=== PATIENT | male | born 1960 | race Caucasian/White ===

== ENCOUNTER → 2019-11-28 08:25 | Outpatient (BNVA) | payer OTHER, SELFPAY | PROVIDERS: PCP Family Medicine; Referring Provider Family Medicine; Visit Provider Internal Medicine | DX: I26.99 Other pulmonary embolism without acute cor pulmonale (principal); Z51.81 Encounter for therapeutic drug level monitoring; Z79.01 Long term (current) use of anticoagulants | CPT/HCPCS: 93793 ==

== ENCOUNTER → 2019-12-29 10:01 | Outpatient (BNVA) | payer OTHER, SELFPAY | PROVIDERS: PCP Family Medicine; Visit Provider Internal Medicine | DX: Z76.89 Persons encountering health services in other specified circumstances (principal) ==

== ENCOUNTER → 2020-01-16 14:46 | Outpatient (BNVA) | payer MEDICARE, SELFPAY | PROVIDERS: PCP Family Medicine; Visit Provider Internal Medicine | DX: I26.99 Other pulmonary embolism without acute cor pulmonale (principal); Z51.81 Encounter for therapeutic drug level monitoring; Z79.01 Long term (current) use of anticoagulants | CPT/HCPCS: Q3014 ==

== ENCOUNTER → 2020-01-23 14:05 | Outpatient (BNVA) | payer OTHER, SELFPAY | PROVIDERS: PCP Family Medicine; Referring Provider Family Medicine; Visit Provider Internal Medicine | DX: Z76.89 Persons encountering health services in other specified circumstances (principal) ==

== ENCOUNTER → 2020-01-24 07:54 | Outpatient (BNV) | payer OTHER, SELFPAY | PROVIDERS: PCP Family Medicine; Visit Provider Internal Medicine Medical Oncology | DX: Z86.711 Personal history of pulmonary embolism (principal); Z86.718 Personal history of other venous thrombosis and embolism | CPT/HCPCS: 99213; 99214 ==

== ENCOUNTER 2020-02-02 11:10 | Outpatient (REF) | payer OTHER, SELFPAY | END 2020-02-02 11:11 | disposition home or self-care (01) | LOC: HO.WFDLDS 11:10 | PROVIDERS: PCP Family Medicine; Visit Provider Internal Medicine | DX: Z20.828 Contact with and (suspected) exposure to other viral communicable diseases (principal) | CPT/HCPCS: C9803; U0003 ==

== ENCOUNTER → 2020-02-09 13:19 | Outpatient (BNVA) | payer OTHER, SELFPAY | PROVIDERS: PCP Family Medicine; Visit Provider Internal Medicine | DX: I26.99 Other pulmonary embolism without acute cor pulmonale (principal); Z51.81 Encounter for therapeutic drug level monitoring; Z79.01 Long term (current) use of anticoagulants | CPT/HCPCS: Q3014 ==

== ENCOUNTER → 2020-02-20 16:44 | Outpatient (BNVA) | payer OTHER, SELFPAY | PROVIDERS: PCP Family Medicine; Visit Provider Internal Medicine | DX: I26.99 Other pulmonary embolism without acute cor pulmonale (principal); Z51.81 Encounter for therapeutic drug level monitoring; Z79.01 Long term (current) use of anticoagulants | CPT/HCPCS: Q3014 ==

== ENCOUNTER 2020-02-21 04:11 | Emergency (ER) | payer OTHER, SELFPAY ==
[2020-02-21 04:19] VITALS: BP 142/78; PULSE 69; RESP 18; TEMP 36.6; O2SAT 95; BMI 36.9
[2020-02-21 04:32] LABS: Glucose Urine UA NEG (NEG); Leukocyte Esterase Urine NEG (NEG); Nitrite Urine NEG (NEG); Urine Blood 3+ (NEG); Urine Ketones NEG (NEG); Urine Protein 2+ MG/DL (NEG-TRACE)
--- NOTE | 2020-02-21 04:33 | PC.NURSE ---
20G TO RIGHT AC. PT FERNANDO WELL NO COMPLICATIONS
[2020-02-21 04:37] LABS: Appearance Urine CLOUDY; Color Urine RED
[2020-02-21 04:43] LABS: RBC Urine TNTC /HPF (0); Squamous Epithelial Cell Urine TRACE /LPF; WBC Urine 0 /HPF (0-4)
[2020-02-21 05:40] LABS: Basophils Percent Auto 0.4 % (0-2); Eosinophils Absolute Auto 0.2 X10*3/uL (0.0-0.4); Eosinophils Percent Auto 2.8 % (0-4); Hematocrit 46.5 % (42-52); Hemoglobin 14.9 g/dl (14.0-18.0); Imm Gran Abs Auto 0.03 X10*3/uL (0.00-0.03); Imm Gran Pct Auto 0.4 % (0.0-0.4); Lymphocytes Absolute Auto 2.8 X10*3/uL (1.2-4.9); Lymphocytes Percent Auto 41.4 % (20-40); MANUAL DIFF FLAG NO; Mean Corpuscular Volume 93.6 fL (80-98); Mean Platelet Volume 10.2 fL (9.4-12.4); Monocytes Absolute Auto 0.4 X10*3/uL (0.1-1.2); Monocytes Percent Auto 6.6 % (2-11); Neutrophils Absolute Auto 3.2 X10*3/uL (2.0-8.3); Neutrophils Percent Auto 48.4 % (45-73); Platelet Count 175 X10*3/uL (160-400); Red Blood Count 4.97 X10*6/uL (4.60-5.80); Red Cell Distribution Width 12.4 % (11.0-16.0); White Blood Count 6.7 X10*3/uL (4.8-10.8)
--- NOTE | 2020-02-21 05:44 | ED_ITS ---
HPI - Male Genitourinary General Chief complaint: Urogenital-Male Stated complaint: Flank pain Time Seen by Provider: 02/21/20 05:23 Source: patient Mode of arrival: ambulatory History of Present Illness HPI Narrative: This is a 59 year male who presents acute onset right flank pain, sharp, nonradiating this started at approximately 9:00 p.m. last night associated with nausea but denies any vomiting, fevers, chills and states there are no exacerbating or alleviating symptoms. Patient states that he noticed blood in urine but denies any difficulty with burning or pain on urination. Otherwise, patient has no other complaints. Related Data Home Medications Medication Instructions Recorded Confirmed amitriptyline 1 tab PO BEDTIME 01/24/20 02/20/20 buprenorphine-naloxone [Suboxone] 2 strip SUBLINGUAL DAILY 01/24/20 02/20/20 colchicine 1 tab PO Q12H 01/24/20 02/20/20 lisinopril 1 tab PO DAILY 01/24/20 02/20/20 metformin 1 tab PO BID 01/24/20 02/20/20 Previous Rx's Medication Instructions Recorded warfarin 7.5 mg tablet 7.5 mg PO DAILY #90 tab 11/28/19 cholecalciferol (vitamin D3) 25 1,000 unit PO DAILY #30 tab 01/05/20 mcg (1,000 unit) tablet tamsulosin [Flomax] 0.4 mg PO BEDTIME #4 cap 02/21/20 Allergies Allergy/AdvReac Type Severity Reaction Status Date / Time N.K.D.A. Allergy Unknown NONE Uncoded 11/28/19 10:13 Review of Systems Review of Systems: Pertinent positives and negatives as stated in HPI 10 point review of systems is otherwise negative. PMFSH Past Medical History Source: nursing notes reviewed Social History Social History Advance Directives: No Advance Directives Information Provided: No Physical Exam Vital Signs: Vital Signs: Last Vital Signs Temp 97.9 F 02/21/20 04:19 Pulse 69 02/21/20 04:19 Resp 18 02/21/20 04:19 BP 142/78 H 02/21/20 04:19 Pulse Ox 95 02/21/20 04:19 Body Mass Index 36.9 VITAL SIGNS: Reviewed. GENERAL: Well developed, well nourished, in no acute distress. HEAD: Normocephalic/atraumatic, EYES: PERRLA, EOMI intact without pain, NOSE: Nares patent bilateral OROPHARYNX: no oral lesions noted, posterior pharynx clear and non-erythematous without noted tonsillar enlargement/erythema/exudates NECK: Supple, no adenopathy LUNGS: Normal breath sounds. No adventitious sounds or accessory muscle use. S pO2<95> CARDIOVASCULAR: Regular rate and rhythm without noted murmurs, no JVD or lower extremity edema. ABDOMEN: Soft, tenderness without rebound at right flank and no evidence of erythema or fluctuance at the site, non-distended with bowel sounds. No rigidity. No guarding. No palpable masses or hernias noted NEUROLOGIC: Alert and oriented x 4. Course Course Course Narrative: This is a 59-year-old male with history and clinical presentation suggestive of possible renal colic and less likely UTI or diverticulitis or appendicitis. Review of all investigations hematuria with CT evidence mild right-sided hydronephrosis and a 0.4 cm calculus near the UVJ. Otherwise, there are no other acute findings and patient's pain resolved after receiving pain medication he is currently asymptomatic. All results and findings were discussed with him at bedside and he was instructed to follow-up with urology and will be started on Flomax. He was encouraged to drink plenty of fluids and given strict return precautions regarding no improvement of his hematuria. [facility] [place] - Male Genitourinary Lab Data Result diagrams: 02/21/20 05:37 02/21/20 05:37 Labs: Lab Results 02/21/20 02/21/20 02/21/20 Range/Units 04:26 05:37 05:37 WBC 6.7 (4.8-10.8) X10*3/uL RBC 4.97 (4.60-5.80) X10*6/uL Hgb 14.9 (14.0-18.0) g/dl Hct 46.5 (42-52) % MCV 93.6 (80-98) fL MCH 30.0 (27.0-33.0) pg MCHC 32.0 (31.0-36.0) g/dl RDW 12.4 (11.0-16.0) % Plt Count 175 (160-400) X10*3/uL MPV 10.2 (9.4-12.4) fL Immature Gran % (Auto) 0.4 (0.0-0.4) % Neut % (Auto) 48.4 (45-73) % Lymph % (Auto) 41.4 H (20-40) % [place] % (Auto) 6.6 (2-11) % Eos % (Auto) 2.8 (0-4) % Baso % (Auto) 0.4 (0-2) % Lymph # (Auto) 2.8 (1.2-4.9) X10*3/uL [place] # (Auto) 0.4 (0.1-1.2) X10*3/uL Eos # (Auto) 0.2 (0.0-0.4) X10*3/uL Baso # (Auto) 0.0 (0.0-0.2) X10*3/uL Abs Immat Gran (auto) 0.03 (0.00-0.03) X10*3/uL Absolute Neuts (auto) 3.2 (2.0-8.3) X10*3/uL Absolute Nucleated RBC 0.000 (0.0-0.012) X10*3/uL Nucleated RBC % (auto) 0.0 (0.0-0.2) /100WBC PT (10.8-13.0) SEC INR (0.9-1.1) Sodium 143 (135-145) mmol/L Potassium 4.0 (3.3-5.1) mmol/l Chloride 104 (96-108) mmol/L Carbon Dioxide 26 (22-29) mmol/L Anion Gap 17 (12-20) BUN 15 (9-16) mg/dL Creatinine 0.97 (0.5-1.4) mg/dL Estim Creat Clear Calc 113.1 Estimated GFR > 60 Random Glucose 92 (60-115) mg/dL Calcium 9.1 (8.4-10.2) mg/dL Total Bilirubin 0.4 (0.0-1.0) mg/dL AST 31 (5-37) U/L ALT 58 H (0-40) U/L Alkaline Phosphatase 76 (39-117) U/L Total Protein 7.7 (6.5-8.0) g/dL Albumin 4.7 (3.5-5.0) g/dL Urine Color RED Urine Appearance CLOUDY Urine pH 5.0 (5.0-8.0) Ur Specific [place] 1.020 (1.005-1.025) Urine Protein 2+ H (NEG-TRACE) MG/DL Urine Glucose (UA) NEG (NEG) MG/DL Urine Ketones NEG (NEG) MG/DL Urine Blood 3+ H (NEG) Urine Nitrite NEG (NEG) Ur Leukocyte Esterase NEG (NEG) Urine RBC TNTC H (0) /HPF Urine WBC 0 (0-4) /HPF Ur Squamous Epith Cells TRACE /LPF Urine Bacteria NONE /LPF Urine Yeast TRACE /HPF 02/21/20 Range/Units 05:49 WBC (4.8-10.8) X10*3/uL RBC (4.60-5.80) X10*6/uL Hgb (14.0-18.0) g/dl Hct (42-52) % MCV (80-98) fL MCH (27.0-33.0) pg MCHC (31.0-36.0) g/dl RDW (11.0-16.0) % Plt Count (160-400) X10*3/uL MPV (9.4-12.4) fL Immature Gran % (Auto) (0.0-0.4) % Neut % (Auto) (45-73) % Lymph % (Auto) (20-40) % [place] % (Auto) (2-11) % Eos % (Auto) (0-4) % Baso % (Auto) (0-2) % Lymph # (Auto) (1.2-4.9) X10*3/uL [place] # (Auto) (0.1-1.2) X10*3/uL Eos # (Auto) (0.0-0.4) X10*3/uL Baso # (Auto) (0.0-0.2) X10*3/uL Abs Immat Gran (auto) (0.00-0.03) X10*3/uL Absolute Neuts (auto) (2.0-8.3) X10*3/uL Absolute Nucleated RBC (0.0-0.012) X10*3/uL Nucleated RBC % (auto) (0.0-0.2) /100WBC PT 27.2 H (10.8-13.0) SEC INR 2.3 H (0.9-1.1) Sodium (135-145) mmol/L Potassium (3.3-5.1) mmol/l Chloride (96-108) mmol/L Carbon Dioxide (22-29) mmol/L Anion Gap (12-20) BUN (9-16) mg/dL Creatinine (0.5-1.4) mg/dL Estim Creat Clear Calc Estimated GFR Random Glucose (60-115) mg/dL Calcium (8.4-10.2) mg/dL Total Bilirubin (0.0-1.0) mg/dL AST (5-37) U/L ALT (0-40) U/L Alkaline Phosphatase (39-117) U/L Total Protein (6.5-8.0) g/dL Albumin (3.5-5.0) g/dL Urine Color Urine Appearance Urine pH (5.0-8.0) Ur Specific [place] (1.005-1.025) Urine Protein (NEG-TRACE) MG/DL Urine Glucose (UA) (NEG) MG/DL Urine Ketones (NEG) MG/DL Urine Blood (NEG) Urine Nitrite (NEG) Ur Leukocyte Esterase (NEG) Urine RBC (0) /HPF Urine WBC (0-4) /HPF Ur Squamous Epith Cells /LPF Urine Bacteria /LPF Urine Yeast /HPF Discharge Plan Discharge Clinical Impression: Ureterolithiasis Hematuria Qualifiers: Hematuria type: gross Qualified Code(s): R31.0 - Gross hematuria Patient Disposition: Home, Self-Care Instructions: Kidney Stones (ED), Hematuria (ED) Additional Instructions: 1. Tylenol 1000 mg, orally, every 6 hours as needed for pain control. Do not exceed 4000 mg within 24 hours. 2. Please increase fluid hydration to help your kidneys flush the stone as well as the blood in your urine. Please do not hesitate to return to this emergency department if your urine does not continue to improve in color. 3. Please call the office of the urologist which is listed below. Prescriptions: New tamsulosin [Flomax] 0.4 mg capsule 0.4 mg PO BEDTIME Qty: 4 RF: 0 No Action cholecalciferol (vitamin D3) 25 mcg (1,000 unit) tablet 1,000 unit PO DAILY Qty: 30 RF: 2 metformin 500 mg tablet 1 tab PO BID RF: 0 amitriptyline 10 mg tablet 1 tab PO BEDTIME RF: 0 lisinopril 5 mg tablet 1 tab PO DAILY RF: 0 colchicine 0.6 mg tablet 1 tab PO Q12H RF: 0 buprenorphine-naloxone [Suboxone] 8-2 mg film 2 strip sublingual DAILY RF: 0 warfarin 7.5 mg tablet 7.5 mg PO DAILY Qty: 90 RF: 0 Referrals: Jarrod Watkins MD [Physician] - 2 days (Please evaluate and treat this gentleman who has a 0.4 cm stone with noted hematuria currently on Coumadin with an INR-2.3 patient was started on Flomax) Mohsen Tidwell MD [Primary Care Provider] - 2 days (Re-evaluation and outpatient management in conjunction with Urology for noted nephrolithiasis and hematuria with INR at a therapeutic range-2.3.)
--- NOTE | 2020-02-21 05:47 | CT_ITS ---
EXAMINATION: CT ABDOMEN AND PELVIS WITH CONTRAST CLINICAL INFORMATION: Right flank pain COMPARISON: 03/16/2013 TECHNIQUE: Multidetector volumetric images were obtained from the superior aspect of the liver through the pubic symphysis following administration 85 mL of Omnipaque 350 intravenous contrast. Sagittal and coronal reformatted images were obtained on the technologist's workstation. Oral contrast: No This CT examination was performed using dose optimization techniques as appropriate, variously including the following: *Automated exposure control *Adjustment of mA and/or kV according to patient size (this includes techniques or standardized protocols for targeted exams where dose is matched to indication/reason for exam; i.e. extremities or head) *Use of iterative reconstruction technique DLP: 1005 mGy-cm FINDINGS: LUNG BASES: The visualized lung bases are unremarkable. LIVER, GALLBLADDER, AND BILIARY TREE: The liver is normal in size and shape with decreased attenuation. No focal hepatic lesion or biliary ductal dilatation is present. The gallbladder is unremarkable with no evidence of radiopaque gallstones, gallbladder wall thickening, or obvious pericholecystic inflammatory changes. PANCREAS: Unremarkable. SPLEEN: Unremarkable. ADRENAL GLANDS: The left adrenal gland is unremarkable. There is a 1.8 cm right adrenal gland nodule which was previously evaluated and consistent with an adenoma. This is increased in size from 1.2 cm on the 2014 study. KIDNEYS AND URETERS: The kidneys are normal in size, shape, and attenuation. There is mild right hydronephrosis. There is a 0.4 cm calculus near the right ureteropelvic junction, 17 cm from the posterior axillary line. There is a right upper pole 0.4 cm calculus which is 14 cm from the posterior axillary line. No left-sided calculi. The right ureter is decompressed. BLADDER: Unremarkable. GASTROINTESTINAL TRACT: The small and large bowel are unremarkable. The appendix is unremarkable. ABDOMINAL WALL: No significant hernia is appreciated. LYMPH NODES: Normal. VASCULAR: Normal caliber aorta with mild atherosclerotic calcifications. PELVIC VISCERA: The prostate and seminal vesicles are unremarkable. OSSEOUS STRUCTURES: No acute or suspicious osseous abnormality. Degenerative changes of the spine and hips. CT/CT abdomen pelvis w con IMPRESSION: Mild right hydronephrosis with a 0.4 cm calculus near the ureteropelvic junction. Additional nonobstructing right upper pole renal calculus. Hepatic steatosis. Enlarging right adrenal adenoma.
--- NOTE | 2020-02-21 05:48 | ECG_ITS ---
Test Reason : ABD PAIN Blood Pressure : / mmHG Vent. Rate : 067 BPM Atrial Rate : 067 BPM P-R Int : 194 ms QRS Dur : 098 ms QT Int : 420 ms P-R-T Axes : 064 020 043 degrees QTc Int : 443 ms Normal sinus rhythm Low voltage QRS Incomplete right bundle branch block Borderline ECG When compared with ECG of 02-SEP-2019 10:36, No significant change was found Referred By: Jennifer Castillo Electronically Signed By:AGUS GARCIA
[2020-02-21 06:03] LABS: INTERNATIONAL NORM RATIO 2.3 (0.9-1.1); Prothrombin Time 27.2 SEC (10.8-13.0)
[2020-02-21 06:03] LABS: Alanine Aminotransferase 58 U/L (0-40); Albumin Level 4.7 g/dL (3.5-5.0); Alkaline Phosphatase 76 U/L (39-117); Anion Gap 17 (12-20); Aspartate Amino Transferase 31 U/L (5-37); Bilirubin Total 0.4 mg/dL (0.0-1.0); Blood Urea Nitrogen 15 mg/dL (9-16); Calcium 9.1 mg/dL (8.4-10.2); Carbon Dioxide 26 mmol/L (22-29); Chloride 104 mmol/L (96-108); Creatinine Clr Calc Pharmacy 113.1; Estimated Glomerular Filt Rate > 60; Glucose Random 92 mg/dL (60-115); Sodium 143 mmol/L (135-145); Total Protein 7.7 g/dL (6.5-8.0)
[2020-02-21] MEDS: 0.9 % Sodium Chloride 1,000 ML 999 ML IV (06:25)
[2020-02-21] MEDS: oxyCODONE HCl Immed Release 5 MG TABLET PO (06:26)
[2020-02-21] MEDS: ondansetron HCL 4 MG/2 ML VIAL IVPUSH (06:26)
[2020-02-21] MEDS: Acetaminophen 325 MG TABLET 975 MG PO (06:28)
[2020-02-21] MEDS: iohexoL 350 MG/ML 100 ML INFUS..BTL IV (06:54)
== END 2020-02-21 08:06 | disposition home or self-care (01) ==
PROVIDERS: Emergency Provider Student in an Organized Health Care Education/Training Program; PCP Family Medicine
DX: N20.1 Calculus of ureter (principal); R31.0 Gross hematuria; R10.9 Unspecified abdominal pain; R11.0 Nausea; Z79.899 Other long term (current) drug therapy; Z79.01 Long term (current) use of anticoagulants
CPT/HCPCS: 36415; 74177; 80053; 81001; 85025; 85610; 93005; 96361; 96374; 99283; 99284; J2405; Q9967

== ENCOUNTER → 2020-02-29 13:48 | Outpatient (BNVA) | payer OTHER, SELFPAY | PROVIDERS: PCP Hospitalist; Visit Provider Urology | DX: N13.2 Hydronephrosis with renal and ureteral calculous obstruction (principal); C67.9 Malignant neoplasm of bladder, unspecified | CPT/HCPCS: 81002; 99212 ==

== ENCOUNTER → 2020-03-07 11:21 | Outpatient (BNVA) | payer OTHER, SELFPAY | PROVIDERS: Visit Provider Internal Medicine | DX: Z76.89 Persons encountering health services in other specified circumstances (principal) ==

== ENCOUNTER → 2020-03-08 14:22 | Outpatient (BNVA) | payer OTHER, SELFPAY | PROVIDERS: PCP Family Medicine; Visit Provider Urology | DX: N13.2 Hydronephrosis with renal and ureteral calculous obstruction (principal); C67.9 Malignant neoplasm of bladder, unspecified | CPT/HCPCS: 99212 ==

== ENCOUNTER 2020-03-15 08:13 | Outpatient (REF) | payer OTHER, SELFPAY ==
[2020-03-15 09:55] LABS: PSA,Total (Free>4and<10) 0.26 ng/mL (0.00-4.00)
== END 2020-03-15 08:14 | disposition home or self-care (01) ==
LOC: HO.LAB 08:13
PROVIDERS: PCP Family Medicine; Visit Provider Urology
DX: N40.1 Benign prostatic hyperplasia with lower urinary tract symptoms (principal); Z12.5 Encounter for screening for malignant neoplasm of prostate
CPT/HCPCS: 36415; 84153

== ENCOUNTER → 2020-03-22 08:30 | Outpatient (BNVA) | payer OTHER, SELFPAY | PROVIDERS: PCP Family Medicine; Visit Provider Urology | DX: C67.9 Malignant neoplasm of bladder, unspecified (principal) | CPT/HCPCS: 52000; 81002; 99212 ==

== ENCOUNTER → 2020-04-10 07:58 | Outpatient (BNVA) | payer OTHER, SELFPAY | PROVIDERS: PCP Family Medicine; Visit Provider Internal Medicine ==

== ENCOUNTER → 2020-04-27 14:52 | Outpatient (BNVA) | payer OTHER, SELFPAY | PROVIDERS: PCP Family Medicine; Visit Provider Internal Medicine ==

== ENCOUNTER → 2020-05-11 10:10 | Outpatient (BNVA) | payer OTHER, SELFPAY | PROVIDERS: PCP Family Medicine; Visit Provider Internal Medicine ==

== ENCOUNTER → 2020-05-25 11:51 | Outpatient (BNVA) | payer OTHER, SELFPAY | PROVIDERS: PCP Family Medicine; Visit Provider Internal Medicine | DX: I26.99 Other pulmonary embolism without acute cor pulmonale (principal); Z79.01 Long term (current) use of anticoagulants; Z51.81 Encounter for therapeutic drug level monitoring | CPT/HCPCS: Q3014 ==

== ENCOUNTER → 2020-06-08 13:46 | Outpatient (BNVA) | payer OTHER, SELFPAY | PROVIDERS: PCP Family Medicine; Visit Provider Internal Medicine ==

== ENCOUNTER 2020-06-18 08:09 | Outpatient (REF) | payer OTHER, SELFPAY ==
--- NOTE | ~2020-06-18 | XR_ITS ---
EXAMINATION: XR SHOULDER, LEFT CLINICAL INFORMATION: Pain COMPARISON: Previous x-ray February 2016 TECHNIQUE: Three views of the left shoulder. FINDINGS: Bone alignment is normal. No acute fracture or dislocation is seen. There is arthritis at the glenohumeral and acromioclavicular joints with joint space narrowing and osteophyte formation. There is a large osteophyte projecting off the inferior humerus. There may be an old left second rib fracture that is unchanged. Soft tissues are unremarkable. XR/XR shoulder LT min 2V IMPRESSION: Arthritis at the glenohumeral and acromioclavicular joints increased from 2017.
== END 2020-06-18 08:10 | disposition home or self-care (01) ==
LOC: HO.HOSX 08:09
PROVIDERS: Visit Provider Orthopaedic Surgery
DX: M19.012 Primary osteoarthritis, left shoulder (principal); Z79.01 Long term (current) use of anticoagulants
CPT/HCPCS: 20610; 73030; 99202; J1100

== ENCOUNTER → 2020-06-22 09:49 | Outpatient (BNVA) | payer OTHER, SELFPAY | PROVIDERS: PCP Family Medicine; Visit Provider Internal Medicine ==

== ENCOUNTER → 2020-07-06 14:47 | Outpatient (BNVA) | payer OTHER, SELFPAY | PROVIDERS: PCP Family Medicine; Visit Provider Internal Medicine ==

== ENCOUNTER → 2020-07-20 11:27 | Outpatient (BNVA) | payer OTHER, SELFPAY | PROVIDERS: PCP Family Medicine; Visit Provider Internal Medicine ==

== ENCOUNTER → 2020-08-07 14:58 | Outpatient (BNVA) | payer OTHER, SELFPAY | PROVIDERS: PCP Family Medicine; Visit Provider Internal Medicine ==

== ENCOUNTER → 2020-08-17 10:44 | Outpatient (BNVA) | payer OTHER, SELFPAY | PROVIDERS: PCP Family Medicine; Referring Provider Family Medicine; Visit Provider Surgery | DX: M62.08 Separation of muscle (nontraumatic), other site (principal) | CPT/HCPCS: 99202 ==

== ENCOUNTER → 2020-08-22 08:43 | Outpatient (BNVA) | payer OTHER, SELFPAY | PROVIDERS: PCP Family Medicine; Visit Provider Internal Medicine | DX: I26.99 Other pulmonary embolism without acute cor pulmonale (principal) | CPT/HCPCS: Q3014 ==

== ENCOUNTER → 2020-09-04 10:28 | Outpatient (BNVA) | payer OTHER, SELFPAY | PROVIDERS: PCP Family Medicine; Visit Provider Internal Medicine ==

== ENCOUNTER → 2020-09-17 09:14 | Outpatient (BNVA) | payer OTHER, SELFPAY | PROVIDERS: PCP Family Medicine; Visit Provider Internal Medicine ==

== ENCOUNTER → 2020-10-03 10:56 | Outpatient (BNVA) | payer OTHER, SELFPAY | PROVIDERS: PCP Family Medicine; Visit Provider Internal Medicine ==

== ENCOUNTER → 2020-10-16 13:35 | Outpatient (BNVA) | payer OTHER, SELFPAY | PROVIDERS: PCP Family Medicine; Visit Provider Internal Medicine ==

== ENCOUNTER → 2020-10-30 15:08 | Outpatient (BNVA) | payer OTHER, SELFPAY | PROVIDERS: PCP Family Medicine; Visit Provider Internal Medicine ==

== ENCOUNTER → 2020-11-14 09:21 | Outpatient (BNVA) | payer OTHER, SELFPAY | PROVIDERS: PCP Family Medicine; Visit Provider Internal Medicine | DX: Z13.89 Encounter for screening for other disorder (principal) | CPT/HCPCS: Q3014 ==

== ENCOUNTER → 2020-11-20 11:37 | Outpatient (BNVA) | payer OTHER, SELFPAY | PROVIDERS: PCP Family Medicine; Visit Provider Internal Medicine ==

== ENCOUNTER → 2020-12-05 13:45 | Outpatient (BNVA) | payer OTHER, SELFPAY | PROVIDERS: PCP Family Medicine; Visit Provider Internal Medicine | DX: I26.99 Other pulmonary embolism without acute cor pulmonale (principal) | CPT/HCPCS: Q3014 ==

== ENCOUNTER → 2020-12-18 14:03 | Outpatient (BNVA) | payer OTHER, SELFPAY | PROVIDERS: PCP Family Medicine; Visit Provider Internal Medicine ==

== ENCOUNTER → 2021-01-01 15:31 | Outpatient (BNVA) | payer OTHER, SELFPAY | PROVIDERS: PCP Family Medicine; Visit Provider Internal Medicine | DX: I26.99 Other pulmonary embolism without acute cor pulmonale (principal); Z51.81 Encounter for therapeutic drug level monitoring; Z79.01 Long term (current) use of anticoagulants | CPT/HCPCS: Q3014 ==

== ENCOUNTER → 2021-01-09 09:41 | Outpatient (BNVA) | payer OTHER, SELFPAY | PROVIDERS: PCP Family Medicine; Visit Provider Internal Medicine | DX: I26.99 Other pulmonary embolism without acute cor pulmonale (principal); Z51.81 Encounter for therapeutic drug level monitoring; Z79.01 Long term (current) use of anticoagulants | CPT/HCPCS: 85610; 99211 ==

== ENCOUNTER 2021-01-15 06:01 | Outpatient (REF) | payer OTHER, SELFPAY ==
[2021-01-15 08:09] LABS: PSA,Total (Free>4and<10) 0.26 ng/mL (0.00-4.00)
== END 2021-01-15 06:02 | disposition home or self-care (01) ==
LOC: HO.LAB 06:01
PROVIDERS: PCP Family Medicine; Visit Provider Urology
DX: Z12.5 Encounter for screening for malignant neoplasm of prostate (principal)
CPT/HCPCS: 36415; 84153

== ENCOUNTER → 2021-01-31 11:41 | Outpatient (BNVA) | payer OTHER, SELFPAY | PROVIDERS: PCP Family Medicine; Visit Provider Internal Medicine | DX: I26.99 Other pulmonary embolism without acute cor pulmonale (principal) | CPT/HCPCS: Q3014 ==

== ENCOUNTER → 2021-02-07 14:14 | Outpatient (BNVA) | payer OTHER, SELFPAY | PROVIDERS: PCP Family Medicine; Visit Provider Internal Medicine | DX: I26.99 Other pulmonary embolism without acute cor pulmonale (principal); Z51.81 Encounter for therapeutic drug level monitoring; Z79.01 Long term (current) use of anticoagulants | CPT/HCPCS: Q3014 ==

== ENCOUNTER → 2021-02-26 13:43 | Outpatient (BNVA) | payer OTHER, SELFPAY | PROVIDERS: PCP Family Medicine; Visit Provider Internal Medicine ==

== ENCOUNTER 2021-02-27 09:55 | Outpatient (REF) | payer OTHER, SELFPAY ==
[2021-02-27 11:21] LABS: Influenza A PCR NEGATIVE (Negative); Influenza B PCR NEGATIVE (Negative); Resp Syncy Virus RNA Qual PCR NEGATIVE (Negative); SARS COV2 PCR INHOUSE NEGATIVE (Negative)
== END 2021-02-27 09:56 | disposition home or self-care (01) ==
LOC: HO.LAB 09:55
PROVIDERS: Visit Provider Hospitalist
DX: R51.9 Headache, unspecified (principal); Z20.822 Contact with and (suspected) exposure to COVID-19
CPT/HCPCS: 0241U

== ENCOUNTER → 2021-03-11 08:09 | Outpatient (BNVA) | payer OTHER, SELFPAY | PROVIDERS: PCP Family Medicine; Visit Provider Internal Medicine | DX: I26.99 Other pulmonary embolism without acute cor pulmonale (principal); Z51.81 Encounter for therapeutic drug level monitoring; Z79.01 Long term (current) use of anticoagulants | CPT/HCPCS: Q3014 ==

== ENCOUNTER → 2021-03-20 15:50 | Outpatient (BNVA) | payer OTHER, SELFPAY | PROVIDERS: PCP Family Medicine; Visit Provider Internal Medicine | DX: I26.99 Other pulmonary embolism without acute cor pulmonale (principal); Z51.81 Encounter for therapeutic drug level monitoring; Z79.01 Long term (current) use of anticoagulants | CPT/HCPCS: Q3014 ==

== ENCOUNTER → 2021-03-27 13:17 | Outpatient (BNVA) | payer OTHER, SELFPAY | PROVIDERS: PCP Family Medicine; Visit Provider Internal Medicine | DX: Z13.89 Encounter for screening for other disorder (principal) ==

== ENCOUNTER → 2021-04-17 13:10 | Outpatient (BNVA) | payer OTHER, SELFPAY | PROVIDERS: PCP Family Medicine Adult Medicine; Visit Provider Internal Medicine | DX: Z13.89 Encounter for screening for other disorder (principal) ==

== ENCOUNTER 2021-04-22 07:06 | Outpatient (REF) | payer OTHER, SELFPAY ==
--- NOTE | ~2021-04-22 | CT_ITS ---
EXAMINATION: CT CHEST SCREENING CLINICAL INFORMATION: Personal history of nicotine dependence. COMPARISON: CT chest 10/27/2019. TECHNIQUE: Multidetector volumetric CT imaging of the chest is performed without contrast using low dose technique. Additional 2D coronal and sagittal reformatted images and axial 3D maximum intensity projection (MIP) images are generated on the CT workstation. This CT examination was performed using dose optimization techniques as appropriate, variously including the following: *Automated exposure control *Adjustment of mA and/or kV according to patient size (this includes techniques or standardized protocols for targeted exams where dose is matched to indication/reason for exam; i.e. extremities or head) *Use of iterative reconstruction technique DLP: 381 mGy-cm FINDINGS: LUNGS: The lungs are well expanded with right subpleural thickening and parenchymal haziness in right upper lobe posterior segment. It is similar to previous study. Previously visualized right lower lobe medial segment parenchymal haziness has resolved. There is a new subpleural 4 mL nodule or density in the right lower lobe axial image 411/6. No additional nodule seen. MEDIASTINUM: The thyroid lobes are symmetrical and normal. Central trachea and the bronchi are widely patent. No abnormal size mediastinal or hilar lymph node seen. There is no pericardial effusion. No coronary artery calcification seen. PLEURA: There is no pleural effusion. No pleural mass or thickening. AXILLA: No lymphadenopathy. UPPER ABDOMEN: Visualized liver, spleen, pancreas and bilateral adrenal glands unremarkable. There is a 1.9 cm right adrenal lesion. Previously it measured 1.7 cm. There is a 4 mm radiopaque calculi upper/midpole right kidney. It was not included on the [id number] on the previous CT exam. OSSEOUS STRUCTURES: There is moderate ventral spondylosis mid and lower dorsal spine. There is T7 hemangioma appearance, stable. There is a similar appearance of [address]/CT lung screening IMPRESSION: Right lower lobe medial segment parenchymal haziness has resolved. The right upper lobe subpleural thickening and parenchymal haziness adjacent to major fissure is stable. New subpleural 4 mm density or nodule is noted. No abnormal mediastinal or axillary lymphadenopathy. Right adrenal 1.9 cm lesion. Previously measured 1.7 cm. ASSESSMENT: Lung-RADS category 2: Benign Other S: 1.9 cm right adrenal adenoma. Minimal increase from 1.7 cm previous study. RECOMMENDATION: Low-dose annual CT chest
== END 2021-04-22 07:07 | disposition home or self-care (01) ==
LOC: HO.CT 07:06
PROVIDERS: PCP Family Medicine; Visit Provider Physician Assistant Medical
DX: Z87.891 Personal history of nicotine dependence (principal)
CPT/HCPCS: 71271

== ENCOUNTER → 2021-04-29 08:52 | Outpatient (BNVA) | payer OTHER, SELFPAY | PROVIDERS: PCP Family Medicine; Visit Provider Internal Medicine | DX: I26.99 Other pulmonary embolism without acute cor pulmonale (principal) | CPT/HCPCS: Q3014 ==

== ENCOUNTER → 2021-05-14 09:23 | Outpatient (BNVA) | payer OTHER, SELFPAY | PROVIDERS: PCP Family Medicine; Visit Provider Internal Medicine | DX: I26.99 Other pulmonary embolism without acute cor pulmonale (principal); Z51.81 Encounter for therapeutic drug level monitoring; Z79.01 Long term (current) use of anticoagulants | CPT/HCPCS: Q3014 ==

== ENCOUNTER → 2021-05-21 14:57 | Outpatient (BNVA) | payer OTHER, SELFPAY | PROVIDERS: PCP Family Medicine; Visit Provider Internal Medicine | DX: I26.99 Other pulmonary embolism without acute cor pulmonale (principal); Z51.81 Encounter for therapeutic drug level monitoring; Z79.01 Long term (current) use of anticoagulants | CPT/HCPCS: Q3014 ==

== ENCOUNTER → 2021-05-29 15:03 | Outpatient (BNVA) | payer OTHER, SELFPAY | PROVIDERS: PCP Family Medicine; Visit Provider Internal Medicine | DX: Z13.89 Encounter for screening for other disorder (principal) ==

== ENCOUNTER → 2021-06-04 15:06 | Outpatient (BNVA) | payer OTHER, SELFPAY | PROVIDERS: PCP Family Medicine; Visit Provider Internal Medicine | DX: Z13.89 Encounter for screening for other disorder (principal) ==

== ENCOUNTER → 2021-06-11 13:01 | Outpatient (BNVA) | payer OTHER, SELFPAY | PROVIDERS: PCP Family Medicine; Visit Provider Internal Medicine | DX: Z13.89 Encounter for screening for other disorder (principal) ==

== ENCOUNTER → 2021-06-26 09:49 | Outpatient (BNVA) | payer OTHER, SELFPAY | PROVIDERS: PCP Family Medicine; Visit Provider Internal Medicine | DX: Z13.89 Encounter for screening for other disorder (principal) ==

== ENCOUNTER → 2021-07-02 08:27 | Outpatient (BNVA) | payer OTHER, SELFPAY | PROVIDERS: PCP Family Medicine; Visit Provider Internal Medicine | DX: Z13.89 Encounter for screening for other disorder (principal) ==

== ENCOUNTER → 2021-07-09 13:12 | Outpatient (BNVA) | payer OTHER, SELFPAY | PROVIDERS: PCP Family Medicine; Visit Provider Internal Medicine | DX: I26.99 Other pulmonary embolism without acute cor pulmonale (principal); Z79.01 Long term (current) use of anticoagulants; Z51.81 Encounter for therapeutic drug level monitoring | CPT/HCPCS: Q3014 ==

== ENCOUNTER → 2021-07-18 15:23 | Outpatient (BNVA) | payer OTHER, SELFPAY | PROVIDERS: PCP Family Medicine Adult Medicine; Visit Provider Internal Medicine | DX: Z79.01 Long term (current) use of anticoagulants (principal) ==

== ENCOUNTER → 2021-08-27 10:52 | Outpatient (BNVA) | payer OTHER, SELFPAY | PROVIDERS: PCP Family Medicine Adult Medicine; Visit Provider Internal Medicine | DX: I26.99 Other pulmonary embolism without acute cor pulmonale (principal); Z51.81 Encounter for therapeutic drug level monitoring; Z79.01 Long term (current) use of anticoagulants | CPT/HCPCS: Q3014 ==

== ENCOUNTER 2021-12-06 12:47 | Outpatient (REF) | payer OTHER, SELFPAY ==
[2021-12-06 14:12] LABS: Alanine Aminotransferase 22 U/L (0-40); Aspartate Amino Transferase 20 U/L (5-37); Gamma Glutamyl Transpeptidase 22 U/L (11-51)
== END 2021-12-06 12:48 | disposition home or self-care (01) ==
LOC: HO.LAB 12:47
PROVIDERS: PCP Family Medicine; Visit Provider Family Medicine
DX: F11.20 Opioid dependence, uncomplicated (principal)
CPT/HCPCS: 36415; 82977; 84450; 84460

== ENCOUNTER → 2021-12-24 08:32 | Outpatient (BNVA) | payer OTHER, SELFPAY | PROVIDERS: PCP Family Medicine; Visit Provider Internal Medicine | DX: I26.99 Other pulmonary embolism without acute cor pulmonale (principal); Z79.01 Long term (current) use of anticoagulants; Z51.81 Encounter for therapeutic drug level monitoring | CPT/HCPCS: 85610; 99211 ==

== ENCOUNTER → 2022-02-18 16:02 | Outpatient (BNVA) | payer OTHER, SELFPAY | PROVIDERS: PCP Family Medicine; Visit Provider Internal Medicine | DX: Z79.01 Long term (current) use of anticoagulants (principal) ==

== ENCOUNTER → 2022-03-04 13:44 | Outpatient (BNVA) | payer OTHER, SELFPAY | PROVIDERS: PCP Family Medicine; Visit Provider Internal Medicine | DX: Z79.01 Long term (current) use of anticoagulants (principal) ==

== ENCOUNTER → 2022-03-18 14:26 | Outpatient (BNVA) | payer OTHER, SELFPAY | PROVIDERS: PCP Family Medicine; Visit Provider Internal Medicine | DX: Z79.01 Long term (current) use of anticoagulants (principal) ==

== ENCOUNTER → 2022-04-02 12:03 | Outpatient (BNVA) | payer OTHER, SELFPAY | PROVIDERS: PCP Family Medicine; Visit Provider Internal Medicine | DX: Z79.01 Long term (current) use of anticoagulants (principal) ==

== ENCOUNTER → 2022-04-15 13:58 | Outpatient (BNVA) | payer OTHER, SELFPAY | PROVIDERS: PCP Family Medicine; Visit Provider Internal Medicine | DX: Z79.01 Long term (current) use of anticoagulants (principal) ==

== ENCOUNTER → 2022-04-30 09:09 | Outpatient (BNVA) | payer OTHER, SELFPAY | PROVIDERS: PCP Family Medicine; Visit Provider Internal Medicine | DX: Z79.01 Long term (current) use of anticoagulants (principal) ==

== ENCOUNTER → 2022-05-13 10:22 | Outpatient (BNVA) | payer OTHER, SELFPAY | PROVIDERS: PCP Family Medicine; Visit Provider Internal Medicine | DX: Z79.01 Long term (current) use of anticoagulants (principal) ==

== ENCOUNTER → 2022-05-27 11:19 | Outpatient (BNVA) | payer OTHER, SELFPAY | PROVIDERS: PCP Family Medicine; Visit Provider Internal Medicine ==

== ENCOUNTER → 2022-06-10 11:57 | Outpatient (BNVA) | payer OTHER, SELFPAY | PROVIDERS: PCP Family Medicine; Visit Provider Internal Medicine ==

== ENCOUNTER 2022-06-19 07:30 | Outpatient (REF) | payer OTHER, SELFPAY ==
--- NOTE | ~2022-06-19 | CT_ITS ---
EXAMINATION: CT CHEST/LUNG SCREENING CLINICAL INFORMATION: Screening lung CT. 30-pack year history. Quit smoking 5 years ago. COMPARISON: 04/22/2021 and 10/27/2019. TECHNIQUE: Multidetector volumetric CT imaging of the chest is performed without contrast using low dose technique. Additional 2D coronal and sagittal reformatted images and axial 3D maximum intensity projection (MIP) images are generated on the CT workstation. This CT examination was performed using dose optimization techniques as appropriate, variously including the following: *Automated exposure control. *Adjustment of mA and/or kV according to patient size (this includes techniques or standardized protocols for targeted exams where dose is matched to indication/reason for exam; i.e. extremities or head). *Use of iterative reconstruction technique. DLP: 101 mGy-cm FINDINGS: LUNGS: Central airways are patent. There is some bronchial wall thickening seen bilaterally. No bronchiectasis. No confluent parenchymal disease is noted. There are some sub-4 mm scattered nodules seen. No significant emphysematous change is noted. There is some pleural-parenchymal disease present peripherally along the right chest wall in the region of the major fissure. This is a stable finding. No new suspicious lung nodules identified. MEDIASTINUM: The visualized thyroid gland appears unremarkable. Heart normal size. No pericardial effusion. No thoracic aortic aneurysm. No mediastinal or hilar lymphadenopathy is seen. CORONARY ARTERY CALCIFICATION: There is trace calcified plaque seen within the anterior descending left coronary artery. PLEURA: No pleural effusion. Stable pleural-parenchymal disease right chest laterally. AXILLA: No lymphadenopathy. UPPER ABDOMEN: There is diffuse fatty infiltration of the liver. There is a 4 mm nonobstructing right renal upper pole calculus. There is a 2.8 x 2.3 cm lipid-rich right adrenal gland nodule for which followup is not necessary. This has Hounsfield unit measurements of about -5. On prior study of 02/21/2020 this measured approximately 2.2 x 2.1 cm in size and on study of 11/16/2009 it measured 1.3 x 1.3 cm in size. OSSEOUS STRUCTURES: No suspicious destructive bony lesions identified. Hemangioma seen in T7. CT/CT lung screening IMPRESSION: 1. No suspicious lung nodules identified. 2. Right nephrolithiasis. 3. Enlarging right lipid-rich adrenal gland lesion increasing in size at a rate of less than 3 mm a year. Approximately 40% of adrenal gland lipid-rich nodules will grow over time. Recommend recheck of the adrenal gland size on a yearly low-dose screening chest CT. 4. Fatty infiltration of the liver. ASSESSMENT: Lung-RADS category 2: Benign. RECOMMENDATION: 1. Routine annual low-dose CT screening in 12 months. 2. Continued evaluation of right adrenal gland nodule at time of yearly screening CT of the chest. If no screening studies are performed in the future, then recommend followup CT abdomen in 3 years. Fleischner guidelines were followed.
== END 2022-06-19 07:31 | disposition home or self-care (01) ==
LOC: HO.CT 07:30
PROVIDERS: PCP Family Medicine; Visit Provider Physician Assistant Medical
DX: Z12.2 Encounter for screening for malignant neoplasm of respiratory organs (principal); Z87.891 Personal history of nicotine dependence
CPT/HCPCS: 71271

== ENCOUNTER → 2022-06-24 11:42 | Outpatient (BNVA) | payer OTHER, SELFPAY | PROVIDERS: PCP Family Medicine; Visit Provider Internal Medicine ==

== ENCOUNTER → 2022-07-08 12:40 | Outpatient (BNVA) | payer OTHER, SELFPAY | PROVIDERS: PCP Family Medicine; Visit Provider Internal Medicine ==

== ENCOUNTER → 2022-07-22 12:43 | Outpatient (BNVA) | payer OTHER, SELFPAY | PROVIDERS: PCP Family Medicine; Visit Provider Internal Medicine ==

== ENCOUNTER → 2022-08-07 10:29 | Outpatient (BNVA) | payer OTHER, SELFPAY | PROVIDERS: PCP Family Medicine; Visit Provider Internal Medicine ==

== ENCOUNTER 2022-08-09 07:12 | Outpatient (REF) | payer OTHER, SELFPAY ==
[2022-08-09 07:54] LABS: MANUAL DIFF FLAG NO
[2022-08-09 08:08] LABS: Basophils Percent Auto 0.5 % (0-2); Eosinophils Absolute Auto 0.2 X10*3/uL (0.0-0.4); Eosinophils Percent Auto 3.5 % (0-4); Hematocrit 45.9 % (42.0-52.0); Hemoglobin 14.5 g/dl (14.0-18.0); Imm Gran Abs Auto 0.02 X10*3/uL (0.00-0.03); Imm Gran Pct Auto 0.4 % (0.0-0.4); Lymphocytes Absolute Auto 2.1 X10*3/uL (1.2-4.9); Lymphocytes Percent Auto 37.9 % (20-40); Mean Corpuscular HGB Conc 31.6 g/dl (31.0-36.0); Mean Corpuscular Hemoglobin 29.1 pg (27.0-33.0); Mean Corpuscular Volume 92.2 fL (80.0-98.0); Mean Platelet Volume 9.5 fL (9.4-12.4); Monocytes Absolute Auto 0.4 X10*3/uL (0.1-1.2); Monocytes Percent Auto 7.4 % (2-11); Neutrophils Absolute Auto 2.8 x10*3/uL (2.0-8.3); Neutrophils Percent Auto 50.3 % (45-73); Platelet Count 178 X10*3/uL (160-400); Red Blood Count 4.98 X10*6/uL (4.60-5.80); Red Cell Distribution Width 12.7 % (11.0-16.0); White Blood Count 5.6 X10*3/uL (4.8-10.8)
[2022-08-09 08:29] LABS: D Dimer High Sensitivity < 150 NG/ML
[2022-08-09 08:38] LABS: Alanine Aminotransferase 23 U/L (0-40); Albumin Level 4.6 g/dL (3.5-5.0); Alkaline Phosphatase 75 U/L (39-117); Anion Gap 13 (12-20); Aspartate Amino Transferase 21 U/L (5-37); Bilirubin Total 0.5 mg/dL (0.0-1.0); Blood Urea Nitrogen 13 mg/dL (9-16); Calcium 9.7 mg/dL (8.4-10.2); Carbon Dioxide 30 mmol/L (22-29); Chloride 105 mmol/L (96-108); Cholesterol 293 mg/dL; Estimated Glomerular Filt Rate > 60; Glucose Fasting 112 mg/dL (60-99); Glucose Random 111 mg/dL (60-115); HDL Cholesterol 47 mg/dL; LDL Cholesterol Calculated 221 mg/dl; Potassium 4.3 mmol/L (3.3-5.1); Sodium 144 mmol/L (135-145); Triglycerides 129 mg/dL
[2022-08-09 08:56] LABS: TSH reflex Free T4 1.11 uIU/mL (0.32-4.0); Vitamin D 25-OH Total 33.9 ng/mL (>30)
[2022-08-09 09:13] LABS: Folate 10.7 ng/mL (> or = 4.0); Prostate Specific Antigen Scr 0.24 ng/mL (<0.05-4.0); Vitamin B12 476 pg/mL (200-900)
[2022-08-09 09:46] LABS: Appearance Urine Clear; Color Urine Yellow; Glucose Urine UA Negative (Negative); Leukocyte Esterase Urine Negative (Negative); Nitrite Urine Negative (Negative); PH 5.5 (5.0-9.0); Specific Gravity - Urine 1.025 (1.005-1.025); UMIC TRIGGER UA YES; Urine Blood Trace (Negative); Urine Ketones Negative (Negative); Urine Protein Negative (Neg-Trace)
[2022-08-09 09:53] LABS: Bacteria Urine None Seen (None Seen); Hyaline Casts Urine 0-2 /LPF (0-2); RBC Urine 0-2 /HPF (0-2); Squamous Epithelial Cell Urine 0-2 /HPF (0-2); WBC Urine 0-5 /HPF (0-5)
[2022-08-09 10:28] LABS: Creatinine Urine 218.93 mg/dL; Microalbum/Creatinine Ratio Ur 10.5 ug/mg cr
== END 2022-08-09 07:13 | disposition home or self-care (01) ==
LOC: HO.LAB 07:12
PROVIDERS: Internal Medicine Medical Oncology; PCP Family Medicine; Visit Provider Family Medicine
DX: Z00.00 Encounter for general adult medical examination without abnormal findings (principal); Z12.5 Encounter for screening for malignant neoplasm of prostate; I10 Essential (primary) hypertension; E53.8 Deficiency of other specified B group vitamins; E55.9 Vitamin D deficiency, unspecified; I27.82 Chronic pulmonary embolism
CPT/HCPCS: 36415; 80053; 80061; 81001; 82043; 82306; 82607; 82746; 84153; 84443; 85025; 85379

== ENCOUNTER → 2022-08-20 09:37 | Outpatient (BNVA) | payer OTHER, SELFPAY | PROVIDERS: PCP Family Medicine; Visit Provider Internal Medicine ==

== ENCOUNTER 2022-08-21 13:44 | Outpatient (REF) | payer OTHER, SELFPAY ==
--- NOTE | ~2022-08-21 | US_ITS ---
EXAMINATION: US SCROTUM CLINICAL INFORMATION: Other specified disorders of the male genital organs. Painful testicular nodules bilaterally. COMPARISON: None available. TECHNIQUE: A sonogram of the scrotum was performed assessing marin-scale appearance and color Doppler flow. Spectral Doppler analysis of the arterial and venous flow were performed in the testes bilaterally. FINDINGS: RIGHT: Right testicle measures 4.8 x 2.3 x 4.3 cm, volume 25 mL. No focal testicular parenchymal lesions are visualized. Spectral Doppler analysis of the arterial and venous flow is normal in the right testis. Right epididymal head is normal in size. No right hydrocele or varicocele is seen. Right epididymal Doppler flow is normal. LEFT: Left testicle measures 5.0 x 2.0 x 3.1 cm, volume 16 mL. No focal testicular parenchymal lesions are visualized. Spectral Doppler analysis of the arterial and venous flow is normal in the left testis. Left epididymal head is normal in size. A 6 mm epididymal head cyst versus spermatocele is seen. No left hydrocele is seen. There are a few left varicoceles. Left epididymal Doppler flow is normal. US/US scrotum IMPRESSION: 1. A 6 mm left epididymal head cyst versus spermatocele is seen. 2. There are rare left varicoceles. 3. No testicular mass or torsion is seen. 4. No significant hydrocele is seen.
== END 2022-08-21 13:45 | disposition home or self-care (01) ==
LOC: HO.US 13:44
PROVIDERS: PCP Family Medicine; Visit Provider Family Medicine
DX: N50.89 Other specified disorders of the male genital organs (principal)
CPT/HCPCS: 76870

== ENCOUNTER → 2022-09-03 10:51 | Outpatient (BNVA) | payer OTHER, SELFPAY | PROVIDERS: PCP Family Medicine; Visit Provider Internal Medicine ==

== ENCOUNTER → 2022-09-23 13:46 | Outpatient (BNVA) | payer OTHER, SELFPAY | PROVIDERS: PCP Family Medicine; Visit Provider Internal Medicine ==

== ENCOUNTER → 2022-09-25 08:40 | Outpatient (BNVA) | payer OTHER, SELFPAY | PROVIDERS: PCP Family Medicine; Visit Provider Nurse Practitioner ==

== ENCOUNTER → 2022-10-06 11:57 | Outpatient (BNVA) | payer OTHER, SELFPAY | PROVIDERS: PCP Family Medicine; Visit Provider Internal Medicine ==

== ENCOUNTER → 2022-10-10 11:14 | Outpatient (BNVA) | payer OTHER, SELFPAY | PROVIDERS: PCP Family Medicine; Visit Provider Internal Medicine ==

== ENCOUNTER → 2022-10-21 13:52 | Outpatient (BNVA) | payer OTHER, SELFPAY | PROVIDERS: PCP Family Medicine; Visit Provider Internal Medicine ==

== ENCOUNTER 2022-10-24 08:50 | Outpatient (AMB) | payer OTHER, SELFPAY ==
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
== END 2022-10-24 09:39 | disposition home or self-care (01) ==
PROVIDERS: PCP Family Medicine; Visit Provider Nurse Practitioner Family
DX: N45.1 Epididymitis (principal); Z85.51 Personal history of malignant neoplasm of bladder; R39.12 Poor urinary stream; N50.3 Cyst of epididymis
CPT/HCPCS: 99214

== ENCOUNTER 2022-10-24 08:50 | Outpatient (REF) | payer OTHER, SELFPAY ==
[2022-10-24 17:21] LABS: Urine Cytology See Pathology rpt
== END 2022-10-24 08:51 | disposition home or self-care (01) ==
LOC: HO.LNP 08:50
PROVIDERS: PCP Family Medicine; Visit Provider Nurse Practitioner Family
DX: N45.1 Epididymitis (principal); N50.3 Cyst of epididymis; R39.12 Poor urinary stream; Z85.51 Personal history of malignant neoplasm of bladder
CPT/HCPCS: 81003; 88112; 99212

== ENCOUNTER → 2022-11-04 13:20 | Outpatient (BNVA) | payer OTHER, SELFPAY | PROVIDERS: PCP Family Medicine; Visit Provider Internal Medicine ==

== ENCOUNTER 2022-11-18 08:43 | Outpatient (AMB) | payer OTHER, SELFPAY ==
--- NOTE | 2022-11-18 08:46 | MHC.PC.OV ---
Vital Signs 11/18/22 08:59 Height 6 ft 1 in Weight 246 lb BMI 32.5 BP 112/62 Blood Pressure Location Lt brachial Position Sitting Respiration 13 Pulse 84 Pulse Source Pulse Oximeter Temp 98.7 F Temp Source Oral Pulse Oximetry (%) 96 Oxygen Delivery Method Room Air Intake Visit Reasons: Follow-up exam Intake Note: Patient reports he would like to discuss his testicular concern with the provider. Homogenizer Operator Required: No Accompanied by: Self / Same As Patient Allergies No Known Allergies Allergy (Verified 11/18/22 08:58) Medication List - Last Reconciled 11/18/22 by Mohsen Tidwell MD atorvastatin 80 mg PO BEDTIME 30 days bisacodyl (Dulcolax (bisacodyl)) 10 mg (2 x 5 mg) PO BEDTIME 2 days buprenorphine-naloxone 8-2 mg (Suboxone) 2 strips sublingual DAILY cholecalciferol (vitamin D3) 1,000 units PO DAILY 90 days citalopram 40 mg PO DAILY 90 days doxycycline hyclate 100 mg PO BID 14 days lisinopril 5 mg PO DAILY metformin 500 mg PO BID 90 days tamsulosin 0.4 mg PO BEDTIME 30 days terbinafine HCl 1% (Antifungal (terbinafine)) 1 appl topical BID 30 days warfarin 7.5 mg See Protocol PO DAILY 90 days warfarin 7.5 mg PO DAILY Tobacco use date assessed: 08/12/22 HPI Encounter for follow-up examination HPI Details 62 y/o male presents to f/u hypercholesterolemia and anxiety/depression. Had started him on artovastatin. Pt reports ongoing testicular discomfort. Has seen Urology about 3 weeks ago. They had given him doxycycline and he does note pain improved. No recent labs to review for his hypercholesterolemia. [facility] Medical History History of subarachnoid hemorrhage (~2015) History of hepatitis C History of bladder cancer (~2013) Personal history of nicotine dependence Ureteral stone with hydronephrosis Erectile dysfunction Surgical History History of colonoscopy History of left knee surgery History of transurethral resection of bladder tumor (TURBT) History of biopsy of bladder Family History Father HTN (hypertension) Cancer Myocardial infarction Cancer of prostate Mother HTN (hypertension) Brother No problems noted. Brother Diabetes mellitus Sister No problems noted. Sister No problems noted. Social History Household Members: Spouse Housing: House Are you a primary neonatal intensive care nurse to a significant other at home: No Do you presently have visiting nurse or other home services: No Patient Tobacco Use Status: Former Tobacco user e-Cigarette/Vaping Use: Never Used Second Hand Smoke Exposure: No Substance Use Type: Marijuana service: No Current occupational status: disabled Current occupational exposures/hazards: No Cognitive needs: No Hearing needs: No Vision needs: No Questionnaire Thrive Questionnaire Date Thrive assessed: 08/12/22 MARISA-7 AMB Questionnaire MARISA-7 Date MARISA - 7 assessed: 08/12/22 Source: Developed by Drs. August Alejandro, Radha Belcher, Higinio Aguilar and colleagues, with an educational xochilt from [employer]. Review of Systems Const Denies chills, Denies fatigue, Denies fever(s), Denies headache(s) and Denies weakness ENT Denies dizziness and Denies headache(s) Card Denies chest pain, Denies lightheadedness, Denies dyspnea and Denies other (Palpitations) Resp Denies cough, Denies dyspnea, Denies wheezing and Denies other ( shortness of breath) Musc Denies numbness and Denies tingling Neuro Denies dizziness, Denies headache(s), Denies numbness, Denies tingling, Denies paresthesias and Denies weakness Psych Denies anxiety and Denies depression Endo Denies fatigue Aller/Immun Denies wheezing Physical exam (Primary Care) Vital Signs: Last Vital Signs Temp 98.7 F 11/18/22 08:59 Pulse 84 11/18/22 08:59 Resp 13 11/18/22 08:59 BP 112/62 11/18/22 08:59 Pulse Ox 96 11/18/22 08:59 Oxygen Delivery Method Room Air 11/18/22 08:59 BMI result Body Mass Index 32.5 Tobacco/Smoking Status: Tobacco use Status Tobacco use date assessed 08/12/22 11/18/22 08:47 Patient Tobacco Use Status Former Tobacco user 11/18/22 08:47 e-Cigarette/Vaping Use Never Used 11/18/22 08:47 Thrive Assessment: Date of Thrive Assessment Date Thrive assessed 08/12/22 11/18/22 08:47 Const General: no acute distress and well developed Nutritional Appearance: well nourished Orientation/consciousness: patient oriented x3 HENMT Head: Yes normocephalic and Yes atraumatic Eyes General: appearance normal, both eyes and all related structures Pupils: Equal, round and reactive pupils present EOM: EOMs intact bilaterally Resp Effort & Inspection: normal respiratory effort Auscultation: clear to auscultation bilaterally Cardio Rate: regular rate Rhythm: regular rhythm Heart sounds: S1 normal heart sound present, S2 normal heart sound present, no gallops, no murmurs and no rubs Neuro General: patient oriented x3 and gait normal Cranial nerves: Yes Equal, round and reactive pupils present Psych Affect: normal affect Assessment and Plan Assessment & Plan (1) Testicular nodule: Code(s): N50.89 - Other specified disorders of the male genital organs Plan: Epididymal has cyst and followed by urology. No pain now after initiating treatment Advised good support Up with Urology as recommended (2) Hypercholesterolemia: Code(s): E78.00 - Pure hypercholesterolemia, unspecified Plan: Patient has not had his lipids drawn yet. He will do so and we can follow-up by telemedicine in a month (3) Essential hypertension: Code(s): I10 - Essential (primary) hypertension Plan: Blood pressure is well controlled. Goal is less than 140/90 Continue current medication regimen (4) Fungal infection: Code(s): B49 - Unspecified mycosis Plan: Improved. Follow-up with Podiatry as recommended Coding Level of Care Code Est Pt Level 4 (95111) Diagnoses Testicular nodule N50.89 Hypercholesterolemia E78.00 Essential hypertension I10 Fungal infection B49
[2022-11-18 08:59] VITALS: BP 112/62; PULSE 84; RESP 13; TEMP 37.1; O2SAT 96; BMI 32.5
== END 2022-11-18 09:24 | disposition home or self-care (01) ==
PROVIDERS: PCP Family Medicine; Visit Provider Family Medicine
DX: N50.89 Other specified disorders of the male genital organs (principal); E78.00 Pure hypercholesterolemia, unspecified; I10 Essential (primary) hypertension; B49 Unspecified mycosis
CPT/HCPCS: 99214

== ENCOUNTER → 2022-11-18 10:55 | Outpatient (BNVA) | payer OTHER, SELFPAY | PROVIDERS: PCP Family Medicine; Visit Provider Internal Medicine ==

== ENCOUNTER → 2022-12-02 11:47 | Outpatient (BNVA) | payer OTHER, SELFPAY | PROVIDERS: PCP Family Medicine; Visit Provider Internal Medicine ==

== ENCOUNTER → 2022-12-16 13:40 | Outpatient (BNVA) | payer OTHER, SELFPAY | PROVIDERS: PCP Family Medicine; Visit Provider Internal Medicine ==

== ENCOUNTER → 2022-12-30 11:21 | Outpatient (BNVA) | payer OTHER, SELFPAY | PROVIDERS: PCP Family Medicine; Visit Provider Internal Medicine ==

== ENCOUNTER 2023-01-02 09:24 | Outpatient (REF) | payer OTHER, SELFPAY ==
[2023-01-02 16:37] LABS: Urine Cytology See Pathology rpt
== END 2023-01-02 09:25 | disposition home or self-care (01) ==
LOC: HO.LAB 09:24
PROVIDERS: PCP Family Medicine; Visit Provider Urology
DX: R39.12 Poor urinary stream (principal); N52.9 Male erectile dysfunction, unspecified; Z85.51 Personal history of malignant neoplasm of bladder
CPT/HCPCS: 52000; 81003; 88112

== ENCOUNTER 2023-01-02 09:24 | Outpatient (AMB) | payer OTHER, SELFPAY ==
--- NOTE | 2023-01-02 09:37 | A.OFFVIS_ITS ---
Intake Intake Visit Reasons: cysto/PSA Intake Note: Patient is Present for Cystoscopy Urology Med: Tamsulosin Antibiotic Allergy:None Blood Thinner: Warfarin URO- G Disposable Cystoscope lot: [id number] exp:08/06/24 Allergies No Known Allergies Allergy (Verified 12/30/22 11:41) HPI HPI Comments History of Present Illness Details Bryant is a pleasant male. He is a patient of Dr. Tidwell. He seen for the following urologic conditions - bladder cancer Here for annual check cystoscopy PSA 01/13 0.3 Bladder cancer superficial 2013 Prior TURBT 2013 30 year pack history of smoking Prior nephrolithiasis Treated hepatitis-C Cystoscopy - 01/15 NAD Associated senile angiokeratomas PFSH Medical History History of subarachnoid hemorrhage (~2015) History of hepatitis C History of bladder cancer (~2013) Personal history of nicotine dependence Ureteral stone with hydronephrosis Erectile dysfunction Surgical History History of colonoscopy History of left knee surgery History of transurethral resection of bladder tumor (TURBT) History of biopsy of bladder Family History Father HTN (hypertension) Cancer Myocardial infarction Cancer of prostate Mother HTN (hypertension) Brother No problems noted. Brother Diabetes mellitus Sister No problems noted. Sister No problems noted. Social History Household Members: Spouse Housing: House Are you a primary child care supervisor to a significant other at home: No Do you presently have visiting nurse or other home services: No Patient Tobacco Use Status: Former Tobacco user e-Cigarette/Vaping Use: Never Used Second Hand Smoke Exposure: No Substance Use Type: Marijuana service: No Current occupational status: disabled Current occupational exposures/hazards: No Cognitive needs: No Hearing needs: No Vision needs: No Review of Systems Const Denies chills and Denies fever(s) Card Reports no additional complaints and Denies syncope Resp Denies cough GI Denies abdominal pain and Denies heartburn Reports as per HPI and Denies change in libido Neuro Denies syncope Psych Denies change in libido Endo Denies change in libido Physical Exam Const General: cooperative, healthy appearing, comfortable and no acute distress Orientation/consciousness: patient oriented x3 HEENT Face and sinus: Yes normal facial exam Mouth: moist mucous membranes Neck Neck: Yes normal visual inspection, Yes full ROM and Yes trachea midline Chest Chest palpation & inspection: normal inspection of the chest Resp Effort & Inspection: normal respiratory effort, able to speak in complete sentences and no respiratory distress GI Inspection: Yes normal to inspection Back/Spine/Pelvis Cervical Spine: normal cervical lordosis Thoracic/Lumbar Spine: thoracic and lumbar spine normal to inspection Skin General skin exam: no rashes or lesions noted Neuro General: patient oriented x3, gait normal, tone normal and moves all extremities Extrem General: Yes normal to inspection and Yes capillary refill normal Office Procedures Cystoscopy Consent Discussed risk and benefit or proposed procedure with the patient. Information consent for procedure given to the patient. Discussed technical aspects, risks, benefits and alternatives in full. Addressed all of the patient's questions and concerns regarding the procedure. The patient demonstrated knowledge and understanding. They wish to proceed with this procedure. Preparation The patient was prepped in the usual manner. A handyman was present and in the room. Genitalia was prepped with betadine solution in a sterile manner. Lidocaine Jelly 2% was placed into the urethra and 16Fr flexible Olympus cystoscope was inserted into the meatus after adequate lubrication. Procedure Meatus circumcised Urethra anterior posterior urethra normal Prostatic Urethra unremarkable Bladder examination with retroflexion of cystoscope Bladder Orifices normal shape and position Bladder Capacity medium Trabeculations - Cellule Formation - Diverticulum Formation - Mucosal Erythema - Bladder Tumor - [id number]-[id number] DISPOSABLE SCOPE URO-G FLEXIBLE SCOPE Procedure code (CPT) selection complete Office Meds lidocaine HCl 2 % mucosal jelly in applicator Performing Provider: Jarrod Watkins MD Performing Location: [facility] Administered by: Maddi Garcia RN on 01/02/23 10:26 Dose Route Admin Location Dispensed Lot Number Expiration Date ND Lining Vamper 10 mL intra-urethral 10 mL nitrofurantoin monohydrate/macrocrystals 100 mg capsule Performing Provider: Jarrod Watkins MD Performing Location: [facility] Administered by: Maddi Garcia RN on 01/02/23 10:26 Dose Route Admin Location Dispensed Lot Number Expiration Date NDC Lining Vamper 100 mg PO 1 cap naproxen 500 mg tablet Performing Provider: Jarrod Watkins MD [facility] Administered by: Maddi Garcia RN on 01/02/23 10:26 Dose Route Admin Location Dispensed Lot Number Expiration Date NDC Lining Vamper 500 mg PO 1 tab Results AMB Urinalysis, Automated UA Leukoctes 0 Tete/uL Last Edit by Marian Harris Kimberly on 01/02/23 10:29 UA Nitrite Negative Last Edit by Marian Harris A on 01/02/23 10:29 UA Urobilinogen 0.2 mg/dL Last Edit by Marian Harris A on 01/02/23 10:2 9 UA Protein 0 mg/dL Last Edit by Marian Harris [facility] on 01/02/23 10:29 UA pH 6.0 Last Edit by Marian Harris A on 01/02/23 10:29 UA Blood 0 Harlan/uL Last Edit by Marian Harris [facility] on 01/02/23 10:29 UA Specific [place] 1.015 Last Edit by Marian Harris A on 01/02/23 10: 29 UA Ketone Negative Last Edit by Marian Harris [facility] on 01/02/23 10:29 UA Bilirubin 0 mg/dL Last Edit by Marian Harris A on 01/02/23 10:29 UA Glucose 0 mg/dL Last Edit by Marian Harris [facility] on 01/02/23 10:29 Results Reviewed Results Reviewed: Laboratory Last Values Urine pH (Auto) 6.0 01/02/23 10:05 Specific [place] (Auto) 1.015 01/02/23 10:05 Urine Protein (Auto) 0 mg/dL 01/02/23 10:05 Glucose (UA)(Auto) 0 mg/dL 01/02/23 10:05 Urine Ketones (Auto) Negative 01/02/23 10:05 Urine Blood (Auto) 0 Harlan/uL 01/02/23 10:05 Urine Nitrite (Auto) Negative 01/02/23 10:05 Urine Bilirubin (Auto) 0 mg/dL 01/02/23 10:05 Urine Urobilinogen (Auto) 0.2 mg/dL 01/02/23 10:05 Leukocyte Esterase (Auto) 0 Tete/uL 01/02/23 10:05 Assessment & Plan Assessment & Plan (1) Weak urinary stream: Code(s): R39.12 - Poor urinary stream (2) Erectile dysfunction: Code(s): N52.9 - Male erectile dysfunction, unspecified (3) History of bladder cancer: Onset Date: ~2013 Comment: (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 No major barriers to patient understanding were identified. An opportunity to ask questions regarding the treatment plan was provided. All questions were answered. The patient expressed understanding and agreement with the above treatment plan. The patient is aware they should contact our office by phone for worsening of their current condition or the appearance of new urologic symptoms. Compliance is encouraged with any medications and followup testing that is ordered. It is a privilege to participate in the urologic care of your patient. If you have any questions or concerns regarding treatment for the above conditions, or other urologic issues, please do not hesitate to contact me. The office telephone contact is [phone]. This note is constructed using voice recognition software. While every effort has been made to ensure accuracy color paste mixer errors may have been included. Yours sincerely, Dr Jarrod Watkins MD, [facility] - Urology Providers of Expert, Compassionate Care for the Genitourinary System Coding Level of Care Code Procedure Only Diagnoses Weak urinary stream R39.12 Erectile dysfunction N52.9 History of bladder cancer Z85.51 CPT Codes Cystoscopy - CPT: 60099-[id number] ([id number])
== END 2023-01-02 10:43 | disposition home or self-care (01) ==
PROVIDERS: PCP Family Medicine; Visit Provider Urology
DX: Z85.51 Personal history of malignant neoplasm of bladder (principal); R39.12 Poor urinary stream; N52.9 Male erectile dysfunction, unspecified; Z13.9 Encounter for screening, unspecified
CPT/HCPCS: 52000

== ENCOUNTER 2023-01-13 09:01 | Outpatient (AMB) | payer OTHER, SELFPAY ==
[2023-01-13 09:25] LABS: Prothrombin Time Whole Bld POC 34.3 sec (11.1-13.5); ~PT, ~INR - Anti Coag Clinic 2.9 (0.9-1.1)
--- NOTE | 2023-01-13 09:31 | MHC.OFFVISCO ---
Intake Intake Visit Reasons: Anticoagulation Allergies No Known Allergies Allergy (Verified 01/13/23 09:18) Medication List - Last Reconciled 01/13/23 by Itzel Sorto RN atorvastatin 80 mg PO BEDTIME 30 days bisacodyl (Dulcolax (bisacodyl)) 10 mg (2 x 5 mg) PO BEDTIME 2 days buprenorphine-naloxone 8-2 mg (Suboxone) 2 strips sublingual DAILY cholecalciferol (vitamin D3) 1,000 units PO DAILY 90 days citalopram 40 mg PO DAILY 90 days lisinopril 5 mg PO DAILY metformin 500 mg PO BID 90 days naloxone 4 mg/actuation intranasal tamsulosin 0.4 mg PO BEDTIME 30 days terbinafine HCl 1% (Antifungal (terbinafine)) 1 appl topical BID 30 days warfarin 7.5 mg See Protocol PO DAILY Nursing Note clinic meter correlation to patients home meter demonstrations proficient poc skills,, meter appeared dirty -showed pt how to clean meter, results correlated with reported INRs INR: 2.9 clinic/ 3.0 home in therapeutic range Medications and supplements reviewed No changes in health, diet, medications, or supplements, Denies any signs and symptoms of bleeding or bruising or clotting. Bleeding, bruising, clotting discussed Nutritional guidance given - keep eating a mix of fruits and vegetabls Dose: keep same 7.5mg daily F/U INR: 2 weeks poc check and then 1 year for correlation Patient verbalizes understanding of instructions given Anti-Coag Initial Assessment Social Hx Patient Tobacco Use Status: Former Tobacco user Coding Level of Care Code Est Patient Level 2 Comment meter to meter correlation with assessment
== END 2023-01-13 09:42 | disposition home or self-care (01) ==
LOC: HO.ACS 09:01
PROVIDERS: PCP Family Medicine; Visit Provider Internal Medicine
DX: Z79.01 Long term (current) use of anticoagulants (principal)

== ENCOUNTER → 2023-01-13 09:01 | Outpatient (BNVA) | payer OTHER, SELFPAY | PROVIDERS: PCP Family Medicine; Visit Provider Internal Medicine | DX: I26.99 Other pulmonary embolism without acute cor pulmonale (principal); Z79.01 Long term (current) use of anticoagulants; Z51.81 Encounter for therapeutic drug level monitoring | CPT/HCPCS: 85610; 99212 ==

== ENCOUNTER → 2023-01-27 09:07 | Outpatient (BNVA) | payer OTHER, SELFPAY | PROVIDERS: PCP Family Medicine; Visit Provider Internal Medicine ==

== ENCOUNTER → 2023-02-10 11:17 | Outpatient (BNVA) | payer OTHER, SELFPAY | PROVIDERS: PCP Family Medicine; Visit Provider Internal Medicine ==

== ENCOUNTER → 2023-02-24 11:48 | Outpatient (BNVA) | payer OTHER, SELFPAY | PROVIDERS: PCP Family Medicine; Visit Provider Internal Medicine ==

== ENCOUNTER → 2023-03-10 12:07 | Outpatient (BNVA) | payer OTHER, SELFPAY | PROVIDERS: PCP Family Medicine; Visit Provider Internal Medicine ==

== ENCOUNTER → 2023-03-18 09:16 | Outpatient (BNVA) | payer OTHER, SELFPAY | PROVIDERS: PCP Family Medicine; Visit Provider Internal Medicine ==

== ENCOUNTER 2023-03-24 06:58 | Day surgery (SDC) | payer OTHER, SELFPAY ==
[2023-03-20 14:14] VITALS: BMI 32.5
[2023-03-24 07:18] VITALS: BMI 31.9
[2023-03-24 07:22] LABS: Glucose, Whole Blood 93 mg/dL (60-115)
[2023-03-24 07:23] VITALS: BP 148/77; PULSE 74; RESP 18; TEMP 36.6; O2SAT 96
--- NOTE | 2023-03-24 07:26 | MHC.SHP ---
Pre-Procedural Eval Section A - 24 Hr Update-Section A only Date of Service: 03/24/23 Section B - Complete if H&P > 30 days Chief Complaint: Benign neoplasm of colon, unspecified Relevant Family History (Specify if Yes): Yes Relevant Social History: None Present Medications: see Short Stay Collaborative assessment Medical History: Significant History ( Erectile dysfunction History of bladder cancer (~2013) History of hepatitis C History of subarachnoid hemorrhage (~2015) Personal history of nicotine dependence Ureteral stone with hydronephrosis) History of Previous Operations: Relevant previous surgery/procedure and date(s) (History of biopsy of bladder History of colonoscopy History of left knee surgery History of transurethral resection of bladder tumor (TURBT)) Allergies: Allergies Allergy/AdvReac Type Severity Reaction Status Date / Time No Known Allergies Allergy Verified 03/18/23 09:26 Review of Systems Sugical H&P ROS: Negative: Constitution, Cardiovascular, Respiratory, Neurological, Psychiatric, Hem-Onc, Allergic/Immunologic, Gastrointestinal, Genitourinary, Musculoskeletal, Integumentary, Endocrine and Eyes/Ears/Nose/Throat Exam Surgical H&P Exam: Normal: HEENT, Normal: Heart, Normal: Lungs, Normal: Extremities, Normal: Abdomen, Normal: Skin and Normal: Neurological Plan Diagnosis/Plan: Unchanged I have reviewed the history and physical and performed a pertinent physical examination on my patient. No changes have occurred unless specified. Time Spent With Patient Time: Total time managing care of this patient today ____ minutes.
--- NOTE | 2023-03-24 08:13 | PC.NURSE ---
2 attempts of IV by author. attempt and insertion by garima ching rn.
--- NOTE | 2023-03-24 08:25 | PC.NURSE ---
Patient drank a full cup of water at 0700. Dr. Davison aware, patient to be delayed 2 hours. patient in agreeance.
--- NOTE | 2023-03-24 08:31 | P.CONAN_ITS ---
HPI - Anesthesia Eval Consult details Narrative: for colonoscopy [facility] Active Problems Active Problems: All Active Problems (Updated 03/20/23 @ 14:10 by Mery Connelly RN) Hypercholesterolemia (Acute) Epididymal cyst (Acute) Weak urinary stream (Acute) Epididymitis (Acute) Family history of polyps in the colon (Acute) Tubular adenoma of colon (Acute) Pre-op examination (Acute) Scrotal nodule (Acute) Knee pain (Acute) Shoulder pain (Acute) Neoplasm of uncertain behavior of skin (Acute) Sun-damaged skin (Acute) Fungal infection (Acute) Screening for prostate cancer (Acute) Screening for colon cancer (Acute) Anxiety with depression (Acute) Adult general medical exam (Acute) Testicular nodule (Acute) Adrenal nodule (Acute) Diabetes mellitus (Acute) Diastasis recti (Acute) Ventral hernia (Acute) Obstructive sleep apnea (Acute) Hyperlipidemia (Acute) Essential hypertension (Acute) Concentration deficit (Acute) Moderate recurrent major depression (Acute) Traumatic brain injury (Acute) Kidney stone on right side (Acute) Pulmonary nodules (Acute) Chronic pulmonary embolism (Acute ~2012) Current use of anticoagulant therapy (Acute ~2012) Erectile dysfunction (Acute) History of hepatitis C (Acute) History of bladder cancer (Acute ~2013) History of subarachnoid hemorrhage (Acute ~2015) Personal history of nicotine dependence (Acute) Ureteral stone with hydronephrosis (Acute) Past Medical History Medical History DVT (deep venous thrombosis) Hx pulmonary embolism History of subarachnoid hemorrhage (~2015) History of hepatitis C History of bladder cancer (~2013) Personal history of nicotine dependence Ureteral stone with hydronephrosis Erectile dysfunction Family History Family History Father HTN (hypertension) Cancer Myocardial infarction Cancer of prostate Mother HTN (hypertension) Brother No problems noted. Brother Diabetes mellitus Sister No problems noted. Sister No problems noted. Family history of problems with anesthesia: No Surgical History Surgical History History of colonoscopy History of left knee surgery History of transurethral resection of bladder tumor (TURBT) History of biopsy of bladder History of Problems with Anesthesia: No Social History Social History Household Members: Spouse Housing: House Are you a primary geriatric care manager to a significant other at home: No Do you presently have visiting nurse or other home services: No Patient Tobacco Use Status: Former Tobacco user e-Cigarette/Vaping Use: Never Used Second Hand Smoke Exposure: No Substance Use Type: Marijuana Substance Use Frequency: Daily Are you DNR?: No Advance Directives: No Advance Directives Information Provided: Yes Nutrition Risks: No Nutritional Risk service: No Current occupational status: disabled Current occupational exposures/hazards: No Cognitive needs: No Hearing needs: No Vision needs: No Meds Allergies Allergy/AdvReac Type Severity Reaction Status Date / Time No Known Allergies Allergy Verified 03/18/23 09:26 Home Medications Medication Instructions Recorded Confirmed Last Taken Type buprenorphine 8 mg-naloxone 2 mg 2 strip sublingual DAILY 01/24/20 01/13/23 Un known History sublingual film (Suboxone) naloxone 4 mg/actuation nasal spray intranasal 12/16/22 01/13/23 Unknown History enoxaparin 100 mg/mL subcutaneous mg subcut 03/10/23 03/18/23 03/23/23 History syringe Exam Height,Weight and Vital Signs: Height 6 ft 1 in Weight 109.769 kg Last Vital Signs Temp 97.9 F 03/24/23 07:23 Pulse 74 03/24/23 07:23 Resp 18 03/24/23 07:23 BP 148/77 H 03/24/23 07:23 Pulse Ox 96 03/24/23 07:23 O2 Del Method Room Air 03/24/23 07:23 Pertinent Lab Results Pertinent Lab Results: Laboratory Tests 03/24/23 07:18 POC Glucose 93 Airway Mallampati Class: II TM Dist: >3cm Neck ROM: Full Heart: rrr Lungs: cta Assessment and Plan Assessment Anesthesia Assessment: Anesthesia Plan Discussed, Smoking Cess. Discussed and Chart Reviewed Final Anesthetic Review Family History of Problems with Anesthesia: No History of Problems with Anesthesia: No NPO: Yes ASA Class: III Final Preanesthetic Review: No Changes in Pt Med Stat, Meds/Allgs Chart Reviewed, Consent Obtained/Reviewed and Anes Risks/Benef Reviewed Patient Risk: Intermediate Procedure Risk: Low Anesthetic Plan Anesthetic Plan: MAC: Disposition: Standard PACU
--- NOTE | 2023-03-24 09:46 | W.PM.OPN ---
Operative Note Operative Note Date of Service: 03/24/23 Narrative: Operative Information Procedure Description: Colonoscopy Indication: hx of polyps Anesthesia: MAC COLONOSCOPY Instrument: Olympus variable stiffness pediatric scope 190L Colonoscopy Monitoring: Vital signs and clinical assessment, continuous EKG monitoring, Pulse oximetry, Carbon Dioxide monitoring and blood pressure monitoring were done throughout the procedure. Colon withdrawal time was 13 minutes. Procedure: The patient was placed in the left lateral decubitis position and pre-procedure medications were administered. After a digital rectal examination of the ano-rectum, the video colonoscope was inserted into the rectum and advanced through the colon to the cecum/TI. The colonoscope was slowly withdrawn in a retrograde panoramic fashion and the colon mucosa was carefully examined including a retroflexed view of the rectum. Findings and interventions are described below. Procedure Difficulty: moderate, pressure applied to LUQ Findings: Terminal Ileum-not intubated due to looping Cecum:normal Ascending Colon: normal Transverse Colon - 3-4 mm sessile polyp removed with cold forceps Descending Colon: 10 mm sessile polyp removed with cold snare Sigmoid Colon: normal Rectum: Retroflexion with small internal hemorrhoids, grade II, 4-5 mm sessile polyp removed with cold forceps Anorectum - normal Colon preparation: [place] Bowel Preparation Scale Right colon; 2 Transverse colon: 2 Left colon; 2 (0 = Unprepared colon segment with mucosa not seen due to solid stool that cannot be cleared. 1 = Portion of mucosa of the colon segment seen, but other areas of the colon segment not well seen due to staining, residual stool and/or opaque liquid. 2 = Minor amount of residual staining, small fragments of stool and/or opaque liquid, but mucosa of colon segment seen well. 3 = Entire mucosa of colon segment seen well with no residual staining, small fragments of stool or opaque liquid) Impression and Post Procedure Diagnosis: polyps internal hemorrhoids Plan: High fiber diet leaflet Avoid straining at stool, epsom salts and sitz bath, anusol supps or cream Repeat Colonoscopy in 5 years due to polyps or earlier if clinically indicated Above findings were reviewed with the patient and relevant handouts were provided if indicated.
[2023-03-24 09:52] VITALS: BP 118/58; PULSE 62; RESP 10; TEMP 36.7; O2SAT 98
[2023-03-24 10:07] VITALS: BP 127/72; PULSE 77; RESP 16; O2SAT 99
[2023-03-24 10:22] VITALS: BP 114/69; PULSE 66; RESP 18; TEMP 36.7; O2SAT 96
== END 2023-03-24 11:07 | disposition home or self-care (01) ==
PROVIDERS: PCP Family Medicine; Visit Provider Internal Medicine Gastroenterology
PROC: 0DJD8ZZ Inspection of Lower Intestinal Tract, Via Natural or Artificial Opening Endoscopic (ICD-10-PCS; CPT 45378; principal; 2023-03-24 08:20)
DX: Z12.11 Encounter for screening for malignant neoplasm of colon (principal); Z86.010 Personal history of colon polyps; Z83.719 Family history of colon polyps, unspecified; D12.4 Benign neoplasm of descending colon; K63.5 Polyp of colon; K62.1 Rectal polyp; K64.1 Second degree hemorrhoids; K59.00 Constipation, unspecified; K21.9 Gastro-esophageal reflux disease without esophagitis; E11.9 Type 2 diabetes mellitus without complications; I27.82 Chronic pulmonary embolism; I10 Essential (primary) hypertension; J44.9 Chronic obstructive pulmonary disease, unspecified; G47.33 Obstructive sleep apnea (adult) (pediatric); E78.00 Pure hypercholesterolemia, unspecified; F41.8 Other specified anxiety disorders; Z79.01 Long term (current) use of anticoagulants; Z79.899 Other long term (current) drug therapy; Z85.51 Personal history of malignant neoplasm of bladder; Z86.19 Personal history of other infectious and parasitic diseases; Z87.820 Personal history of traumatic brain injury; Z87.891 Personal history of nicotine dependence
CPT/HCPCS: 45385; 45380; 82947; 88305; J2371; J2704; J3010

== ENCOUNTER → 2023-03-24 06:58 | Outpatient (BNV) | payer OTHER, SELFPAY | PROVIDERS: PCP Family Medicine; Visit Provider Internal Medicine Gastroenterology | DX: Z12.11 Encounter for screening for malignant neoplasm of colon (principal); Z86.010 Personal history of colon polyps; D12.4 Benign neoplasm of descending colon; K63.5 Polyp of colon; K64.1 Second degree hemorrhoids | CPT/HCPCS: 45380; 45385 ==

== ENCOUNTER → 2023-03-26 10:43 | Outpatient (BNVA) | payer OTHER, SELFPAY | PROVIDERS: PCP Family Medicine; Visit Provider Internal Medicine ==

== ENCOUNTER → 2023-03-27 10:36 | Outpatient (BNVA) | payer OTHER, SELFPAY | PROVIDERS: PCP Family Medicine; Visit Provider Internal Medicine ==

== ENCOUNTER → 2023-03-30 11:35 | Outpatient (BNVA) | payer OTHER, SELFPAY | PROVIDERS: PCP Family Medicine; Visit Provider Internal Medicine ==

== ENCOUNTER 2023-04-07 08:28 | Outpatient (AMB) | payer OTHER, SELFPAY ==
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
[2023-04-07 08:34] VITALS: BP 131/73; PULSE 70; BMI 33.0
== END 2023-04-07 09:26 | disposition home or self-care (01) ==
PROVIDERS: PCP Family Medicine; Visit Provider Nurse Practitioner
DX: D12.6 Benign neoplasm of colon, unspecified (principal); N50.89 Other specified disorders of the male genital organs
CPT/HCPCS: 99214

== ENCOUNTER → 2023-04-07 08:28 | Outpatient (BNVA) | payer OTHER, SELFPAY | PROVIDERS: PCP Family Medicine; Visit Provider Nurse Practitioner | DX: D12.6 Benign neoplasm of colon, unspecified (principal); N50.89 Other specified disorders of the male genital organs | CPT/HCPCS: 99212 ==

== ENCOUNTER → 2023-04-21 09:28 | Outpatient (BNVA) | payer OTHER, SELFPAY | PROVIDERS: PCP Family Medicine; Visit Provider Internal Medicine ==

== ENCOUNTER 2023-04-22 12:36 | Outpatient (REF) | payer OTHER, SELFPAY ==
--- NOTE | ~2023-04-22 | US_ITS ---
EXAMINATION: US SCROTUM CLINICAL INFORMATION: Painful lump x6. COMPARISON: Ultrasound scrotum 08/21/2022. TECHNIQUE: A sonogram of the scrotum was performed assessing marin-scale appearance and color Doppler flow. Spectral Doppler analysis of the arterial and venous flow were performed in the testes bilaterally. FINDINGS: RIGHT: Right testicle measures 4.7 x 2.2 x 3.4 cm, volume 18.5 mL. No focal testicular parenchymal lesions are visualized. Spectral Doppler analysis of the arterial and venous flow is normal in the right testis. Right epididymal head is normal in size. No right hydrocele or varicocele is seen. Right epididymal Doppler flow is normal. LEFT: Left testicle measures 5.0 x 2.2 x 2.8 cm, volume 16.1 mL. No focal testicular parenchymal lesions are visualized. Spectral Doppler analysis of the arterial and venous flow is normal in the left testis. Left epididymal head is normal in size. A complex small cyst in the head of the epididymis measuring 5 mm, which previously measured 6 mm. No left hydrocele. In the area of the patient's discomfort, some small varicosities are seen consistent with a tiny varicocele, unchanged from prior.. Left epididymal Doppler flow is normal. US/US scrotum IMPRESSION: 1. Normal-appearing testes. 2. Tiny left varicocele. 3. Small complex left epididymal cyst. 4. No interval change when compared to the prior study.
== END 2023-04-22 12:37 | disposition home or self-care (01) ==
LOC: HO.US 12:36
PROVIDERS: PCP Family Medicine; Visit Provider Nurse Practitioner
DX: N50.89 Other specified disorders of the male genital organs (principal)
CPT/HCPCS: 76870

== ENCOUNTER → 2023-05-05 13:32 | Outpatient (BNVA) | payer OTHER, SELFPAY | PROVIDERS: PCP Family Medicine; Visit Provider Internal Medicine ==

== ENCOUNTER → 2023-05-19 15:17 | Outpatient (BNVA) | payer OTHER, SELFPAY | PROVIDERS: PCP Family Medicine; Visit Provider Internal Medicine ==

== ENCOUNTER 2023-05-20 15:04 | Outpatient (AMB) | payer OTHER, SELFPAY ==
--- NOTE | 2023-05-20 15:16 | MHC.OFFVIS ---
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 Required: No Accompanied by: Self / Same As Patient Allergies No Known Allergies Allergy (Verified 05/20/23 16:08) Medication List - Last Reconciled 05/20/23 by FRANCIA Armando atorvastatin 80 mg PO BEDTIME 30 days bisacodyl (Dulcolax (bisacodyl)) 10 mg (2 x 5 mg) PO BEDTIME 2 days buprenorphine-naloxone 8-2 mg (Suboxone) 2 strips sublingual DAILY cholecalciferol (vitamin D3) 1,000 units PO DAILY 90 days citalopram 40 mg PO DAILY 90 days lisinopril 5 mg PO DAILY metformin 500 mg PO BID 90 days naloxone 4 mg/actuation intranasal peg 3350-electrolytes 236-22.74-6.74 -5.86 gram 240 mL PO Q10M simethicone (Gas Relief (simethicone)) 125 mg PO ONCE terbinafine HCl 1% (Antifungal (terbinafine)) 1 appl topical BID 30 days warfarin 7.5 mg See Protocol PO DAILY HPI HPI Comments History of Present Illness Details Bryant Ayoub is a very pleasant 62-year-old male patient of Dr. Tidwell. He has a past medical history of ED, bladder cancer, hep C, subarachnoid hemorrhage, nicotine dependence former smoker 30 pack year history, and nephrolithiasis. He presents to the office today for left sided scrotal pain, nocturia, and urinary dribbling. In discussion with the patient today reports having followed up with GI at which time he reported these issues and a scrotal ultrasound was ordered for further assessment evaluation. These results were reviewed with the patient today. Normal-appearing testes, tiny left varicocele, and small complex left epididymal cyst. In assessment of the patient today discomfort is noted throughout palpation of the left scrotal sac and testicle. However patient reports pain/discomfort is approximately a 3-4 on a scale of 0-10. He reports noting scrotal pain has been present for approximately 6-9 months. He denies any recent trauma. Small left epididymal head cyst palpated otherwise no lesions, drainage, and or open areas noted throughout the scrotum, testicles and or penis. 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 Discussed surveillance monitoring versus surgical intervention of left epididymal head cyst. In discussion with the patient today he reports noting urinary dribbling and nocturia approximately 3-4 times per night. He does report having sleep apnea and is not compliant with CPAP machine. Discussed correlation of nocturia with sleep apnea. Discussed pelvic floor therapy for urinary dribbling. He otherwise denies urinary urgency, urinary frequency, incontinence, hematuria, dysuria, foul smelling urine, changes to urinary stream, flank pain, fever, and or chills. In office urinalysis results reviewed with the patient today. Of note, patient was seen approximately [address] Watkins at which time he underwent an office cystoscopy for his longstanding history of bladder cancer with a TURBT in 2013. Cystoscopy noted NAD. PSAs are as follows: 11/12--0.2 03/15--0.3 01/13--0.3 Bladder cancer superficial 2013 Prior TURBT 2013 30 year pack history of smoking Prior nephrolithiasis Treated hepatitis-C Cystoscopy - 01/15 NAD [facility] Medical History DVT (deep venous thrombosis) Hx pulmonary embolism History of subarachnoid hemorrhage (~2015) History of hepatitis C History of bladder cancer (~2013) Personal history of nicotine dependence Ureteral stone with hydronephrosis Erectile dysfunction Surgical History History of colonoscopy History of left knee surgery History of transurethral resection of bladder tumor (TURBT) History of biopsy of bladder Family History Father HTN (hypertension) Cancer Myocardial infarction Cancer of prostate Mother HTN (hypertension) Brother No problems noted. Brother Diabetes mellitus Sister No problems noted. Sister No problems noted. Social History Household Members: Spouse Housing: House Are you a primary school child care attendant to a significant other at home: No Do you presently have visiting nurse or other home services: No Patient Tobacco Use Status: Former Tobacco user e-Cigarette/Vaping Use: Never Used Second Hand Smoke Exposure: No Substance Use Type: Marijuana service: No Current occupational status: disabled Current occupational exposures/hazards: No Cognitive needs: No Hearing needs: No Vision needs: No Review of Systems Const Reports as per HPI Eyes Reports no additional complaints ENT Reports no additional complaints Card Reports no additional complaints Resp Reports no additional complaints GI Reports no additional complaints Reports as per HPI Neuro Reports as per HPI Psych Reports no additional complaints Physical Exam Const General: cooperative, comfortable, no acute distress, well developed, alert and awake Nutritional Appearance: overweight Orientation/consciousness: patient oriented x3 Limitations: no limitations HEENT Head: Yes normal to inspection, Yes normocephalic and Yes atraumatic Ears: hearing grossly normal bilaterally Eyes General: appearance normal, both eyes and all related structures Neck Neck: Yes normal visual inspection and Yes trachea midline Chest Chest palpation & inspection: normal inspection of the chest Resp Effort & Inspection: normal respiratory effort and able to speak in complete sentences Cardio Rate: regular rate GI Inspection: Yes normal to inspection General: Yes no CVA tenderness Male General Exam: Yes normal external exam Penis: normal penis and circumcised Meatus: meatus normal Scrotum: other (as per HPI) Testes: epididymal tenderness on the left and other (as per HPI) Back/Spine/Pelvis Back: no CVA tenderness Skin General skin exam: no rashes or lesions noted Neuro General: patient oriented x3 Extrem General: Yes normal to inspection Psych Appearance: grossly normal and well kempt Mental Status: mental status grossly normal Speech and movement: Normal speech and movement present and Clear speech present Affect: normal affect Attitude: cooperative Thought process: Normal thought process present Thought content: Normal thought content present Insight: Fair insight present (Psych) Judgement: Fair judgement present (Psych) Results AMB Urinalysis, Automated UA Leukoctes 0 Tete/uL Last Edit by [employer] on 05/20/23 15:38 UA Nitrite Negative Last Edit by [employer] on 05/20/23 15:38 UA Urobilinogen 0.2 mg/dL Last Edit by [employer] on 05/20/23 15:38 UA Protein 15 mg/dL Last Edit by [employer] on 05/20/23 15:38 UA pH 5.0 Last Edit by [employer] on 05/20/23 15:38 UA Blood 10 Harlan/uL Last Edit by [employer] on 05/20/23 15:38 UA Specific Hawi 1.030 Last Edit by Chrissy Stokes on 05/20/23 15:38 UA Ketone Positive Last Edit by Chrissy Stokes on 05/20/23 15:38 UA Bilirubin 0 mg/dL Last Edit by Chrissy Stokes on 05/20/23 15:38 UA Glucose 0 mg/dL Last Edit by Chrissy Zavalaandrzej on 05/20/23 15:38 Results Reviewed Results Reviewed: Laboratory Last Values Urine pH (Auto) 5.0 05/20/23 15:18 Specific Hawi (Auto) 1.030 05/20/23 15:18 Urine Protein (Auto) 15 mg/dL 05/20/23 15:18 Glucose (UA)(Auto) 0 mg/dL 05/20/23 15:18 Urine Ketones (Auto) Positive 05/20/23 15:18 Urine Blood (Auto) 10 Harlan/uL 05/20/23 15:18 Urine Nitrite (Auto) Negative 05/20/23 15:18 Urine Bilirubin (Auto) 0 mg/dL 05/20/23 15:18 Urine Urobilinogen (Auto) 0.2 mg/dL 05/20/23 15:18 Leukocyte Esterase (Auto) 0 Tete/uL 05/20/23 15:18 Date of Service: 04/22/23 EXAMINATION: US SCROTUM FINDINGS: RIGHT: Right testicle measures 4.7 x 2.2 x 3.4 cm, volume 18.5 mL. No focal testicular parenchymal lesions are visualized. Spectral Doppler analysis of the arterial and venous flow is normal in the right testis. Right epididymal head is normal in size. No right hydrocele or varicocele is seen. Right epididymal Doppler flow is normal. LEFT: Left testicle measures 5.0 x 2.2 x 2.8 cm, volume 16.1 mL. No focal testicular parenchymal lesions are visualized. Spectral Doppler analysis of the arterial and venous flow is normal in the left testis. Left epididymal head is normal in size. A complex small cyst in the head of the epididymis measuring 5 mm, which previously measured 6 mm. No left hydrocele. In the area of the patient's discomfort, some small varicosities are seen consistent with a tiny varicocele, unchanged from prior.. Left epididymal Doppler flow is normal. IMPRESSION: 1. Normal-appearing testes. 2. Tiny left varicocele. 3. Small complex left epididymal cyst. 4. No interval change when compared to the prior study. Assessment & Plan Assessment & Plan (1) Epididymal cyst: Code(s): N50.3 - Cyst of epididymis (2) Personal history of nicotine dependence: Comment: (former smoker, 30pyh) Code(s): Z87.891 - Personal history of nicotine dependence (3) Microhematuria: Code(s): R31.29 - Other microscopic hematuria (4) Nocturia: Code(s): R35.1 - Nocturia (5) Urinary dribbling: Code(s): N39.43 - Post-void dribbling Plan In office urinalysis results reviewed with the patient today; as noted above. Recent scrotal ultrasound results reviewed with the patient today; as noted above. Discussed further surgical intervention versus surveillance monitoring of left sided epididymal head cyst. Discussed correlation of sleep apnea with nocturia Discussed, educated, encouraged on the importance of compliance with CPAP machine Discussed pelvic floor therapy to assist with urinary dribbling Stop Flomax Start terazosin 5 mg daily as discussed and prescribed. Will obtain PSA for further assessment evaluation. Discussed improtance of drinking water daily. Follow-up in 1-3 months with PSA to be completed prior and PVR at next office visit; or sooner with any issues, concerns, and or questions. Orders: Orders AMB Urinalysis Automated Today Z13.9 - Encounter for screening, unspecified Prostate Specific Antigen Today R39.12 - Poor urinary stream Medications: New terazosin 5 mg PO BEDTIME 30 days 30 caps 2RF N40.1 - Benign prostatic hyperplasia with lower urinary tract symptoms, R35.0 - Frequency of micturition Patient Instructions: The patient had an opportunity to ask questions regarding the treatment plan. All questions were answered. Physical exam, labs, and imaging were discussed and reviewed in detail. As well as risks, benefits, and discussion of treatment choices. No major barriers to understanding were identified. The patient expressed understanding and agreement with the above treatment plan. The patient was made aware they should contact our office by phone for worsening of their current condition, the appearance of new symptoms, or with any questions or concerns. Compliance is encouraged with any medications and follow up testing that is ordered. It is a privilege to be allowed the opportunity to participate in? your urological care.? Again, if you have any questions or concerns If you have any questions or concerns please do not hesitate to contact me. The office is [phone]. This note is constructed using voice recognition software. While every effort has been made to ensure accuracy sterile processing technician errors may have been included. Yours sincerely, FRANCIA Armando Coding Level of Care Code Est Pt Level 4 (89075) Diagnoses Epididymal cyst N50.3 Personal history of nicotine dependence Z87.891 Microhematuria R31.29 Nocturia R35.1 Urinary dribbling N39.43
== END 2023-05-20 16:06 | disposition home or self-care (01) ==
LOC: HO.HUSH 15:04
PROVIDERS: PCP Family Medicine; Visit Provider Nurse Practitioner Family
DX: N50.3 Cyst of epididymis (principal); Z87.891 Personal history of nicotine dependence; R31.29 Other microscopic hematuria; R35.1 Nocturia; N39.43 Post-void dribbling; Z13.9 Encounter for screening, unspecified
CPT/HCPCS: 99214

== ENCOUNTER → 2023-05-20 15:04 | Outpatient (BNVA) | payer OTHER, MEDICAID, SELFPAY | PROVIDERS: PCP Family Medicine; Visit Provider Nurse Practitioner Family | DX: N39.43 Post-void dribbling (principal); R35.1 Nocturia; R31.29 Other microscopic hematuria; N50.3 Cyst of epididymis; Z87.891 Personal history of nicotine dependence; Z85.51 Personal history of malignant neoplasm of bladder; Z79.01 Long term (current) use of anticoagulants; Z79.899 Other long term (current) drug therapy | CPT/HCPCS: 81003; 99212 ==

== ENCOUNTER 2023-05-28 12:36 | Outpatient (AMB) | payer OTHER, SELFPAY ==
--- NOTE | 2023-05-28 12:39 | MHC.OFFVIS ---
Intake Vital Signs 05/28/23 12:40 Height 6 ft 1 in Weight 250 lb BMI 33.0 Intake Visit Reasons: New prob- Lt Knee pain Intake Note: Bryant is a 62 year old male who presents today for a new problem visit with complaints of left knee pain. Patient reports that he has had pain in the left knee for quite some time now. Hx of Left Knee Arthroscopy W menicus repair. Over the last two weeks his pain has increased significant. Pain is felt all the time ,worse with activity. It also feels very weak like it will give out on him. He has had history of therapy but this was post operatively. Allergies No Known Allergies Allergy (Verified 05/20/23 16:08) HPI New prob- Lt Knee pain HPI Details Bryant comes in with longstanding left knee pain. He has had worsening pain over the last month but it has been present off and on for years. He states he has had arthroscopic surgery in the past. He denies recent injury. He notes fullness in the left knee and difficulty with daily activities. REPLACED BY [facility] Medical History DVT (deep venous thrombosis) Hx pulmonary embolism History of subarachnoid hemorrhage (~2015) History of hepatitis C History of bladder cancer (~2013) Personal history of nicotine dependence Ureteral stone with hydronephrosis Erectile dysfunction Surgical History History of colonoscopy History of left knee surgery History of transurethral resection of bladder tumor (TURBT) History of biopsy of bladder Family History Father HTN (hypertension) Cancer Myocardial infarction Cancer of prostate Mother HTN (hypertension) Brother No problems noted. Brother Diabetes mellitus Sister No problems noted. Sister No problems noted. Social History Household Members: Spouse Housing: House Are you a primary home care liaison to a significant other at home: No Do you presently have visiting nurse or other home services: No Patient Tobacco Use Status: Former Tobacco user e-Cigarette/Vaping Use: Never Used Second Hand Smoke Exposure: No Substance Use Type: Marijuana service: No Current occupational status: disabled Current occupational exposures/hazards: No Cognitive needs: No Hearing needs: No Vision needs: No Physical Exam Vital Signs: BMI result Body Mass Index 33.0 Const General: cooperative, healthy appearing, no acute distress, well developed and alert HEENT Head: Yes normal to inspection, Yes normocephalic and Yes atraumatic Mouth: moist mucous membranes Eyes General: appearance normal, both eyes and all related structures EOM: EOMs intact bilaterally Chest Other: no audible wheezing. Resp Other: No audible wheezing Effort & Inspection: normal respiratory effort Back/Spine/Pelvis Cervical Spine: normal cervical lordosis Skin General skin exam: no rashes or lesions noted Neuro General: no focal motor deficits Extrem Other: Moderate suprapatellar effusion Prominent tibial tubercle Tenderness to palpation medial and lateral joint line Stable to varus and valgus stress Psych Appearance: grossly normal and well kempt Mental Status: mental status grossly normal Speech and movement: Normal speech and movement present Affect: normal affect Attitude: cooperative Office Procedures Joint Injection/Drain Joint Injection/Drain Details: Injected 1 mL of Decadron and 3 mL 1% lidocaine and 3 mL of 0.25% Marcaine. Site was prepped using aseptic technique. Patient tolerated the procedure well. Primary Site: left knee Approach Used: lateral parapatellar Coding - Large joint Procedure code (CPT) selection complete Results Reviewed Results Reviewed: I personally reviewed relevant radiographs. Mild to moderate left knee OA Assessment & Plan Assessment & Plan (1) Osteoarthritis of left knee: Code(s): M17.12 - Unilateral primary osteoarthritis, left knee Plan: This is a 62-year-old gentleman with the effusion secondary to arthritis left knee. I aspirated about 60 mL of normal-appearing joint fluid and injected a steroid cocktail. If his pain worsens he will return to see me. Orders: Orders XR knee standing BI Today M25.569 - Pain in unspecified knee Coding Level of Care Code Est Pt Level 3 (57611) Diagnoses Osteoarthritis of left knee M17.12 CPT Codes Coding - Large joint: 73285 - Large joint ([id number])
[2023-05-28 12:40] VITALS: BMI 33.0
== END 2023-05-28 13:27 | disposition home or self-care (01) ==
PROVIDERS: PCP Family Medicine; Visit Provider Orthopaedic Surgery
DX: M17.12 Unilateral primary osteoarthritis, left knee (principal)
CPT/HCPCS: 20610; 99213

== ENCOUNTER 2023-05-28 12:36 | Outpatient (REF) | payer OTHER, SELFPAY ==
--- NOTE | ~2023-05-28 | XR_ITS ---
EXAMINATION: XR KNEE, LEFT CLINICAL INFORMATION: Pain. COMPARISON: None available. TECHNIQUE: Lateral and axial views of the left knee are submitted, together with an AP upright view of the bilateral knees. FINDINGS: Bony mineralization is normal. There is mild asymmetric narrowing of the medial joint space compartment of the right knee, with mild peripheral osteophyte formation of the medial tibial plateau. The lateral joint space compartment is well-maintained. There is moderate asymmetric narrowing of the medial joint space compartment of the left knee, with peripheral osteophyte formation. The lateral and patellofemoral joint space compartments are well-maintained. There is mild peripheral osteophyte formation of the lateral joint space compartment of the left knee. An accessory ossification center is noted of the left tibial tuberosity. No acute fracture or dislocation is seen. There is a small to moderate left knee joint effusion. No foreign body is seen. There are left femoropopliteal atherosclerotic calcifications. No significant varus or valgus configuration is seen bilaterally. XR/XR knee LT 3V IMPRESSION: 1. There is mild osteoarthritic change of the medial joint space compartment of the right knee. 2. There is moderate osteoarthritic change of the medial joint space compartment of the left knee, and mild osteoarthritic change is seen of the lateral joint space compartment. 3. A small to moderate left knee joint effusion is seen. 4. No significant varus or valgus configuration is seen bilaterally.
== END 2023-05-28 12:37 | disposition home or self-care (01) ==
LOC: HO.HOSX 12:36
PROVIDERS: PCP Family Medicine; Visit Provider Orthopaedic Surgery
DX: M17.12 Unilateral primary osteoarthritis, left knee (principal)
CPT/HCPCS: 20610; 73562; 99212; J0665; J1100

== ENCOUNTER → 2023-06-02 14:37 | Outpatient (BNVA) | payer OTHER, SELFPAY | PROVIDERS: PCP Family Medicine; Visit Provider Internal Medicine ==

== ENCOUNTER → 2023-06-16 10:31 | Outpatient (BNVA) | payer OTHER, SELFPAY | PROVIDERS: PCP Family Medicine; Visit Provider Internal Medicine ==

== ENCOUNTER → 2023-07-01 09:56 | Outpatient (BNVA) | payer OTHER, SELFPAY | PROVIDERS: PCP Family Medicine; Visit Provider Internal Medicine ==

== ENCOUNTER → 2023-07-14 09:37 | Outpatient (BNVA) | payer OTHER, SELFPAY | PROVIDERS: PCP Family Medicine; Visit Provider Internal Medicine ==

== ENCOUNTER 2023-07-21 06:03 | Outpatient (REF) | payer OTHER, SELFPAY | END 2023-07-21 06:04 | disposition home or self-care (01) | LOC: HO.LAB 06:03 | PROVIDERS: PCP Family Medicine; Visit Provider Nurse Practitioner Family | DX: Z12.5 Encounter for screening for malignant neoplasm of prostate (principal); R39.12 Poor urinary stream | CPT/HCPCS: 36415; 84153 ==

== ENCOUNTER 2023-07-21 08:26 | Outpatient (AMB) | payer OTHER, SELFPAY ==
--- NOTE | 2023-07-21 08:29 | A.OFFPC_ITS ---
Vital Signs 07/21/23 08:30 Height 6 ft 1 in Weight 250 lb 4 oz BMI 33.0 BP 132/68 Blood Pressure Location Rt brachial Position Sitting Respiration 14 Pulse 73 Pulse Source Pulse Oximeter Temp 97 F Temp Source Temporal Artery Scan Pulse Oximetry (%) 97 Oxygen Delivery Method Room Air Intake Visit Reasons: FOLLOW UP/DM- see comments Intake Note: Patient would like a letter stating that it is a medical neccesity to have tints on his car. 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 Blood pressure today 132/68. He is on lisinopril 5mg daily. Has some complaints of dizziness due to glares from the sun. A1c today 07/21/23 5.7%. He is on metformin 500mg b.i.d. [facility] Medical History DVT (deep venous thrombosis) Hx pulmonary embolism History of subarachnoid hemorrhage (~2015) History of hepatitis C History of bladder cancer (~2013) Personal history of nicotine dependence Ureteral stone with hydronephrosis Erectile dysfunction Surgical History History of colonoscopy History of left knee surgery History of transurethral resection of bladder tumor (TURBT) History of biopsy of bladder Family History Father HTN (hypertension) Cancer Myocardial infarction Cancer of prostate Mother HTN (hypertension) Brother No problems noted. Brother Diabetes mellitus Sister No problems noted. Sister No problems noted. Social History Household Members: Spouse Housing: House Are you a primary manager critical care to a significant other at home: No Do you presently have visiting nurse or other home services: No Patient Tobacco Use Status: Former Tobacco user e-Cigarette/Vaping Use: Never Used Second Hand Smoke Exposure: No Substance Use Type: Marijuana service: No Current occupational status: disabled Current occupational exposures/hazards: No Cognitive needs: No Hearing needs: No Vision needs: No Questionnaire Thrive Questionnaire Date Thrive assessed: 08/12/22 MARISA-7 AMB Questionnaire MARISA-7 Date MARISA - 7 assessed: 08/12/22 Source: Developed by Drs. August Alejandro, Radha Belcher, Higinio Aguilar and colleagues, with an educational xochilt from [employer]. Review of Systems Const Denies chills, Denies fatigue, Denies fever(s), Denies headache(s) and Denies weakness ENT Denies dizziness and Denies headache(s) Card Denies chest pain, Denies lightheadedness, Denies dyspnea and Denies other (Palpitations) Resp Denies cough, Denies dyspnea, Denies wheezing and Denies other ( shortness of breath) Musc Denies numbness and Denies tingling Neuro Denies dizziness, Denies headache(s), Denies numbness, Denies tingling, Denies paresthesias and Denies weakness Psych Denies anxiety and Denies depression Endo Denies fatigue Aller/Immun Denies wheezing Physical exam (Primary Care) Vital Signs: Last Vital Signs Temp 97 F 07/21/23 08:30 Pulse 73 07/21/23 08:30 Resp 14 07/21/23 08:30 BP 132/68 07/21/23 08:30 Pulse Ox 97 07/21/23 08:30 Oxygen Delivery Method Room Air 07/21/23 08:30 BMI result Body Mass Index 33.0 Tobacco/Smoking Status: Tobacco use Status Tobacco use date assessed 07/21/23 07/21/23 08:38 Patient Tobacco Use Status Former Tobacco user 07/21/23 08:34 e-Cigarette/Vaping Use Never Used 07/21/23 08:34 Thrive Assessment: Date of Thrive Assessment Date Thrive assessed 08/12/22 07/21/23 08:34 Const General: no acute distress and well developed Nutritional Appearance: well nourished Orientation/consciousness: patient oriented x3 HENMT Head: Yes normocephalic and Yes atraumatic Eyes General: appearance normal, both eyes and all related structures Pupils: Equal, round and reactive pupils present EOM: EOMs intact bilaterally Resp Effort & Inspection: normal respiratory effort Auscultation: clear to auscultation bilaterally Cardio Rate: regular rate Rhythm: regular rhythm Heart sounds: S1 normal heart sound present, S2 normal heart sound present, no gallops, no murmurs and no rubs Neuro General: patient oriented x3 and gait normal Cranial nerves: Yes Equal, round and reactive pupils present Psych Affect: normal affect Results AMB Hemoglobin A1c AMB Hemoglobin A1c 5.7 % Last Edit by Nicole Worthington CMA on 07/21/23 08:50 Results Reviewed Results Reviewed: Laboratory Last Values Hgb A1c (Clinic) 5.7 % (4.0-6.0) 07/21/23 08:43 Assessment and Plan Assessment & Plan (1) Essential hypertension: Code(s): I10 - Essential (primary) hypertension Plan: Goal?is?less?than?140/90 Continue?current?medication?regimen (2) Diabetes mellitus: Code(s): E11.9 - Type 2 diabetes mellitus without complications Plan: A1c?5.7%.??Goal?is?less?than?7.0% Continue?current?medication?regimen Continue?diabetic?diet?and?exercise Last?eye?exam?in?February?showed?no?diabetic?retinopathy (3) Osteoarthritis of left knee: Code(s): M17.12 - Unilateral primary osteoarthritis, left knee Plan: Left?knee aspiration?by?Ortho?and?he?was?given?cortisone?cocktail?at?that?time. He?notes?that?the?knee?has?begun?swelling?again Follow-up?with?orthopedics?as?recommended (4) Urinary dribbling: Code(s): N39.43 - Post-void dribbling Plan: Urinary?dribbling?and?also?has?an epididymal?cyst.??He?has?an?appointment?for?follow-up?with?urology?tomorrow. (5) Dizziness: Code(s): R42 - Dizziness and giddiness Plan: Dizziness?driving?in?bright?sunlight/glare Can?use?tinted?windows - will?write?a?letter?to?that?effect?for?patient. Orders: Orders Microalbumin, Random (w Creat) Today I10 - Essential (primary) hypertension Comprehensive Met. Panel Today I10 - Essential (primary) hypertension AMB Hemoglobin A1c Today Z13.9 - Encounter for screening, unspecified Vitamin D 25-OH Total Today E55.9 - Vitamin D deficiency, unspecified Coding Level of Care Code Est Pt Level 4 (24529) Diagnoses Essential hypertension I10 Diabetes mellitus E11.9 Osteoarthritis of left knee M17.12 Urinary dribbling N39.43 Dizziness R42
[2023-07-21 08:30] VITALS: BP 132/68; PULSE 73; RESP 14; TEMP 36.1; O2SAT 97; BMI 33.0
== END 2023-07-21 09:05 | disposition home or self-care (01) ==
PROVIDERS: PCP Family Medicine; Visit Provider Family Medicine
DX: I10 Essential (primary) hypertension (principal); E11.9 Type 2 diabetes mellitus without complications; M17.12 Unilateral primary osteoarthritis, left knee; N39.43 Post-void dribbling; R42 Dizziness and giddiness
CPT/HCPCS: 83036; 99214

== ENCOUNTER 2023-07-22 08:21 | Outpatient (REF) | payer OTHER, MEDICAID, SELFPAY ==
[2023-07-22 16:28] LABS: Urine Cytology See Pathology rpt
== END 2023-07-22 08:22 | disposition home or self-care (01) ==
LOC: HO.LNP 08:21
PROVIDERS: PCP Family Medicine; Visit Provider Nurse Practitioner Family
DX: R31.29 Other microscopic hematuria (principal); N50.3 Cyst of epididymis; N40.1 Benign prostatic hyperplasia with lower urinary tract symptoms; R35.1 Nocturia; N39.43 Post-void dribbling; Z79.01 Long term (current) use of anticoagulants; Z87.891 Personal history of nicotine dependence; Z79.899 Other long term (current) drug therapy
CPT/HCPCS: 51798; 81003; 88112; 99212

== ENCOUNTER 2023-07-22 08:21 | Outpatient (AMB) | payer OTHER, MEDICAID, SELFPAY ==
--- NOTE | 2023-07-22 08:46 | A.OFFVIS_ITS ---
Intake Visit Reasons: 2m/PVR Intake Note: Patient presents today for follow up PVR and PSA lab results PSA: 0.20 Urology Med: Terazosin Blood Thinner: Warfarin PVR: 33ml's Protection Engineer Required: No Accompanied by: Self / Same As Patient Allergies No Known Allergies Allergy (Verified 07/22/23 09:35) Medication List - Last Reconciled 07/22/23 by BALA Armando- atorvastatin 80 mg PO BEDTIME 30 days buprenorphine-naloxone 8-2 mg (Suboxone) 2 strips sublingual DAILY cholecalciferol (vitamin D3) 1,000 units PO DAILY 90 days citalopram 40 mg PO DAILY 90 days lisinopril 5 mg PO DAILY metformin 500 mg PO BID 90 days naloxone 4 mg/actuation intranasal terazosin 5 mg PO BEDTIME 30 days warfarin 7.5 mg See Protocol PO DAILY HPI Comments Details: Bryant Ayoub is a very pleasant 62-year-old male patient of Dr. Tidwell. He has a past medical history of ED, bladder cancer, hep C, subarachnoid hemorrhage, DVT, pulmonary embolism, nicotine dependence former smoker 30 pack year history, and nephrolithiasis. He presents to the office today for follow-up of his left-sided scrotal pain and lower urinary tract symptoms. In discussion with the patient today he reports noting significant improvement in lower urinary tract symptoms with 5 mg of terazosin. He reports left-sided scrotal pain continues to be intermittent. He describes having had an episode this past weekend for about an hour however it has since subsided. Previous workup has included a scrotal ultrasound noting normal-appearing testes, tiny left varicocele, and small complex left epididymal cyst. In assessment of the patient today he continues with discomfort throughout palpation of the left scrotal sac and testicle. Small left epididymal head cyst palpated otherwise no lesions, drainage, and or open areas noted throughout the scrotum, testicles and or penis. 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 Discussed surveillance monitoring versus surgical intervention of left epididymal head cyst. He otherwise denies urinary urgency, urinary frequency, incontinence, hematuria, dysuria, foul smelling urine, changes to urinary stream, flank pain, fever, and or chills. In office urinalysis results reviewed with the patient today. PVR 33 mLs. Of note, patient was seen approximately [address] Watkins at which time he underwent an office cystoscopy for his longstanding history of bladder cancer with a TURBT in 2013. Cystoscopy noted NAD. PSAs are as follows: 11/12 0.2, 03/15 0.3, 01/13 0.3, 07/16 0.2 Bladder cancer superficial 2013 Prior TURBT 2013 30 year pack history of smoking Prior nephrolithiasis Treated hepatitis-C Cystoscopy - 01/15 NAD PFS Medical History DVT (deep venous thrombosis) Hx pulmonary embolism History of subarachnoid hemorrhage (~2015) History of hepatitis C History of bladder cancer (~2013) Personal history of nicotine dependence Ureteral stone with hydronephrosis Erectile dysfunction Surgical History History of colonoscopy History of left knee surgery History of transurethral resection of bladder tumor (TURBT) History of biopsy of bladder Family History Father HTN (hypertension) Cancer Myocardial infarction Cancer of prostate Mother HTN (hypertension) Brother No problems noted. Brother Diabetes mellitus Sister No problems noted. Sister No problems noted. Social History Household Members: Spouse Housing: House Are you a primary long term care pharmacist to a significant other at home: No Do you presently have visiting nurse or other home services: No Patient Tobacco Use Status: Former Tobacco user e-Cigarette/Vaping Use: Never Used Second Hand Smoke Exposure: No Substance Use Type: Marijuana service: No Current occupational status: disabled Current occupational exposures/hazards: No Cognitive needs: No Hearing needs: No Vision needs: No Review of Systems Const Reports as per HPI Eyes Reports no additional complaints ENT Reports no additional complaints Card Reports no additional complaints Resp Reports as per HPI GI Reports no additional complaints Reports as per HPI Neuro Reports as per HPI Psych Reports no additional complaints Haris/Lymph Reports as per HPI Physical Exam Const General: cooperative, healthy appearing, comfortable, no acute distress, well developed, alert and awake Nutritional Appearance: overweight Orientation/consciousness: patient oriented x3 Limitations: no limitations HEENT Head: Yes normal to inspection, Yes normocephalic and Yes atraumatic Ears: hearing grossly normal bilaterally Eyes General: appearance normal, both eyes and all related structures Neck Neck: Yes normal visual inspection and Yes trachea midline Chest Chest palpation & inspection: normal inspection of the chest Resp Effort & Inspection: normal respiratory effort and able to speak in complete sentences Cardio Rate: regular rate GI Inspection: Yes normal to inspection General: Yes no CVA tenderness Male General Exam: Yes normal external exam Penis: normal penis and circumcised Meatus: meatus normal Scrotum: other (as per HPI) Testes: epididymal tenderness on the left and other (as per HPI) Back/Spine/Pelvis Back: no CVA tenderness Skin General skin exam: no rashes or lesions noted Neuro General: patient oriented x3 Extrem General: Yes normal to inspection Psych Appearance: grossly normal and well kempt Mental Status: mental status grossly normal Speech and movement: Normal speech and movement present and Clear speech present Affect: normal affect Attitude: cooperative Thought process: Normal thought process present Thought content: Normal thought content present Insight: Fair insight present (Psych) Judgement: Fair judgement present (Psych) Office Procedures Post Void Residual Post Residual Void Post Void Residual (PVR): 33 [id number] Void Residual by ultrasound Results AMB Urinalysis, Automated UA Leukoctes 0 Tete/uL Last Edit by Valderm on 07/22/23 09:02 UA Nitrite Negative Last Edit by Valderm on 07/22/23 09:02 UA Urobilinogen 0.2 mg/dL Last Edit by Valderm on 07/22/23 09:02 UA Protein 15 mg/dL Last Edit by Valderm on 07/22/23 09:02 UA pH 6.0 Last Edit by Valderm on 07/22/23 09:02 UA Blood 0 Harlan/uL Last Edit by Valderm on 07/22/23 09:02 UA Specific Warba 1.020 Last Edit by Valderm on 07/22/23 09:02 UA Ketone Negative Last Edit by Valderm on 07/22/23 09:02 UA Bilirubin 0 mg/dL Last Edit by Valderm on 07/22/23 09:02 UA Glucose 0 mg/dL Last Edit by Valderm on 07/22/23 09:02 Results Reviewed Results Reviewed: Laboratory Last Values Urine pH (Auto) 6.0 07/22/23 08:52 Specific Warba (Auto) 1.020 07/22/23 08:52 Urine Protein (Auto) 15 mg/dL 07/22/23 08:52 Glucose (UA)(Auto) 0 mg/dL 07/22/23 08:52 Urine Ketones (Auto) Negative 07/22/23 08:52 Urine Blood (Auto) 0 Harlan/uL 07/22/23 08:52 Urine Nitrite (Auto) Negative 07/22/23 08:52 Urine Bilirubin (Auto) 0 mg/dL 07/22/23 08:52 Urine Urobilinogen (Auto) 0.2 mg/dL 07/22/23 08:52 Leukocyte Esterase (Auto) 0 Tete/uL 07/22/23 08:52 Assessment & Plan Assessment & Plan (1) Epididymal cyst: Code(s): N50.3 - Cyst of epididymis Category: Medical (2) Personal history of nicotine dependence: Comment: (former smoker, 30pyh) Code(s): Z87.891 - Personal history of nicotine dependence Category: Medical (3) Microhematuria: Code(s): R31.29 - Other microscopic hematuria Category: Medical (4) Nocturia: Code(s): R35.1 - Nocturia Category: Medical (5) Urinary dribbling: Code(s): N39.43 - Post-void dribbling Category: Medical Plan In office urinalysis results reviewed with the patient today; as noted above; will send for cytology. Patient with a previous history of bladder cancer underwent an office cystoscopy with Dr. Watkins 01/15 NAD; will continue with surveillance monitoring. PVR 33 mL. Patient reports be happy with current voiding parameters. He currently denies any bothersome urinary issues or concerns. Continue terazosin 5 mg at bedtime as discussed and prescribed. Discussed further surgical intervention versus surveillance monitoring of left sided epididymal head cyst. Discussed, educated, encouraged on the importance of compliance with CPAP machine for overall health and well-being as well as to assist with lower urinary tract symptoms. Recent PSA results reviewed with the patient today; as noted above. Discussed improtance of drinking water daily. Follow-up 6 months with PVR; or sooner with any issues, concerns, and or questions. Orders: Orders AMB Urinalysis Automated Today Z13.9 - Encounter for screening, unspecified Urine Cytology Today R31.29 - Other microscopic hematuria AMB Post Void Residual by ultrasound Today R35.1 - Nocturia Prostate Specific Antigen 6 Months N40.0 - Benign prostatic hyperplasia without lower urinary tract symptoms Patient Instructions: The patient had an opportunity to ask questions regarding the treatment plan. All questions were answered. Physical exam, labs, and imaging were discussed and reviewed in detail. As well as risks, benefits, and discussion of treatment choices. No major barriers to understanding were identified. The patient expressed understanding and agreement with the above treatment plan. The patient was made aware they should contact our office by phone for worsening of their current condition, the appearance of new symptoms, or with any questions or concerns. Compliance is encouraged with any medications and follow up testing that is ordered. It is a privilege to be allowed the opportunity to participate in? your urological care.? Again, if you have any questions or concerns If you have any questions or concerns please do not hesitate to contact me. The office is [phone]. This note is constructed using voice recognition software. While every effort has been made to ensure accuracy pulmonary nurse practitioner errors may have been included. Yours sincerely, FRANCIA Armando Coding Level of Care Code Est Pt Level 3 (24346) Diagnoses Epididymal cyst N50.3 Personal history of nicotine dependence Z87.891 Microhematuria R31.29 Nocturia R35.1 Urinary dribbling N39.43 CPT Codes Post Residual Void - PVR CPT Code: 30830-Zapw Void Residual by ultrasound ([id number])
== END 2023-07-22 09:11 | disposition home or self-care (01) ==
PROVIDERS: PCP Family Medicine; Visit Provider Nurse Practitioner Family
DX: N50.3 Cyst of epididymis (principal); Z87.891 Personal history of nicotine dependence; R31.29 Other microscopic hematuria; R35.1 Nocturia; N39.43 Post-void dribbling; Z13.9 Encounter for screening, unspecified
CPT/HCPCS: 99213

== ENCOUNTER → 2023-07-28 14:51 | Outpatient (BNVA) | payer OTHER, MEDICAID, SELFPAY | PROVIDERS: PCP Family Medicine; Visit Provider Internal Medicine ==

== ENCOUNTER → 2023-08-11 11:24 | Outpatient (BNVA) | payer OTHER, MEDICAID, SELFPAY | PROVIDERS: PCP Family Medicine; Visit Provider Internal Medicine ==

== ENCOUNTER → 2023-08-25 11:39 | Outpatient (BNVA) | payer OTHER, MEDICAID, SELFPAY | PROVIDERS: PCP Family Medicine; Visit Provider Internal Medicine ==

== ENCOUNTER → 2023-09-08 14:33 | Outpatient (BNVA) | payer OTHER, MEDICAID, SELFPAY | PROVIDERS: PCP Family Medicine; Visit Provider Internal Medicine ==

== ENCOUNTER → 2023-09-22 13:54 | Outpatient (BNVA) | payer OTHER, MEDICAID, SELFPAY | PROVIDERS: PCP Family Medicine; Visit Provider Internal Medicine ==

== ENCOUNTER → 2023-09-29 11:00 | Outpatient (BNVA) | payer OTHER, MEDICAID, SELFPAY | PROVIDERS: PCP Family Medicine; Visit Provider Internal Medicine ==

== ENCOUNTER → 2023-10-06 08:13 | Outpatient (BNVA) | payer OTHER, MEDICAID, SELFPAY | PROVIDERS: PCP Family Medicine; Visit Provider Internal Medicine ==

== ENCOUNTER → 2023-10-20 09:09 | Outpatient (BNVA) | payer OTHER, SELFPAY | PROVIDERS: PCP Family Medicine; Visit Provider Internal Medicine ==

== ENCOUNTER 2023-10-23 09:11 | Outpatient (AMB) | payer OTHER, MEDICAID, SELFPAY ==
[2023-10-23 09:13] VITALS: BMI 32.3
--- NOTE | 2023-10-23 09:13 | MHC.OFFVIS ---
Vital Signs 10/23/23 09:13 Height 6 ft 1 in Weight 245 lb BMI 32.3 Intake Visit Reasons: OV- Left Knee pain/fluid Intake Note: Bryant is a 63 year old male who presents today for a follow up of his left knee OA, he was last seen on 05/28/23 where the left knee was aspirated and injected. Patient states that his left knee is still in a lot of pain and has fluid, he would like to repeat the treatment he received at the last visit Allergies No Known Allergies Allergy (Verified 10/23/23 09:16) HPI HPI OV- Left Knee pain/fluid: Details: Bryant is a 63 year old male who presents today for a follow up of his left knee OA, he was last seen on 05/28/23 where the left knee was aspirated and injected. Patient states that his left knee is still in a lot of pain and has fluid, he would like to repeat the treatment he received at the last visit. He has pain with stairs and ladders but can walk extended distances on flat ground without difficulty. [facility] Medical History (Updated 10/12/23 @ 12:00 by Tess Baugh PA-C) Diabetes mellitus Essential hypertension Hypercholesterolemia DVT (deep venous thrombosis) Chronic pulmonary embolism (~2012) History of subarachnoid hemorrhage (~2015) History of hepatitis C History of bladder cancer (~2013) Personal history of nicotine dependence Obstructive sleep apnea Ureteral stone with hydronephrosis Erectile dysfunction Anxiety with depression Surgical History History of colonoscopy History of left knee surgery History of transurethral resection of bladder tumor (TURBT) History of biopsy of bladder Family History Father HTN (hypertension) Cancer Myocardial infarction Cancer of prostate Mother HTN (hypertension) Brother No problems noted. Brother Diabetes mellitus Sister No problems noted. Sister No problems noted. Social History Household Members: Spouse Housing: House Are you a primary child day care provider to a significant other at home: No Do you presently have visiting nurse or other home services: No Patient Tobacco Use Status: Former Tobacco user e-Cigarette/Vaping Use: Never Used Second Hand Smoke Exposure: No Substance Use Type: Marijuana service: No Current occupational status: disabled Current occupational exposures/hazards: No Cognitive needs: No Hearing needs: No Vision needs: No Physical Exam Vital Signs: BMI result Body Mass Index 32.3 Extrem Other: Krel-sx-[id number] effusion and retropatellar tenderness to palpation. Difficulty with terminal flexion but full extension. No gait antalgia. Office Procedures Joint Inj/Aspir; Non-Pain Clin Coding Procedure code (CPT) selection complete Joint Injection/Aspiration Joint Injection/Aspiration Details: Injected 1 mL of Decadron and 3 mL 1% lidocaine and 3 mL of 0.25% Marcaine. Site was prepped using aseptic technique. Patient tolerated the procedure well. Primary Site: left knee Approach Used: anterolateral Coding - Large joint Procedure code (CPT) selection complete Assessment & Plan Assessment & Plan (1) Diabetes mellitus: Code(s): E11.9 - Type 2 diabetes mellitus without complications Category: Medical Plan: I informed the patient of the hyperglycemic effects of steroids (2) Osteoarthritis of left knee: Code(s): M17.12 - Unilateral primary osteoarthritis, left knee Category: Medical Plan: I aspirated 50 mL of normal-appearing joint fluid and injected steroid cocktail. I do not recommend surgical intervention. Coding Level of Care Code Est Pt Level 4 (61943) Diagnoses Diabetes mellitus E11.9 Osteoarthritis of left knee M17.12 CPT Codes Coding - Large joint: 83323 - Large joint ([id number])
== END 2023-10-23 09:58 | disposition home or self-care (01) ==
PROVIDERS: PCP Family Medicine; Visit Provider Orthopaedic Surgery
DX: M17.12 Unilateral primary osteoarthritis, left knee (principal); E11.9 Type 2 diabetes mellitus without complications
CPT/HCPCS: 20610; 99214

== ENCOUNTER → 2023-10-23 09:11 | Outpatient (BNVA) | payer OTHER, MEDICAID, SELFPAY | PROVIDERS: PCP Family Medicine; Visit Provider Orthopaedic Surgery | DX: M17.12 Unilateral primary osteoarthritis, left knee (principal) | CPT/HCPCS: 20610; 99212; J0665; J1100 ==

== ENCOUNTER 2023-10-27 08:31 | Outpatient (AMB) | payer OTHER, MEDICAID, SELFPAY ==
[2023-10-27 08:47] LABS: Prothrombin Time Whole Bld POC 35.4 sec (11.1-13.5)
--- NOTE | 2023-10-27 08:48 | MHC.OFFVISCO ---
Intake Intake Visit Reasons: Anticoagulation Allergies No Known Allergies Allergy (Verified 10/27/23 08:38) Medication List - Last Reconciled 10/27/23 by Jhoana Son RN atorvastatin 80 mg PO BEDTIME 30 days buprenorphine-naloxone 8-2 mg (Suboxone) 2 strips sublingual DAILY cholecalciferol (vitamin D3) 1,000 units PO DAILY 90 days citalopram 40 mg PO DAILY 90 days lisinopril 5 mg PO DAILY metformin 500 mg PO BID 90 days terazosin 5 mg PO BEDTIME 30 days warfarin 7.5 mg See Protocol PO DAILY Nursing Note INR: 3.0- in therapeutic range of 2-3 meter to meter correlation- pt coag meter 3.1 Medications and supplements reviewed with pt No changes in health, diet, medications, or supplements, Denies any signs and symptoms of bleeding or bruising or clotting. Bleeding, bruising, clotting discussed Nutritional guidance given - pt does not eat many greens, enc to increase greens in weekly diet Dose: cont same dosing- 3.75mg x 1. 7.5mg x 6 F/U INR: 2 weeks with home meter Patient verbalizes understanding of instructions given pt risk scores done, pt meter time adjusted, pt coag meter memory check for 5 previous visits- one did not match 3.0/3.2 pt instructed to call correct inr to [facility]. pt without strips- awaiting from [facility]. will call [facility] if not received by next inr check pt states has upcoming dental procedure- aware to call acs and to monitor inr closely prior to proc- ? hold warfarin Anti-Coag Initial Assessment Social Hx Patient Tobacco Use Status: Former Tobacco user Questionnaires HAS-BLED Does the patient had uncontrolled Hypertension?: No Does the patient have renal disease?: No Does the patient have liver disease?: Yes Does the patient have a history of stroke?: No Has the patient had major bleeding or predisposition to bleeding?: Yes Does the patient have labile INRs?: No Is the patient over 65 years of age?: No Is the patient on medications that gives them a predisposition to bleeding?: Yes Does the patient use alcohol?: Yes HAS-BLED Score: 4 CHADSVASC Age: <65 Gender: Male Does the patient have a history of CHF?: No Does the patient have a history of Hypertension?: Yes Does the patient have a history of Stroke/TIA/Thromboembolism?: Yes Does the patient have a history of Vascular Disease (prior ID, PAD or aortic plaque)?: No Does the patient have a history of Diabetes?: Yes CHADS VACS Score: 4 Delmis Prediction Score Rsk VTE Active Cancer: No Previous VTE, excluding superficial vein thrombosis: Yes Reduced mobility: No Already known Thrombophilic Condition: No With-in last month Trauma and/or Surgery: No Elderly 70 year or older: No Heart and/or Respiratory Failure: No Acute Myocardial infarction and/or Ischemic Stroke: No Acute Infection and/or Rheumatologic Disorder: No Obesity (BMI 30 or greater): Yes Ongoing Hormonal Treatment: No Score: 4 Delmis Score less than 4; Low Risk of VTE Delmis Score 4 or greater; High Risk of VTE Coding Level of Care Code Est Patient Level 2 Diagnoses Current use of anticoagulant therapy Z79.01 Assessment & Plan Assessment & Plan (1) Current use of anticoagulant therapy: Onset Date: Code(s): Z79.01 - intermediate designer (current) use of anticoagulants Category: Medical
== END 2023-10-27 09:14 | disposition home or self-care (01) ==
PROVIDERS: PCP Family Medicine; Visit Provider Internal Medicine
DX: Z79.01 Long term (current) use of anticoagulants (principal)

== ENCOUNTER → 2023-10-27 08:31 | Outpatient (BNVA) | payer OTHER, MEDICAID, SELFPAY | PROVIDERS: PCP Family Medicine; Visit Provider Internal Medicine | DX: I26.99 Other pulmonary embolism without acute cor pulmonale (principal); Z79.01 Long term (current) use of anticoagulants; Z51.81 Encounter for therapeutic drug level monitoring | CPT/HCPCS: 85610; 99212 ==

== ENCOUNTER → 2023-11-03 11:51 | Outpatient (BNVA) | payer OTHER, SELFPAY | PROVIDERS: PCP Family Medicine; Visit Provider Internal Medicine ==

== ENCOUNTER → 2023-11-17 15:19 | Outpatient (BNVA) | payer OTHER, SELFPAY | PROVIDERS: PCP Family Medicine; Visit Provider Internal Medicine ==

== ENCOUNTER → 2023-11-20 12:49 | Outpatient (BNVA) | payer OTHER, SELFPAY | PROVIDERS: PCP Family Medicine; Visit Provider Internal Medicine ==

== ENCOUNTER → 2023-11-27 12:05 | Outpatient (BNVA) | payer OTHER, SELFPAY | PROVIDERS: PCP Family Medicine; Visit Provider Internal Medicine ==

== ENCOUNTER → 2023-12-01 13:58 | Outpatient (BNVA) | payer OTHER, SELFPAY | PROVIDERS: PCP Family Medicine; Visit Provider Internal Medicine ==

== ENCOUNTER 2023-12-02 07:50 | Outpatient (REF) | payer OTHER, SELFPAY ==
--- NOTE | ~2023-12-02 | CT_ITS ---
EXAMINATION: CT LOW-DOSE SCREENING CHEST WITHOUT CONTRAST CLINICAL INFORMATION: Personal history of nicotine dependence. The patient has a 30 pack-year history of smoking, having quit 7 years ago. COMPARISON: CT chest 06/19/2022. X-ray chest 10/26/2014. TECHNIQUE: Multidetector volumetric CT imaging of the chest is performed on a Siemens SOMATOM Definition scanner without contrast using low dose technique. Additional 2D coronal and sagittal reformatted images and axial 3D maximum intensity projection (MIP) images are generated on the CT workstation. This CT examination was performed using dose optimization techniques as appropriate, variously including the following: *Automated exposure control *Adjustment of mA and/or kV according to patient size (this includes techniques or standardized protocols for targeted exams where dose is matched to indication/reason for exam; i.e. extremities or head) *Use of iterative reconstruction technique TOTAL EXAM DLP: 85 mGy-cm. CTDIvol: 2.29 mGy. FINDINGS: PULMONARY NODULES: Again seen are some small nonsuspicious sub-4 mm nodules (see saved byrd images). No new, increasing sized or suspicious nodule seen. LUNGS: Lungs bilaterally symmetrically expanded. There is mild emphysema and bronchial thickening without bronchiectasis. Right upper lobe plate-like atelectasis is present. No effusion or pneumothorax. Central airways patent. MEDIASTINUM: No mediastinal, hilar or axillary adenopathy or free fluid collection. CORONARY ARTERY CALCIFICATION: None visualized on this study. THYROID GLAND: Unremarkable to the extent seen. CARDIOVASCULAR STRUCTURES: Aortic and heart size normal. No pericardial effusion. CHEST WALL/AXILLA: Unremarkable. UPPER ABDOMEN: Fat density benign 2.4 cm right adrenal adenoma again seen which needs no additional imaging or followup. Previously seen renal calculus is not included in the scope of the exam. Included portions of the solid organs in the upper abdomen otherwise unremarkable on noncontrast imaging. OSSEOUS STRUCTURES: Mild degenerative change. Hemangioma again noted in T7. CT/CT lung screening IMPRESSION: No finding seen suspicious for malignancy. ASSESSMENT: 1. Lung-RADS Category 2: Benign appearance or behavior of nodules. N/A 2. Lung-RADS Category S: Negative. There are no clinically significant or potentially clinically significant findings not related to the lungs requiring urgent additional evaluation. RECOMMENDATION: Continued routine annual low-dose CT lung screening in 1 year is recommended. An order for CT CHEST LOW DOSE CANCER SCREENING ([id number]) can be placed. Electronically signed by: Lon Mays MD 01/15/2024 05:57 PM WON
== END 2023-12-02 07:51 | disposition home or self-care (01) ==
LOC: HO.CT 07:50
PROVIDERS: PCP Family Medicine; Visit Provider Physician Assistant Medical
DX: Z12.2 Encounter for screening for malignant neoplasm of respiratory organs (principal); Z87.891 Personal history of nicotine dependence
CPT/HCPCS: 71271

== ENCOUNTER → 2023-12-15 12:11 | Outpatient (BNVA) | payer OTHER, SELFPAY | PROVIDERS: PCP Family Medicine; Visit Provider Internal Medicine ==

== ENCOUNTER → 2023-12-29 10:07 | Outpatient (BNVA) | payer OTHER, SELFPAY | PROVIDERS: PCP Family Medicine; Visit Provider Internal Medicine ==

== ENCOUNTER 2024-01-05 08:37 | Outpatient (REF) | payer OTHER, SELFPAY | END 2024-01-05 08:38 | disposition home or self-care (01) | LOC: HO.LAB 08:37 | PROVIDERS: PCP Family Medicine; Visit Provider Urology | DX: R68.82 Decreased libido (principal); Z85.51 Personal history of malignant neoplasm of bladder | CPT/HCPCS: 52000; 81003; 99212 ==

== ENCOUNTER 2024-01-05 08:37 | Outpatient (AMB) | payer OTHER, SELFPAY ==
--- NOTE | 2024-01-05 08:38 | A.OFFVIS_ITS ---
Intake Visit Reasons: 1Y Cystoscopy(Bladder CA) Intake Note: Patient is present for Cystoscopy Urology Med: Terazosin Antibiotic Allergy: None Blood Thinner: Warfarin No Recent FISH Cytology Last Urine Cytology- 06/2023-Negative for high-grade urothelial carcinoma Patient reports recent increase in frequency and Nocturia, Patient reports that he gets up 2-3 times during the night Has not Started the Terazosin, patient states he was unaware about the medication and would like to discuss Rn Hedis Required: No Accompanied by: Self / Same As Patient Allergies No Known Allergies Allergy (Verified 01/05/24 08:49) HPI Comments Details: Bryant is a pleasant male. He is a patient of Dr. Tidwell. He seen for the following urologic conditions - bladder cancer - lower urinary tract symptoms Here for annual check cystoscopy - background diabetes and Suboxone PSA 01/13 0.3 Plan testosterone review Would like to move ahead with senile angiokeratoma laser Refill terazosin Bladder cancer superficial 2013 Prior TURBT 2013 30 year pack history of smoking Prior nephrolithiasis Treated hepatitis-C Cystoscopy - 01/15 NAD Associated senile angiokeratomas Lower urinary tract symptoms Good response to terazosin PFSH Medical History Diabetes mellitus Essential hypertension Hypercholesterolemia DVT (deep venous thrombosis) Chronic pulmonary embolism (~2012) History of subarachnoid hemorrhage (~2015) History of hepatitis C History of bladder cancer (~2013) Personal history of nicotine dependence Obstructive sleep apnea Ureteral stone with hydronephrosis Erectile dysfunction Anxiety with depression Surgical History History of colonoscopy History of left knee surgery History of transurethral resection of bladder tumor (TURBT) History of biopsy of bladder Family History Father HTN (hypertension) Cancer Myocardial infarction Cancer of prostate Mother HTN (hypertension) Brother No problems noted. Brother Diabetes mellitus Sister No problems noted. Sister No problems noted. Social History Household Members: Spouse Housing: House Are you a primary adult daycare coordinator to a significant other at home: No Do you presently have visiting nurse or other home services: No Patient Tobacco Use Status: Former Tobacco user e-Cigarette/Vaping Use: Never Used Second Hand Smoke Exposure: No Substance Use Type: Marijuana service: No Current occupational status: disabled Current occupational exposures/hazards: No Cognitive needs: No Hearing needs: No Vision needs: No Review of Systems Const Denies chills and Denies fever(s) Card Reports no additional complaints and Denies syncope Resp Denies cough GI Denies abdominal pain and Denies heartburn Reports as per HPI and Denies change in libido Neuro Denies syncope Psych Denies change in libido Endo Denies change in libido Physical Exam Const General: cooperative, healthy appearing, comfortable and no acute distress Orientation/consciousness: patient oriented x3 HEENT Face and sinus: Yes normal facial exam Mouth: moist mucous membranes Neck Neck: Yes normal visual inspection, Yes full ROM and Yes trachea midline Chest Chest palpation & inspection: normal inspection of the chest Resp Effort & Inspection: normal respiratory effort, able to speak in complete sentences and no respiratory distress GI Inspection: Yes normal to inspection Back/Spine/Pelvis Cervical Spine: normal cervical lordosis Thoracic/Lumbar Spine: thoracic and lumbar spine normal to inspection Skin General skin exam: no rashes or lesions noted Neuro General: patient oriented x3, gait normal, tone normal and moves all extremities Extrem General: Yes normal to inspection and Yes capillary refill normal Office Procedures Cystoscopy Consent Discussed risk and benefit or proposed procedure with the patient. Information consent for procedure given to the patient. Discussed technical aspects, risks, benefits and alternatives in full. Addressed all of the patient's questions and concerns regarding the procedure. The patient demonstrated knowledge and understanding. They wish to proceed with this procedure. Preparation The patient was prepped in the usual manner. A commercial loan collection officer was present and in the room. Genitalia was prepped with betadine solution in a sterile manner. Lidocaine Jelly 2% was placed into the urethra and 16Fr flexible Olympus c ystoscope was inserted into the meatus after adequate lubrication. Procedure Cystoscopy performed using a disposable Urovue digital 16 Tanzanian cystoscope. Meatus circumcised Urethra anterior and posterior urethra normal Prostatic Urethra unremarkable Bladder examination with retroflexion of cystoscope Bladder Orifices normal shape and position Bladder Capacity normal Trabeculations grade 1 Cellule Formation no Diverticulum Formation note Mucosal Erythema normal Bladder Tumor none [id number] Procedure code (CPT) selection complete Office Meds lidocaine HCl 2 % mucosal jelly in applicator Performing Provider: Jarrod Watkins MD Performing Location: [facility] Administered by: SIOMARA Vásquez on 01/05/24 08:58 Dose Route Admin Location Dispensed Lot Number Expiration Date NDC Gastroenterology Nurse 10 mL intra-urethral 10 mL Comments: Administered by Dr. Jarrod Watkins MD nitrofurantoin monohydrate/macrocrystals 100 mg capsule Performing Provider: Jarrod Watkins MD Performing Location: [facility] Administered by: SIOMARA Vásquez on 01/05/24 08:58 Dose Route Admin Location Dispensed Lot Number Expiration Date NDC Gastroenterology Nurse 100 mg PO 1 cap Comments: Administered by Dr. Jarrod Watkins MD naproxen 500 mg tablet Performing Provider: Jarrod Watkins MD Performing Location: [facility] [place] [facility] Administered by: SIOMARA Vásquez on 01/05/24 08:58 Dose Route Admin Location Dispensed Lot Number Expiration Date NDC Gastroenterology Nurse 500 mg PO 1 tab Comments: Administered by Dr. Jarrod Watkins MD Results AMB Urinalysis, Automated UA Leukoctes 0 Tete/uL Last Edit by SIOMARA Vásquez on 01/05/24 08:59 UA Nitrite Negative Last Edit by Marian Harris Kimberly on 01/05/24 08:59 UA Urobilinogen 0.2 mg/dL Last Edit by Marian Harris [facility] on 01/05/24 08:5 9 UA Protein 15 mg/dL Last Edit by Marian Harris Kimberly on 01/05/24 08:59 UA pH 5.5 Last Edit by Marian Harris Kimberly on 01/05/24 08:59 UA Blood 25 Harlan/uL Last Edit by Marian Harris [facility] on 01/05/24 08:59 UA Specific Thermal 1.025 Last Edit by SIOMARA Vásquez on 01/05/24 08: 59 UA Ketone Negative Last Edit by Marian Harris [facility] on 01/05/24 08:59 UA Bilirubin 0 mg/dL Last Edit by Marian Harris [facility] on 01/05/24 08:59 UA Glucose 0 mg/dL Last Edit by Marian Harris [facility] on 01/05/24 08:59 Results Reviewed Results Reviewed: Laboratory Last Values Urine pH (Auto) 5.5 01/05/24 08:49 Specific Thermal (Auto) 1.025 01/05/24 08:49 Urine Protein (Auto) 15 mg/dL 01/05/24 08:49 Glucose (UA)(Auto) 0 mg/dL 01/05/24 08:49 Urine Ketones (Auto) Negative 01/05/24 08:49 Urine Blood (Auto) 25 Harlan/uL 01/05/24 08:49 Urine Nitrite (Auto) Negative 01/05/24 08:49 Urine Bilirubin (Auto) 0 mg/dL 01/05/24 08:49 Urine Urobilinogen (Auto) 0.2 mg/dL 01/05/24 08:49 Leukocyte Esterase (Auto) 0 Tete/uL 01/05/24 08:49 Assessment & Plan Assessment & Plan (1) Low libido: Code(s): R68.82 - Decreased libido Category: Medical Plan Risks, benefits and alternatives to therapy were discussed. These include but are not limited to infection, bleeding, damage to local organs and tissues, need for further interventions. Anesthetic risks regarding cardiac arrhythmia, blood clots, and potential mortality were discussed. The patient understands the typical recovery time and the outpatient nature of the procedure. After consideration of these risks the patient gives full informed consent and they wish to move ahead with the procedure. CO2 laser scrotal angiokeratomas Orders: Orders Testosterone, Free/Total Today R68.82 - Decreased libido Lutenizing Hormone Today R68.82 - Decreased libido AMB Urinalysis Automated Today Z13.9 - Encounter for screening, unspecified AMB Cystoscopy Today Z85.51 - Personal history of malignant neoplasm of bladder Urine Cytology Today Z85.51 - Personal history of malignant neoplasm of bladder Patient Instructions: Imaging studies, laboratory and physical exam results were discussed and reviewed in detail. No major barriers to patient understanding were identified. An opportunity to ask questions regarding the treatment plan was provided. All questions were answered. The patient expressed understanding and agreement with the above treatment plan. The patient is aware they should contact our office by phone for worsening of their current condition or the appearance of new urologic symptoms. Compliance is encouraged with any medications and followup testing that is ordered. It is a privilege to participate in the urologic care of your patient. If you have any questions or concerns regarding treatment for the above conditions, or other urologic issues, please do not hesitate to contact me. The office telephone contact is [phone]. This note is constructed using voice recognition software. While every effort has been made to ensure accuracy warehouse coordinator errors may have been included. Yours sincerely, Dr Jarrod Watkins MD, [facility] - Urology Providers of Expert, Compassionate Care for the Genitourinary System Coding Level of Care Code Est Pt Level 4 (97330) Diagnoses Low libido R68.82 CPT Codes Cystoscopy - CPT: 75221-[id number] ([id number])
== END 2024-01-05 09:37 | disposition home or self-care (01) ==
PROVIDERS: PCP Family Medicine; Visit Provider Urology
DX: R68.82 Decreased libido (principal); Z85.51 Personal history of malignant neoplasm of bladder; Z13.9 Encounter for screening, unspecified
CPT/HCPCS: 52000; 99214

== ENCOUNTER 2024-01-05 09:56 | Outpatient (REF) | payer OTHER, SELFPAY ==
[2024-01-05 10:35] LABS: Urine Cytology See Pathology rpt
[2024-01-05 11:54] LABS: Prostate Specific Antigen 0.28 ng/mL (<0.05-4.0)
[2024-01-07 00:38] LABS: Lutenizing Hormone 2.2 mIU/mL (1.6-15.2)
[2024-01-10 15:32] LABS: Testosterone, Free 18.5 pg/mL (35.0-155.0); Testosterone, Total 225 ng/dL (250-1100)
== END 2024-01-05 09:57 | disposition home or self-care (01) ==
LOC: HO.10HDL 09:56
PROVIDERS: Nurse Practitioner Family; Visit Provider Urology
DX: R68.82 Decreased libido (principal); Z85.51 Personal history of malignant neoplasm of bladder; N40.0 Benign prostatic hyperplasia without lower urinary tract symptoms; Z12.5 Encounter for screening for malignant neoplasm of prostate
CPT/HCPCS: 36415; 83002; 84153; 84402; 84403; 88112

== ENCOUNTER → 2024-01-12 11:29 | Outpatient (BNVA) | payer OTHER, SELFPAY | PROVIDERS: PCP Family Medicine; Visit Provider Internal Medicine ==

== ENCOUNTER 2024-01-18 08:07 | Outpatient (AMB) | payer OTHER, SELFPAY ==
--- NOTE | 2024-01-18 08:35 | A.OFFVIS_ITS ---
Intake Visit Reasons: 6m/PSA/PVR Intake Note: Patient presents today for follow up on: bladder cancer Urology Med: Terazosin, nocturia, and microhematuria Antibiotic Allergy: None Blood Thinner: Warfarin No Recent FISH Cytology Last Urine Cytology- 06/2023-Negative for high-grade urothelial carcinoma Children'S Tutor Required: No Accompanied by: Self / Same As Patient Allergies No Known Allergies Allergy (Verified 01/18/24 09:05) Medication List - Last Reconciled 01/18/24 by FRANCIA Armando atorvastatin 80 mg PO BEDTIME 30 days buprenorphine-naloxone 8-2 mg (Suboxone) 2 strips sublingual DAILY cholecalciferol (vitamin D3) 1,000 units PO DAILY 90 days citalopram 40 mg PO DAILY 90 days clomiphene citrate 100 mg (2 x 50 mg) PO DAILY 7 days lisinopril 5 mg PO DAILY metformin 500 mg PO BID 90 days terazosin 5 mg PO BEDTIME 90 days warfarin 7.5 mg See Protocol PO DAILY HPI Comments Details: Bryant Ayoub is a very pleasant 63-year-old male patient of Dr. Tidwell. He has a past medical history of ED, bladder cancer, hep C, subarachnoid hemorrhage, DVT, pulmonary embolism, nicotine dependence former smoker 30 pack year history, and nephrolithiasis. He presents to the office today for follow-up. Of note, patient was seen approximately 2 weeks ago at which time he underwent an office cystoscopy with Dr. Watkins for his longstanding history of bladder cancer. In office cystoscopy noted NAD. Patient reporting low libido and fatigue during last office visit at which time LH and testosterone were ordered for further assessment evaluation. These results were reviewed with the patient today. Testosterone 01/16 225 LH 01/16 2.2 PSAs are as follows: 11/12 0.2, 03/15 0.3, 01/13 0.3, 07/16 0.2, 01/16 0.3 We discussed at length potential causes of hypogonadism. We discussed correlation of background diabetes and Suboxone in correlation of hypogonadism. He reports be happy with his current voiding parameters on 5 mg of terazosin. Patient with a previous history of left-sided scrotal discomfort. Previous workup has included a scrotal ultrasound noting normal-appearing testes, tiny left varicocele, and small complex left epididymal cyst. 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 During last office visit patient discussed senile angiokeratoma laser removal with Dr. Watkins and will likely undergo procedure in approximately 1 month however is awaiting insurance approval at this time. He otherwise denies urinary urgency, urinary frequency, incontinence, hematuria, dysuria, foul smelling urine, changes to urinary stream, flank pain, fever, and or chills. In office urinalysis results reviewed with the patient today. He otherwise offers no other issues or concerns at this time. Bladder cancer superficial 2013 Prior TURBT 2013 30 year pack history of smoking Prior nephrolithiasis Treated hepatitis-C Cystoscopy - 01/15 NAD, 01/16 NAD Associated senile angiokeratomas Lower urinary tract symptoms Good response to terazosin PFSH Medical History Diabetes mellitus Essential hypertension Hypercholesterolemia DVT (deep venous thrombosis) Chronic pulmonary embolism (~2012) History of subarachnoid hemorrhage (~2015) History of hepatitis C History of bladder cancer (~2013) Personal history of nicotine dependence Obstructive sleep apnea Ureteral stone with hydronephrosis Erectile dysfunction Anxiety with depression Surgical History History of colonoscopy History of left knee surgery History of transurethral resection of bladder tumor (TURBT) History of biopsy of bladder Family History Father HTN (hypertension) Cancer Myocardial infarction Cancer of prostate Mother HTN (hypertension) Brother No problems noted. Brother Diabetes mellitus Sister No problems noted. Sister No problems noted. Social History Household Members: Spouse Housing: House Are you a primary health care marketing manager to a significant other at home: No Do you presently have visiting nurse or other home services: No Patient Tobacco Use Status: Former Tobacco user e-Cigarette/Vaping Use: Never Used Second Hand Smoke Exposure: No Substance Use Type: Marijuana service: No Current occupational status: disabled Current occupational exposures/hazards: No Cognitive needs: No Hearing needs: No Vision needs: No Review of Systems Const Reports as per HPI Eyes Reports no additional complaints ENT Reports no additional complaints Card Reports no additional complaints Resp Reports as per HPI GI Reports no additional complaints Reports as per HPI Neuro Reports as per HPI Psych Reports no additional complaints Haris/Lymph Reports as per HPI Physical Exam Const General: cooperative, healthy appearing, comfortable, no acute distress, well developed, alert and awake Nutritional Appearance: overweight Orientation/consciousness: patient oriented x3 Limitations: no limitations HEENT Head: Yes normal to inspection, Yes normocephalic and Yes atraumatic Ears: hearing grossly normal bilaterally Eyes General: appearance normal, both eyes and all related structures Neck Neck: Yes normal visual inspection and Yes trachea midline Chest Chest palpation & inspection: normal inspection of the chest Resp Effort & Inspection: normal respiratory effort and able to speak in complete sentences Cardio Rate: regular rate GI Inspection: Yes normal to inspection General: Yes no CVA tenderness Male General Exam: Yes normal external exam Penis: normal penis and circumcised Meatus: meatus normal Scrotum: other (as per HPI) Testes: epididymal tenderness on the left and other (as per HPI) Back/Spine/Pelvis Back: no CVA tenderness Skin General skin exam: no rashes or lesions noted Neuro General: patient oriented x3 Extrem General: Yes normal to inspection Psych Appearance: grossly normal and well kempt Mental Status: mental status grossly normal Speech and movement: Normal speech and movement present and Clear speech present Affect: normal affect Attitude: cooperative Thought process: Normal thought process present Thought content: Normal thought content present Insight: Fair insight present (Psych) Judgement: Fair judgement present (Psych) Office Procedures Post Void Residual Post Residual Void Post Void Residual (PVR): 54 [id number] Void Residual by ultrasound Results AMB Urinalysis, Automated UA Leukoctes 0 Tete/uL Last Edit by Chrissy Stokes on 01/18/24 08:53 UA Nitrite Negative Last Edit by Chrissy Stokes on 01/18/24 08:53 UA Urobilinogen 0.2 mg/dL Last Edit by Chrissy Stokes on 01/18/24 08:53 UA Protein 0 mg/dL Last Edit by Chrissy Stokes on 01/18/24 08:53 UA pH 6.0 Last Edit by Chrissy Zavalaandrzej on 01/18/24 08:53 UA Blood 10 Harlan/uL Last Edit by Johnycornelio Sallyandrzej on 01/18/24 08:53 UA Specific Rosenberg 1.025 Last Edit by Chrissy Sallyandrzej on 01/18/24 08:53 UA Ketone Last Edit by Chrissy Sallyandrzej on 01/18/24 08:53 UA Bilirubin 0 mg/dL Last Edit by Chrissy Sallyandrzej on 01/18/24 08:53 UA Glucose 0 mg/dL Last Edit by Chrissy Stokes on 01/18/24 08:53 Results Reviewed Results Reviewed: Laboratory Last Values Urine pH (Auto) 6.0 01/18/24 08:52 Specific Rosenberg (Auto) 1.025 01/18/24 08:52 Urine Protein (Auto) 0 mg/dL 01/18/24 08:52 Glucose (UA)(Auto) 0 mg/dL 01/18/24 08:52 Urine Blood (Auto) 10 Harlan/uL 01/18/24 08:52 Urine Nitrite (Auto) Negative 01/18/24 08:52 Urine Bilirubin (Auto) 0 mg/dL 01/18/24 08:52 Urine Urobilinogen (Auto) 0.2 mg/dL 01/18/24 08:52 Leukocyte Esterase (Auto) 0 Tete/uL 01/18/24 08:52 Assessment & Plan Assessment & Plan (1) Low libido: Code(s): R68.82 - Decreased libido Category: Medical (2) Hypogonadism in male: Code(s): E29.1 - Testicular hypofunction Category: Medical (3) History of bladder cancer: Onset Date: ~2013 Comment: (low-grade papillary urothelial transitional cell carcinoma - s/p TURB -04/2013) Code(s): Z85.51 - Personal history of malignant neoplasm of bladder Category: Medical Plan In office urinalysis results reviewed with the patient today; will send for FISH Recent testosterone and LH results reviewed with the patient today; as noted above; discussed plan of care with Dr. Watkins. We discussed potential causes of hypogonadism in relation to Suboxone use as well as history of diabetes. Discussed lifestyle modifications to assist with hypogonadism as well as overall health and well-being. He reports be happy with current voiding parameters on 5 mg of terazosin. Continue terazosin 5 mg as discussed and prescribed. Start clomiphene citrate as discussed and prescribed. Will await authorization from insurance to move forward with surgical procedure as discussed with Dr. Watkins during last office visit. Discussed importance of obtaining labs (LH, testosterone, and free testosterone) status post completion of clomiphene. Follow-up in 3-4 weeks with labs to be completed prior; or sooner with any issues, concerns, and or questions. Orders: Orders Lutenizing Hormone 1 Week E29.1 - Testicular hypofunction, R68.82 - Decreased libido Testosterone, Free/Total 1 Week E29.1 - Testicular hypofunction, R68.82 - Decreased libido AMB Urinalysis Automated Today Z13.9 - Encounter for screening, unspecified AMB Post Void Residual by ultrasound Today R35.1 - Nocturia FISH Bladder Cancer Today Z85.51 - Personal history of malignant neoplasm of bladder Medications: New clomiphene citrate BIN [facility] [address]33 [id number] Take 2 tablets daily for 7 days and complete lab work on day 8 100 mg (2 x 50 mg) PO DAILY 7 days 14 tabs 0RF E29.1 - Testicular hypofunction, R79.89 - Other specified abnormal findings of blood chemistry Patient Instructions: The patient had an opportunity to ask questions regarding the treatment plan. All questions were answered. Physical exam, labs, and imaging were discussed and reviewed in detail. As well as risks, benefits, and discussion of treatment choices. No major barriers to understanding were identified. The patient expressed understanding and agreement with the above treatment plan. The patient was made aware they should contact our office by phone for worsening of their current condition, the appearance of new symptoms, or with any questions or concerns. Compliance is encouraged with any medications and follow up testing that is ordered. It is a privilege to be allowed the opportunity to participate in? your urological care.? Again, if you have any questions or concerns If you have any questions or concerns please do not hesitate to contact me. The office is [phone]. This note is constructed using voice recognition software. While every effort has been made to ensure accuracy social services director errors may have been included. Yours sincerely, FRANCIA Armando Coding Level of Care Code Est Pt Level 4 (85630) Complex EM visit Add On G2211 Diagnoses Low libido R68.82 Hypogonadism in male E29.1 History of bladder cancer Z85.51 CPT Codes Post Residual Void - PVR CPT Code: 24204-Mvmx Void Residual by ultrasound ( [id number])
== END 2024-01-18 08:59 | disposition home or self-care (01) ==
PROVIDERS: PCP Family Medicine; Visit Provider Nurse Practitioner Family
DX: R68.82 Decreased libido (principal); E29.1 Testicular hypofunction; Z85.51 Personal history of malignant neoplasm of bladder; Z13.9 Encounter for screening, unspecified
CPT/HCPCS: 99214; G2211

== ENCOUNTER 2024-01-18 08:07 | Outpatient (REF) | payer OTHER, SELFPAY | END 2024-01-18 08:08 | disposition home or self-care (01) | LOC: HO.LNP 08:07 | PROVIDERS: PCP Family Medicine; Visit Provider Nurse Practitioner Family | DX: E29.1 Testicular hypofunction (principal); R68.82 Decreased libido; R35.1 Nocturia; Z85.51 Personal history of malignant neoplasm of bladder | CPT/HCPCS: 51798; 81003; 88121; 99212 ==

== ENCOUNTER → 2024-01-19 14:10 | Outpatient (BNVA) | payer OTHER, SELFPAY | PROVIDERS: PCP Family Medicine; Visit Provider Internal Medicine ==

== ENCOUNTER → 2024-01-26 13:52 | Outpatient (BNVA) | payer OTHER, SELFPAY | PROVIDERS: PCP Family Medicine; Visit Provider Internal Medicine ==

== ENCOUNTER 2024-01-27 06:03 | Outpatient (REF) | payer OTHER, SELFPAY ==
[2024-01-27 07:46] LABS: Creatinine Urine 146.92 mg/dL; Microalbum/Creatinine Ratio Ur 4.7 ug/mg cr (<30)
[2024-01-27 07:51] LABS: Alanine Aminotransferase 19 U/L (0-40); Albumin Level 4.1 g/dL (3.5-5.0); Anion Gap 11 (12-20); Aspartate Amino Transferase 23 U/L (5-37); Bilirubin Total 0.2 mg/dL (0.0-1.0); Blood Urea Nitrogen 16 mg/dL (9-16); Calcium 9.4 mg/dL (8.4-10.2); Carbon Dioxide 31 mmol/L (22-29); Chloride 107 mmol/L (96-108); Estimated Glomerular Filt Rate > 60; Glucose Random 94 mg/dL (60-115); Potassium 4.3 mmol/L (3.3-5.1); Sodium 145 mmol/L (135-145); Total Protein 6.9 g/dL (6.5-8.0)
[2024-01-27 08:01] LABS: Alkaline Phosphatase 64 U/L (39-117)
[2024-01-27 08:07] LABS: Vitamin D 25-OH Total 21.1 ng/mL (>30)
[2024-01-28 16:53] LABS: Lutenizing Hormone 2.7 mIU/mL (1.6-15.2)
[2024-01-31 18:40] LABS: Testosterone, Free 30.6 pg/mL (35.0-155.0); Testosterone, Total 322 ng/dL (250-1100)
== END 2024-01-27 06:04 | disposition home or self-care (01) ==
LOC: HO.LAB 06:03
PROVIDERS: PCP Family Medicine; Visit Provider Nurse Practitioner Family
DX: E55.9 Vitamin D deficiency, unspecified (principal); I10 Essential (primary) hypertension; R68.82 Decreased libido; E29.1 Testicular hypofunction
CPT/HCPCS: 36415; 80053; 82043; 82306; 82570; 83002; 84402; 84403

== ENCOUNTER 2024-02-08 10:11 | Outpatient (AMB) | payer OTHER, SELFPAY ==
--- NOTE | 2024-02-08 07:44 | A.OFFVIS_ITS ---
Intake Visit Reasons: 3w/Testo(set) Intake Note: Patient presents today for tele visit follow up on: low libido, hypogonadism, h/o bladder cancer, and lab results Testosterone: 322; Free Testosterone: 30.6 Urology Med: Terazosin Antibiotic Allergy: None Blood Thinner: Warfarin Business Partner Required: No Accompanied by: Self / Same As Patient Allergies No Known Allergies Allergy (Verified 02/08/24 08:30) Medication List - Last Reconciled 02/08/24 by FRANCIA Armando atorvastatin 80 mg PO BEDTIME 30 days buprenorphine-naloxone 8-2 mg (Suboxone) 2 strips sublingual DAILY cholecalciferol (vitamin D3) 2,000 units PO DAILY 90 days clomiphene citrate 50 mg PO .mon,wed,fri 90 days lisinopril 5 mg PO DAILY metformin 500 mg PO BID 90 days terazosin 5 mg PO BEDTIME 90 days warfarin 7.5 mg See Protocol PO DAILY HPI Comments Details: Bryant Ayoub is a very pleasant 63-year-old male patient of Dr. Tidwell. He has a past medical history of ED, bladder cancer, hep C, subarachnoid hemorrhage, DVT, pulmonary embolism, nicotine dependence former smoker 30 pack year history, and nephrolithiasis. He is being followed up on today via telehealth for his hypogonadism. Of note, patient was seen approximately one month ago at which time he was started on short dose of clompiphene for hypogonadism. Recent labs were reviewed with the patient today as noted and trended below. In discussion with the patient today he reports noting somewhat improvement in his mood in the last few weeks. However he does continue with low libido and erectile dysfunction. Patient also with longstanding history of bladder cancer. In office cystoscopy 01/[address] Watkins noted NAD. Testosterone 01/16 225, 02/15 322 Free testosterone: 01/16 18.5, 02/15 30.6 LH 01/16 2.2, 02/15 2.7 PSAs are as follows: 11/12 0.2, 03/15 0.3, 01/13 0.3, 07/16 0.2, 01/16 0.3 We discussed at length potential causes of hypogonadism. We discussed correlation of background diabetes and Suboxone in correlation of hypogonadism. He reports be happy with his current voiding parameters on 5 mg of terazosin. Patient with a previous history of left-sided scrotal discomfort. Previous workup has included a scrotal ultrasound noting normal-appearing testes, tiny left varicocele, and small complex left epididymal cyst. Patient with a history of senile angiokeratomas throughout the scrotum and will be undergoing surgical intervention with Dr. Watkins within the next 1-2 weeks. He denies urinary urgency, urinary frequency, incontinence, hematuria, dysuria, foul smelling urine, changes to urinary stream, flank pain, fever, and or chills. He otherwise offers no other issues or concerns at this time. Bladder cancer superficial 2013 Prior TURBT 2013 30 year pack history of smoking Prior nephrolithiasis Treated hepatitis-C Cystoscopy - 01/15 NAD, 01/16 NAD Associated senile angiokeratomas Lower urinary tract symptoms Good response to terazosin PFSH Medical History Diabetes mellitus Essential hypertension Hypercholesterolemia DVT (deep venous thrombosis) Chronic pulmonary embolism (~2012) History of subarachnoid hemorrhage (~2015) History of hepatitis C History of bladder cancer (~2013) Personal history of nicotine dependence Obstructive sleep apnea Ureteral stone with hydronephrosis Erectile dysfunction Anxiety with depression Surgical History History of colonoscopy History of left knee surgery History of transurethral resection of bladder tumor (TURBT) History of biopsy of bladder Family History Father HTN (hypertension) Cancer Myocardial infarction Cancer of prostate Mother HTN (hypertension) Brother No problems noted. Brother Diabetes mellitus Sister No problems noted. Sister No problems noted. Social History Household Members: Spouse Housing: House Are you a primary child care center administrator to a significant other at home: No Do you presently have visiting nurse or other home services: No Patient Tobacco Use Status: Former Tobacco user e-Cigarette/Vaping Use: Never Used Second Hand Smoke Exposure: No Substance Use Type: Marijuana service: No Current occupational status: disabled Current occupational exposures/hazards: No Cognitive needs: No Hearing needs: No Vision needs: No Review of Systems Const Reports as per HPI Eyes Reports no additional complaints ENT Reports no additional complaints Card Reports no additional complaints Resp Reports as per HPI GI Reports no additional complaints Reports as per HPI Neuro Reports as per HPI Psych Reports no additional complaints Haris/Lymph Reports as per HPI Physical Exam Const General: cooperative Orientation/consciousness: patient oriented x3 Resp Effort & Inspection: able to speak in complete sentences Neuro General: patient oriented x3 Psych Attitude: cooperative Thought process: Normal thought process present Thought content: Normal thought content present Insight: Fair insight present (Psych) Judgement: Fair judgement present (Psych) Telehealth Telehealth Telehealth Platform: [employer] Location of provider rendering services: practice address Location of patient: address on file Patient Identification confirmed using: Name, : Yes Telehealth method: voice only Patient verbally consented to treatment: Yes Patient verbally consented to billing insurance company: Yes Patient informed of any privacy concerns related to visit: Yes Minutes spent on Phone/Video with Pt.: 15 Assessment & Plan Assessment & Plan (1) Hypogonadism in male: Code(s): E29.1 - Testicular hypofunction Category: Medical (2) Low libido: Code(s): R68.82 - Decreased libido Category: Medical (3) History of bladder cancer: Onset Date: ~2013 Comment: (low-grade papillary urothelial transitional cell carcinoma - s/p TURB -04/2013) Code(s): Z85.51 - Personal history of malignant neoplasm of bladder Category: Medical Plan Recent testosterone and LH results reviewed with the patient today; as noted above We discussed potential causes of hypogonadism in relation to Suboxone use as well as history of diabetes. Discussed lifestyle modifications to assist with hypogonadism as well as overall health and well-being. He reports be happy with current voiding parameters on 5 mg of terazosin. Continue terazosin 5 mg as discussed and prescribed. Continue clomiphene ( lower dose three times per week) as discussed and prescribed; new script provided. Will obtain LH, testosterone, and free testosterone in 3 months. Keep scheduled surgical appointment and follow-up appointment with Dr. Watkins as planned. Follow-up with nurse practitioner in 3 months with labs to be completed prior; or sooner with any issues, concerns, and or questions. Orders: Orders Lutenizing Hormone 3 Months E29.1 - Testicular hypofunction Testosterone, Free/Total 3 Months E29.1 - Testicular hypofunction Medications: New clomiphene citrate BIN PCN Group [facility] [id number] 50 mg PO .mon,wed,fri 40 tabs 0RF 90 days E29.1 - Testicular hypofunction Patient Instructions: The patient had an opportunity to ask questions regarding the treatment plan. All questions were answered. Physical exam, labs, and imaging were discussed and reviewed in detail. As well as risks, benefits, and discussion of treatment choices. No major barriers to understanding were identified. The patient expressed understanding and agreement with the above treatment plan. The patient was made aware they should contact our office by phone for worsening of their current condition, the appearance of new symptoms, or with any questions or concerns. Compliance is encouraged with any medications and follow up testing that is ordered. It is a privilege to be allowed the opportunity to participate in? your urological care.? Again, if you have any questions or concerns If you have any questions or concerns please do not hesitate to contact me. The office is [phone]. This note is constructed using voice recognition software. While every effort has been made to ensure accuracy mason helper errors may have been included. Yours sincerely, FRANCIA Armando Coding Level of Care Code Tele Est Pt Level 3 (18044) Diagnoses Hypogonadism in male E29.1 Low libido R68.82 History of bladder cancer Z85.51
== END 2024-02-08 13:18 | disposition home or self-care (01) ==
PROVIDERS: PCP Family Medicine; Visit Provider Nurse Practitioner Family
DX: E29.1 Testicular hypofunction (principal); R68.82 Decreased libido; Z85.51 Personal history of malignant neoplasm of bladder
CPT/HCPCS: 99442

== ENCOUNTER 2024-02-15 07:35 | Day surgery (SDC) | payer OTHER, SELFPAY ==
[2024-02-11 13:14] VITALS: BMI 32.3
[2024-02-15 07:54] VITALS: BMI 26.4
[2024-02-15] MEDS: Lactated Ringers 1,000 ML 100 ML IVCONT (08:10)
[2024-02-15 08:16] VITALS: BMI 33.0
[2024-02-15 08:18] VITALS: BP 142/73; PULSE 76; RESP 18; TEMP 36.7; O2SAT 95
[2024-02-15 08:18] LABS: INTERNATIONAL NORM RATIO 1.1 (0.9-1.1); Prothrombin Time 12.8 SEC (10.9-12.4)
[2024-02-15 08:27] LABS: Glucose, Whole Blood 105 mg/dL (60-115)
--- NOTE | 2024-02-15 09:05 | HO.ANESPROP2 ---
Documented by User: Denise Holman NP 02/11/24 12:56 HPI - Anesthesia Eval Consult details Narrative: 63yo M for C02 Laser Scrotal Angiokeratomas Suboxone daily Warafin for chronic DVT/PE PMFSH Active Problems Active Problems: All Active Problems Hypogonadism in male (Acute) Low libido (Acute) History of bladder cancer (Acute ~2013) History of hepatitis C (Acute) Chronic pulmonary embolism (Acute ~2012) Current use of anticoagulant therapy (Acute ~2012) History of subarachnoid hemorrhage (Acute ~2015) Essential hypertension (Acute) Hypercholesterolemia (Acute) Diabetes mellitus (Acute) Obstructive sleep apnea (Acute) Adrenal nodule (Acute) Personal history of nicotine dependence (Acute) Anxiety with depression (Acute) Tubular adenoma of colon (Acute) Dizziness (Acute) Osteoarthritis of left knee (Acute) Urinary dribbling (Acute) Nocturia (Acute) Microhematuria (Acute) Scrotal mass (Acute) Epididymal cyst (Acute) Weak urinary stream (Acute) Epididymitis (Acute) Family history of polyps in the colon (Acute) Scrotal nodule (Acute) Knee pain (Acute) Shoulder pain (Acute) Neoplasm of uncertain behavior of skin (Acute) Sun-damaged skin (Acute) Fungal infection (Acute) Testicular nodule (Acute) Diastasis recti (Acute) Ventral hernia (Acute) Concentration deficit (Acute) Traumatic brain injury (Acute) Kidney stone on right side (Acute) Pulmonary nodules (Acute) Erectile dysfunction (Acute) Ureteral stone with hydronephrosis (Acute) Past Medical History Medical History DVT (deep venous thrombosis) Hypercholesterolemia Anxiety with depression History of subarachnoid hemorrhage (~2015) History of hepatitis C History of bladder cancer (~2013) Personal history of nicotine dependence Diabetes mellitus Obstructive sleep apnea Essential hypertension Ureteral stone with hydronephrosis Erectile dysfunction Chronic pulmonary embolism (~2012) Family History Family History Father HTN (hypertension) Cancer Myocardial infarction Cancer of prostate Mother HTN (hypertension) Brother No problems noted. Brother Diabetes mellitus Sister No problems noted. Sister No problems noted. Family history of problems with anesthesia: No Surgical History Surgical History History of colonoscopy History of left knee surgery History of transurethral resection of bladder tumor (TURBT) History of biopsy of bladder History of Problems with Anesthesia: No Social History Social History Household Members: Spouse Housing: House Are you a primary healthcare market consultant to a significant other at home: No Do you presently have visiting nurse or other home services: No Patient Tobacco Use Status: Former Tobacco user e-Cigarette/Vaping Use: Never Used Second Hand Smoke Exposure: No Substance Use Type: Marijuana Substance Use Frequency: Daily Have you been hit, kicked, punched, or otherwise hurt by someone within the past year? If so, by whom?: No Are you DNR?: No Advance Directives: No Advance Directives Information Provided: Yes Recently lost weight without trying: No Nutrition Risks: No Nutritional Risk service: No Current occupational status: disabled Current occupational exposures/hazards: No Cognitive needs: No Hearing needs: No Vision needs: No Meds Allergies Allergy/AdvReac Type Severity Reaction Status Date / Time No Known Allergies Allergy Verified 02/15/24 07:55 Home Medications ?Medication ?Instructions ?Recorded ?Confirmed ?Last Taken ?Type buprenorphine 8 mg-naloxone 2 mg 2 strip sublingual DAILY 01/24/20 02/11/24 02/15/24 History sublingual film (Suboxone) Exam Pertinent Lab Results Pertinent Lab Results: Laboratory Tests 09/15/23 01/27/24 08:33 06:14 WBC 4.0 L Hgb 13.2 L Hct 40.2 L Plt Count 130 L D Sodium 145 Potassium 4.3 Chloride 107 Carbon Dioxide 31 H BUN 16 Creatinine 0.91 Assessment and Plan Assessment Anesthesia Assessment: Chart Reviewed Final Anesthetic Review Family History of Problems with Anesthesia: No History of Problems with Anesthesia: No Documented by User: Salena Vogel DO 02/15/24 09:07 [facility] Past Medical History Medical History DVT (deep venous thrombosis) Hypercholesterolemia Anxiety with depression History of subarachnoid hemorrhage (~2015) History of hepatitis C History of bladder cancer (~2013) Personal history of nicotine dependence Diabetes mellitus Obstructive sleep apnea Essential hypertension Ureteral stone with hydronephrosis Erectile dysfunction Chronic pulmonary embolism (~2012) Family History Family History Father HTN (hypertension) Cancer Myocardial infarction Cancer of prostate Mother HTN (hypertension) Brother No problems noted. Brother Diabetes mellitus Sister No problems noted. Sister No problems noted. Family history of problems with anesthesia: No Surgical History Surgical History History of colonoscopy History of left knee surgery History of transurethral resection of bladder tumor (TURBT) History of biopsy of bladder History of Problems with Anesthesia: No Social History Social History Household Members: Spouse Housing: House Are you a primary healthcare market consultant to a significant other at home: No Do you presently have visiting nurse or other home services: No Patient Tobacco Use Status: Former Tobacco user e-Cigarette/Vaping Use: Never Used Second Hand Smoke Exposure: No Substance Use Type: Marijuana Substance Use Frequency: Daily Have you been hit, kicked, punched, or otherwise hurt by someone within the past year? If so, by whom?: No Are you DNR?: No Advance Directives: No Advance Directives Information Provided: Yes Recently lost weight without trying: No Nutrition Risks: No Nutritional Risk service: No Current occupational status: disabled Current occupational exposures/hazards: No Cognitive needs: No Hearing needs: No Vision needs: No Meds Allergies Allergy/AdvReac Type Severity Reaction Status Date / Time No Known Allergies Allergy Verified 02/15/24 07:55 Home Medications ?Medication ?Instructions ?Recorded ?Confirmed ?Last Taken ?Type buprenorphine 8 mg-naloxone 2 mg 2 strip sublingual DAILY 01/24/20 02/11/24 02/15/24 History sublingual film (Suboxone) Exam Exam Date and Time: 02/15/24 0900 Height,Weight and Vital Signs: Height 6 ft 1 in Weight 113.398 kg Vital Signs Temperature 98.0 F 02/15/24 08:18 Pulse Rate 76 02/15/24 08:18 Respiratory Rate 18 02/15/24 08:18 Blood Pressure 142/73 H 02/15/24 08:18 Pulse Oximetry 95 02/15/24 08:18 Oxygen Delivery Method Room Air 02/15/24 08:18 Temperature 98.0 F 02/15/24 08:18 Pulse Rate 76 02/15/24 08:18 Respiratory Rate 18 02/15/24 08:18 Blood Pressure 142/73 H 02/15/24 08:18 Pulse Oximetry 95 02/15/24 08:18 Oxygen Delivery Method Room Air 02/15/24 08:18 Airway Mallampati Class: II TM Dist: >3cm Neck ROM: Full Loose/Missing/Broken Teeth: Yes (multiple broken teeth but no loose teeth) Heart: S1S2 Lungs: CTAB Assessment and Plan Assessment Anesthesia Assessment: Anesthesia Plan Discussed and Chart Reviewed Final Anesthetic Review Family History of Problems with Anesthesia: No History of Problems with Anesthesia: No NPO: Yes ASA Class: III Final Preanesthetic Review: No Changes in Pt Med Stat, Meds/Allgs Chart Reviewed, Consent Obtained/Reviewed and Anes Risks/Benef Reviewed Patient Risk: Intermediate Procedure Risk: Low Anesthetic Plan Anesthetic Plan: GA and Agree w/ Assess. and Plan Disposition: Standard PACU
--- NOTE | 2024-02-15 09:19 | P.HPSUR_ITS ---
Pre-Procedural Eval Section A - 24 Hr Update-Section A only Date of Service: 02/15/24 The patient is an INPATIENT: No Changes since office visit: No Cold of Flu in the past 2 weeks, No New Medical Problems, No Changes in Medication and No Patient answered all questions The patient has been examined within 24 hours of the surgical procedure. The History & Physical has been completed within 30 days and I have reviewed it.: Yes Section B - Complete if H&P > 30 days Chief Complaint: Benign neoplasm of scrotum Details of Present Illness: Senile Scrotal angiokeratoma that have been bleeding on anticoagulation. Here for CO2 laser. Relevant Family History (Specify if Yes): No Relevant Social History: None Present Medications: see Short Stay Collaborative assessment Medical History: Significant History History of Previous Operations: No relevant previous surgery Allergies: Allergies Allergy/AdvReac Type Severity Reaction Status Date / Time No Known Allergies Allergy Verified 02/15/24 07:55 Review of Systems Sugical H&P ROS: Negative: Constitution, Cardiovascular, Respiratory, Neurological, Psychiatric, Hem-Onc, Allergic/Immunologic, Gastrointestinal, Gen itourinary, Musculoskeletal, Integumentary, Endocrine and Eyes/Ears/Nose/Throat Exam Surgical H&P Exam: Normal: HEENT, Normal: Heart, Normal: Lungs, Normal: Extremities, Normal: Abdomen, Normal: Skin and Normal: Neurological Plan Diagnosis/Plan: Unchanged (Scrotal laser of angiokeratoma) I have reviewed the history and physical and performed a pertinent physical examination on my patient. No changes have occurred unless specified. Time Spent With Patient Time: Total time managing care of this patient today ____ minutes.
--- NOTE | 2024-02-15 09:25 | PC.NURSE ---
per Dr. Watkins - no preop antibiotic required.
[2024-02-15 09:50] VITALS: BP 113/50; PULSE 72; RESP 14; TEMP 36.8; O2SAT 96
[2024-02-15 09:55] VITALS: BP 117/63; PULSE 66; RESP 16; O2SAT 93
[2024-02-15 10:00] VITALS: BP 125/72; PULSE 65; RESP 16; O2SAT 95
[2024-02-15 10:05] VITALS: BP 130/74; PULSE 64; RESP 16; O2SAT 93
[2024-02-15] MEDS: oxyCODONE HCl Immed Release 5 MG TABLET PO (10:16)
[2024-02-15] MEDS: Acetaminophen 325 MG TABLET 650 MG PO (10:16)
[2024-02-15 10:20] VITALS: BP 132/73; PULSE 65; RESP 16; TEMP 36.8; O2SAT 95
--- NOTE | 2024-03-09 12:46 | W.PM.OPN ---
Operative Note Operative Note Date of Service: 03/09/24 Narrative: PreOperative Diagnosis: Scrotal senile angio keratosis Post Operative Diagnosis: Scrotal Angiokeratomas of [place] Procedure: CO2 laser of scrotal angiokeratomas Surgeon: Dr Jarrod Watkins Anesthesia: Sedation Indications for procedure: Scrotal angiokeratomas bilateral. Has been associated with bleeding. Treatment recommended Given complication of intermittent bleeding. Procedure: After informed consent was verified the patient was brought to the operating room and placed in a supine position. Anesthesia was administered per protocol. The patient was prepped and draped in a sterile fashion. Safety pause time-out was performed. Antibiotics being given. Using the CO2 laser with setting of for the angiokeratomas of the bilateral scrotum were ablated. There were numerous areas to be treated (>20). These were all small in nature and responded well to CO2 laser. At completion the procedure a thin coating of Aquaphor was placed over the area to allow for postoperative healing. The patient tolerated the procedure well was transferred in stable condition to the recovery area. Pathology: Drains:
== END 2024-02-15 11:08 | disposition home or self-care (01) ==
PROVIDERS: Nurse Practitioner; PCP Family Medicine; Visit Provider Urology
PROC: (CPT 55110; principal; 2024-02-15 09:50)
DX: D29.4 Benign neoplasm of scrotum (principal); N52.9 Male erectile dysfunction, unspecified; E29.1 Testicular hypofunction; R68.82 Decreased libido; Z85.51 Personal history of malignant neoplasm of bladder; I82.409 Acute embolism and thrombosis of unspecified deep veins of unspecified lower extremity; I26.99 Other pulmonary embolism without acute cor pulmonale; B19.20 Unspecified viral hepatitis C without hepatic coma; I10 Essential (primary) hypertension; E78.00 Pure hypercholesterolemia, unspecified; G47.33 Obstructive sleep apnea (adult) (pediatric); E11.9 Type 2 diabetes mellitus without complications; F41.9 Anxiety disorder, unspecified; Z79.01 Long term (current) use of anticoagulants; Z79.84 Long term (current) use of oral hypoglycemic drugs; Z79.899 Other long term (current) drug therapy; Z87.442 Personal history of urinary calculi; Z87.891 Personal history of nicotine dependence; Z98.890 Other specified postprocedural states
CPT/HCPCS: 17111; 36415; 82947; 85610; J0665; J2003; J2704; J2795; J3010

== ENCOUNTER → 2024-02-15 07:35 | Outpatient (BNV) | payer OTHER, SELFPAY | PROVIDERS: PCP Family Medicine; Visit Provider Urology | DX: D29.4 Benign neoplasm of scrotum (principal) | CPT/HCPCS: 17111 ==

== ENCOUNTER → 2024-02-23 10:51 | Outpatient (BNVA) | payer OTHER, SELFPAY | PROVIDERS: PCP Family Medicine; Visit Provider Internal Medicine ==

== ENCOUNTER → 2024-03-01 10:07 | Outpatient (BNVA) | payer OTHER, SELFPAY | PROVIDERS: PCP Family Medicine; Visit Provider Internal Medicine ==

== ENCOUNTER → 2024-04-19 11:30 | Outpatient (BNVA) | payer OTHER, SELFPAY | PROVIDERS: PCP Family Medicine; Visit Provider Internal Medicine ==

== ENCOUNTER 2024-05-12 06:04 | Outpatient (REF) | payer OTHER, SELFPAY ==
[2024-05-13 08:53] LABS: Lutenizing Hormone 4.5 mIU/mL (1.6-15.2)
[2024-05-20 12:44] LABS: Testosterone, Free 42.4 pg/mL (35.0-155.0); Testosterone, Total 390 ng/dL (250-1100)
== END 2024-05-12 06:05 | disposition home or self-care (01) ==
LOC: HO.LAB 06:04
PROVIDERS: Absent Provider Nurse Practitioner Family; PCP Family Medicine; Visit Provider Urology
DX: E29.1 Testicular hypofunction (principal)
CPT/HCPCS: 36415; 83002; 84402; 84403

== ENCOUNTER → 2024-05-31 08:44 | Outpatient (BNVA) | payer OTHER, SELFPAY | PROVIDERS: PCP Family Medicine; Visit Provider Internal Medicine Medical Oncology ==

== ENCOUNTER 2024-06-09 09:10 | Outpatient (AMB) | payer OTHER, SELFPAY ==
--- NOTE | 2024-06-09 09:20 | A.OFFVIS_ITS ---
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 He is a patient of Dr. Tidwell. He is seen for the following urologic conditions - erectile dysfunction - bladder cancer - hypogonadism - lower urinary tract symptoms Switch from terazosin to alfuzosin secondary to blood pressure issues Trial of testosterone gel Hypogonadism Previously given clomiphene with some response Not tolerating medication Background of diabetes and Suboxone Testosterone 01/16 225, 02/15 322, 05/17 390 Free testosterone: 01/16 18.5, 02/15 30.6, 05/17 42 LH 01/16 2.2, 02/15 2.7 PSAs are as follows: 11/12 0.2, 03/15 0.3, 01/13 0.3, 07/16 0.2, 01/16 0.3 Bladder cancer superficial 2013 Prior TURBT 2013 30 year pack history of smoking Prior nephrolithiasis Treated hepatitis-C Cystoscopy - 01/15 NAD, 01/16 NAD Associated senile angiokeratomas Lower urinary tract symptoms Good response to terazosin PFSH Medical History DVT (deep venous thrombosis) Hypercholesterolemia Anxiety with depression History of subarachnoid hemorrhage (~2015) History of hepatitis C History of bladder cancer (~2013) Personal history of nicotine dependence Diabetes mellitus Obstructive sleep apnea Essential hypertension Ureteral stone with hydronephrosis Erectile dysfunction Chronic pulmonary embolism (~2012) Surgical History History of colonoscopy History of left knee surgery History of transurethral resection of bladder tumor (TURBT) History of biopsy of bladder Family History Father HTN (hypertension) Cancer Myocardial infarction Cancer of prostate Mother HTN (hypertension) Brother No problems noted. Brother Diabetes mellitus Sister No problems noted. Sister No problems noted. Social History Household Members: Spouse Housing: House Are you a primary managed care specialist to a significant other at home: No Do you presently have visiting nurse or other home services: No Patient Tobacco Use Status: Former Tobacco user e-Cigarette/Vaping Use: Never Used Second Hand Smoke Exposure: No Substance Use Type: Marijuana service: No Current occupational status: disabled Current occupational exposures/hazards: No Cognitive needs: No Hearing needs: No Vision needs: No Review of Systems Const Denies chills and Denies fever(s) Card Reports no additional complaints and Denies syncope Resp Denies cough GI Denies abdominal pain and Denies heartburn Reports as per HPI and Denies change in libido Neuro Denies syncope Psych Denies change in libido Endo Denies change in libido Physical Exam Const General: cooperative, healthy appearing, comfortable and no acute distress Orientation/consciousness: patient oriented x3 HEENT Face and sinus: Yes normal facial exam Mouth: moist mucous membranes Neck Neck: Yes normal visual inspection, Yes full ROM and Yes trachea midline Chest Chest palpation & inspection: normal inspection of the chest Resp Effort & Inspection: normal respiratory effort, able to speak in complete sentences and no respiratory distress GI Inspection: Yes normal to inspection Back/Spine/Pelvis Cervical Spine: normal cervical lordosis Thoracic/Lumbar Spine: thoracic and lumbar spine normal to inspection Skin General skin exam: no rashes or lesions noted Neuro General: patient oriented x3, gait normal, tone normal and moves all extremities Extrem General: Yes normal to inspection and Yes capillary refill normal Assessment & Plan Assessment & Plan (1) Weak urinary stream: Code(s): R39.12 - Poor urinary stream Category: Medical (2) Low libido: Code(s): R68.82 - Decreased libido Category: Medical (3) Nocturia: Code(s): R35.1 - Nocturia Category: Medical Plan Plan Initiate testosterone gel transdermal) for hypogonadism with application guidance. Discontinue Clomifen and trial Enclomafin via mail order for cost- efficiency and reduced side effects. Replace Terazosin with Alfuzosin to manage urinary symptoms while minimizing blood pressure side effects. Plan laboratory assessment before the next visit to monitor testosterone. Schedule follow-up in four months. Discussion Notes During our discussion, I presented the patient with the benefits and potential side effects of transitioning from Clomifen to Enclomafin, illustrating cost and delivery methods. For hypogonadism, the plan includes a transdermal testosterone gel regimen, ensuring proper application to minimize transfer and enhance absorption. I clarified switching from Terazosin to Alfuzosin, emphasizing its efficacy with fewer cardiovascular effects for his urinary symptoms. The patient was informed of the intended follow-up in four months, concurrent with laboratory monitoring of therapeutic efficacy. Consent was obtained for all outlined interventions, ensuring the patient's understanding of usage and possib le risks, as well as alternatives discussed. Patient Instructions - Rub testosterone gel into the inner thighs, shoulders, or chest until fully absorbed. - Wash hands after applying the testosterone gel. - Transition to taking Alfuzosin as directed to manage urinary symptoms. - Be aware of possible mild side effects such as dizziness due to blood pressure effects. - Follow up with laboratory work as scheduled before the next visit. - Attend a follow-up appointment in four months. - Report any adverse reactions or concerns promptly. - Continue to monitor for changes in symptoms and report any worsening to me. Orders: Orders Testosterone, Free/Total 05/12/24 E29.1 - Testicular hypofunction Testosterone, Total 4 Months E29.1 - Testicular hypofunction AMB Urinalysis Automated Today Z13.9 - Encounter for screening, unspecified Medications: New alfuzosin ER administer after the same meal each day 10 mg PO DAILY 90 tabs 3RF 90 days N13.8 - Other obstructive and reflux uropathy, N40.1 - Benign prostatic hyperplasia with lower urinary tract symptoms, R39.12 - Poor urinary stream testosterone apply 3 pumps over max area - alternate shoulders on alternate days 3 pumps topical DAILY 150 grams 1RF 30 days E29.1 - Testicular hypofunction, R79.89 - Other specified abnormal findings of blood chemistry Patient Instructions: This note is constructed using voice recognition software. While every effort has been made to ensure accuracy professor of biology errors may have been included. Imaging studies, laboratory and physical exam results were discussed and reviewed in detail. No major barriers to patient understanding were identified. An opportunity to ask questions regarding the treatment plan was provided. All questions were answered. The patient expressed understanding and agreement with the above treatment plan. The patient is aware they should contact our office by phone for worsening of their current condition or the appearance of new urologic symptoms. Compliance is encouraged with any medications and followup testing that is ordered. It is a privilege to participate in the urologic care of your patient. If you have any questions or concerns regarding treatment for the above conditions, or other urologic issues, please do not hesitate to contact me. The office telephone contact is [phone]. Sincerely, Dr Jarrod Watkins MD, [facility] - Urology Compassionate Specialist Care for the Genitourinary System Coding Level of Care Code Est Pt Level 4 (54698) Complex EM visit Add On G2211 Diagnoses Weak urinary stream R39.12 Low libido R68.82 Nocturia R35.1
--- OUTSIDE RECORDS SUMMARY | 2024-06-09 10:10 | XMS_ITS | Data Portability ---
Author Organization [facility] [employer], [place] Address [address] [place] [address] Assessment Encounter Date Assessment Date Assessment LastModified by Organization Details LastModified Time 02/01/2024 02/01/2024 This patient with a history of OUD presents today for their monthly MAT visit Current prescription is: buprenorphine/na loxone 8mg/2mg 2 films Patient denies any S/E, cravings, or withdrawal sx at current dose Update Since Last Visit : (narrative note) Patient Denies all illicit drug use since last visit OUD Monthly ACTIVE WITH SAMUEL FOR A LONG TIME. On BNX 16 MG/4 mg, TOOK: full dose today. REMAINING FILMS: unsure of amt. THINKS POSSIBLE 10 FILMS LEFT. ENDORSES PROPER TECH. Denies any illicit opiate use since last visit. Continues to have fpc abstinence from OPIs and other illicit substances NARCAN: HAS NARCAN AT HOME AND KNOWS HOW TO USE. HX OF OD: DENIES. 01/04/24 UDS POS FOR BUP AND NEG FOR ANY ILLICIT SUBSTANCES. REVIEWED RESULTS W/PT TODAY. ETOH USE: LAST TIME: denies any use. COCAINE USE: DENIES ANY USE CANNABIS USE: Smokes MJ a few times a week. OBTAINS FROM DISPENSARY. LAST TIME USED: LAST NIGHT. AMPHE USE: DENIES ANY USE BZO USE: DENIES ANY USE NICOTINE USE: QUIT SMOKING 7+ YEARS AGO. PSYCH SOCIAL Stable housing, lives with his spouse AND HAS 2 DOGS. FEELS SAFE IN HOME. 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 [employer], [employer] SUPPORT: Has a good network of support in recovery. Transportation: HAS OWN TRANSPORTATION. LEGAL ISSUES: DENIES. COUNSELING: DEFERS COUNSELING AT THIS TIME. MEDICAL: PCP: HAS PCP S/P COLONOSCOPY, FOUND TO HAVE 1 POLYP THAT WAS REMOVED, benign. POSSIBLY KNEE REPLACEMENT IN FUTURE, THIS ON HOLD PER PT. PENDING SURGERY ON 02/15/24, TESTICLE BEING LAZER D/T BLOOD BLISTERS, THINKS A DAY PROCEDURE . HAS F/U WITH UROLOGIST ON 02/03/24 DR. PEGUERO TO DISCUSS THIS FURTHER. SURGEON AWARE ON BNX. PT AWARE ABLE TO GO UP ON BNX BY 4 TO 8 MG SHORT TERM COLLATERAL BENEFIT FOR PAIN MANAGEMENT IF NEEDED FOR FEW DAYS. HE WILL CALL WITH ANY ISSUES OR CONCERNS, PT ABLE TO HAVE SURGEON CALL OFFICE IF NEEDED, JOSE TO BE OBTAINED. OUD: ON BNX 16 MG/4MG (SPLIT DOSING) AND WILL C/W THIS DOSE REMAINS STABLE IN RECOVERY. PLAN: -C/W MONTHLY VISITS FOR STABILITY AND RELAPSE PREVENTION. -UDS/BUP ORDERED TODAY TO MONITOR FOR RELAPSE/ILLICIT SUBSTANCE USE. -DEFINITIVE CONFIRMATION TESTING NEEDED. -PT TO CALL IF NEEDS CLOSER F/U. OD PREVENTION: CONTINUE WITH PLAN ABOVE. PT UNDERSTANDS THE RISK OF COMBINED MARINE EQUIPMENT ENGINEER DEPRESSANTS. HAS NARCAN/TRAINED ON ADMINISTRATION. DIVERSION PREVENTION: WILL MONITOR MASSPAT, UDS/SVT/ BUP LEVELS FOR PROGRESS, RELAPSE, DIVERSION AND FOR HARM REDUCTION. CANNABIS USE: GROWS OWNS. KNOWS THE RISK FOR CROSS CONTAMINATION TO DEADLY SUBSTANCES; IF NOT OBTAINED FROM A TRUSTED SOUCRE/DISPENSAR Y. LABS: 11/09/2023 HEP B SURF AB AND HEP B CORE AB REACTIVE (PROTECTIVE) HEP A AB REACTIVE (PROTECTIVE) HEP B SURF ANTIGEN NR HEP C REACTIVE WITH UNDETECTABLE QUANTS, TX INTERFERON. HIV NR CBC WNL CMP WNL AST 20 /ALT 21 AND GGT 16 ALL WNL. LAB RESULTS Last UDS result (qualitative screen): POS buprenorphine and NO illicit drugs Last confirmatory test result (LCMS/quantitati ve): N/A due to negative UDS Last Bup confirmation was performed on 12/07/2023 with the result: Bup: 199.3 ng/ml & Norbup: 217.1 ng/ml. Last LFT result: WNL ASSESSMENT The patient's current phase of OUD treatment is: Stable maintenance. Interpretation of last buprenorphine confirmation test result: No concern Medication dose: No report of severe or persistent cravings/withdra wal symptoms. Pt will remain at current dose PLAN (narrative, if applicable) Rx : Continue buprenorphine/na loxone 8mg/2mg 2 films daily Rx Quantity 28d Rx provided today. NO EXTRA FILMS NEEDED, HAS IN HOME IF NEEDED (SEE ABOVE RE: SURGERY). VISIT FREQUENCY Continue monthly visits with monthly UDS. LFTS will be repeated per our clinical protocol. Prescription monitoring program is reviewed. If applicable, I have identified agents prescribed to the patient in addition to any issued by our program. The patient has been counseled regarding any risk of combining sedating agents. Not available 02/01/2024 09:17:35 02/29/2024 02/29/2024 This patient with a history of OUD presents today for their monthly MAT visit Current prescription is: buprenorphine/na loxone 8mg/2mg 2 films Patient denies any S/E, cravings, or withdrawal sx at current dose Update Since Last Visit : (narrative note) Patient Denies all illicit drug use since last visit OUD Monthly ACTIVE WITH SAVIDA FOR A LONG TIME. On BNX 16 MG/4 mg, but last rx sent on 02/01/24 [facility] Called made to [facility] to confirm last p/u date, pharmacy closed at time of visit. TOOK: full dose today. REMAINING FILMS: unsure. ENDORSES PROPER TECH. Denies any illicit opiate use since last visit. 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 HX OF OD: DENIES. 02/01/2024 UDS POS FOR BUP AND NEG FOR ANY ILLICIT SUBSTANCES. REVIEWED RESULTS W/PT TODAY. ETOH USE: LAST TIME: denies any use. COCAINE USE: DENIES ANY USE CANNABIS USE: Smokes MJ a few times a week. OBTAINS FROM DISPENSARY. LAST TIME USED: LAST NIGHT. AMPHE USE: DENIES ANY USE BZO USE: DENIES ANY USE NICOTINE USE: QUIT SMOKING 7+ YEARS AGO. PSYCH SOCIAL Stable housing, lives with his spouse AND HAS 2 DOGS. FEELS SAFE IN HOME. 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 [employer] SUPPORT: Has a good network of support in recovery. Transportation: HAS OWN TRANSPORTATION. LEGAL ISSUES: DENIES. COUNSELING: DEFERS COUNSELING AT THIS TIME. MEDICAL: PCP: HAS PCP S/P COLONOSCOPY, FOUND TO HAVE 1 POLYP THAT WAS REMOVED, benign. POSSIBLY KNEE REPLACEMENT IN FUTURE, THIS ON HOLD PER PT. Had SURGERY ON 02/15/24, TESTICLE LAsER D/T BLOOD BLISTERS, HAS F/U WITH UROLOGIST ON thursday. DR. PEGUERO. He reported surgery went ok. Admitted to receiving pain med for 1 day procedure in hospital. OUD: ON BNX 16 MG/4MG (SPLIT DOSING) AND WILL C/W THIS DOSE REMAINS STABLE IN RECOVERY. PLAN: -C/W MONTHLY VISITS FOR STABILITY AND RELAPSE PREVENTION. -UDS/BUP ORDERED TODAY TO MONITOR FOR RELAPSE/ILLICIT SUBSTANCE USE. -DEFINITIVE CONFIRMATION TESTING NEEDED. -PT TO CALL IF NEEDS CLOSER F/U. OD PREVENTION: CONTINUE WITH PLAN ABOVE. PT UNDERSTANDS THE RISK OF COMBINED MARINE EQUIPMENT ENGINEER DEPRESSANTS. HAS NARCAN/TRAINED ON ADMINISTRATION. DIVERSION PREVENTION: WILL MONITOR MASSPAT, UDS/SVT/ BUP LEVELS FOR PROGRESS, RELAPSE, DIVERSION AND FOR HARM REDUCTION. CANNABIS USE: GROWS OWNS. KNOWS THE RISK FOR CROSS CONTAMINATION TO DEADLY SUBSTANCES; IF NOT OBTAINED FROM A TRUSTED SOUCRE/DISPENSAR Y. LABS: 11/09/2023 HEP B SURF AB AND HEP B CORE AB REACTIVE (PROTECTIVE) HEP A AB REACTIVE (PROTECTIVE) HEP B SURF ANTIGEN NR HEP C REACTIVE WITH UNDETECTABLE QUANTS, TX INTERFERON. HIV NR CBC WNL CMP WNL AST 20 /ALT 21 AND GGT 16 ALL WNL. LAB RESULTS Last UDS result (qualitative screen): POS buprenorphine and NO illicit drugs Last confirmatory test result (LCMS/quantitati ve): N/A due to negative UDS Last Bup confirmation was performed on 12/07/2023 with the result: Bup: 199.3 ng/ml & Norbup: 217.1 ng/ml. Last LFT result: WNL ASSESSMENT The patient's current phase of OUD treatment is: Stable maintenance. Interpretation of last buprenorphine confirmation test result: No concern Medication dose: No report of severe or persistent cravings/withdra wal symptoms. Pt will remain at current dose PLAN (narrative, if applicable) Rx : Continue buprenorphine/na loxone 8mg/2mg 2 films daily Rx Quantity 28d Rx provided today. VISIT FREQUENCY Continue monthly visits with monthly UDS. LFTS will be repeated per our clinical protocol. Prescription monitoring program is reviewed. If applicable, I have identified agents prescribed to the patient in addition to any issued by our program. The patient has been counseled regarding any risk of combining sedating agents. Not available 02/29/2024 08:57:28 03/28/2024 03/28/2024 This patient with a history of OUD presents today for their monthly MAT visit Current prescription is: buprenorphine/na loxone 8mg/2mg 2 films Patient denies any S/E, cravings, or withdrawal sx at current dose Update Since Last Visit : (narrative note) Patient Denies all illicit drug use since last visit OUD Monthly ACTIVE WITH SAVIDA FOR A LONG TIME. REMAINS STABLE IN RECOVERY. On BNX 16 MG/4 mg DAILY AND CONTINUES TO DO WELL ON THIS DOSING. TOOK: FULL DOSE TODAY REMAINING FILMS: ?10 FILMS LEFT. ENDORSES PROPER TECH. Denies any illicit opiate use since last visit. 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 HX OF OD: DENIES. 02/29/24 UDS POS FOR BUP AND NEG FOR ANY ILLICIT SUBSTANCES. REVIEWED RESULTS W/PT TODAY. ETOH USE: LAST TIME: denies any use. COCAINE USE: DENIES ANY USE CANNABIS USE: Smokes MJ a few times a week. OBTAINS FROM DISPENSARY. LAST TIME USED: LAST NIGHT. AMPHE USE: DENIES ANY USE BZO USE: DENIES ANY USE NICOTINE USE: QUIT SMOKING 7+ YEARS AGO. PSYCH SOCIAL Stable housing, lives with his spouse AND HAS 2 DOGS. FEELS SAFE IN HOME. 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 SUPPORT: Has a good network of support in recovery. Transportation: HAS OWN TRANSPORTATION. LEGAL ISSUES: DENIES. COUNSELING: DEFERS COUNSELING AT THIS TIME. MEDICAL: PCP: HAS PCP S/P COLONOSCOPY, FOUND TO HAVE 1 POLYP THAT WAS REMOVED, benign. POSSIBLY KNEE REPLACEMENT IN FUTURE, THIS ON HOLD PER PT. S/P SURGERY ON 02/15/24, TESTICLE LASER D/T BLOOD BLISTERS W/GOOD RESULTS, F/U BY DR PEGUERO. OUD: ON BNX 16 MG/4MG (SPLIT DOSING) AND WILL C/W THIS DOSE. PLAN: -C/W MONTHLY VISITS FOR STABILITY AND RELAPSE PREVENTION. Urine? ? ?drug? ? ?AND REFLEX testing ordered MONTHLY for evaluation of illicit substance use/relapses/pro petty and ? ? ?is a clinical tool that provides meaningful information, monitors adherence, reinforces positive behavioral changes, and helps guide treatment. DEFINITIVE CONFIRMATION TESTING IF NEEDED. NADER IF UNEXPECTED UDS SCREENING. BUP CONFIRMATION EVERY 3 MONTHS TO MONITOR MEDICALLY AND FOR DIVERSION PER CLINICAL POLICY. OD PREVENTION: CONTINUE WITH PLAN ABOVE. PT UNDERSTANDS THE RISK OF COMBINED MARINE EQUIPMENT ENGINEER DEPRESSANTS. HAS NARCAN/TRAINED ON ADMINISTRATION. DIVERSION PREVENTION: WILL MONITOR MASSPAT, UDS/SVT/ BUP LEVELS FOR PROGRESS, RELAPSE, DIVERSION AND FOR HARM REDUCTION. CANNABIS USE: GROWS OWNS. KNOWS THE RISK FOR CROSS CONTAMINATION TO DEADLY SUBSTANCES; IF NOT OBTAINED FROM A TRUSTED SOUCRE/DISPENSAR Y. LABS: 11/09/2023 HEP B SURF AB AND HEP B CORE AB REACTIVE (PROTECTIVE) HEP A AB REACTIVE (PROTECTIVE) HEP B SURF ANTIGEN NR HEP C REACTIVE WITH UNDETECTABLE QUANTS, TX INTERFERON. HIV NR CBC WNL CMP WNL AST 20 /ALT 21 AND GGT 16 ALL WNL. LAB RESULTS Last UDS result (qualitative screen): POS buprenorphine and NO illicit drugs Last confirmatory test result (LCMS/quantitati ve): N/A due to negative UDS Last Bup confirmation was performed on 12/07/2023 with the result: Bup: 199.3 ng/ml & Norbup: 217.1 ng/ml. Last LFT result: WNL ASSESSMENT The patient's current phase of OUD treatment is: Stable maintenance. Interpretation of last buprenorphine confirmation test result: No concern Medication dose: No report of severe or persistent cravings/withdra wal symptoms. Pt will remain at current dose PLAN (narrative, if applicable) Rx : Continue buprenorphine/na loxone 8mg/2mg 2 films daily Rx Quantity 28d Rx provided today. VISIT FREQUENCY Continue monthly visits with monthly UDS. LFTS will be repeated per our clinical protocol. Prescription monitoring program is reviewed. If applicable, I have identified agents prescribed to the patient in addition to any issued by our program. The patient has been counseled regarding any risk of combining sedating agents. Not available 03/28/2024 09:02:21 04/25/2024 04/25/2024 This patient with a history of OUD presents today for their monthly MAT visit Current prescription is: buprenorphine/na loxone 8mg/2mg 2 films Patient denies any S/E, cravings, or withdrawal sx at current dose Update Since Last Visit : (narrative note) Patient Denies all illicit drug use since last visit OUD Monthly ACTIVE WITH SAVIDA FOR A LONG TIME. REMAINS STABLE IN RECOVERY. On BNX 16 MG/4 mg DAILY AND CONTINUES TO DO WELL ON THIS DOSING. TOOK: FULL DOSE TODAY REMAINING FILMS: ?? ENDORSES PROPER TECH. Denies any illicit opiate use since last visit. Has intermediate teacher abstinence from OPIs and other illicit substances NARCAN: HAS NARCAN AT HOME AND KNOWS HOW TO USE. HX OF OD: DENIES. 03/28/2024 UDS POS FOR BUP AND NEG FOR ANY ILLICIT SUBSTANCES. REVIEWED RESULTS W/PT TODAY. ETOH USE: LAST TIME: denies any use. COCAINE USE: DENIES ANY USE CANNABIS USE: Smokes MJ a few times a week. OBTAINS FROM DISPENSARY. LAST TIME USED: LAST NIGHT. AMPHE USE: DENIES ANY USE BZO USE: DENIES ANY USE NICOTINE USE: QUIT SMOKING > 7 YEARS AGO. PSYCH SOCIAL Stable housing, lives with his spouse AND HAS 2 DOGS. FEELS SAFE IN HOME. 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 SUPPORT: Has a good network of support in recovery. Transportation: HAS OWN TRANSPORTATION. LEGAL ISSUES: DENIES. COUNSELING: DEFERS COUNSELING AT THIS TIME. knows counseling available at or outside counseling if needed. MEDICAL: PCP: HAS PCP S/P COLONOSCOPY, FOUND TO HAVE 1 POLYP THAT WAS REMOVED, benign. POSSIBLY KNEE REPLACEMENT IN FUTURE, THIS ON HOLD PER PT. S/P SURGERY ON 02/15/24, TESTICLE LASER D/T BLOOD BLISTERS W/GOOD RESULTS, F/U BY DR PEGUERO. OUD: STABLE: ON BNX 16 MG/4MG (SPLIT DOSING) AND WILL C/W THIS DOSE. PLAN: -C/W MONTHLY VISITS FOR STABILITY AND RELAPSE PREVENTION. Urine? ? ?drug? ? ?AND REFLEX testing ordered MONTHLY for evaluation of illicit substance use/relapses/pro petty and ? ? ?is a clinical tool that provides meaningful information, monitors adherence, reinforces positive behavioral changes, and helps guide treatment. DEFINITIVE CONFIRMATION TESTING IF NEEDED. NADER IF UNEXPECTED UDS SCREENING. BUP CONFIRMATION EVERY 3 MONTHS TO MONITOR MEDICALLY AND FOR DIVERSION PER CLINICAL POLICY. DUE IN JUNE. OD PREVENTION: CONTINUE WITH PLAN ABOVE. PT UNDERSTANDS THE RISK OF COMBINED MARINE EQUIPMENT ENGINEER DEPRESSANTS. HAS NARCAN/TRAINED ON ADMINISTRATION. DIVERSION PREVENTION: WILL MONITOR MASSPAT, UDS/SVT/ BUP LEVELS FOR PROGRESS, RELAPSE, DIVERSION AND FOR HARM REDUCTION. CANNABIS USE: GROWS OWNS. KNOWS THE RISK FOR CROSS CONTAMINATION TO DEADLY SUBSTANCES; IF NOT OBTAINED FROM A TRUSTED SOUCRE/DISPENSAR Y. LABS: 11/09/2023 HEP B SURF AB AND HEP B CORE AB REACTIVE (PROTECTIVE) HEP A AB REACTIVE (PROTECTIVE) HEP B SURF ANTIGEN NR HEP C REACTIVE WITH UNDETECTABLE QUANTS, TX INTERFERON. HIV NR CBC WNL CMP WNL AST 20 /ALT 21 AND GGT 16 ALL WNL. LAB RESULTS Last UDS result (qualitative screen): POS buprenorphine and NO illicit drugs Last confirmatory test result (LCMS/quantitati ve): N/A due to negative UDS Last Bup confirmation was performed on 03/28/2024 with the result: Bup: 153.6 ng/ml & Norbup: 92.8 ng/ml. NOTED FLUCTUATION IN BUP LEVELS. ENDORSES PROPER TECH. Last LFT result: WNL ASSESSMENT The patient's current phase of OUD treatment is: Stable maintenance. Interpretation of last buprenorphine confirmation test result: FLIPPED Medication dose: No report of severe or persistent cravings/withdra wal symptoms. Pt will remain at current dose PLAN (narrative, if applicable) Rx : Continue buprenorphine/na loxone 8mg/2mg 2 films daily Rx Quantity 28d Rx provided today. ISSUE SENT RX. NEW RX SENT. PHARMACY AWARE TO DELETE DUPLICATE RX. VISIT FREQUENCY Continue monthly visits with monthly UDS. LFTS will be repeated per our clinical protocol. Prescription monitoring program is reviewed. If applicable, I have identified agents prescribed to the patient in addition to any issued by our program. The patient has been counseled regarding any risk of combining sedating agents. Not available 04/25/2024 12:39:52 05/23/2024 05/23/2024 This patient with a history of OUD presents today for their monthly MAT visit Current prescription is: buprenorphine/na loxone 8mg/2mg 2 films Patient denies any S/E, cravings, or withdrawal sx at current dose Update Since Last Visit : (narrative note) Patient Denies all illicit drug use since last visit OUD Monthly ACTIVE WITH SAVIDA FOR A LONG TIME. HE CONTINUES TO REMAIN STABLE IN RECOVERY. On BNX 16 MG/4 mg DAILY AND CONTINUES TO DO WELL ON THIS DOSING. TOOK: FULL DOSE TODAY REMAINING FILMS: HAS SOME AT HOME, UNSURE OF QUANTITY. ENDORSES PROPER TECH. Has intermediate teacher abstinence from OPIs and other illicit substances. NARCAN: HAS NARCAN AT HOME AND KNOWS HOW TO USE. HX OF OD: DENIES. NO UDS COLLECTED TODAY D/T ISSUES WITH NO INTERNET, STAFF UNABLE TO PRINT OUT LABELS. 04/25/24 UDS POS FOR BUP AND NEG FOR ANY ILLICIT SUBSTANCES. REVIEWED RESULTS W/PT TODAY. ETOH USE: LAST TIME: denies any use. COCAINE USE: DENIES ANY USE CANNABIS USE: Smokes MJ a few times a week. OBTAINS FROM DISPENSARY. LAST TIME USED: LAST NIGHT. AMPHE USE: DENIES ANY USE BZO USE: DENIES ANY USE NICOTINE USE: QUIT SMOKING > 7 YEARS AGO. PSYCH SOCIAL Stable housing, lives with his spouse AND HAS 2 DOGS. FEELS SAFE IN HOME. 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 SUPPORT: Continues to have a good network of support in recovery. Transportation: HAS OWN TRANSPORTATION. LEGAL ISSUES: DENIES. COUNSELING: DEFERS COUNSELING AT THIS TIME. knows counseling available at or outside counseling if needed. MEDICAL: PCP: HAS PCP S/P COLONOSCOPY, FOUND TO HAVE 1 POLYP THAT WAS REMOVED, benign. POSSIBLY KNEE REPLACEMENT IN FUTURE, THIS ON HOLD PER PT. S/P SURGERY ON 02/15/24, TESTICLE LASER D/T BLOOD BLISTERS W/GOOD RESULTS, F/U BY DR PEGUERO. OUD: STABLE: ON BNX 16 MG/4MG (SPLIT DOSING) AND WILL C/W THIS DOSE. PLAN: -C/W MONTHLY VISITS FOR STABILITY AND RELAPSE PREVENTION. Urine? ? ?drug? ? ?AND REFLEX testing ordered MONTHLY (BUT NOT OBTAINED TODAY D/T ISSUES WITH SYSTEM BEING DOWN) for evaluation of illicit substance use/relapses/pro petty and ? ? ?is a clinical tool that provides meaningful information, monitors adherence, reinforces positive behavioral changes, and helps guide treatment. UDS DUE ON 06/20/24. DEFINITIVE CONFIRMATION TESTING IF NEEDED. NADER IF UNEXPECTED UDS SCREENING. BUP CONFIRMATION EVERY 3 MONTHS TO MONITOR MEDICALLY AND FOR DIVERSION PER CLINICAL POLICY. DUE IN JUNE. OD PREVENTION: CONTINUE WITH PLAN ABOVE. PT UNDERSTANDS THE RISK OF COMBINED MARINE EQUIPMENT ENGINEER DEPRESSANTS. HAS NARCAN/TRAINED ON ADMINISTRATION. DIVERSION PREVENTION: WILL MONITOR MASSPAT, UDS/SVT/ BUP LEVELS FOR PROGRESS, RELAPSE, DIVERSION AND FOR HARM REDUCTION. CANNABIS USE: GROWS OWNS. KNOWS THE RISK FOR CROSS CONTAMINATION TO DEADLY SUBSTANCES; IF NOT OBTAINED FROM A TRUSTED SOUCRE/DISPENSAR Y. LABS: 11/09/2023 HEP B SURF AB AND HEP B CORE AB REACTIVE (PROTECTIVE) HEP A AB REACTIVE (PROTECTIVE) HEP B SURF ANTIGEN NR HEP C REACTIVE WITH UNDETECTABLE QUANTS, TX INTERFERON. HIV NR CBC WNL CMP WNL AST 20 /ALT 21 AND GGT 16 ALL WNL. LAB RESULTS Last UDS result (qualitative screen): POS buprenorphine and NO illicit drugs Last confirmatory test result (LCMS/quantitati ve): N/A due to negative UDS Last Bup confirmation was performed on 03/28/2024 with the result: Bup: 153.6 ng/ml & Norbup: 92.8 ng/ml. NOTED FLUCTUATION IN BUP LEVELS. Last LFT result: WNL ASSESSMENT The patient's current phase of OUD treatment is: Stable maintenance. Interpretation of last buprenorphine confirmation test result: FLIPPED Medication dose: No report of severe or persistent cravings/withdra wal symptoms. Pt will remain at current dose PLAN (narrative, if applicable) Rx : Continue buprenorphine/na loxone 8mg/2mg 2 films daily Rx Quantity 28d Rx provided today. VISIT FREQUENCY Continue monthly visits with monthly UDS. LFTS will be repeated per our clinical protocol. Prescription monitoring program is reviewed. If applicable, I have identified agents prescribed to the patient in addition to any issued by our program. The patient has been counseled regarding any risk of combining sedating agents. Not available 05/23/2024 09:06:28 Plan of Treatment Reminders Order Date Submit Date Provider Last Modified By Organization Details Last Modified Time Details Appointments MAT - Monthly 15 2024 09:00A Bruce Catherine NP Not available Not available Not available MAT - Monthly 15 2024 09:00A Bruce Catherine NP Not available Not available Not available Lab drug screen, urine 2024 025 [facility], [address] [place], [id number], 04/26/2024 14:04:35 ethanol, QL, screen, [facility]24 [facility] [address] [place], [id number], 04/26/2024 14:04:37 additiona l order codes 2024 [facility] [address] [place], [id number], 04/25/2024 12:28:13 additiona l order codes 2024 [facility] [address] [place], [id number], 04/25/2024 12:28:14 additiona l order codes 2024 [facility] [address] [place], [id number], 04/25/2024 12:28:18 additiona l order codes 2024 025 [facility] [address] [place], [id number], 04/25/2024 12:28:08 additiona l order codes 2024 025 [facility] [address] [place], [id number], 04/25/2024 12:28:10 additiona l order codes 2024 [facility], [address] [place], [id number], 04/25/2024 12:28:11 additiona l order codes 2024 025 [facility] [address] [place], [id number], 04/25/2024 12:28:15 drug screen, urine 2024 [facility] [address] [place], [id number], 03/29/2024 12:49:44 ethanol, QL, screen, urine 2024 025 [facility] [address] [place], [id number], 03/29/2024 12:49:29 additiona l order codes 2024 025 [facility], [address] [place], [id number], 03/28/2024 08:59:33 additiona l order codes 2024 025 [facility] [address] [place], [id number], 03/28/2024 08:59:32 additiona l order codes 2024 025 [facility], [address] [place], [id number], 03/28/2024 08:59:33 additiona l order codes 2024 025 [facility], [address] [place], [id number], 03/28/2024 08:59:30 additiona l order codes 2024 025 [facility], [address] [place], [id number], 03/28/2024 08:59:31 additiona l order codes 2024 025 [facility], [address] [place], [id number], 03/28/2024 08:59:35 additiona l order codes 2024 025 [facility], [address] [place], [id number], 03/28/2024 08:59:30 buprenorp vickey, quantitat lex, urine 2024 025 [facility], [address] [place], [id number], 03/30/2024 05:39:03 drug screen, urine 2024 025 [facility], [address] [place], [id number], 03/01/2024 11:23:30 ethanol, QL, screen, urine 2024 025 [facility], [address] [place], [id number], 03/01/2024 11:23:28 additiona l order codes 2024 025 [facility], [address] [place], [id number], 02/29/2024 08:55:17 additiona l order codes 2024 025 [facility] [address] [place], [id number], 02/29/2024 08:55:21 additiona l order codes 2024 025 [facility], [address] [place], [id number], 02/29/2024 08:55:15 additiona l order codes 2024 025 [facility], [address] [place], [id number], 02/29/2024 08:55:19 additiona l order codes 2024 025 [facility], [address] [place], [id number], 02/29/2024 08:55:18 additiona l order codes 2024 025 [facility], [address] [place], [id number], 02/29/2024 08:55:17 additiona l order codes 2024 [facility] [facility], [address] [place], [address], 02/29/2024 08:55:20 drug screen, urine 2023 024 [facility] [address] [place], [address], 02/02/2024 12:59:19 ethanol, QL, screen, urine 2023 024 [facility] [address] [place], [address], 02/02/2024 12:59:21 additiona l order codes 2023 024 [facility], [address] [place], [address], 02/01/2024 09:11:44 additiona l order codes 2023 024 [facility] [address] [place], [address], 02/01/2024 09:11:48 additiona l order codes 2023 024 [facility], [address] [place], [address], 02/01/2024 09:11:45 additiona l order codes 2023 024 [facility] [address] [place], [address], 02/01/2024 09:11:41 additiona l order codes 2023 024 [facility] [address] [place], [address], 02/01/2024 09:11:51 additiona l order codes 2023 024 [facility], [address] [place], [address], 02/01/2024 09:11:50 additiona l order codes 2023 024 [facility], [address] [place], [address], 02/01/2024 09:11:47 Referral None recorded. Procedures None recorded. Surgeries None recorded. Imaging None recorded. Medication Orders buprenorp vickey 8 mg-naloxo ne 2 mg sublingua l film 2024 025 [facility], [address] [place], [address], 05/23/2024 09:04:29 buprenorp vickey 8 mg-naloxo ne 2 mg sublingua l film 2024 025 [place] [address] [facility], [address] [place], [address], 04/25/2024 12:56:08 buprenorp vickey 8 mg-naloxo ne 2 mg sublingua l film 2024 025 [facility], [address] [place], [address], 04/25/2024 12:38:56 buprenorp vickey 8 mg-naloxo ne 2 mg sublingua l film 2024 025 [facility], [address] [place], [address], 03/28/2024 08:59:29 buprenorp vickey 8 mg-naloxo ne 2 mg sublingua l film 2024 025 [facility], [address] [place], [address], 02/29/2024 08:55:11 buprenorp vickey 8 mg-naloxo ne 2 mg sublingua l film 2023 024 [facility], [address] [facility], [place], [address], 02/01/2024 09:11:39 Patient TargetsNo targets recorded. Patient InstructionsNo instructions recorded. Reason for Referral None Reported. Results Created Date Observation Date Name Description Value Unit Range Abnormal Flag Note LastModifiedBy Organization Detail LastModifiedTime 01/04/20 24 01/05/2024 BUPRE NORPH INE PT UDS, QL, U cocaine metabolite NEG NG/mL <300 normal Not Available [facility] [address] [place], [address], 01/05/2024 14:03:17 01/04/20 24 01/05/2024 BUPRE NORPH INE PT UDS, QL, U amphetamines NEG NG/mL <500 normal Not Available [facility] [address] [place], [address], 01/05/2024 14:03:17 01/04/20 24 01/05/2024 BUPRE NORPH INE PT UDS, QL, U benzodiazepi lakesha NEG NG/mL <200 normal Not Available [facility] [address] [place], [address], 01/05/2024 14:03:17 01/04/20 24 01/05/2024 BUPRE NORPH INE PT UDS, QL, U buprenorphin e POS NG/mL <5 normal Not Available [facility] [address] [place], [address], 01/05/2024 14:03:17 01/04/20 24 01/05/2024 BUPRE NORPH INE PT UDS, QL, U fentanyl NEG NG/mL <10 normal Not Available [facility] [address] [place], [address], 01/05/2024 14:03:17 01/04/20 24 01/05/2024 BUPRE NORPH INE PT UDS, QL, U methadone NEG NG/mL <300 normal Not Available [facility] Lab [address] [place], [address], 01/05/2024 14:03:17 01/04/20 24 01/05/2024 BUPRE NORPH INE PT UDS, QL, U opiates NEG NG/mL <300 normal Not Available [facility] Lab [address] [place], [address], 01/05/2024 14:03:17 01/04/20 24 01/05/2024 BUPRE NORPH INE PT UDS, QL, U oxycodone NEG NG/mL <300 normal Not Available [facility] [address] [place], [address], 01/05/2024 14:03:17 01/04/20 24 01/05/2024 BUPRE NORPH INE PT UDS, QL, U urine pH 8.3 4.5 - 9.0 Not Available [facility] [address] [place], [address], 01/05/2024 14:03:17 01/04/20 24 01/05/2024 BUPRE NORPH INE PT UDS, QL, U urine specific gravity 1.016 1.003 - 1.035 Not Available [facility] [address] [place], [address], 01/05/2024 14:03:17 01/04/20 24 01/05/2024 BUPRE NORPH INE PT UDS, QL, U urine creatinine 139 mg/dL 20 - 320 Not Available [facility] [address] [place], [address], 01/05/2024 14:03:17 02/01/20 24 02/02/2024 BUPRE NORPH INE PT UDS, QL, U cocaine metabolite NEG NG/mL <300 normal Not Available [facility] [address] [place], [address], 02/02/2024 12:59:19 02/01/20 24 02/02/2024 BUPRE NORPH INE PT UDS, QL, U amphetamines NEG NG/mL <500 normal Not Available [facility] [address] [place], [address], 02/02/2024 12:59:19 02/01/20 24 02/02/2024 BUPRE NORPH INE PT UDS, QL, U benzodiazepi lakesha NEG NG/mL <200 normal Not Available [facility] [address] [place], [address], 02/02/2024 12:59:19 02/01/20 24 02/02/2024 BUPRE NORPH INE PT UDS, QL, U buprenorphin e POS NG/mL <5 normal Not Available [facility] [address] [place], [address], 02/02/2024 12:59:19 02/01/20 24 02/02/2024 BUPRE NORPH INE PT UDS, QL, U fentanyl NEG NG/mL <10 normal Not Available [facility] Lab [address] [place], [address], 02/02/2024 12:59:19 02/01/20 24 02/02/2024 BUPRE NORPH INE PT UDS, QL, U methadone NEG NG/mL <300 normal Not Available [facility] [address] [place], [address], 02/02/2024 12:59:19 02/01/20 24 02/02/2024 BUPRE NORPH INE PT UDS, QL, U opiates NEG NG/mL <300 normal Not Available [facility] [address] [place], [address], 02/02/2024 12:59:19 02/01/20 24 02/02/2024 BUPRE NORPH INE PT UDS, QL, U oxycodone NEG NG/mL <300 normal Not Available [facility] [address] [place], [address], 02/02/2024 12:59:19 02/01/20 24 02/02/2024 BUPRE NORPH INE PT UDS, QL, U urine pH 7.6 4.5 - 9.0 Not Available [facility] [address] [place], [address], 02/02/2024 12:59:19 02/01/20 24 02/02/2024 BUPRE NORPH INE PT UDS, QL, U urine specific gravity 1.015 1.003 - 1.035 Not Available [facility] [address] [place], [address], 02/02/2024 12:59:19 02/01/20 24 02/02/2024 BUPRE NORPH INE PT UDS, QL, U urine creatinine 149 mg/dL 20 - 320 Not Available [facility] [address] [place], [address], 02/02/2024 12:59:19 02/01/20 24 02/02/2024 DARLINE OL, QL, U ethanol NEG mg/dL <10 normal Not Available [facility] Lab [address] [place], [address], 02/02/2024 12:59:21 02/28/19 25 03/01/2024 DARLINE OL, QL, U ethanol NEG mg/dL <10 normal Not Available [facility] Lab [address] [place], [address], 03/01/2024 11:23:28 02/28/19 25 03/01/2024 BUPRE NORPH INE PT UDS, QL, U cocaine metabolite NEG NG/mL <300 normal Not Available [facility] Lab [address] [place], [address], 03/01/2024 11:23:30 02/28/19 25 03/01/2024 BUPRE NORPH INE PT UDS, QL, U amphetamines NEG NG/mL <500 normal Not Available [facility] [address] [place], [address], 03/01/2024 11:23:30 02/28/19 25 03/01/2024 BUPRE NORPH INE PT UDS, QL, U benzodiazepi lakesha NEG NG/mL <200 normal Not Available [facility] [address] [place], [address], 03/01/2024 11:23:30 02/28/19 25 03/01/2024 BUPRE NORPH INE PT UDS, QL, U buprenorphin e POS NG/mL <5 normal Not Available [facility] [address] [place], [address], 03/01/2024 11:23:30 02/28/19 25 03/01/2024 BUPRE NORPH INE PT UDS, QL, U fentanyl NEG NG/mL <10 normal Not Available [facility] Lab [address], [address], 03/01/2024 11:23:30 02/28/19 25 03/01/2024 BUPRE NORPH INE PT UDS, QL, U methadone NEG NG/mL <300 normal Not Available [facility] [address] [place], [address], 03/01/2024 11:23:30 02/28/19 25 03/01/2024 BUPRE NORPH INE PT UDS, QL, U opiates NEG NG/mL <300 normal Not Available [facility] Lab [address] [place], [address], 03/01/2024 11:23:30 02/28/19 25 03/01/2024 BUPRE NORPH INE PT UDS, QL, U oxycodone NEG NG/mL <300 normal Not Available [facility] Lab [address] [place], [address], 03/01/2024 11:23:30 02/28/19 25 03/01/2024 BUPRE NORPH INE PT UDS, QL, U urine pH 8.5 4.5 - 9.0 Not Available [facility] [address] [place], [address], 03/01/2024 11:23:30 02/28/19 25 03/01/2024 BUPRE NORPH INE PT UDS, QL, U urine specific gravity 1.014 1.003 - 1.035 Not Available [facility] [address] [place], [address], 03/01/2024 11:23:30 02/28/19 25 03/01/2024 BUPRE NORPH INE PT UDS, QL, U urine creatinine 122 mg/dL 20 - 320 Not Available [facility] [address] [place], [address], 03/01/2024 11:23:30 03/28/19 25 03/29/2024 DARLINE OL, QL, U ethanol NEG mg/dL <10 normal Not Available [facility] [address] [place], [address], 03/29/2024 12:49:29 03/28/19 25 03/29/2024 BUPRE NORPH INE PT UDS, QL, U cocaine metabolite NEG NG/mL <300 normal Not Available [facility] Lab [address] [place], [address], 03/29/2024 12:49:44 03/28/19 25 03/29/2024 BUPRE NORPH INE PT UDS, QL, U amphetamines NEG NG/mL <500 normal Not Available [facility] Lab [address] [place], [address], 03/29/2024 12:49:44 03/28/19 25 03/29/2024 BUPRE NORPH INE PT UDS, QL, U benzodiazepi lakesha NEG NG/mL <200 normal Not Available [facility] [address] [place], [address], 03/29/2024 12:49:44 03/28/19 25 03/29/2024 BUPRE NORPH INE PT UDS, QL, U buprenorphin e POS NG/mL <5 normal Not Available [facility] [address] [place], [address], 03/29/2024 12:49:44 03/28/19 25 03/29/2024 BUPRE NORPH INE PT UDS, QL, U fentanyl NEG NG/mL <10 normal Not Available [facility] Lab [address] [place], [address], 03/29/2024 12:49:44 03/28/19 25 03/29/2024 BUPRE NORPH INE PT UDS, QL, U methadone NEG NG/mL <300 normal Not Available [facility] [address] [place], [address], 03/29/2024 12:49:44 03/28/19 25 03/29/2024 BUPRE NORPH INE PT UDS, QL, U opiates NEG NG/mL <300 normal Not Available [facility] [address] [place], [address], 03/29/2024 12:49:44 03/28/19 25 03/29/2024 BUPRE NORPH INE PT UDS, QL, U oxycodone NEG NG/mL <300 normal Not Available [facility] [address] [place], [address], 03/29/2024 12:49:44 03/28/19 25 03/29/2024 BUPRE NORPH INE PT UDS, QL, U urine pH 5.2 4.5 - 9.0 Not Available [facility] [address], [address], 03/29/2024 12:49:44 03/28/19 25 03/29/2024 BUPRE NORPH INE PT UDS, QL, U urine specific gravity 1.017 1.003 - 1.035 Not Available [facility] [address], [address], 03/29/2024 12:49:44 03/28/19 25 03/29/2024 BUPRE NORPH INE PT UDS, QL, U urine creatinine 132 mg/dL 20 - 320 Not Available [facility] [address], [address], 03/29/2024 12:49:44 03/28/19 25 03/30/2024 BUPRE NORPH INE, QN, U normalized buprenorphin e 153.6 NG/mL Not Available [facility] [address] [place], [address], 03/30/2024 05:39:03 03/28/19 25 03/30/2024 BUPRE NORPH INE, QN, U normalized norbuprenorp vickey 92.8 NG/mL Not Available [facility] [address] [place], [address], 03/30/2024 05:39:03 03/28/19 25 03/30/2024 BUPRE NORPH INE, QN, U buprenorphin e 203.1 NG/mL <10.0 normal Not Available [facility] [address] [place], [address], 03/30/2024 05:39:03 03/28/19 25 03/30/2024 BUPRE NORPH INE, QN, U norbuprenorp vickey 122.7 NG/mL <20.0 normal Not Available [facility] [address] [place], [address], 03/30/2024 05:39:03 04/26/19 25 04/26/2024 BUPRE NORPH INE PT UDS, QL, U cocaine metabolite NEG NG/mL <300 normal Not Available [facility] [address] [place], [address], 04/26/2024 14:04:35 04/26/19 25 04/26/2024 BUPRE NORPH INE PT UDS, QL, U amphetamines NEG NG/mL <500 normal Not Available [facility] [address] [place], [address], 04/26/2024 14:04:35 04/26/19 25 04/26/2024 BUPRE NORPH INE PT UDS, QL, U benzodiazepi lakesha NEG NG/mL <200 normal Not Available [facility] [address] [place], [address], 04/26/2024 14:04:35 04/26/19 25 04/26/2024 BUPRE NORPH INE PT UDS, QL, U buprenorphin e POS NG/mL <5 normal Not Available [facility] [address] [place], [address], 04/26/2024 14:04:35 04/26/19 25 04/26/2024 BUPRE NORPH INE PT UDS, QL, U fentanyl NEG NG/mL <10 normal Not Available [facility] [address] [place], [address], 04/26/2024 14:04:35 04/26/19 25 04/26/2024 BUPRE NORPH INE PT UDS, QL, U methadone NEG NG/mL <300 normal Not Available [facility] [address] [place], [address], 04/26/2024 14:04:35 04/26/19 25 04/26/2024 BUPRE NORPH INE PT UDS, QL, U opiates NEG NG/mL <300 normal Not Available [facility] [address] [place], [address], 04/26/2024 14:04:35 04/26/19 25 04/26/2024 BUPRE NORPH INE PT UDS, QL, U oxycodone NEG NG/mL <300 normal Not Available [facility] [address], [address], 04/26/2024 14:04:35 04/26/19 25 04/26/2024 BUPRE NORPH INE PT UDS, QL, U urine pH 7.7 4.5 - 9.0 Not Available [facility] [address] [place], [address], 04/26/2024 14:04:35 04/26/19 25 04/26/2024 BUPRE NORPH INE PT UDS, QL, U urine specific gravity 1.013 1.003 - 1.035 Not Available [facility] [address] [place], [address], 04/26/2024 14:04:35 04/26/19 25 04/26/2024 BUPRE NORPH INE PT UDS, QL, U urine creatinine 144 mg/dL 20 - 320 Not Available [facility] [address], [address], 04/26/2024 14:04:35 04/26/19 25 04/26/2024 DARLINE OL, QL, U ethanol NEG mg/dL <10 normal Not Available [facility] Lab [address], [address], 04/26/2024 14:04:37 Result Notes None recorded. Problems Name Problem SNOMED Code Status Onset Date Resolution Date Notes Provider Name and Address Organization Details Recorded Time Cannabis dependen ce, continuo 666419871 Active 2023 Clara Catherine NP [address] [place] [address], [place], [address] , [facility] - [facility] 04:17:54 Pain of knee region 1040449133 Active 2023 Clara Catherine NP [address] [facility] [place], [address] , [facility] 4 08:59:38 Diarrhea 57619830 Active 2023 Clara Catherine NP [address] [facility] [place], [address] , [facility] 4 09:11:45 Abnormal weight loss 902245615 Active 2023 Clara Catherine NP [address] [facility] [place], [address] , [facility] 4 09:16:15 History of pulmonar y embolus 430588084 Active 2017 2015 Not Available [facility] 1 03:11:39 Disabili ty 65110052 Active 2018 Not Available [facility] 1 03:11:39 Family history of viral hepatiti s type C 05365702114 26557 Completed 201712/09/2017 Not Available [facility] 1 03:11:39 Viral hepatiti s C 18927482 Completed 201712/09/2017 s/p treatmen t Not Available [facility] 1 03:11:39 Diabetes mellitus 88234214 Active 2017 Not Available [facility] 1 03:11:39 Opioid dependen ce 42915956 Active 2017 stable maintena nce Not Available [facility] 1 03:11:39 History of hepatiti s C 11296735957 101 Active 201711/09/23 HEP C REACTIVE w/undect ectable quants, HEP B SURF AB AND B CORE REACTIVE (PROTECT ED). HEP A REACTIVE (PROTECT ED) Clara Catherine NP [address] [facility] [place], [address] , [facility] [employer] [facility] 4 04:04:36 Notes: OF 02/02/13: SMOKES 1 [employer] IN [employer] AT [employer] [place] , NO CHILDREN IS ALCOHOLIC NO SUICIDE ATTEMPTS Problem Notes None recorded. Procedures Surgical History Date Name Laterality Status Provider Name and Address Organization Details Recorded Time 05/23/2024 06775, G0480, G0481 completed Clara Catherine NP [address] [place], [address], [facility] 05/23/2024 04:04:47 04/25/2024 57685, G0480, G0481 completed Clara Catherine NP [address] [place], [address], [facility] 04/25/2024 04:16:33 03/28/2024 19064, G0480, G0481 completed Clara Catherine NP [address] [place] [address], [address], [facility] 03/28/2024 04:13:04 02/29/2024 50226, G0480, G0481 completed Clara Catherine NP [address] [place] [address], [address], [facility] 02/29/2024 04:31:55 02/01/2024 91570, G0480, G0481 completed Clara Catherine NP [address] [place], [address], [facility] 02/01/2024 03:58:03 01/04/2024 19404, G0480, G0481 completed Mónica Colon [facility] 01/04/2024 08:43:37 12/07/2023 63812, G0480, G0481 completed Clara Catherine NP [address] [place], [address], [facility] 12/07/2023 04:04:56 11/09/2023 77994, G0480, G0481 completed Clara Catherine NP [address] [place], [address], [facility] 11/09/2023 04:47:17 10/13/2023 58156, G0480, G0481 completed [facility] 10/13/2023 08:39:06 09/15/2023 21100, G0480, G0481 completed [facility] 09/15/2023 09:22:20 08/25/2023 36168, G0480, G0481 completed [facility] 08/25/2023 08:45:05 2023 81499, G0480, G0481 completed Clara Catherine, DARIA [address] [place], [address], [facility] 2023 03:59:19 06/30/2023 62405, G0480, G0481 completed Clara Catherine, DARIA [address] [place], [address], [facility] 06/30/2023 04:01:47 06/02/2023 73770, G0480, G0481 completed Clara Catherine, DARIA [address] [place], [address], [facility] 06/02/2023 03:59:17 05/05/2023 57643, G0480, G0481 completed Clara Catherine, DARIA [address] [place], [address], [facility] 05/05/2023 04:10:32 04/08/2023 28029, G0480, G0481 completed Clara Catherine, DARIA [address] [place], [address], [facility] 04/08/2023 04:40:59 03/10/2023 23436, G0480, G0481 completed Clara Catherine NP [address] [place], [address], [facility] 03/10/2023 04:05:30 02/09/2023 68968, G0480, G0481 completed [facility] 02/09/2023 09:09:06 01/12/2023 57042, G0480, G0481 completed Clara Catherine, DARIA [address] [place], [address], [facility] 01/12/2023 04:02:50 12/15/2022 92193, G0480, G0481 completed Clara Catherine NP [address] [place], [address], [facility] 12/15/2022 04:20:45 11/17/2022 88816, G0480, G0481 completed Clara Catherine, SUPPLIER DIVERSITY DIRECTOR [address] [place], [address], [facility] 11/17/2022 04:25:29 10/20/2022 90960, G0480, G0481 completed Clara Catherine, SUPPLIER DIVERSITY DIRECTOR [address] [place], [address], [facility] 10/20/2022 04:07:56 09/22/2022 74869, G0480, G0481 completed [facility] 09/22/2022 08:49:45 08/19/2022 18885, G0480, G0481 completed Clara Catherine, SUPPLIER DIVERSITY DIRECTOR [address] [place], [address], [facility] 08/19/2022 05:03:12 07/22/2022 83418, G0480, G0481 completed Debbie Feliciano [place] - [facility] 07/22/2022 08:45:13 07/01/2022 70182, G0480, G0481 completed Debbie Feliciano [place] - [facility] 07/01/2022 08:48:45 06/03/2022 90767, G0480, G0481 completed Lucia Prajapati [place] - [facility] 06/03/2022 08:49:13 05/06/2022 49851, G0480, G0481 completed Mónica Aden [facility] 05/06/2022 08:45:51 04/08/2022 50822, G0480, G0481 completed Leonor Clarke PA-C [address] [place], [address], [facility] 04/07/2022 20:33:03 03/11/2022 [id number], G0480, G0481 completed Debbie Feliciano [place] - [facility] 03/11/2022 09:01:27 02/11/2022 73091, G0480, G0481 completed Debbie Feliciano [place] [facility] 02/11/2022 08:57:53 01/14/2022 36388, G0480, G0481 completed Debbie [facility] 01/14/2022 13:44:49 12/17/2021 66176, G0480, G0481 [facility] 12/17/2021 08:57:20 11/19/2021 53859, G0480, G0481 completed Meghan Rosas [facility] 11/19/2021 15:03:49 10/22/2021 05928, G0480, G0481 completed Debbie [facility] 10/22/2021 09:04:44 09/24/2021 56958, G0480, G0481 completed Debbie [facility] 09/24/2021 08:51:41 08/27/2021 88029, G0480, G0481 completed Elaine Hernandez [facility] 08/27/2021 15:49:58 07/30/2021 74309, G0480, G0481 completed Debbie [facility] 07/30/2021 08:56:29 06/26/2021 88567, G0480, G0481 completed Thad Tate NP [address] [place], [address] 06/26/2021 09:26:42 05/15/2021 68249, G0480, G0481 completed [facility] 05/15/2021 08:49:51 05/01/2021 75524, G0480, G0481 [facility] 05/01/2021 08:47:56 04/03/2021 92642, G0480, G0481 completed Nilsa Tristan [facility] 04/03/2021 08:50:07 03/06/2021 33612, G0480, G0481 [facility] 03/06/2021 08:51:34 Imaging Results None recorded. Procedure Notes None recorded. Medical Equipment None Reported. Allergies No known drug allergies Medications Name Sig Start Date Stop Date Status Note LastModified by Organization Details LastModified Time metformin 500 mg tablet TAKE ONE TABLET BY MOUTH TWICE A DAY active Not Available Not Available No t Available atorvastati n 20 mg tablet Take 1 tablet every day by oral route. 2017 active Not Available Not Available Not Avai lable citalopram 40 mg tablet TAKE ONE TABLET BY MOUTH EVERY DAY 08/27 completed Not Available Not Available Not Available prednisone 20 mg tablet 06/18 completed Not Available Not Available Not Available propranolol ER 60 mg capsule,24 hr,extended release TAKE 1 CAPSULE BY MOUTH ONCE DAILY 08/27 completed Not Available Not Available Not Available topiramate 25 mg tablet TAKE THREE TABLETS BY MOUTH EVERY MORNING 08/27 completed Not Available Not Available Not Available oxycodone-a cetaminophe n 5 mg-325 mg tablet TAKE 1 TABLET BY MOUTH EVERY 6 HOURS NEEDED FOR PAIN 08/27 completed Not Available Not Available Not Available citalopram 20 mg tablet 08/27 completed Not Available Not Available Not Available magnesium oxide 400 mg (241.3 mg magnesium) tablet active Not Available Not Available Not Available tamsulosin 0.4 mg capsule TAKE 1 CAPSULE BY MOUTH ONCE DAILY 08/27 completed Not Available Not Available Not Available amitriptyli ne 10 mg tablet 08/27 completed Not Available Not Available Not Available propranolol ER 80 mg capsule,24 hr,extended release 04/25 completed Not Available Not Available Not Available indomethaci n 50 mg capsule 08/27 completed Not Available Not Available Not Available amoxicillin 250 mg capsule 08/27 completed Not Available Not Available Not Available allopurinol 300 mg tablet 04/25 completed Not Available Not Available Not Available lisinopril 5 mg tablet TAKE ONE TABLET BY MOUTH EVERY DAY active Not Available Not Available No t Available testosteron e cypionate 200 mg/mL intramuscul ar oil Inject 0.25 mL every 4 weeks by intramusc ular route. 08/27 completed Not Available Not Available Not Available colchicine 0.6 mg tablet 08/27 completed Not Available Not Available Not Available metformin ER 500 mg tablet,exte nded release 24 hr 06/18 completed Not Available Not Available Not Available ipratropium bromide 21 mcg (0.03 %) nasal spray USE 2 SPRAYS INTO THE NOSTRIL(S ) ONCE DAILY AT BEDTIME 08/27 completed Not Available Not Available Not Available enoxaparin 120 mg/0.8 mL subcutaneou s syringe 08/27 completed Not Available Not Available Not Available Jantoven 7.5 mg tablet TAKE 1 TABLET BY MOUTH DAILY AT 1600 OR DIRECTED BY [facility] 08/27 completed Not Available Not Available Not Available chlorhexidi ne gluconate 0.12 % mouthwash 08/27 completed Not Available Not Available Not Available ibuprofen 08/27 completed Not Available Not Available Not Available lisinopril 06/18 completed Not Available Not Available Not Available indomethaci n 01/06 completed Not Available Not Available Not Available Vitamin D3 06/18 completed Not Available Not Available Not Available cholecalcif devante (vitamin D3) 25 mcg (1,000 unit) tablet TAKE 1 TABLET BY MOUTH ONCE DAILY active Not Available Not Available No t Available FreeStyle Lite Strips 08/27 completed Not Available Not Available Not Available buprenorphi ne 8 mg-naloxone [address] 2 films every day by sublingua l route for 28 days. 2024 active Not Available Not Available Not Avai lable colchicine 0.6 mg capsule TAKE 1 CAPSULE BY MOUTH TWICE A DAY 08/27 completed Not Available Not Available Not Available Narcan 4 mg/actuatio n nasal spray USE 1 SPRAY BY NASAL ROUTE NEEDED 2022 active Not Available Not Available Not Avai lable Flulaval Quad (PF) 60 mcg (15 mcg x 4)/0.5 mL IM syringe VACCINATI ON ADMINISTE RED BY PHARMACIS T 08/27 completed Not Available Not Available Not Available Vitals Date Recorded Body temperature Oxygen saturation Oxygen saturation in Arterial blood by Pulse oximetry Heart rate Provider Name and Address Organization Details Last Updated DateTime 02/01/2024 97.7 [degF] 96 % 96 % 98 /[facility]06 Date Recorded Heart rate Oxygen saturation Oxygen saturation in Arterial blood by Pulse oximetry Body temperature Provider Name and Address Organization Details Last Updated DateTime 02/29/2024 75 /min 98 % 98 % 96.9 [degF] Sol Torres [facility] 5 08:48:47 Date Recorded Heart rate Oxygen saturation Oxygen saturation in Arterial blood by Pulse oximetry Body temperature Provider Name and Address Organization Details Last Updated DateTime 03/28/2024 95 /min 98 % 98 % 97.1 [degF] Sol Torres [facility] 5 08:52:57 Date Recorded Heart rate Oxygen saturation Oxygen saturation in Arterial blood by Pulse oximetry Body temperature Provider Name and Address Organization Details Last Updated DateTime 04/25/2024 102 /min 94 % 94 % 96.8 [degF] Sol Torres [facility] 5 08:47:07 Social History Question Answer Notes LastModified by Organizat ion Details LastModified Time Tobacco Smoking Status [facility] 03/06/2021 08:51:08 What Is Your Level Of Alcohol Consumption? None Information not available 03/06/2021 What Is Your Level Of Caffeine Consumption? Occasional Information not available 03/06/2021 When Did You Quit Smoking? 1-5yearssincel astcigarette Information not available 03/06/2021 *Housing Stable - Safe Information not available 03/06/2021 *Employment Employed Information n ot available 03/06/2021 *Food Adequate Information no t available 03/06/2021 * Not A Mc[employer] Information not available 03/06/2021 *Job Training/Educatio n/Literacy Not Needed Information not available 03/06/2021 *Legal Status No Legal Issues Information not available 03/06/2021 *Legal Assistance Not Required Infor mation not available 03/06/2021 *Custody Of Dependent Children N/A Information not available 03/06/2021 *Social Service's Involvement With Dependent Children Not Applicable Information not available 03/06/2021 *Childcare Needed No Informa tion not available 03/06/2021 *Concern For Domestic Violence No Information no t available 03/06/2021 *Primary Care Provider Yes Information not available 03/06/2021 *Other Medical Issues None Information not available 03/06/2021 *Social Support Network Has Stable Support System Information not available 03/06/2021 *Transportation Issues No Information not available 03/06/2021 What Is Your Current Pack Years? 20-29packyears Information not available 03/06/2021 At What Age Did You Start Smoking Tobacco? 16 Information not available 03/06/2021 Do You Use Any Illicit Or Recreational Drugs? No Information not available 03/06/2021 Has Tobacco Cessation Counseling Been Provided? No Information not available 03/06/2021 How Many Years Have You Smoked Tobacco? 30 Information not available 03/06/2021 Do You Or Have You Ever Used Any Other Forms Of Tobacco Or Nicotine? No Information not available 03/06/2021 Sex: Male Functional Status None recorded. Mental Status None recorded. Family History Nothing Reported. Medical History No medical history recorded. Past Encounters Encounter ID Performer Location Encounter Start Date Encounter Closed Date Diagnosis/Indication Diagnosis SNOMED-CT Code Diagnosis ICD10 Code Diagnosis Note [id number] [facility] [place] [address] 11/10/2017 00:00:00 11/10/2017 12:33:05 [id number] [facility] [place] [address] 12/09/2017 00:00:00 12/09/2017 09:24:54 [id number] [facility] [address] [place] [address], [place] [address] 01/06/2018 00:00:00 01/06/2018 09:29:14 [id number] [facility] [place] [address] 02/03/2018 00:00:00 02/03/2018 17:59:11 [id number] [facility], [place] [address] 02/12/2018 00:00:00 02/12/2018 13:44:04 [id number] [facility], [place] [address] 02/26/2018 00:00:00 02/26/2018 10:19:58 [id number] [facility], [place] [address] 03/26/2018 00:00:00 03/26/2018 09:51:15 [id number] [facility] [place] [address] 7 04/23/2018 00:00:00 04/26/2018 23:29:46 [id number] [facility], [place] [address] 05/21/2018 00:00:00 05/23/2018 11:32:20 [id number] [facility], [place] [address] 06/18/2018 00:00:00 06/18/2018 09:43:35 [id number] [facility], [place] [address] 7 06/22/2018 00:00:00 06/22/2018 10:08:56 [id number] [facility] [place] [address] 07/16/2018 00:00:00 07/16/2018 12:21:14 [id number] [facility] [place] [address] 08/13/2018 00:00:00 08/13/2018 10:09:02 [id number] [facility] [place] [address] 7 09/10/2018 00:00:00 09/10/2018 20:03:39 [id number] [facility] [place] [address] 10/06/2018 00:00:00 10/06/2018 15:20:23 [id number] [facility] [address] [facility] [place], [place] [address] 10/27/2018 00:00:00 10/27/2018 08:10:52 [id number] [facility] [address] [facility] [place], [place] [address] 11/24/2018 00:00:00 11/24/2018 08:10:03 [id number] [facility] [address] [facility] [place], [place] [address] 12/22/2018 00:00:00 12/22/2018 14:49:16 [id number] [facility] [address] [facility] [place], [place] [address] 7 01/11/2019 00:00:00 01/11/2019 09:40:23 [id number] [facility] [address] [facility] [place], [place] [address] 01/19/2019 00:00:00 01/19/2019 09:01:59 [id number] [facility] [address] [facility] [place], [place] [address] 02/09/2019 00:00:00 02/09/2019 09:20:36 [id number] [facility] [address] [facility] [place], [place] [address] 03/09/2019 00:00:00 03/09/2019 08:36:57 [id number] [facility] [address] [facility] [place], [place] [address] 04/06/2019 00:00:00 04/06/2019 08:20:43 [id number] [facility] [address] [facility] [place] [address] 05/04/2019 00:00:00 05/04/2019 08:22:00 [id number] [facility] [address] [facility] [place] [address] 06/01/2019 00:00:00 06/01/2019 13:12:33 [id number] [facility] [address] [facility] [place] [address] 06/13/2019 00:00:00 06/13/2019 10:59:32 [id number] [facility] [address] [facility] [place], [place] [address] 06/29/2019 00:00:00 06/29/2019 14:13:12 [id number] [facility] [address] [facility] [place] [address] 07/12/2019 00:00:00 07/12/2019 20:06:17 [id number] [facility] [address] [facility] [place] [address] 7 07/27/2019 00:00:00 07/27/2019 15:56:02 [id number] [facility] [address] [facility] [place] [address] 08/10/2019 00:00:00 08/11/2019 13:35:03 [id number] [facility] [address] [facility] [place] [address] 08/24/2019 00:00:00 08/24/2019 12:48:12 [id number] [facility] [address] [facility] [place] [address] 7 09/21/2019 00:00:00 09/21/2019 11:00:11 [id number] [facility] [address] [facility] [place] [address] 7 10/19/2019 00:00:00 10/19/2019 09:10:39 [id number] [facility] [place] [address] 7 11/17/2019 00:00:00 11/17/2019 15:52:49 [id number] [facility] [address] [facility] [place] [address] 01/12/2020 00:00:00 01/12/2020 09:19:43 [id number] [facility] [address] [facility] [place] [address] 12/15/2019 00:00:00 12/15/2019 12:21:39 [id number] [facility] [address] [facility] [place] [address] 02/09/2020 00:00:00 02/09/2020 08:38:38 [id number] [facility] [address] [facility] [place] [address] 04/05/2020 00:00:00 04/05/2020 08:23:56 [id number] [facility] [address] [facility] [place], [place] [address] 03/08/2020 00:00:00 03/08/2020 08:29:09 [id number] [facility] [address] [facility] [place] [address] 05/31/2020 00:00:00 05/31/2020 09:04:41 [id number] [facility] [address] [facility] [place], [place] [address] 05/03/2020 00:00:00 05/03/2020 10:39:00 [id number] [facility] [address] [facility] [place] [address] 07/25/2020 00:00:00 07/25/2020 15:10:15 [id number] [facility] [address] [facility] [place] [address] 07/02/2020 00:00:00 07/02/2020 09:46:48 [id number] [facility] [address] [facility] [place] [address] 08/22/2020 00:00:00 08/22/2020 09:28:27 [id number] [facility] [address] [facility] [place] [address] 7 10/17/2020 00:00:00 10/17/2020 09:01:04 [id number] [facility] [address] [facility] [place] [address] 09/19/2020 00:00:00 09/19/2020 09:06:24 [id number] [facility] [address] [facility] [place] [address] 11/09/2020 00:00:00 11/09/2020 10:11:40 [id number] [facility] [address] [facility] [place] [address] 12/12/2020 00:00:00 12/12/2020 09:38:12 [id number] [facility] [address] [facility] [place] [address] 02/06/2021 00:00:00 02/06/2021 09:25:02 [id number] [facility], [place] [address] 01/09/2021 00:00:00 01/09/2021 09:14:31 [id number] [facility], [place] [address] 11/10/2017 00:00:00 11/10/2017 09:31:24 [id number] [facility], [place] [address] 12/01/2017 00:00:00 12/10/2017 07:20:49 [id number] [facility], [place] [address] 12/09/2017 00:00:00 12/09/2017 09:14:30 [id number] [facility], [place] [address] 01/06/2018 00:00:00 01/06/2018 09:05:40 [id number] [facility], [place] [address] 02/03/2018 00:00:00 02/03/2018 09:15:10 [id number] [facility], [place] [address] 02/26/2018 00:00:00 02/26/2018 12:00:34 [id number] [facility], [place] [address] 7 03/06/2018 00:00:00 03/06/2018 13:16:12 [id number] [facility], [place] [address] 03/26/2018 00:00:00 03/26/2018 09:22:31 [id number] [facility], [place] [address] 04/23/2018 00:00:00 04/26/2018 12:00:07 [id number] [facility], [place] [address] 7 05/21/2018 00:00:00 05/21/2018 09:08:37 [id number] [facility], [place] [address] 05/31/2018 00:00:00 05/31/2018 13:45:36 [id number] [facility] [address] [facility] [address] 06/18/2018 00:00:00 06/18/2018 10:17:29 [id number] [facility], [place] [address] 08/13/2018 00:00:00 08/13/2018 10:01:52 [id number] [facility], [place] [address] 09/10/2018 00:00:00 09/10/2018 10:36:47 [id number] [facility], [place] [address] 7 10/12/2018 00:00:00 10/12/2018 08:48:02 [id number] [facility], [place] [address] 7 11/24/2018 00:00:00 11/24/2018 09:15:11 [id number] [facility], [place] [address] 01/19/2019 00:00:00 01/19/2019 09:15:44 [id number] [facility], [place] [address] 03/09/2019 00:00:00 03/09/2019 09:17:20 [id number] [facility], [place] [address] 03/21/2019 00:00:00 03/21/2019 10:18:32 [id number] [facility], [place] [address] 04/06/2019 00:00:00 04/06/2019 09:00:55 [id number] [facility], [place] [address] 7 09/21/2019 00:00:00 09/21/2019 09:40:44 [id number] [facility], [place] [address] 10/19/2019 00:00:00 10/19/2019 09:41:46 [id number] [facility], [place] [address] 11/17/2019 00:00:00 11/21/2019 08:42:18 [id number] [facility], [place] [address] 12/16/2019 00:00:00 12/16/2019 09:35:21 [id number] [facility], [place] [address] 01/12/2020 00:00:00 01/12/2020 09:27:06 [id number] [facility], [place] [address] 12/15/2019 00:00:00 12/15/2019 09:13:41 [id number] [facility], [place] [address] 04/06/2020 00:00:00 04/06/2020 09:48:51 [id number] [facility], [place] [address] 05/31/2020 00:00:00 05/31/2020 08:54:13 [id number] [facility] [address] [facility] [address] 7 05/28/2020 00:00:00 05/28/2020 08:29:19 [id number] [facility], [place] [address] 07/02/2020 00:00:00 07/02/2020 09:10:40 [id number] [facility], [place] [address] 09/19/2020 00:00:00 09/19/2020 09:49:39 [id number] [facility] [place] [address] 10/17/2020 00:00:00 10/17/2020 09:54:21 [id number] Thad Tate NP [facility] [address] [place] [address] 03/06/2021 08:45:58 03/06/2021 09:31:43 Opioid dependence 01514704 F11.20 STABLE [id number] Thad Tate SUPPLIER DIVERSITY DIRECTOR [place] [address] [place] [address] 04/03/2021 08:47:40 04/03/2021 09:51:40 Opioid dependence 77764453 F11.20 STABLE [id number] Thad Tate SUPPLIER DIVERSITY DIRECTOR [place] [place] [address] 05/01/2021 08:45:28 05/01/2021 15:46:01 Opioid dependence 13645497 F11.20 STABLE [id number] Felisha Guillen ey, HEAD OF RESEARCH & INSIGHTS [facility] [place] [address] 05/01/2021 09:14:01 05/01/2021 15:46:35 [id number] Thad Tate NP [facility] [place] [address] 05/15/2021 08:36:47 05/15/2021 11:50:15 Opioid dependence 28394078 F11.20 STABLE [id number] Thad Tate, SUPPLIER DIVERSITY DIRECTOR [facility] [place] [address] 06/26/2021 09:07:26 06/26/2021 10:59:21 Opioid dependence 87116647 F11.20 STABLE [id number] Thad Tate, SUPPLIER DIVERSITY DIRECTOR [place] 50 [facility] [place] [address] 07/30/2021 08:50:57 07/30/2021 10:15:24 Opioid dependence 24458168 F11.20 STABLE [id number] Molly Alfredo SUPPLIER DIVERSITY DIRECTOR [facility] [place] [address] 08/27/2021 15:28:24 08/27/2021 16:21:04 Opioid dependence 20636631 F11.20 Stable: >6 months without illicit opiate use [id number] Molly Alfredo, SUPPLIER DIVERSITY DIRECTOR [place] [place] [address] 7 09/24/2021 08:47:38 09/24/2021 09:08:31 Opioid dependence 89880033 F11.20 Stable: >6 months without illicit opiate use [id number] Karlee devries CNP [facility] [address] [facility] [place] [address] 10/22/2021 09:03:11 10/22/2021 09:27:22 Opioid dependence 96657886 F11.20 Stable [id number] Molly Alfredo SUPPLIER DIVERSITY DIRECTOR [facility] [address] [place] [address], [place] [address] 11/19/2021 14:58:46 11/19/2021 16:26:26 Opioid dependence 54903726 F11.20 Stable: >6 months without illicit opiate use [id number] Molly Alfredo SUPPLIER DIVERSITY DIRECTOR [facility] [place] [address] 12/17/2021 08:48:17 12/17/2021 09:10:53 Opioid dependence 10645292 F11.20 Stable: >6 months without illicit opiate use [id number] Molly Juni, SUPPLIER DIVERSITY DIRECTOR [place] [place] [address] 01/14/2022 13:36:42 01/14/2022 14:14:16 Opioid dependence 06830198 F11.20 Stable: >6 months without illicit opiate use [id number] Molly Juni, SUPPLIER DIVERSITY DIRECTOR [place] [address] [facility] [place] [address] 02/11/2022 08:55:08 02/11/2022 09:57:13 Opioid dependence 05522080 F11.20 Stable: >6 months without illicit opiate use [id number] Karlee devries, SAMY [place] [place] [address] 03/11/2022 08:46:26 03/11/2022 11:31:35 Opioid dependence 22176042 F11.20 Stable [id number] Leonor Clarke PA-C [facility] [place] [address] 04/08/2022 08:39:11 04/08/2022 09:14:25 Opioid dependence 11444068 F11.20 Stable [id number] Thad Tate NP [facility] [place] [address] 05/06/2022 08:43:58 05/06/2022 11:37:03 Opioid dependence 64216243 F11.20 STABLE [id number] Karlee devries, SAMY [facility] [place] [address] 06/03/2022 08:47:29 06/03/2022 09:15:52 Opioid dependence 05054713 F11.20 Stable [id number] Karlee dervies, SAMY [facility] [place] [address] 07/01/2022 08:47:51 07/01/2022 14:48:46 Opioid dependence 31419466 F11.20 Stable [id number] Karlee CookPatricia devries, INTERACTIVE WEB DEVELOPER [facility] [place] [address] 07/22/2022 08:44:41 07/22/2022 15:33:35 Opioid dependence 49064146 F11.20 Stable [id number] Clara Catherine NP [facility] [address] [facility] [place] [address] 08/19/2022 09:00:40 08/19/2022 09:50:03 Opioid dependence 46228334 F11.20 Stable [id number] ANUJA Jenkins [facility] [address] [facility] [place] [address] 09/22/2022 08:47:36 09/22/2022 09:17:54 Opioid dependence 94856504 F11.20 STABLE [id number] Clara Catherine NP [facility] [address] [facility] [address] 7 10/20/2022 08:45:01 10/20/2022 09:24:50 Opioid dependence 24580353 F11.20 Stable [id number] Clraa Catherine NP [facility] [address] [facility] [place] [address] 11/17/2022 08:49:25 11/17/2022 09:20:49 Opioid dependence 07082973 F11.20 Stable [id number] Clara Catherine NP [facility] [address] [facility] [address] 12/15/2022 08:43:52 12/15/2022 09:05:14 Opioid dependence 34400889 F11.20 Stable [id number] Clara Catherine NP [facility] [address] [facility] [address] 7 01/12/2023 08:41:26 01/12/2023 09:05:19 Opioid dependence 61879534 F11.20 Stable [id number] Gabi Nur, HEAD OF RESEARCH & INSIGHTS [facility] [address] [place] [address] 01/12/2023 10:02:33 01/12/2023 10:04:26 [id number] Molly Alfredo NP [facility] [address] [address] 02/09/2023 08:46:53 02/09/2023 10:45:08 Opioid dependence 15359643 F11.20 Stable: >6 months without illicit opiate use [id number] Clara Catherine NP [facility] [address] [address] 03/10/2023 08:48:48 03/10/2023 10:58:52 Opioid dependence 92757541 F11.20 Stable [id number] Clara Catherine NP [facility] [address] [address] 04/08/2023 08:49:47 04/08/2023 09:16:34 Opioid dependence 24693661 F11.20 Stable [id number] Clara Catherine NP [facility] [address] [address] 7 05/05/2023 08:59:42 05/05/2023 09:23:40 Opioid dependence 64217051 F11.20 Stable [id number] Clara Catherine NP [facility] [address] [address] 7 06/02/2023 08:34:40 06/02/2023 09:52:01 Opioid dependence 16311905 F11.20 Stable Pain of knee region 1003 897922 M25.569 UNSTABLE: HAD FLUID ASPIRATION AND CORTISONE INJ BY DR CORONADO Diarrhea 44823109 R19.7 UNSTABLE [id number] Clara Catherine NP [facility] [address] [address] 06/30/2023 08:40:42 06/30/2023 08:57:06 Opioid dependence 54868022 F11.20 Stable [id number] Clara Catherine NP [facility] [address] [facility] [place] [address] 2023 08:42:48 2023 09:00:50 Opioid dependence 46167456 F11.20 Stable [id number] Karlee McfarlandGunnar iss, INTERACTIVE WEB DEVELOPER [facility] [address] [facility] [place] [address] 08/25/2023 08:43:43 08/25/2023 09:00:33 Opioid dependence 13460983 F11.20 STABLE [id number] Karlee McfarlandGunnar kayce, INTERACTIVE WEB DEVELOPER [facility] [address] [facility] [place] [address] 09/15/2023 09:20:07 09/15/2023 09:44:54 Opioid dependence 83721976 F11.20 STABLE [id number] Parisa Chan NP [facility] [address] [facility] [place] [address] 10/13/2023 08:35:15 10/13/2023 10:57:26 Opioid dependence 66937139 F11.20 STABLE [id number] Clara Catherine NP [facility] [address] [facility] [place] [address] 11/09/2023 12:51:34 11/09/2023 13:27:09 Opioid dependence 30713757 F11.20 Stable [id number] Clara Catherine NP [facility] [address] [facility] [place] [address] 12/07/2023 08:46:06 12/07/2023 09:55:22 Opioid dependence 62393353 F11.20 Stable Abnormal weight loss 267 435447 R63.4 UNSTABLE, PT TO SCHEDULE APPT WITH PCP. [id number] Karlee BlandonAyo iss, INTERACTIVE WEB DEVELOPER [facility] [address] [facility] [place] [address] 01/04/2024 08:42:47 01/04/2024 08:55:23 Opioid dependence [id number] F11.20 STABLE [id number] Clara Catherine NP [facility] [address] [facility] [place] [address] 02/01/2024 08:47:32 02/01/2024 09:28:22 Opioid dependence [id number] F11.20 Stable [id number] Clara Catherine NP [facility] [address] [facility] [place] [address] 02/29/2024 08:43:50 02/29/2024 09:15:54 Opioid dependence [id number] F11.20 Stable [id number] Clara Catherine NP [facility] [address] [facility] [place] [address] 03/28/2024 08:42:27 03/28/2024 10:16:09 Opioid dependence [id number] F11.20 Stable [id number] Clara Catherine NP [facility] [address] [facility] [place] [address] 04/25/2024 08:37:36 04/25/2024 13:19:14 Opioid dependence [id number] F11.20 Stable [id number] Clara Catherine NP [facility] [address] [place] [address] 05/23/2024 08:51:14 05/23/2024 09:57:15 Opioid dependence [id number] F11.20 Stable Health Concerns Section Related Observation LastModified by Organization Detai ls LastModified Time None Recorded Concern Status LastModified by Organization Details LastModified Time None Recorded Advance Directives Directive None Recorded Payers Encounter Date Sequence Insurance Name Policy Number Policy Wynn Covered Member ID Wynn Member ID Guarantor Name 02/01/2024 1 [facility] - DOS ON OR AFTER 2022 - [place] - [place]PO) Bryant Jay [id number] Bryant Jay 02/29/2024 1 [facility] [employer] - DOS ON OR AFTER 2022 - [place] - [place]PO) Bryant Jay [id number] Bryant Jay 03/28/2024 1 [facility] - DOS ON OR AFTER 2022 - [place] - [place]PO) Bryant Jay [id number] Bryant Jay 04/25/2024 1 [facility] [employer] - DOS ON OR AFTER 2022 - [place] - [place]) Bryant Jay [id number] Bryant Jay 05/23/2024 1 [facility] [employer] - DOS ON OR AFTER 2022 - [place] - [place]) Bryant Jay [id number] Bryant Jay Notes Date Note Type Note Provider Name and Address Organization Details Recorded Time 02/01/2024 text/html This patient is here today for their follow-up MAT visit. They are being treated for OUD with buprenorphine. PLEASE SEE A & P SECTION FOR FULL VISIT NOTE Clara Catherine NP [address] [place], [address], [facility] [employer] 02/01/2024 09:18:38 02/29/2024 text/html This patient is here today for their follow-up MAT visit. They are being treated for OUD with buprenorphine. PLEASE SEE A & P SECTION FOR FULL VISIT NOTE Clara Catherine NP [address] [place], [address], [employer] 02/29/2024 08:57:43 03/28/2024 text/html This patient is here today for their follow-up MAT visit. They are being treated for OUD with buprenorphine. PLEASE SEE A & P SECTION FOR FULL VISIT NOTE Clara Catherine NP [address] [place], [address], [facility] 03/28/2024 09:02:39 04/25/2024 text/html This patient is here today for their follow-up MAT visit. They are being treated for OUD with buprenorphine. PLEASE SEE A & P SECTION FOR FULL VISIT NOTE Clara Catherine NP [address] [place], [address], [facility] 04/25/2024 12:39:59 05/23/2024 text/html This patient is here today for their follow-up MAT visit. They are being treated for OUD with buprenorphine. PLEASE SEE A & P SECTION FOR FULL VISIT NOTE Clara Catherien NP [address] [place], [address], [facility] [employer] [facility] 05/23/2024 09:07:55
== END 2024-06-09 10:09 | disposition home or self-care (01) ==
LOC: HO.HUSH 09:11
PROVIDERS: PCP Family Medicine; Visit Provider Urology
DX: R39.12 Poor urinary stream (principal); R68.82 Decreased libido; R35.1 Nocturia; Z13.9 Encounter for screening, unspecified
CPT/HCPCS: 99214; G2211

== ENCOUNTER → 2024-06-09 09:10 | Outpatient (BNVA) | payer OTHER, SELFPAY | PROVIDERS: PCP Family Medicine; Visit Provider Urology | DX: R39.12 Poor urinary stream (principal); R35.1 Nocturia; R68.82 Decreased libido | CPT/HCPCS: 81003; 99212 ==

== ENCOUNTER → 2024-06-14 12:07 | Outpatient (BNVA) | payer OTHER, SELFPAY | PROVIDERS: PCP Family Medicine; Visit Provider Internal Medicine Medical Oncology ==

== ENCOUNTER → 2024-06-28 09:30 | Outpatient (BNVA) | payer OTHER, SELFPAY | PROVIDERS: PCP Family Medicine; Visit Provider Internal Medicine Medical Oncology | DX: S06.9X9D Unspecified intracranial injury with loss of consciousness of unspecified duration, subsequent encounter (principal); H53.143 Visual discomfort, bilateral; R42 Dizziness and giddiness; R06.09 Other forms of dyspnea; R07.9 Chest pain, unspecified | CPT/HCPCS: 96127; 99212 ==

== ENCOUNTER 2024-06-28 10:41 | Outpatient (AMB) | payer OTHER, SELFPAY ==
--- NOTE | 2024-06-28 11:17 | MHC.PC.OV ---
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 Allergies No Known Allergies Allergy (Verified 06/28/24 11:19) Medication List - Last Reconciled 06/28/24 by Mohsen Tidwell MD alfuzosin ER 10 mg PO DAILY 90 days atorvastatin 80 mg PO BEDTIME 30 days buprenorphine-naloxone 8-2 mg (Suboxone) 2 strips sublingual DAILY cholecalciferol (vitamin D3) 2,000 units PO DAILY 90 days citalopram 40 mg PO DAILY 90 days lisinopril 5 mg PO DAILY metformin 500 mg PO BID 90 days warfarin 7.5 mg See Protocol PO DAILY Tobacco use date assessed: 06/28/24 Fall risk assessment: No Falls in past year Dental Screening Dental Screen Date: 06/28/24 Did you have a dental visit in the last 12 months?: Yes Did you have a dental problem in the last 6 months where you did not have access to dental care?: Yes Was dental information given to patient?: No HPI tinted windows paperwork HPI Details 63 y/o male presents today for paperwork. Has had hx of TBI. Ongoing complaints of dizziness/light disturbances and irritation. He reports chest pain on the L side. He reports dyspnea on exertion, dizziness. HPI Comments History of Present Illness Details Documentation assistance for Mohsen Tidwell MD, was provided by Doug Pat,? Fluorescent Lighting Model Maker on 06/28/2024 at 12:09 PM EST. I, Dr. Tidwell, have read, observed, and verified documentation. ?? [facility] Medical History (Updated 06/28/24 @ 12:26 by Doug Pat) DVT (deep venous thrombosis) Hypercholesterolemia Anxiety with depression History of subarachnoid hemorrhage (~2015) History of hepatitis C History of bladder cancer (~2013) Personal history of nicotine dependence Diabetes mellitus Obstructive sleep apnea Essential hypertension Ureteral stone with hydronephrosis Erectile dysfunction Chronic pulmonary embolism (~2012) Surgical History History of colonoscopy History of left knee surgery History of transurethral resection of bladder tumor (TURBT) History of biopsy of bladder Family History Father HTN (hypertension) Cancer Myocardial infarction Cancer of prostate Mother HTN (hypertension) Brother No problems noted. Brother Diabetes mellitus Sister No problems noted. Sister No problems noted. Social History Household Members: Spouse Housing: House Are you a primary rn acute care to a significant other at home: No Do you presently have visiting nurse or other home services: No Patient Tobacco Use Status: Former Tobacco user e-Cigarette/Vaping Use: Never Used Second Hand Smoke Exposure: No Substance Use Type: Marijuana service: No Current occupational status: disabled Current occupational exposures/hazards: No Cognitive needs: No Hearing needs: No Vision needs: No Questionnaire PHQ-9 Over the last 2 weeks, how often have you been bothered by any of the following problems? 1. Little interest or pleasure in doing things: more than half the days 2. Feeling down, depressed, or hopeless: more than half the days 3. Trouble falling or staying asleep, or sleeping too much: several days 4. Feeling tired or having little energy: several days 5. Poor appetite or overeating: several days 6. Feeling bad about yourself - or that you are a failure or have let yourself or your family down: several days 7. Trouble concentrating on things, such as reading the newspaper or watching television: several days 8. Moving or speaking so slowly that other people could have noticed. Or the opposite - being so fidgety or restless that you have been moving around a lot more than usual: several days 9. Thoughts that you would be better off or of hurting yourself in some way: several days Total score: 11 Depression Screening Interpretation: Positive Depression Screening Done: Yes 66124 - PHQ-9 Billing: Yes Source: Developed by Drs. August Alejandro, Radha Belcher, Higinio Aguilar and colleagues, with an educational xochilt from [employer]. Thrive Questionnaire Date Thrive assessed: 06/28/24 I am a: Patient What is your living situation today?: I have a steady place to live Within the past 12 months, did the food you bought not last and you didn't have the money to get more?: I choose not to answer this question Within the past 12 months, did you worry whether your food would run out before you got money to buy more?: I choose not to answer this question Do you have trouble paying for medicines?: I choose not to answer this question Do you have trouble getting transportation to medical appointments?: I choose not to answer this question Do you have trouble paying your heating and electricity bill?: I choose not to answer this question Do you have trouble taking care of your child, family member or friend?: I choose not to answer this question Do you have trouble with day-to-day activities such as bathing, preparing meals, shopping, managing finances, etc.?: I choose not to answer this question Are you currently unemployed and looking for a job?: I choose not to answer this question Are you interested in more education?: I choose not to answer this question Please select the resources that you would like help with: None Currently or been in a relationship where the following occur: I choose not to answer THRIVE Score: 0 AUDIT C Alcohol Use Questionnaire (AUDIT-C) 1. How often do you have a drink containing alcohol?: 2-4 times a month 2. How many drinks containing alcohol do you have on a typical day when you are drinking?: 1 or 2 3. How often do you have six or more drinks on one occasion?: Never Total Score: 2 MRAISA-7 AMB Questionnaire MARISA-7 Date MARISA - 7 assessed: 06/28/24 Feeling nervous, anxious, or on edge: 0 = Not at all Not being able to stop or control worryin = Not at all Worrying too much about different things: 0 = Not at all Trouble relaxin = Not at all Becoming easily annoyed or irritable: 0 = Not at all Feeling afraid as if something awful might happen: 0 = Not at all Source: Developed by Drs. August Alejandro, Radha Belcher, Higinio Aguilar and colleagues, with an educational xochilt from [employer]. MARISA-7 Assessment Billing MARISA-7 Assessment Tool: MARISA-7 Assessment 81245 Review of Systems Const Denies chills, Denies fatigue, Denies fever(s), Denies headache(s) and Denies weakness ENT Denies dizziness and Denies headache(s) Card Reports dyspnea Resp Denies cough, Reports dyspnea, Denies wheezing and Denies other (shortness of breath) Musc Denies numbness and Denies tingling Neuro Denies dizziness, Denies headache(s), Denies numbness, Denies tingling and Denies weakness Psych Denies anxiety and Denies depression Endo Denies fatigue Aller/Immun Denies wheezing Physical exam (Primary Care) Vital Signs: Last Vital Signs Temp 98.0 F 06/28/24 11:23 Pulse 83 06/28/24 11:23 Resp 16 06/28/24 11:23 BP 130/74 06/28/24 11:23 Pulse Ox 96 06/28/24 11:23 Oxygen Delivery Method Room Air 06/28/24 11:23 BMI result Body Mass Index 34.5 Tobacco/Smoking Status: Tobacco use Status Tobacco use date assessed 06/28/24 06/28/24 11:27 Patient Tobacco Use Status Former Tobacco user 06/28/24 11:27 e-Cigarette/Vaping Use Never Used 06/28/24 11:27 PHQ-9: PHQ-9 Score PHQ-9: Total score 11 06/28/24 11:27 Depression Screening Interpretation: Positive Thrive Assessment: Date of Thrive Assessment Date Thrive assessed 06/28/24 06/28/24 11:27 Currently or been in a relationship where the following occur: I choose not to answer Const General: well developed; No acute distress Nutritional Appearance: well nourished Orientation/consciousness: patient oriented x3 HENMT Head: Yes normocephalic and Yes atraumatic Eyes General: appearance normal, both eyes and all related structures Pupils: Equal, round and reactive pupils present EOM: EOMs intact bilaterally Resp Effort & Inspection: normal respiratory effort Auscultation: clear to auscultation bilaterally Cardio Rate: tachycardic Rhythm: regular rhythm Heart sounds: S1 normal heart sound present, S2 normal heart sound present, no gallops, no murmurs and no rubs Neuro General: patient oriented x3 and gait normal Cranial nerves: Yes Equal, round and reactive pupils present Psych Affect: normal affect Results AMB INR Fingerstick AMB INR Fingerstick 2.0 Last Edit by Georgina Rodríguez RN on 06/28/24 09:32 acelis Coding Level of Care Code Est Pt Level 4 (60359) Diagnoses Traumatic brain injury S06.9X9A Photophobia of both eyes H53.143 Dizziness R42 Dyspnea on exertion R06.09 Left-sided chest pain R07.9 Additional Codes MARISA-7 Assessment Billing - MARISA-7 Assessment Tool: MARISA-7 Assessment 41853 ([id number]) PHQ-9 - 36514 - PHQ-9 Billing: Yes ([id number]) Assessment & Plan Assessment & Plan (1) Traumatic brain injury: Code(s): S06.9X9A - Unspecified intracranial injury with loss of consciousness of unspecified duration, initial encounter Category: Medical Plan: Patient with history of fall 03/10/2019 with head injury/TBI and subsequent subarachnoid hemorrhage presents to follow-up and requests referral for neuropsych testing. Since then, patient has had ongoing symptoms including: Headaches, Lightheaded/poor equalibrium, Irritability, Difficulty w/ focus and memory. Also photophobia?with difficulty?with?glare. (2) Photophobia of both eyes: Code(s): H53.143 - Visual discomfort, bilateral Category: Medical Plan: As above (3) Dizziness: Code(s): R42 - Dizziness and giddiness Category: Medical Plan: As?above However,?patient?notes?some?increased?dizziness?and?shortness?of?breath?lately. See Below (4) Dyspnea on exertion: Code(s): R06.09 - Other forms of dyspnea Category: Medical Plan: Patient?notices?fast?heart?rate?with?dyspnea?on?exertion EKG?today?shows?normal?sinus?rhythm?with?normal?axis,?no?hypertrophy, right?bundle-branch?block, no?ischemia?or?infarction - unchanged?from?prior?EKG. Will?check?stress?test. Patient?notes?that?he?drinks?very?little?water. Appears?dehydrated?today Encouraged?hydration Advised?him?to?go?to?the?emergency?department?if?he?is?having?dyspnea?or?chest?pain?lasting?more?than?a?few?minutes?while?resting. (5) Left-sided chest pain: Code(s): R07.9 - Chest pain, unspecified Category: Medical Plan: Intermittent, Focal,?far?lateral/posterolateral?chest?pain. As?above Will?also?check?chest?x-ray Orders: Orders XR chest 2V Today R07.9 - Chest pain, unspecified AMB EKG-In Office Today R07.9 - Chest pain, unspecified CA stress test Today R06.09 - Other forms of dyspnea, R07.9 - Chest pain, unspecified
[2024-06-28 11:23] VITALS: BP 130/74; PULSE 83; RESP 16; TEMP 36.7; O2SAT 96; BMI 34.5
== END 2024-06-28 12:26 | disposition home or self-care (01) ==
LOC: HO.HMCFM 10:41
PROVIDERS: PCP Family Medicine; Visit Provider Family Medicine
DX: S06.9X9A Unspecified intracranial injury with loss of consciousness of unspecified duration, initial encounter (principal); H53.143 Visual discomfort, bilateral; R42 Dizziness and giddiness; R06.09 Other forms of dyspnea; R07.9 Chest pain, unspecified

== ENCOUNTER → 2024-07-28 12:03 | Outpatient (BNVA) | payer OTHER, SELFPAY | PROVIDERS: PCP Family Medicine; Visit Provider Internal Medicine Medical Oncology ==

== ENCOUNTER 2024-08-04 09:22 | Outpatient (AMB) | payer OTHER, SELFPAY ==
--- NOTE | 2024-08-04 09:29 | A.OFFPC_ITS ---
Vital Signs 08/04/24 09:46 Height 6 ft 1 in Weight 257 lb BMI 33.9 BP 120/70 Blood Pressure Location Rt brachial Position Sitting Respiration 16 Pulse 78 Pulse Source Pulse Oximeter Temp 97.9 F Temp Source Oral Pulse Oximetry (%) 96 Oxygen Delivery Method Room Air Intake Visit Reasons: f/u chest pain- A1C needed. Intake Note: patient is scheduled to follow up on dm and chest pain follow up Substation Operator Apprentice Required: No Allergies No Known Allergies Allergy (Verified 08/04/24 09:35) Medication List - Last Reconciled 08/04/24 by Mohsen Tidwell MD acetaminophen 500 mg PO Q6H PRN alfuzosin ER 10 mg PO DAILY 90 days atorvastatin 80 mg PO BEDTIME 30 days buprenorphine-naloxone 8-2 mg (Suboxone) 2 strips sublingual DAILY cholecalciferol (vitamin D3) 2,000 units PO DAILY 90 days citalopram 40 mg PO DAILY 90 days lisinopril 5 mg PO DAILY metformin 500 mg PO BID 90 days warfarin 7.5 mg See Protocol PO DAILY Tobacco use date assessed: 06/28/24 Dental Screening Dental Screen Date: 06/28/24 HPI f/u chest pain- A1C needed. HPI Details Pt had c/o Dyspnea on Exertion & L sided CP at last OV. Has Appt for Stress test scheduled 08/17/24. CXR was ordered but not done yet. Taking?metformin?500?mg?b.i.d. A1c 6.0% Reports ongoing dizziness and dyspnea but has not had chest pain in awhile. HPI Comments History of Present Illness Details Documentation assistance for Mohsen Tidwell MD, was provided by Doug Pat,? Rn Lvn on 08/04/2024 at 10:00 AM EST. I, Dr. Tidwell, have read, observed, and verified documentation. [facility] Medical History (Updated 08/04/24 @ 09:56 by Doug Pat) DVT (deep venous thrombosis) Hypercholesterolemia Anxiety with depression History of subarachnoid hemorrhage (~2015) History of hepatitis C History of bladder cancer (~2013) Personal history of nicotine dependence Diabetes mellitus Obstructive sleep apnea Essential hypertension Ureteral stone with hydronephrosis Erectile dysfunction Chronic pulmonary embolism (~2012) Surgical History History of colonoscopy History of left knee surgery History of transurethral resection of bladder tumor (TURBT) History of biopsy of bladder Family History Father HTN (hypertension) Cancer Myocardial infarction Cancer of prostate Mother HTN (hypertension) Brother No problems noted. Brother Diabetes mellitus Sister No problems noted. Sister No problems noted. Social History Household Members: Spouse Housing: House Are you a primary anesthesiologist and critical care to a significant other at home: No Do you presently have visiting nurse or other home services: No Patient Tobacco Use Status: Former Tobacco user e-Cigarette/Vaping Use: Never Used Second Hand Smoke Exposure: No Substance Use Type: Marijuana service: No Current occupational status: disabled Current occupational exposures/hazards: No Cognitive needs: No Hearing needs: No Vision needs: No Questionnaire Thrive Questionnaire Date Thrive assessed: 06/28/24 I am a: Patient What is your living situation today?: I have a steady place to live Within the past 12 months, did the food you bought not last and you didn't have the money to get more?: I choose not to answer this question Within the past 12 months, did you worry whether your food would run out before you got money to buy more?: I choose not to answer this question Do you have trouble paying for medicines?: I choose not to answer this question Do you have trouble getting transportation to medical appointments?: I choose not to answer this question Do you have trouble paying your heating and electricity bill?: I choose not to answer this question Do you have trouble taking care of your child, family member or friend?: I choose not to answer this question Do you have trouble with day-to-day activities such as bathing, preparing meals, shopping, managing finances, etc.?: I choose not to answer this question Are you currently unemployed and looking for a job?: I choose not to answer this question Are you interested in more education?: I choose not to answer this question Please select the resources that you would like help with: None Currently or been in a relationship where the following occur: I choose not to answer THRIVE Score: 0 MARISA-7 AMB Questionnaire MARISA-7 Date MARISA - 7 assessed: 06/28/24 Source: Developed by Radha Rivera. Ye, Higinio Aguilar and colleagues, with an educational xochilt from [employer]. Review of Systems Const Denies chills, Denies fatigue, Denies fever(s), Denies headache(s) and Denies weakness ENT Denies dizziness and Denies headache(s) Card Denies dyspnea Resp Denies cough, Denies dyspnea, Denies wheezing and Denies other (shortness of breath) Musc Denies numbness and Denies tingling Neuro Denies dizziness, Denies headache(s), Denies numbness, Denies tingling and Denies weakness Psych Denies anxiety and Denies depression Endo Denies fatigue Aller/Immun Denies wheezing Physical exam (Primary Care) Vital Signs: Last Vital Signs Temp 97.9 F 08/04/24 09:46 Pulse 78 08/04/24 09:46 Resp 16 08/04/24 09:46 BP 120/70 08/04/24 09:46 Pulse Ox 96 08/04/24 09:46 Oxygen Delivery Method Room Air 08/04/24 09:46 BMI result Body Mass Index 33.9 Tobacco/Smoking Status: Tobacco use Status Tobacco use date assessed 06/28/24 08/04/24 09:30 Patient Tobacco Use Status Former Tobacco user 08/04/24 09:30 e-Cigarette/Vaping Use Never Used 08/04/24 09:30 Thrive Assessment: Date of Thrive Assessment Date Thrive assessed 06/28/24 08/04/24 09:30 Currently or been in a relationship where the following occur: I choose not to answer Const General: well developed; No acute distress Nutritional Appearance: well nourished Orientation/consciousness: patient oriented x3 HENMT Head: Yes normocephalic and Yes atraumatic Eyes General: appearance normal, both eyes and all related structures Pupils: Equal, round and reactive pupils present EOM: EOMs intact bilaterally Resp Effort & Inspection: normal respiratory effort Neuro General: patient oriented x3 and gait normal Cranial nerves: Yes Equal, round and reactive pupils present Psych Affect: normal affect Coding Level of Care Code Est Pt Level 4 (88589) Diagnoses Dyspnea on exertion R06.09 Left-sided chest pain R07.9 Diabetes mellitus E11.9 Assessment & Plan Assessment & Plan (1) Dyspnea on exertion: Code(s): R06.09 - Other forms of dyspnea Category: Medical Plan: Dyspnea?and?dizziness?on?exertion?as?well?as?with?deep?inspiration Also?some?left-sided?discomfort?which?has?mostly?resolved Follow-up?with?chest?x-ray?and?stress?test. Will?have?him?set?up?an?appointment?for?about?a?week?after?stress?test Check?labs (2) Left-sided chest pain: Code(s): R07.9 - Chest pain, unspecified Category: Medical Plan: As?above (3) Diabetes mellitus: Code(s): E11.9 - Type 2 diabetes mellitus without complications Category: Medical Plan: A1c?6.0%.??Good?control.??Goal?is?less?than?7.0% Continue?metformin?as?prescribed Orders: Orders Complete Blood Count Auto Diff Today R06.09 - Other forms of dyspnea, Z00.00 - Encounter for general adult medical examination without abnormal findings Comprehensive Met. Panel Today R06.09 - Other forms of dyspnea Troponin-I High Sensitivity Today R06.09 - Other forms of dyspnea D Dimer High Sensitivity Today R06.09 - Other forms of dyspnea Prothrombin Time INR Today Z79.01 - [facility] (current) use of anticoagulants
[2024-08-04 09:46] VITALS: BP 120/70; PULSE 78; RESP 16; TEMP 36.6; O2SAT 96; BMI 33.9
--- OUTSIDE RECORDS SUMMARY | 2024-08-04 10:11 | XMS_ITS | Data Portability ---
Author Organization [facility] Address [address] [place] [address] Assessment Encounter Date Assessment Date Assessment LastModified by Organization Details LastModified Time 03/28/2024 03/28/2024 This patient with a history of OUD presents today for their monthly MAT visit Current prescription is: buprenorphine/na loxone 8mg/2mg 2 films Patient denies any S/E, cravings, or withdrawal sx at current dose Update Since Last Visit : (narrative note) Patient Denies all illicit drug use since last visit OUD Monthly ACTIVE WITH [employer] FOR A LONG TIME. REMAINS STABLE IN RECOVERY. On BNX 16 MG/4 mg DAILY AND CONTINUES TO DO WELL ON THIS DOSING. TOOK: FULL DOSE TODAY REMAINING FILMS: ?10 FILMS LEFT. ENDORSES PROPER TECH. Denies any illicit opiate use since last visit. Continues to have [facility] from OPIs and other illicit substances [...] DOGS. FEELS SAFE IN HOME. 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 SUPPORT: Has a good network [...] MONTHLY VISITS FOR STABILITY AND RELAPSE PREVENTION. UrinedrugAND REFLEX testing ordered MONTHLY for evaluation of illicit substance use/relapses/pro petty and is a clinical tool that provides meaningful information, monitors adherence, reinforces positive behavioral changes, and helps guide treatment. DEFINITIVE CONFIRMATION TESTING IF NEEDED. NADER IF UNEXPECTED UDS SCREENING. BUP CONFIRMATION EVERY 3 MONTHS TO MONITOR MEDICALLY AND FOR DIVERSION PER CLINICAL POLICY. OD PREVENTION: CONTINUE WITH PLAN ABOVE. PT UNDERSTANDS THE RISK OF COMBINED TOURIST CAMP ATTENDANT DEPRESSANTS. HAS NARCAN/TRAINED ON ADMINISTRATION. DIVERSION PREVENTION: [...] illicit opiate use since last visit. Has [facility] OPIs and other illicit substances [...] DOGS. FEELS SAFE IN HOME. 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 SUPPORT: Has a good network [...] MONTHLY VISITS FOR STABILITY AND RELAPSE PREVENTION. UrinedrugAND REFLEX testing ordered MONTHLY for evaluation of illicit substance use/relapses/pro petty and is a clinical tool that provides meaningful information, monitors adherence, reinforces positive behavioral changes, and helps guide treatment. DEFINITIVE CONFIRMATION TESTING IF NEEDED. NADER IF UNEXPECTED UDS SCREENING. BUP CONFIRMATION EVERY 3 MONTHS TO MONITOR MEDICALLY AND FOR DIVERSION PER CLINICAL POLICY. DUE IN JUNE. OD PREVENTION: CONTINUE WITH PLAN ABOVE. PT UNDERSTANDS THE RISK OF COMBINED TOURIST CAMP ATTENDANT DEPRESSANTS. HAS NARCAN/TRAINED ON ADMINISTRATION. DIVERSION PREVENTION: [...] UNSURE OF QUANTITY. ENDORSES PROPER TECH. Has [facility] from OPIs and other illicit substances. [...] DOGS. FEELS SAFE IN HOME. 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 SUPPORT: Continues to have a [...] MONTHLY VISITS FOR STABILITY AND RELAPSE PREVENTION. UrinedrugAND REFLEX testing ordered MONTHLY (BUT NOT OBTAINED TODAY D/T ISSUES WITH SYSTEM BEING DOWN) for evaluation of illicit substance use/relapses/pro petty and is a clinical tool that provides meaningful information, monitors adherence, reinforces positive behavioral changes, and helps guide treatment. UDS DUE ON 06/20/24. DEFINITIVE CONFIRMATION TESTING IF NEEDED. NADER IF UNEXPECTED UDS SCREENING. BUP CONFIRMATION EVERY 3 MONTHS TO MONITOR MEDICALLY AND FOR DIVERSION PER CLINICAL POLICY. DUE IN JUNE. OD PREVENTION: CONTINUE WITH PLAN ABOVE. PT UNDERSTANDS THE RISK OF COMBINED TOURIST CAMP ATTENDANT DEPRESSANTS. HAS NARCAN/TRAINED ON ADMINISTRATION. DIVERSION PREVENTION: [...] combining sedating agents. Not available 05/23/2024 09:06:28 06/20/2024 06/20/2024 This patient with a history of OUD presents today for their monthly MAT visit Current prescription is: buprenorphine/na loxone 8mg/2mg 2 films Patient denies any S/E, cravings, or withdrawal sx at current dose Update Since Last Visit : (narrative note) Patient Denies all illicit drug use since last visit OUD Monthly ACTIVE WITH [employer] FOR A LONG TIME. REMAIN STABLE IN RECOVERY. On BNX 8mg/2mg FOR A TOTAL OF 16 MG/4 mg DAILY AND CONTINUES TO DO WELL ON THIS DOSING. TOOK: FULL DOSE TODAY REMAINING FILMS: HAS SOME AT HOME ENDORSES PROPER TECH. Has long winder tender abstinence from OPIs and other illicit substances. NARCAN: HAS NARCAN AT HOME AND KNOWS HOW TO USE. HX OF OD: DENIES. DENIES ANY CHANGES TO HEALTH OR MEDICATIONS. ALL IS THE SAME. 04/25/24 UDS POS FOR BUP AND NEG FOR ANY ILLICIT SUBSTANCES. REVIEWED RESULTS W/PT. NO UDS COLLECTED ON 05/23/24 D/T ISSUES WITH INTERNET. ETOH USE: rare use. LAST TIME: 2 weeks ago, had a wine w/ gingerale. COCAINE USE: DENIES ANY USE CANNABIS USE: Smokes MJ a few times a week. OBTAINS FROM DISPENSARY. LAST TIME USED: last night. AMPHE USE: DENIES ANY USE BZO USE: DENIES ANY USE NICOTINE USE: QUIT SMOKING > 7 YEARS AGO. PSYCH SOCIAL Stable housing, lives with his spouse AND HAS 2 DOGS. FEELS SAFE IN HOME. 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 SUPPORT: Continues to have a good network of support in recovery. Transportation: HAS OWN TRANSPORTATION. LEGAL ISSUES: DENIES. COUNSELING: DEFERS COUNSELING AT THIS TIME. Knows counseling available at or outside counseling if needed. MEDICAL: PCP: HAS PCP S/P COLONOSCOPY, FOUND TO HAVE 1 POLYP THAT WAS REMOVED, benign. POSSIBLY KNEE REPLACEMENT IN FUTURE, THIS ON HOLD PER PT. S/P SURGERY ON 02/15/24, TESTICLE LASER D/T BLOOD BLISTERS W/GOOD RESULTS, F/U BY DR PEGUERO. OUD: STABLE: ON BNX 8MG/2MG 2 FILMS DAILY FOR A TOTAL OF 16 MG/4MG (SPLIT DOSING) AND WILL C/W THIS DOSE. PLAN: -C/W MONTHLY VISITS FOR STABILITY AND RELAPSE PREVENTION. UrinedrugAND REFLEX testing ordered MONTHLY for evaluation of illicit substance use/relapses/pro petty and is a clinical tool that provides meaningful information, monitors adherence, reinforces positive behavioral changes, and helps guide treatment. DEFINITIVE CONFIRMATION TESTING IF NEEDED. NADER IF UNEXPECTED UDS SCREENING. BUP CONFIRMATION EVERY 3 MONTHS TO MONITOR MEDICALLY AND FOR DIVERSION PER CLINICAL POLICY. DUE TO BE CHECKED TODAY. OD PREVENTION: CONTINUE WITH PLAN ABOVE. PT UNDERSTANDS THE RISK OF COMBINED TOURIST CAMP ATTENDANT DEPRESSANTS. HAS NARCAN/TRAINED ON ADMINISTRATION. DIVERSION PREVENTION: [...] IN BUP LEVELS. Last LFT result: WNL DUE FOR LFT/GGT TODAY. ASSESSMENT The patient's current phase of OUD treatment is: Stable maintenance. Interpretation of last buprenorphine confirmation test result: FLIPPED Medication dose: No report of severe or persistent cravings/withdra wal symptoms. Pt will remain at current dose PLAN (narrative, if applicable) Rx : Continue buprenorphine/na loxone 8mg/2mg 2 films daily Rx Quantity 29d Rx provided today. DUE TO HOLIDAY. VISIT FREQUENCY Continue monthly visits with monthly UDS. LFTS will be repeated per our clinical protocol. Prescription monitoring program is reviewed. If applicable, I have identified agents prescribed to the patient in addition to any issued by our program. The patient has been counseled regarding any risk of combining sedating agents. Not available 06/20/2024 08:52:03 07/19/2024 07/19/2024 This patient with a history of OUD presents today for their monthly MAT visit Current prescription is: buprenorphine/na loxone 8mg/2mg 2 films Patient denies any S/E, cravings, or withdrawal sx at current dose Update Since Last Visit : (narrative note) Patient Denies all illicit drug use since last visit OUD Monthly ACTIVE WITH [employer] FOR A LONG TIME. On BNX 8mg/2mg FOR A TOTAL OF 16 MG/4 mg DAILY AND CONTINUES TO DO WELL ON THIS DOSING. TOOK: FULL DOSE TODAY REMAINING FILMS: has some in home ??? 10. ENDORSES PROPER TECH. Has long winder tender abstinence from OPIs and other illicit substances. NARCAN: HAS NARCAN AT HOME AND KNOWS HOW TO USE. HX OF OD: DENIES. 06/20/2024 UDS POS FOR BUP, NEG FOR ETHANOL AND ANY ILLICIT SUBSTANCES. REVIEWED RESULTS W/PT. WISHED HIM A HAPPY EARLY BIRTHDAY. [place] ARE [facility] [facility]. 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 WISHED HIM GREAT WEATHER AND A GOOD VACATION. ETOH USE: rare use. LAST TIME: denies any use. I HAVE NOT EVEN DRANK WINE, DON'T MISS IT. COCAINE USE: DENIES ANY USE CANNABIS USE: Smokes MJ a few times a week. OBTAINS FROM DISPENSARY. LAST TIME USED: last night. AMPHE USE: DENIES ANY USE BZO USE: DENIES ANY USE NICOTINE USE: QUIT SMOKING > 7 YEARS AGO. PSYCH SOCIAL Stable housing, lives with his spouse AND HAS 2 DOGS. FEELS SAFE IN HOME. EMPLOYMENT: RETIRED [employer] AND [employer]. SUPPORT: Continues to have a good network of support in recovery. Transportation: HAS OWN TRANSPORTATION. LEGAL ISSUES: DENIES. COUNSELING: DEFERS COUNSELING AT THIS TIME. Knows counseling available at or outside counseling if needed. MEDICAL: PCP: HAS PCP NO CHANGES IN HEALTH OR MEDICATIONS. S/P COLONOSCOPY, FOUND TO HAVE 1 POLYP THAT WAS REMOVED, benign. POSSIBLY KNEE REPLACEMENT IN FUTURE, THIS ON HOLD PER PT. DENIES ANY KNEE PAIN TODAY. OUD: STABLE: ON BNX 8MG/2MG 2 FILMS DAILY FOR A TOTAL OF 16 MG/4MG (SPLIT DOSING) AND WILL C/W THIS DOSE. PLAN: -C/W MONTHLY VISITS FOR STABILITY AND RELAPSE PREVENTION. UrinedrugAND REFLEX testing ordered MONTHLY for evaluation of illicit substance use/relapses/pro petty and is a clinical tool that provides meaningful information, monitors adherence, reinforces positive behavioral changes, and helps guide treatment. DEFINITIVE CONFIRMATION TESTING IF NEEDED. NADER IF UNEXPECTED UDS SCREENING. BUP CONFIRMATION EVERY 3 MONTHS TO MONITOR MEDICALLY AND FOR DIVERSION PER CLINICAL POLICY. DUE TO BE CHECKED IN AUGUST. OD PREVENTION: CONTINUE WITH PLAN ABOVE. PT UNDERSTANDS THE RISK OF COMBINED TOURIST CAMP ATTENDANT DEPRESSANTS. HAS NARCAN/TRAINED ON ADMINISTRATION. DIVERSION PREVENTION: WILL MONITOR MASSPAT, UDS/SVT/ BUP LEVELS FOR PROGRESS, RELAPSE, DIVERSION AND FOR HARM REDUCTION. CANNABIS USE: GROWS OWNS. KNOWS THE RISK FOR CROSS CONTAMINATION TO DEADLY SUBSTANCES; IF NOT OBTAINED FROM A TRUSTED SOUCRE/DISPENSAR Y. LABS: 06/20/24 GGT 17 AST 18 AND ALT 15 ALL WNL, REVIEWED RESULTS W/PT TODAY. 11/09/2023 HEP B SURF AB AND HEP [...] UDS Last Bup confirmation was performed on 06/20/2024 with the result: Bup: 102.4 ng/ml & Norbup: 56.3 ng/ml. NOTED FLUCTUATION IN BUP LEVELS AND FLIPPED. RE EDU ON PROPER TECH. DOES SPLIT DOSING. Last LFT result: WNL (SEE ABOVE FOR RESULTS). ASSESSMENT The patient's current phase of OUD [...] risk of combining sedating agents. Not available 07/19/2024 08:52:41 Plan of Treatment Reminders Order Date Submit Date Provider Last Modified By Organization Details Last Modified Time Details Appointments MAT - Monthly 15 2024 09:00A Bruce Catherine NP Not available Not available Not available Lab drug screen, urine 2024 [facility], [address] [place], [id number], 07/20/2024 15:46:43 ethanol, QL, screen, urine 2024 [facility], [address] [place], [id number], 07/20/2024 15:46:45 additiona l order codes 2024 [facility], [address] [place], [id number], 07/19/2024 08:48:49 additiona l order codes 2024 025 [facility], [address] [place], [id number], 07/19/2024 08:48:46 additiona l order codes 2024 025 [facility], [address] [place], [id number], 07/19/2024 08:48:45 additiona l order codes 2024 025 [facility], [address] [place], [id number], 07/19/2024 08:48:52 additiona l order codes 2024 025 [facility], [address] [place], [id number], 07/19/2024 08:48:51 additiona l order codes 2024 025 [facility], [address] [place], [id number], 07/19/2024 08:48:45 additiona l order codes 2024 [facility], [address] [place], [id number], 07/19/2024 08:48:54 drug screen, urine 2024 [facility], [address] [place], [id number], 06/21/2024 13:46:36 ethanol, QL, screen, urine 2024 [facility], [address] [place], [address], 06/21/2024 13:46:45 additiona l order codes 2024 [facility], [address] [place], [address], 06/20/2024 08:48:30 additiona l order codes 2024 025 [facility], [address] [place], [address], 06/20/2024 08:48:33 additiona l order codes 2024 025 [facility], [address] [place], [id number], 06/20/2024 08:48:24 additiona l order codes 2024 025 [facility], [address] [place], [id number], 06/20/2024 08:48:29 additiona l order codes 2024 025 [facility], [address] [place], [address], 06/20/2024 08:48:32 additiona l order codes 2024 025 [facility], [address] [place], [address], 06/20/2024 08:48:27 additiona l order codes 2024 025 [facility], [address] [place], [address], 06/20/2024 08:48:28 buprenorp vickey, quantitat lex, urine 2024 025 [facility], [address] [place], [address], 06/23/2024 06:05:18 drug screen, urine 2024 025 [facility], [address] [place], [id number], 04/26/2024 14:04:35 ethanol, QL, screen, urine 2024 025 [facility], [address] [place], [id number], 04/26/2024 14:04:37 additiona l order codes 2024 025 [facility], [address] [place], [address], 04/25/2024 12:28:13 additiona l order codes 2024 025 [facility], [address] [place], [address], 04/25/2024 12:28:14 additiona l order codes 2024 025 [facility], [address] [place], [address], 04/25/2024 12:28:18 additiona l order codes 2024 025 [facility], [address] [place], [id number], 04/25/2024 12:28:08 additiona l order codes 2024 025 [facility], [address] [place], [address], 04/25/2024 12:28:10 additiona l order codes 2024 025 [facility], [address] [place], [address], 04/25/2024 12:28:11 additiona l order codes 2024 025 [facility], [address] [place], [id number], 04/25/2024 12:28:15 drug screen, urine 2024 025 [facility], [address] [place], [address], 03/29/2024 12:49:44 ethanol, QL, screen, urine 2024 025 [facility], [address] [place], [address], 03/29/2024 12:49:29 additiona l order codes 2024 025 [facility], [address] [place], [id number], 03/28/2024 08:59:33 additiona l order codes 2024 025 [facility], [address] [place], [address], 03/28/2024 08:59:32 additiona l order codes 2024 025 [facility], [address] [place], [address], 03/28/2024 08:59:33 additiona l order codes 2024 [facility], [address] [place], [address], 03/28/2024 08:59:30 additiona l order codes 2024 025 [facility], [address] [place], [address], 03/28/2024 08:59:31 additiona l order codes 2024 025 [facility], [address] [place], [address], 03/28/2024 08:59:35 additiona l order codes 2024 [facility], [address] [place], [address], 03/28/2024 08:59:30 buprenorp vickey, quantitat lex, urine 2024 [facility], [address] [place], [address], 03/30/2024 05:39:03 Referral None recorded. Procedures None recorded. Surgeries None recorded. Imaging None recorded. Medication Orders buprenorp vickey 8 mg-naloxo ne 2 mg sublingua l film 2024 025 [facility], [address] [place], [address], 07/19/2024 08:48:47 buprenorp vickey 8 mg-naloxo ne 2 mg sublingua l film 2024 025 [facility] [address] [place], [address], 06/20/2024 08:48:25 buprenorp vickey 8 mg-naloxo ne 2 mg sublingua l film 2024 025 [facility], [address] [place], [address], 05/23/2024 09:04:29 buprenorp vickey 8 mg-naloxo ne 2 mg sublingua l film 2024 025 [facility], [address] [place], [address], 04/25/2024 12:56:08 buprenorp vickey 8 mg-naloxo ne 2 mg sublingua l film 2024 025 [facility], [address] [place], [address], 04/25/2024 12:38:56 buprenorp vickey 8 mg-naloxo ne 2 mg sublingua l film 2024 025 [facility], [address] [place], [id number], 03/28/2024 08:59:29 Patient TargetsNo targets recorded. Patient InstructionsNo instructions recorded. Reason for Referral None Reported. Results Created Date Observation Date Name Description Value Unit Range Abnormal Flag Note LastModifiedBy Organization Detail LastModifiedTime 02/28/1903/01/2024 DARLINE OL, QL, U ethanol NEG mg/dL <10 normal Not Available [facility] [address] [place], [address], 03/01/2024 11:23:28 02/28/19 25 03/01/2024 BUPRE NORPH INE PT UDS, QL, U cocaine metabolite NEG NG/mL <300 normal Not Available [facility] [address] [place], [address], 03/01/2024 11:23:30 02/28/19 25 03/01/2024 BUPRE NORPH INE PT UDS, QL, U amphetamines NEG NG/mL <500 normal Not Available [facility] [address] [place], [address], 03/01/2024 11:23:30 02/28/19 25 03/01/2024 BUPRE NORPH INE PT UDS, QL, U benzodiazepi lakesha NEG NG/mL <200 normal Not Available [facility] [address] [place], [address], 03/01/2024 11:23:30 02/28/19 25 03/01/2024 BUPRE NORPH INE PT UDS, QL, U buprenorphin e POS NG/mL <5 normal Not Available [facility] [address] [place], [address], 03/01/2024 11:23:30 02/28/19 25 03/01/2024 BUPRE NORPH INE PT UDS, QL, U fentanyl NEG NG/mL <10 normal Not Available [facility] [address] [place], [address], 03/01/2024 11:23:30 02/28/19 25 03/01/2024 BUPRE NORPH INE PT UDS, QL, U methadone NEG NG/mL <300 normal Not Available [facility] [address] [place], [address], 03/01/2024 11:23:30 02/28/19 25 03/01/2024 BUPRE NORPH INE PT UDS, QL, U opiates NEG NG/mL <300 normal Not Available [facility] [address] [place], [address], 03/01/2024 11:23:30 02/28/19 25 03/01/2024 BUPRE NORPH INE PT UDS, QL, U oxycodone NEG NG/mL <300 normal Not Available [facility] [address] [place], [address], 03/01/2024 11:23:30 02/28/19 25 03/01/2024 BUPRE NORPH INE PT UDS, QL, U urine pH 8.5 4.5 - 9.0 Not Available [facility] [address] [place], [address], 03/01/2024 11:23:30 02/28/19 25 03/01/2024 BUPRE NORPH INE PT UDS, QL, U urine specific gravity 1.014 1.003 - 1.035 Not Available [facility] [address] [place], [address], 03/01/2024 11:23:30 02/28/19 25 03/01/2024 BUPRE NORPH INE PT UDS, QL, U urine creatinine 122 mg/dL 20 - 320 Not Available [facility] [address] [place], [address], 03/01/2024 11:23:30 03/28/19 25 03/29/2024 DARLINE OL, QL, U ethanol NEG mg/dL <10 normal Not Available [facility] [address] [place], [address], 03/29/2024 12:49:29 03/28/19 25 03/29/2024 BUPRE NORPH INE PT UDS, QL, U cocaine metabolite NEG NG/mL <300 normal Not Available [facility] [address] [place], [address], 03/29/2024 12:49:44 03/28/19 25 03/29/2024 BUPRE NORPH INE PT UDS, QL, U amphetamines NEG NG/mL <500 normal Not Available [facility] [address] [place], [address], 03/29/2024 12:49:44 03/28/19 25 03/29/2024 BUPRE NORPH INE PT UDS, QL, U benzodiazepi lakesha NEG NG/mL <200 normal Not Available [facility] [address] [place], [address], 03/29/2024 12:49:44 03/28/19 25 03/29/2024 BUPRE NORPH INE PT UDS, QL, U buprenorphin e POS NG/mL <5 normal Not Available [facility] [address] [place], [address], 03/29/2024 12:49:44 03/28/19 25 03/29/2024 BUPRE NORPH INE PT UDS, QL, U fentanyl NEG NG/mL <10 normal Not Available [facility] [address] [place], [address], 03/29/2024 12:49:44 03/28/19 25 03/29/2024 BUPRE NORPH INE PT UDS, QL, U methadone NEG NG/mL <300 normal Not Available [facility] [address] [place], [address], 03/29/2024 12:49:44 03/28/19 25 03/29/2024 BUPRE NORPH INE PT UDS, QL, U opiates NEG NG/mL <300 normal Not Available [facility] [address] [place], [address], 03/29/2024 12:49:44 03/28/19 25 03/29/2024 BUPRE NORPH INE PT UDS, QL, U oxycodone NEG NG/mL <300 normal Not Available [facility] [address] [place], [address], 03/29/2024 12:49:44 03/28/19 25 03/29/2024 BUPRE NORPH INE PT UDS, QL, U urine pH 5.2 4.5 - 9.0 Not Available [facility] [address] [place], [address], 03/29/2024 12:49:44 03/28/19 25 03/29/2024 BUPRE NORPH INE PT UDS, QL, U urine specific gravity 1.017 1.003 - 1.035 Not Available [facility] [address] [place], [address], 03/29/2024 12:49:44 03/28/19 25 03/29/2024 BUPRE NORPH INE PT UDS, QL, U urine creatinine 132 mg/dL 20 - 320 Not Available [facility] [address] [place], [address], 03/29/2024 12:49:44 03/28/19 25 03/30/2024 BUPRE NORPH INE, QN, U normalized buprenorphin e 153.6 NG/mL Not Available [facility] [address] [place], [address], 03/30/2024 05:39:03 03/28/19 25 03/30/2024 BUPRE NORPH INE, QN, U normalized norbuprenorp vickey 92.8 NG/mL Not Available [facility] [address], [address], 03/30/2024 05:39:03 03/28/19 25 03/30/2024 BUPRE NORPH INE, QN, U buprenorphin e 203.1 NG/mL <10.0 normal Not Available [facility] [address], [address], 03/30/2024 05:39:03 03/28/19 25 03/30/2024 BUPRE NORPH INE, QN, U norbuprenorp vickey 122.7 NG/mL <20.0 normal Not Available [facility] [address] [place], [address], 03/30/2024 05:39:03 04/26/19 25 04/26/2024 BUPRE NORPH INE PT UDS, QL, U cocaine metabolite NEG NG/mL <300 normal Not Available [facility] [address], [address], 04/26/2024 14:04:35 04/26/19 25 04/26/2024 BUPRE NORPH INE PT UDS, QL, U amphetamines NEG NG/mL <500 normal Not Available [facility] [address] [place], [address], 04/26/2024 14:04:35 04/26/19 25 04/26/2024 BUPRE NORPH INE PT UDS, QL, U benzodiazepi lakesha NEG NG/mL <200 normal Not Available [facility] [address] [place], [address], 04/26/2024 14:04:35 04/26/19 25 04/26/2024 BUPRE NORPH INE PT UDS, QL, U buprenorphin e POS NG/mL <5 normal Not Available [facility] [address] [place], [address], 04/26/2024 14:04:35 04/26/19 25 04/26/2024 BUPRE NORPH INE PT UDS, QL, U fentanyl NEG NG/mL <10 normal Not Available [facility] [address] [place], [address], 04/26/2024 14:04:35 04/26/19 25 04/26/2024 BUPRE NORPH INE PT UDS, QL, U methadone NEG NG/mL <300 normal Not Available [facility] [address] [place], [address], 04/26/2024 14:04:35 04/26/19 25 04/26/2024 BUPRE NORPH INE PT UDS, QL, U opiates NEG NG/mL <300 normal Not Available [facility] [address] [place], [address], 04/26/2024 14:04:35 04/26/19 25 04/26/2024 BUPRE NORPH INE PT UDS, QL, U oxycodone NEG NG/mL <300 normal Not Available [facility] [address] [place], [address], 04/26/2024 14:04:35 04/26/19 25 04/26/2024 BUPRE NORPH INE PT UDS, QL, U urine pH 7.7 4.5 - 9.0 Not Available [facility] [address] [place], [address], 04/26/2024 14:04:35 04/26/19 25 04/26/2024 BUPRE NORPH INE PT UDS, QL, U urine specific gravity 1.013 1.003 - 1.035 Not Available [facility] [address] [place], [address], 04/26/2024 14:04:35 04/26/19 25 04/26/2024 BUPRE NORPH INE PT UDS, QL, U urine creatinine 144 mg/dL 20 - 320 Not Available [facility] [address] [place], [address], 04/26/2024 14:04:35 04/26/19 25 04/26/2024 DARLINE OL, QL, U ethanol NEG mg/dL <10 normal Not Available [facility] [address] [place], [address], 04/26/2024 14:04:37 06/21/19 25 06/21/2024 BUPRE NORPH INE PT UDS, QL, U cocaine metabolite NEG NG/mL <300 normal Not Available [facility] [address], [address], 06/21/2024 13:46:36 06/21/19 25 06/21/2024 BUPRE NORPH INE PT UDS, QL, U amphetamines NEG NG/mL <500 normal Not Available [facility] [address], [address], 06/21/2024 13:46:36 06/21/19 25 06/21/2024 BUPRE NORPH INE PT UDS, QL, U benzodiazepi lakesha NEG NG/mL <200 normal Not Available [facility] [address] [address], [address], 06/21/2024 13:46:36 06/21/19 25 06/21/2024 BUPRE NORPH INE PT UDS, QL, U buprenorphin e POS NG/mL <5 normal Not Available [facility] [address] [address], [address], 06/21/2024 13:46:36 06/21/19 25 06/21/2024 BUPRE NORPH INE PT UDS, QL, U fentanyl NEG NG/mL <10 normal Not Available [facility] [address], [address], 06/21/2024 13:46:36 06/21/19 25 06/21/2024 BUPRE NORPH INE PT UDS, QL, U methadone NEG NG/mL <300 normal Not Available [facility] [address], [address], 06/21/2024 13:46:36 06/21/19 25 06/21/2024 BUPRE NORPH INE PT UDS, QL, U opiates NEG NG/mL <300 normal Not Available [facility] [address] [address], [address], 06/21/2024 13:46:36 06/21/19 25 06/21/2024 BUPRE NORPH INE PT UDS, QL, U oxycodone NEG NG/mL <300 normal Not Available [facility] [address] [place], [address], 06/21/2024 13:46:36 06/21/19 25 06/21/2024 BUPRE NORPH INE PT UDS, QL, U urine pH 8.2 4.5 - 9.0 Not Available [facility] [address] [address], [address], 06/21/2024 13:46:36 06/21/19 25 06/21/2024 BUPRE NORPH INE PT UDS, QL, U urine specific gravity 1.013 1.003 - 1.035 Not Available [facility] [address] [place], [address], 06/21/2024 13:46:36 06/21/19 25 06/21/2024 BUPRE NORPH INE PT UDS, QL, U urine creatinine 114 mg/dL 20 - 320 Not Available [facility] [address] [place], [address], 06/21/2024 13:46:36 06/21/19 25 06/21/2024 DARLINE OL, QL, U ethanol NEG mg/dL <10 normal Not Available [facility] [address], [address], 06/21/2024 13:46:45 06/21/19 25 06/21/2024 GGT GGT 17 U/L 3-70 normal Not Available [facility] [address], [address], 06/21/2024 13:47:11 06/21/19 25 06/21/2024 HEPAT IC FUNCT ION PANEL protein, total 7.0 g/dL 6.1-8. 1 normal Not Available [facility] [address], [address], 06/21/2024 13:47:11 06/21/19 25 06/21/2024 HEPAT IC FUNCT ION PANEL albumin 4.3 g/dL 3.6-5. 1 normal Not Available [facility] [address], [address], 06/21/2024 13:47:11 06/21/19 25 06/21/2024 HEPAT IC FUNCT ION PANEL globulin 2.7 g/dL_ (calc ) 1.9-3. 7 normal Not Available [facility] [address], [place], [address], 06/21/2024 13:47:11 06/21/19 25 06/21/2024 HEPAT IC FUNCT ION PANEL albumin/glob ulin ratio 1.6 (calc ) 1.0-2. 5 normal Not Available [facility] [address], [place], [address], 06/21/2024 13:47:11 06/21/19 25 06/21/2024 HEPAT IC FUNCT ION PANEL bilirubin, total 0.3 mg/dL 0.2-1. 2 normal Not Available [facility] [address], [place], [address], 06/21/2024 13:47:11 06/21/1906/21/2024 HEPAT IC FUNCT ION PANEL bilirubin, direct 0.1 mg/dL < or = 0.2 normal Not Available [facility] [address], [place], [address], 06/21/2024 13:47:11 06/21/19 25 06/21/2024 HEPAT IC FUNCT ION PANEL bilirubin, indirect 0.2 mg/dL _(bridger c) 0.2-1. 2 normal Not Available [facility] [address], [place], [address], 06/21/2024 13:47:11 06/21/19 25 06/21/2024 HEPAT IC FUNCT ION PANEL alkaline phosphatase 57 U/L 35-144 normal Not Available [facility] [address], [place], [address], 06/21/2024 13:47:11 06/21/19 25 06/21/2024 HEPAT IC FUNCT ION PANEL AST 18 U/L 10-35 normal Not Available [facility] [address], [place], [address], 06/21/2024 13:47:11 06/21/19 25 06/21/2024 HEPAT IC FUNCT ION PANEL ALT 15 U/L 9-46 normal Not Available [facility] [address], [place], [address], 06/21/2024 13:47:11 06/21/19 25 06/23/2024 BUPRE NORPH INE, QN, U normalized buprenorphin e 102.4 NG/mL Not Available [facility] [address] [address], [address], 06/23/2024 06:05:18 06/21/19 25 06/23/2024 BUPRE NORPH INE, QN, U normalized norbuprenorp vickey 56.3 NG/mL Not Available [facility] [address] [place], [address], 06/23/2024 06:05:18 06/21/19 25 06/23/2024 BUPRE NORPH INE, QN, U buprenorphin e 117.0 NG/mL <10.0 normal Not Available [facility] [address] [place], [address], 06/23/2024 06:05:18 06/21/19 25 06/23/2024 BUPRE NORPH INE, QN, U norbuprenorp vickey 64.4 NG/mL <20.0 normal Not Available [facility] [address] [address], [address], 06/23/2024 06:05:18 07/20/19 25 07/20/2024 BUPRE NORPH INE PT UDS, QL, U cocaine metabolite NEG NG/mL <300 normal Not Available [facility] [address] [place], [address], 07/20/2024 15:46:43 07/20/19 25 07/20/2024 BUPRE NORPH INE PT UDS, QL, U amphetamines NEG NG/mL <500 normal Not Available [facility] [address] [place], [address], 07/20/2024 15:46:43 07/20/19 25 07/20/2024 BUPRE NORPH INE PT UDS, QL, U benzodiazepi lakesha NEG NG/mL <200 normal Not Available [facility] [address], [address], 07/20/2024 15:46:43 07/20/19 25 07/20/2024 BUPRE NORPH INE PT UDS, QL, U buprenorphin e POS NG/mL <5 normal Not Available [facility] [address], [address], 07/20/2024 15:46:43 07/20/19 25 07/20/2024 BUPRE NORPH INE PT UDS, QL, U fentanyl NEG NG/mL <10 normal Not Available [facility] [address] [place], [address], 07/20/2024 15:46:43 07/20/19 25 07/20/2024 BUPRE NORPH INE PT UDS, QL, U methadone NEG NG/mL <300 normal Not Available [facility] [address] [address], [address], 07/20/2024 15:46:43 07/20/19 25 07/20/2024 BUPRE NORPH INE PT UDS, QL, U opiates NEG NG/mL <300 normal Not Available [facility] [address], [address], 07/20/2024 15:46:43 07/20/19 25 07/20/2024 BUPRE NORPH INE PT UDS, QL, U oxycodone NEG NG/mL <300 normal Not Available [facility] Lab [address] [place], [address], 07/20/2024 15:46:43 07/20/19 25 07/20/2024 BUPRE NORPH INE PT UDS, QL, U urine pH 6.4 4.5 - 9.0 Not Available [facility] [address] [place], [address], 07/20/2024 15:46:43 07/20/19 25 07/20/2024 BUPRE NORPH INE PT UDS, QL, U urine specific gravity 1.018 1.003 - 1.035 Not Available [facility] 12 Le[address] [place], [address], 07/20/2024 15:46:43 07/20/19 25 07/20/2024 BUPRE NORPH INE PT UDS, QL, U urine creatinine 141 mg/dL 20 - 320 Not Available [facility] [address] [place], [address], 07/20/2024 15:46:43 07/20/19 25 07/20/2024 DARLINE OL, QL, U ethanol NEG mg/dL <10 normal Not Available [facility] [address] [place], [address], 07/20/2024 15:46:45 Result Notes None recorded. Problems Name Problem SNOMED Code Status Onset Date Resolution Date Notes Provider Name and Address Organization Details Recorded Time Cannabis dependen ce, continuo 585570956 Active 2023 Clara Catherine NP 50 [facility] [place], [place], [address] , [facility] 4 04:17:54 Pain of knee region 4910519237 Active 2023 Clara Catherine NP 50 [facility] [place], [address] , [facility] 4 08:59:38 Diarrhea 59020110 Active 2023 Clara Catherine NP 50 [facility] [place] [place], [address] , [facility] [employer] [facility] 4 09:11:45 Abnormal weight loss 831946826 Active 2023 Clara Catherine NP 50 [place], [address] , [facility] [employer] [facility] 4 09:16:15 History of pulmonar y embolus 309005903 Active 2017 2015 Not Available [facility] 1 03:11:39 Disabili ty 74480728 Active 2018 Not Available [facility] 1 03:11:39 Family history of viral hepatiti s type C 16660952059 97827 Completed 201712/09/2017 Not Available [facility] 1 03:11:39 Viral hepatiti s C 46091488 Completed 201712/09/2017 s/p treatmen t Not Available [facility] 1 03:11:39 Diabetes mellitus 63129210 Active 2017 Not Available [facility] 1 03:11:39 Opioid dependen ce 61446677 Active 2017 stable maintena nce Not Available [facility] 1 03:11:39 History of hepatiti s C 09431884982 101 Active 201711/09/23 HEP C REACTIVE w/undect ectable quants, HEP B SURF AB AND B CORE REACTIVE (PROTECT ED). HEP A REACTIVE (PROTECT ED) Clara Catherine NP [address] [place], [address] , [facility] [employer] [facility] 4 04:04:36 Notes: OF 02/02/13: SMOKES 1 [employer] ASS[employer]IATE[employer] DEG[employer] IN [employer] [facility] , NO CHILDREN IS ALCOHOLIC NO SUICIDE ATTEMPTS Problem Notes None recorded. Procedures Surgical History Date Name Laterality Status Provider Name and Address Organization Details Recorded Time 07/19/2024 38089, G0480, G0481 completed Clara Catherine NP [address] [place], [address], [facility] [employer] [facility] 07/19/2024 04:05:11 06/20/2024 18128, G0480, G0481 completed Clara Catherine, CHILDCARE WORKER [address] [place], [address], [facility] 06/20/2024 04:03:24 05/23/2024 25258, G0480, G0481 completed Clara Catherine, CHILDCARE WORKER [address] [place], [address], [facility] 05/23/2024 04:04:47 04/25/2024 92539, G0480, G0481 completed Clara Catherine, CHILDCARE WORKER [address] [place], [address], [facility] 04/25/2024 04:16:33 03/28/2024 22184, G0480, G0481 completed Clara Catherine, CHILDCARE WORKER [address] [place], [address], [facility] 03/28/2024 04:13:04 02/29/2024 50074, G0480, G0481 completed Clara Catherine, CHILDCARE WORKER [address] [place], [address], [facility] 02/29/2024 04:31:55 02/01/2024 96389, G0480, G0481 completed Clara Catherine, CHILDCARE WORKER [address] [place], [address], [facility] 02/01/2024 03:58:03 01/04/2024 42287, G0480, G0481 completed [facility] 01/04/2024 08:43:37 12/07/2023 50887, G0480, G0481 completed Clara Catherine, CHILDCARE WORKER [address] [place], [address], [facility] 12/07/2023 04:04:56 11/09/2023 42143, G0480, G0481 completed Clara Catherine, CHILDCARE WORKER [address] [place], [address], [facility] 11/09/2023 04:47:17 10/13/2023 46884, G0480, G0481 [facility] 10/13/2023 08:39:06 09/15/2023 01926, G0480, G0481 completed [facility] 09/15/2023 09:22:20 08/25/2023 22099, G0480, G0481 completed Lucia Prajapati [facility] 08/25/2023 08:45:05 2023 23529, G0480, G0481 completed Clara Catherine, DARIA [address] [place], [address], [facility] 2023 03:59:19 06/30/2023 12522, G0480, G0481 completed Clara Catherine NP [address] [place], [address], [facility] 06/30/2023 04:01:47 06/02/2023 43297, G0480, G0481 completed Clara Catherine NP [address] [place], [address], [facility] 06/02/2023 03:59:17 05/05/2023 96113, G0480, G0481 completed Clara Catherine NP [address] [place], [address], [facility] 05/05/2023 04:10:32 04/08/2023 50557, G0480, G0481 completed Clara Catherine NP [address] [place], [address], [facility] 04/08/2023 04:40:59 03/10/2023 21673, G0480, G0481 completed Clara Catherine NP [address] [place], [address], [facility] 03/10/2023 04:05:30 02/09/2023 94278, G0480, G0481 [facility] 02/09/2023 09:09:06 01/12/2023 29509, G0480, G0481 completed Clara Catherine NP [address] [place], [address], [facility] 01/12/2023 04:02:50 12/15/2022 86766, G0480, G0481 completed Clara Catherine NP [address] [place], [address], [facility] 12/15/2022 04:20:45 11/17/2022 17149, G0480, G0481 completed Clara Catherine, CHILDCARE WORKER [address] [place], [address], [facility] 11/17/2022 04:25:29 10/20/2022 06059, G0480, G0481 completed Clara Catherine, DARIA [address] [place], [address], [facility] 10/20/2022 04:07:56 09/22/2022 13384, G0480, G0481 completed [facility] 09/22/2022 08:49:45 08/19/2022 25909, G0480, G0481 completed Clara Catherine NP [address] [place], [address], [facility] 08/19/2022 05:03:12 07/22/2022 23730, G0480, G0481 completed [facility] 07/22/2022 08:45:13 07/01/2022 99286, G0480, G0481 completed De[facility] 07/01/2022 08:48:45 06/03/2022 07543, G0480, G0481 completed Lucia Prajapati [facility] 06/03/2022 08:49:13 05/06/2022 15365, G0480, G0481 completed Mónica [facility] 05/06/2022 08:45:51 04/08/2022 68682, G0480, G0481 completed Leonor Clarke PA-C [address] [place], [address], [facility] 04/07/2022 20:33:03 03/11/2022 34253, G0480, G0481 completed Debbie [facility] 03/11/2022 09:01:27 02/11/2022 36391, G0480, G0481 completed [facility] 02/11/2022 08:57:53 01/14/2022 90639, G0480, G0481 completed [facility] 01/14/2022 13:44:49 12/17/2021 64636, G0480, G0481 completed [facility] 12/17/2021 08:57:20 11/19/2021 74014, G0480, G0481 completed [facility] 11/19/2021 15:03:49 10/22/2021 10748, G0480, G0481 completed [facility] 10/22/2021 09:04:44 09/24/2021 11852, G0480, G0481 completed [facility] 09/24/2021 08:51:41 08/27/2021 12188, G0480, G0481 completed [facility] 08/27/2021 15:49:58 07/30/2021 16467, G0480, G0481 completed [facility] 07/30/2021 08:56:29 06/26/2021 49158, G0480, G0481 completed Thad Tate, [address], [address], [facility] 06/26/2021 09:26:42 05/15/2021 08424, G0480, G0481 completed [facility] 05/15/2021 08:49:51 05/01/2021 11210, G0480, G0481 completed [facility] 05/01/2021 08:47:56 04/03/2021 92046, G0480, G0481 completed [facility] 04/03/2021 08:50:07 03/06/2021 92277, G0480, G0481 completed Debbie Feliciano [facility] 03/06/2021 08:51:34 Imaging Results None recorded. Procedure [...] Not Available Not Available Vitals Date Recorded Heart rate Oxygen saturation Oxygen saturation in Arterial blood by Pulse oximetry Body temperature Provider Name and Address Organization Details Last Updated DateTime 03/28/2024 95 /min 98 % 98 % 97.1 [degF] Sol [facility] 5 08:52:57 Date Recorded Heart rate Oxygen saturation Oxygen saturation in Arterial blood by Pulse oximetry Body temperature Provider Name and Address Organization Details Last Updated DateTime 04/25/2024 102 /min 94 % 94 % 96.8 [degF] Sol Torres [facility] 5 08:47:07 Date Recorded Heart rate Oxygen saturation Oxygen saturation in Arterial blood by Pulse oximetry Body temperature Provider Name and Address Organization Details Last Updated DateTime 06/20/2024 66 /min 93 % 93 % 96.9 [degF] Sol Torres [facility] 5 08:38:49 Date Recorded Heart rate Oxygen saturation Oxygen saturation in Arterial blood by Pulse oximetry Body temperature Provider Name and Address Organization Details Last Updated DateTime 07/19/2024 85 /min 94 % 94 % 96.8 [degF] Sol [facility] 5 08:42:15 Social History Question Answer Notes LastModified by Organizat ion Details LastModified Time Tobacco Smoking Status [facility]/06/2021 08:51:08 What Is Your Level Of Caffeine Consumption? Occasional Information not available 03/06/2021 When Did You Quit Smoking? 1-5yearssincela lucina Information not available 03/06/2021 *Housing Stable - Safe Information not available 03/06/2021 *Employment Employed Information n ot available 03/06/2021 *Food Adequate Information no t available 03/06/2021 * Not A [employer]ler Information not available 03/06/2021 *Job Training/Educati on/Literacy Not Needed Information not available 03/06/2021 *Legal Status No Legal Issues Inform ation not available 03/06/2021 *Legal Assistance Not Required Information not available 03/06/2021 *Custody Of Dependent Children N/A Information not available 03/06/2021 *Social Service's Involvement With Dependent Children Not Applicable Information not available 03/06/2021 *Childcare Needed No Information not available 03/06/2021 *Concern For Domestic Violence No Information not available 03/06/2021 *Primary Care Provider Yes Information not available 03/06/2021 *Other Medical Issues None Information not available 03/06/2021 *Social Support Network Has Stable Support System Information not available 03/06/2021 *Transportation Issues No Information not available 03/06/2021 What Is Your Current Pack Years? 20-29packyears Information not available 03/06/2021 At What Age Did You Start Smoking Tobacco? 16 Information not available 03/06/2021 Has Tobacco Cessation Counseling Been Provided? No Information not available 03/06/2021 How Many Years Have You Smoked Tobacco? 30 Information not available 03/06/2021 Sex: Male Functional Status Question Answer Note LastModified by Organizat ion Details LastModified Time Do you use any illicit or recreational drugs? No Information not available 03/06/2021 Do you or have you ever used any other forms of tobacco or nicotine? No Information not available 03/06/2021 What is your level of alcohol consumption? None Information not available 03/06/2021 Mental Status None recorded. Family History Nothing Reported. Medical History No medical history recorded. Past Encounters Encounter ID Performer Location Encounter Start Date Encounter Closed Date Diagnosis/Indication Diagnosis SNOMED-CT Code Diagnosis ICD10 Code Diagnosis Note [id number] PAT[facility] [address] [place] [address] 11/10/2017 00:00:00 11/10/2017 12:33:05 [id number] PATIENT IMPORT [facility] [address] [place] [address] 12/09/2017 00:00:00 12/09/2017 09:24:54 [id number] PATIENT IMPORT [facility] [address] [place] [address] 01/06/2018 00:00:00 01/06/2018 09:29:14 [id number] PATIENT IMPORT [facility] [address] [place] [address] 02/03/2018 00:00:00 02/03/2018 17:59:11 [id number] PATIENT IMPORT [facility] [address] [place] [address] 02/12/2018 00:00:00 02/12/2018 13:44:04 [id number] PATIENT IMPORT [facility] [address] [place] [address] 02/26/2018 00:00:00 02/26/2018 10:19:58 [id number] PATIENT IMPORT [facility] [address] [place] [address] 03/26/2018 00:00:00 03/26/2018 09:51:15 [id number] PATIENT IMPORT [facility] [address] [place] [address] 04/23/2018 00:00:00 04/26/2018 23:29:46 [id number] PATIENT IMPORT [facility] [address] [place] [address] 05/21/2018 00:00:00 05/23/2018 11:32:20 [id number] PATIENT IMPORT [facility] [address] [place] [address] 06/18/2018 00:00:00 06/18/2018 09:43:35 [id number] Indio Solomon DO [facility] [address] [place] [address] 06/22/2018 00:00:00 06/22/2018 10:08:56 [id number] PATIENT IMPORT [facility] [address] [place] [address] 07/16/2018 00:00:00 07/16/2018 12:21:14 [id number] PATIENT IMPORT [facility] [address] [place] [address] 08/13/2018 00:00:00 08/13/2018 10:09:02 [id number] PATIENT IMPORT [facility] [facility] [address] [place] [address] 09/10/2018 00:00:00 09/10/2018 20:03:39 [id number] Idnio Neha, DO [facility] [address] [facility], [place] [address] 10/06/2018 00:00:00 10/06/2018 15:20:23 [id number] Indio Neha, DO [facility] [address] [facility], [place] [address] 10/27/2018 00:00:00 10/27/2018 08:10:52 [id number] Indio Neha, DO [facility] [address] [place] [address] 11/24/2018 00:00:00 11/24/2018 08:10:03 [id number] PATIENT IMPORT [facility] [address] [place] [address] 12/22/2018 00:00:00 12/22/2018 14:49:16 [id number] PATIENT IMPORT [facility] [address] [place] [address] 01/11/2019 00:00:00 01/11/2019 09:40:23 [id number] PATIENT IMPORT [facility] [address] [place] [address] 01/19/2019 00:00:00 01/19/2019 09:01:59 [id number] PATIENT IMPORT [facility] [address] [place] [address] 02/09/2019 00:00:00 02/09/2019 09:20:36 [id number] Indio Neha, DO [facility] [address] [place] [address] 03/09/2019 00:00:00 03/09/2019 08:36:57 [id number] Indio Neha DO [facility] [address] [place] [address] 04/06/2019 00:00:00 04/06/2019 08:20:43 [id number] Indio Lesser, DO [facility] [address] [facility] [place] [address] 05/04/2019 00:00:00 05/04/2019 08:22:00 [id number] Indio Solomon, DO [facility] [address] [facility] [place] [address] 06/01/2019 00:00:00 06/01/2019 13:12:33 [id number] Indio Neha, DO [facility] [address] [facility] [place] [address] 06/13/2019 00:00:00 06/13/2019 10:59:32 [id number] Indio Neha, DO [facility] [address] [facility] [place] [address] 06/29/2019 00:00:00 06/29/2019 14:13:12 [id number] Indio Neha, DO [facility] [facility] [address] [facility] [place] [address] 07/12/2019 00:00:00 07/12/2019 20:06:17 [id number] Indio Neha, DO [facility] [address] [facility] [place] [address] 07/27/2019 00:00:00 07/27/2019 15:56:02 [id number] Indio Neha, DO [facility] [address] [facility] [place] [address] 08/10/2019 00:00:00 08/11/2019 13:35:03 [id number] Indio Neha, DO [facility] [address] [facility] [place] [address] 08/24/2019 00:00:00 08/24/2019 12:48:12 [id number] Indio Neha, DO [facility] [address] [facility] [place] [address] 09/21/2019 00:00:00 09/21/2019 11:00:11 [id number] Indio Neha, DO [facility] [address] [facility] [place] [address] 10/19/2019 00:00:00 10/19/2019 09:10:39 [id number] Jennifer Paul MD [facility] [address] [place] [address] 11/17/2019 00:00:00 11/17/2019 15:52:49 [id number] Indio Neha, DO [facility] [address] [place] [address] 01/12/2020 00:00:00 01/12/2020 09:19:43 [id number] Indio Neha, DO [facility] [address] [place] [address] 12/15/2019 00:00:00 12/15/2019 12:21:39 [id number] Indio Neha, DO [facility] [address] [place] [address] 02/09/2020 00:00:00 02/09/2020 08:38:38 [id number] Indio Neha, DO [facility] [address] [place] [address] 04/05/2020 00:00:00 04/05/2020 08:23:56 [id number] Indio Neha, DO [facility] [address] [place] [address] 03/08/2020 00:00:00 03/08/2020 08:29:09 [id number] Indio Solomon, DO [facility] [address] [place] [address] 7 05/31/2020 00:00:00 05/31/2020 09:04:41 [id number] Indio Solomon, DO [facility] [address] [place] [address] 05/03/2020 00:00:00 05/03/2020 10:39:00 [id number] Indio Solomon, DO [facility] [address] [place] [address] 07/25/2020 00:00:00 07/25/2020 15:10:15 [id number] Jessica Beach MD [facility] [address] [place] [address] 07/02/2020 00:00:00 07/02/2020 09:46:48 [id number] Jessica Beach MD [facility] [address] [place] [address] 7 08/22/2020 00:00:00 08/22/2020 09:28:27 [id number] Jessica Beach MD [facility] [address] [place] [address] 7 10/17/2020 00:00:00 10/17/2020 09:01:04 [id number] Jessica Beach MD [facility] [address] [place] [address] 7 09/19/2020 00:00:00 09/19/2020 09:06:24 [id number] Indio Solomon DO [facility] [place] [address] 7 11/09/2020 00:00:00 11/09/2020 10:11:40 [id number] Indio Solmoon, DO [facility] [place] [address] 12/12/2020 00:00:00 12/12/2020 09:38:12 [id number] Indio Solomon DO [facility] [address] [place] [address] 02/06/2021 00:00:00 02/06/2021 09:25:02 [id number] Indio Solomon, DO [facility] [address] [place] [address], [place] [address] 01/09/2021 00:00:00 01/09/2021 09:14:31 [id number] PATIENT IMPORT [facility] [address] [place] [address], [place] [address] 7 11/10/2017 00:00:00 11/10/2017 09:31:24 [id number] PATIENT IMPORT [facility] [address] [place] [address], [place] [address] 7 12/01/2017 00:00:00 12/10/2017 07:20:49 [id number] PATIENT IMPORT [facility] [address] [facility], [place] [address] 12/09/2017 00:00:00 12/09/2017 09:14:30 [id number] PATIENT IMPORT [facility] [address] [place] [address] 7 01/06/2018 00:00:00 01/06/2018 09:05:40 [id number] PATIENT IMPORT [facility] [address] [place] [address] 7 02/03/2018 00:00:00 02/03/2018 09:15:10 [id number] PATIENT IMPORT [facility] [address] [place] [address] 7 02/26/2018 00:00:00 02/26/2018 12:00:34 [id number] PATIENT IMPORT [facility] [address] [facility], [place] [address] 7 03/06/2018 00:00:00 03/06/2018 13:16:12 [id number] PATIENT IMPORT [facility] [address] [place] [address] 7 03/26/2018 00:00:00 03/26/2018 09:22:31 [id number] PATIENT IMPORT [facility] [address] [place] [address] 7 04/23/2018 00:00:00 04/26/2018 12:00:07 [id number] PATIENT IMPORT [facility] [address] [place] [address] 7 05/21/2018 00:00:00 05/21/2018 09:08:37 [id number] PATIENT IMPORT [facility] [address] [place] [address] 7 05/31/2018 00:00:00 05/31/2018 13:45:36 [id number] PATIENT IMPORT [facility] [address] [place] [address] 7 06/18/2018 00:00:00 06/18/2018 10:17:29 [id number] PATIENT IMPORT [facility] [address] [facility], [place] [address] 7 08/13/2018 00:00:00 08/13/2018 10:01:52 [id number] PATIENT IMPORT [facility] [address] [facility], [place] [address] 09/10/2018 00:00:00 09/10/2018 10:36:47 [id number] PATIENT IMPORT [facility] [address] [facility], [place] [address] 7 10/12/2018 00:00:00 10/12/2018 08:48:02 [id number] PATIENT IMPORT [facility] [address] [facility], [place] [address] 11/24/2018 00:00:00 11/24/2018 09:15:11 [id number] PATIENT IMPORT [facility] [address] [facility], [place] [address] 01/19/2019 00:00:00 01/19/2019 09:15:44 [id number] PATIENT IMPORT [facility] [address] [facility], [place] [address] 03/09/2019 00:00:00 03/09/2019 09:17:20 [id number] PATIENT IMPORT [facility] [address] [place] [address] 7 03/21/2019 00:00:00 03/21/2019 10:18:32 [id number] PATIENT IMPORT [facility] [address] [facility], [place] [address] 04/06/2019 00:00:00 04/06/2019 09:00:55 [id number] PATIENT IMPORT [facility] 50 [place] [address] 7 09/21/2019 00:00:00 09/21/2019 09:40:44 [id number] PATIENT IMPORT [facility] [address] [place] [address] 7 10/19/2019 00:00:00 10/19/2019 09:41:46 [id number] PATIENT IMPORT [facility] [address] [facility], [place] [address] 11/17/2019 00:00:00 11/21/2019 08:42:18 [id number] PATIENT IMPORT [facility] [address] [facility], [place] [address] 12/16/2019 00:00:00 12/16/2019 09:35:21 [id number] PATIENT IMPORT [facility] [address] [facility], [place] [address] 01/12/2020 00:00:00 01/12/2020 09:27:06 [id number] PATIENT IMPORT [facility] [address] [facility], [place] [address] 12/15/2019 00:00:00 12/15/2019 09:13:41 [id number] PATIENT IMPORT [facility] [address] [facility], [place] [address] 04/06/2020 00:00:00 04/06/2020 09:48:51 [id number] PATIENT IMPORT [facility] [address] [place] [address] 7 05/31/2020 00:00:00 05/31/2020 08:54:13 [id number] PATIENT IMPORT [facility] [address] [facility], [place] [address] 7 05/28/2020 00:00:00 05/28/2020 08:29:19 [id number] PATIENT IMPORT [facility] [address] [facility], [place] [address] 07/02/2020 00:00:00 07/02/2020 09:10:40 [id number] PATIENT IMPORT [facility] [address] [place] [address] 7 09/19/2020 00:00:00 09/19/2020 09:49:39 [id number] PATIENT IMPORT [facility] [address] [place] [address] 7 10/17/2020 00:00:00 10/17/2020 09:54:21 [id number] Indio Solomon, DO [facility] [address] [place] [address] 03/06/2021 08:45:58 03/06/2021 09:31:43 Opioid dependence [id number] F11.20 STABLE [id number] Indio Solomon, DO [facility] [address] [place] [address] 04/03/2021 08:47:40 04/03/2021 09:51:40 Opioid dependence 41266774 F11.20 STABLE [id number] Indio Solomon, DO [facility] [address] [place] [address] 05/01/2021 08:45:28 05/01/2021 15:46:01 Opioid dependence [id number] F11.20 STABLE [id number] Gabi Milan, [facility] [address] [place] [address] 05/01/2021 09:14:01 05/01/2021 15:46:35 [id number] Indio Solomon, DO [facility] [address] [place] [address] 05/15/2021 08:36:47 05/15/2021 11:50:15 Opioid dependence 24167414 F11.20 STABLE [id number] Indio Solomon, DO [facility] [address] [place] [address] 06/26/2021 09:07:26 06/26/2021 10:59:21 Opioid dependence 03437813 F11.20 STABLE [id number] Indio Solomon, DO [facility] [address] [place] [address], [place] [address] 7 07/30/2021 08:50:57 07/30/2021 10:15:24 Opioid dependence 71683217 F11.20 STABLE [id number] Jessica Beach MD [facility] [address] [place] [address], [place] [address] 08/27/2021 15:28:24 08/27/2021 16:21:04 Opioid dependence 44317967 F11.20 Stable: >6 months without illicit opiate use [id number] Jessica Beach MD [facility] [address] [place] [address], [place] [address] 09/24/2021 08:47:38 09/24/2021 09:08:31 Opioid dependence 73958595 F11.20 Stable: >6 months without illicit opiate use [id number] Shannan Arrington NP [facility] [address] [place] [address], [place] [address] 10/22/2021 09:03:11 10/22/2021 09:27:22 Opioid dependence 82285163 F11.20 Stable [id number] Jessica Beach MD [facility] [address] [place] [address], [place] [address] 11/19/2021 14:58:46 11/19/2021 16:26:26 Opioid dependence 16352374 F11.20 Stable: >6 months without illicit opiate use [id number] Jessica Beach MD [facility] [address] [place] [address], [place] [address] 7 12/17/2021 08:48:17 12/17/2021 09:10:53 Opioid dependence 23220571 F11.20 Stable: >6 months without illicit opiate use [id number] Jessica Beach MD [facility] [place] [address] 01/14/2022 13:36:42 01/14/2022 14:14:16 Opioid dependence 23299817 F11.20 Stable: >6 months without illicit opiate use [id number] Jessica Beach MD [facility] [address] [place] [address], [place] [address] 7 02/11/2022 08:55:08 02/11/2022 09:57:13 Opioid dependence 01031972 F11.20 Stable: >6 months without illicit opiate use [id number] Jessica Beach MD [facility] [address] [place] [address], [place] [address] 03/11/2022 08:46:26 03/11/2022 11:31:35 Opioid dependence 62641442 F11.20 Stable [id number] Jessica Beach MD [facility] [address] [place] [address] 04/08/2022 08:39:11 04/08/2022 09:14:25 Opioid dependence 21045162 F11.20 Stable [id number] Indio Solomon DO [facility] [address] [place] [address] 05/06/2022 08:43:58 05/06/2022 11:37:03 Opioid dependence 92774167 F11.20 STABLE [id number] Shannan Arrington NP [facility] [address] [place] [address] 06/03/2022 08:47:29 06/03/2022 09:15:52 Opioid dependence 95720081 F11.20 Stable [id number] Shannan Arrington, DARIA [facility] [address] [place] [address] 07/01/2022 08:47:51 07/01/2022 14:48:46 Opioid dependence 18001146 F11.20 Stable [id number] Shannan Arrington, DARIA [facility] [address] [place] [address] 07/22/2022 08:44:41 07/22/2022 15:33:35 Opioid dependence 42874200 F11.20 Stable [id number] Shannan Arrington, DARIA [facility] [address] [place] [address] 08/19/2022 09:00:40 08/19/2022 09:50:03 Opioid dependence 84416514 F11.20 Stable [id number] Jessica Beach MD [facility] [address] [place] [address] 09/22/2022 08:47:36 09/22/2022 09:17:54 Opioid dependence 91180010 F11.20 STABLE [id number] Karlee Hamilton [facility], [employer] [facility] [address] [place] [address] 10/20/2022 08:45:01 10/20/2022 09:24:50 Opioid dependence 29359846 F11.20 Stable [id number] Karlee Hamilton [facility], [employer] [facility] [address] [place] [address] 7 11/17/2022 08:49:25 11/17/2022 09:20:49 Opioid dependence 61991462 F11.20 Stable [id number] Clara Catherine NP [facility] [address] [place] [address] 12/15/2022 08:43:52 12/15/2022 09:05:14 Opioid dependence 17097888 F11.20 Stable [id number] Clara Catherine NP [facility] [address] 01/12/2023 08:41:26 01/12/2023 09:05:19 Opioid dependence 53064030 F11.20 Stable [id number] August Trammell MCP [facility] [address] [place] [address] 7 01/12/2023 10:02:33 01/12/2023 10:04:26 [id number] Jesscia Beach MD [facility] [address] 02/09/2023 08:46:53 02/09/2023 10:45:08 Opioid dependence 26923828 F11.20 Stable: >6 months without illicit opiate use [id number] Clara Catheirne NP [facility] [address] [place] [address] 03/10/2023 08:48:48 03/10/2023 10:58:52 Opioid dependence 53267082 F11.20 Stable [id number] Clara Catherine NP [facility] [address] [place] [address] 04/08/2023 08:49:47 04/08/2023 09:16:34 Opioid dependence 40364233 F11.20 Stable [id number] Clara Catherine NP [place] [address] [place] [address] 05/05/2023 08:59:42 05/05/2023 09:23:40 Opioid dependence 73963705 F11.20 Stable [id number] Clara Catherine NP [place] [address] [place] [address] 7 06/02/2023 08:34:40 06/02/2023 09:52:01 Opioid dependence 34814122 F11.20 Stable Pain of knee region 1003 333369 M25.569 UNSTABLE: HAD FLUID ASPIRATION AND CORTISONE INJ BY DR CORONADO Diarrhea 52037335 R19.7 UNSTABLE [id number] Clara Catherine NP [place] [address] [place] [address] 7 06/30/2023 08:40:42 06/30/2023 08:57:06 Opioid dependence 67838775 F11.20 Stable [id number] Jessica Beach MD [place] [address] [place] [address] 2023 08:42:48 2023 09:00:50 Opioid dependence 92192721 F11.20 Stable [id number] Thad Tate NP [place] [address] [place] [address] 08/25/2023 08:43:43 08/25/2023 09:00:33 Opioid dependence 69023728 F11.20 STABLE [id number] Karlee devries, [employer] [place] [address] [place] [address] 09/15/2023 09:20:07 09/15/2023 09:44:54 Opioid dependence 37657960 F11.20 STABLE [id number] Parisa Kauffman NP [facility] [address] [place] [address] 10/13/2023 08:35:15 10/13/2023 10:57:26 Opioid dependence 40775290 F11.20 STABLE [id number] Jennifer Paul MD [facility] [address] [place] [address] 11/09/2023 12:51:34 11/09/2023 13:27:09 Opioid dependence 89721915 F11.20 Stable [id number] Clara Catherine NP [place] [address] [place] [address] 12/07/2023 08:46:06 12/07/2023 09:55:22 Opioid dependence 67674524 F11.20 Stable Abnormal weight loss 267 887160 R63.4 UNSTABLE, PT TO SCHEDULE APPT WITH PCP. [id number] Karlee devries, SAMY [place] [address] [place] [address] 01/04/2024 08:42:47 01/04/2024 08:55:23 Opioid dependence 24281466 F11.20 STABLE [id number] Clara Catheirne NP [facility] 50 [place] [address] 02/01/2024 08:47:32 02/01/2024 09:28:22 Opioid dependence 30633636 F11.20 Stable [id number] Clara Catheirne NP [facility] [address] [place] [address] 7 02/29/2024 08:43:50 02/29/2024 09:15:54 Opioid dependence 88592233 F11.20 Stable [id number] Clara Catherine NP [facility] [address] [place] [address] 03/28/2024 08:42:27 03/28/2024 10:16:09 Opioid dependence 80689276 F11.20 Stable [id number] Clara Catherine NP [facility] [address] [place] [address] 04/25/2024 08:37:36 04/25/2024 13:19:14 Opioid dependence 95190149 F11.20 Stable [id number] Clara Catherine NP [place] [address] [place] [address] 7 05/23/2024 08:51:14 05/23/2024 09:57:15 Opioid dependence 66168906 F11.20 Stable [id number] Clara Catherine NP [place] [address] [place] [address] 06/20/2024 08:34:09 06/20/2024 09:37:40 Opioid dependence 36344207 F11.20 Stable [id number] Clara Catherine NP [place] [address] [place] [address] 07/19/2024 08:35:31 07/19/2024 09:01:51 Opioid dependence 32330913 F11.20 Stable Health Concerns Section Related Observation LastModified by Organization Detai ls LastModified Time None Recorded Concern Status LastModified by Organization Details LastModified Time None Recorded Advance Directives Directive None Recorded Payers Insurance Date Sequence Insurance Name Policy Number Policy Wynn Covered Member ID Wynn Member ID Guarantor Name 03/10/2023 1 [facility] - DOS PRIOR TO 2022 - DUAL ELIGIBLE (MEDICARE REPLACEMENT/A DVANTAGE - HMO) Bryant Jay [id number] Bryant Jay 03/10/2023 2 [place]: [employer]ATIONAL [employer] Bryant Jay [id number] Bryant Jay 07/15/2024 [facility] - OPTIONS Bryant Jay [id number] Bryant Jay 07/15/2024 1 [facility] - DOS ON OR AFTER 2022 - MEDICARE [place]ANTAGE [place] (MED[place]ARE REPLACEMENT/A DVANTAGE - PPO) Bryant Jay [id number] Bryant Jay Notes Date Note Type Note Provider Name and Address Organization Details Recorded Time 03/28/2024 text/html This patient is here today for their follow-up MAT visit. They are being treated for OUD with buprenorphine. PLEASE SEE A & P SECTION FOR FULL VISIT NOTE Clara Catherine NP [address] [place], [address], [facility] 03/28/2024 09:02:39 04/25/2024 text/html This patient is here today for their follow-up MAT visit. They are being treated for OUD with buprenorphine. PLEASE SEE A & P SECTION FOR FULL VISIT NOTE Clara Catherine NP [address] [place], [address], [facility] [employer] [facility] 04/25/2024 12:39:59 05/23/2024 text/html This patient is here today for their follow-up MAT visit. They are being treated for OUD with buprenorphine. PLEASE SEE A & P SECTION FOR FULL VISIT NOTE Clara Catherine NP [address] [place], [address], [facility] [employer] [facility] 05/23/2024 09:07:55 06/20/2024 text/html This patient is here today for their follow-up MAT visit. They are being treated for OUD with buprenorphine. PLEASE SEE A & P SECTION FOR FULL VISIT NOTE Clara Catherine NP [address] [place], [address], [facility] [employer] [facility] 06/20/2024 08:52:17 07/19/2024 text/html This patient is here today for their follow-up MAT visit. They are being treated for OUD with buprenorphine. PLEASE SEE A & P SECTION FOR FULL VISIT NOTE Clara Catherine NP [address] [place], [address], [facility] [employer] [facility] 07/19/2024 08:53:08
== END 2024-08-04 10:29 | disposition home or self-care (01) ==
LOC: HO.HMCFM 09:23
PROVIDERS: PCP Family Medicine; Visit Provider Family Medicine
DX: R06.09 Other forms of dyspnea (principal); R07.9 Chest pain, unspecified; E11.9 Type 2 diabetes mellitus without complications

== ENCOUNTER → 2024-08-04 09:22 | Outpatient (BNVA) | payer OTHER, SELFPAY | PROVIDERS: PCP Family Medicine; Visit Provider Family Medicine | DX: E11.9 Type 2 diabetes mellitus without complications (principal); R06.9 Unspecified abnormalities of breathing; R07.9 Chest pain, unspecified; Z79.84 Long term (current) use of oral hypoglycemic drugs | CPT/HCPCS: 83036; 99212 ==

== ENCOUNTER 2024-08-04 10:51 | Outpatient (REF) | payer OTHER, SELFPAY ==
[2024-08-04 14:10] LABS: MANUAL DIFF FLAG NO
[2024-08-04 14:22] LABS: Basophils Percent Auto 0.7 % (0-2); Eosinophils Absolute Auto 0.2 X10*3/uL (0.0-0.4); Eosinophils Percent Auto 3.8 % (0-4); Hematocrit 39.5 % (42.0-52.0); Hemoglobin 12.8 g/dl (14.0-18.0); Lymphocytes Absolute Auto 1.3 X10*3/uL (1.2-4.9); Lymphocytes Percent Auto 29.5 % (20-40); Mean Corpuscular HGB Conc 32.4 g/dl (31.0-36.0); Mean Corpuscular Hemoglobin 29.4 pg (27.0-33.0); Mean Corpuscular Volume 90.6 fL (80.0-98.0); Mean Platelet Volume 10.4 fL (9.4-12.4); Monocytes Absolute Auto 0.3 X10*3/uL (0.1-1.2); Monocytes Percent Auto 7.1 % (2-11); Neutrophils Absolute Auto 2.7 x10*3/uL (2.0-8.3); Neutrophils Percent Auto 58.9 % (45-73); Platelet Count 154 X10*3/uL (160-400); Red Blood Count 4.36 X10*6/uL (4.60-5.80); Red Cell Distribution Width 12.3 % (11.0-16.0); White Blood Count 4.5 X10*3/uL (4.8-10.8)
[2024-08-04 14:36] LABS: Alanine Aminotransferase 24 U/L (0-40); Albumin Level 4.8 g/dL (3.5-5.0); Alkaline Phosphatase 71 U/L (39-117); Anion Gap 12 (12-20); Aspartate Amino Transferase 31 U/L (5-37); Bilirubin Total 0.3 mg/dL (0.0-1.0); Blood Urea Nitrogen 15 mg/dL (9-16); Calcium 9.5 mg/dL (8.4-10.2); Carbon Dioxide 30 mmol/L (22-29); Chloride 105 mmol/L (96-108); Estimated Glomerular Filt Rate > 60; Glucose Random 90 mg/dL (60-115); Potassium 4.5 mmol/L (3.3-5.1); Sodium 142 mmol/L (135-145); Total Protein 7.4 g/dL (6.5-8.0)
[2024-08-04 14:37] LABS: INTERNATIONAL NORM RATIO 2.6 (0.9-1.1)
[2024-08-04 14:39] LABS: D Dimer High Sensitivity < 150 NG/ML
== END 2024-08-04 10:52 | disposition home or self-care (01) ==
LOC: HO.WFDLDS 10:51
PROVIDERS: Visit Provider Family Medicine
DX: Z00.00 Encounter for general adult medical examination without abnormal findings (principal); R06.09 Other forms of dyspnea; Z79.01 Long term (current) use of anticoagulants; E11.9 Type 2 diabetes mellitus without complications
CPT/HCPCS: 36415; 80053; 84484; 85025; 85379; 85610

== ENCOUNTER → 2024-08-16 08:32 | Outpatient (REF) | payer OTHER, SELFPAY ==
--- NOTE | 2024-08-16 08:35 | CA_ITS ---
Acquisition Time: 2024-08-16 08:59:12 Total Exercise Time: 00:05:00 Test Indications: CP, SOB Medications: SEE H&P Protocol: ZEYAD Max HR: 137 BPM 88% of Pred: 155 BPM Max BP: 178/50 mmHG Max Work Load: 7.0 METS Exercise stress test with exercise 5 mins of Zeyad Protocol, achieving 88% MPHR, with reports of severe SOB and dizziness, no chest pain, without any arrythmias, with normotensive response to exercise. Without any EKG chnages meeting criteria for ischemia. In recovery, pt's breathing improved to baseline. Dizziness improved slowly. Recommend nuclear stress test for further evaluation. Test reviewed with Dr. Deluna. Referred By: Mohsen Tidwell Electronically Signed By: Alejandro Cadena
== END ==
LOC: HO.CARD 08:32
PROVIDERS: PCP Family Medicine; Visit Provider Family Medicine
DX: R07.9 Chest pain, unspecified (principal); R06.09 Other forms of dyspnea
CPT/HCPCS: 93017

== ENCOUNTER → 2024-08-16 08:35 | Outpatient (BNV) | payer OTHER, SELFPAY | PROVIDERS: PCP Family Medicine | DX: R06.02 Shortness of breath (principal) | CPT/HCPCS: 93016; 93018 ==

== ENCOUNTER 2024-09-26 08:21 | Outpatient (REF) | payer OTHER, SELFPAY ==
--- OUTSIDE RECORDS SUMMARY | 2024-09-26 08:35 | XMS_ITS | Clinical Summary ---
Author Organization [facility] Address [address] [place] [id number] Phone Care Team Providers Care Mortgage Accounting Clerk Name Role Phone Mohsen Tidwell MD Primary Care Provider Allergies No known active allergies Social History Tobacco Use Types Packs/Day Years Used Date Smoking Tobacco: Former Alcohol Use Standard Drinks/Week Comments Not Currently 0 (1 standard drink = 0.6 oz pur e alcohol) Education Answer Date Recorded Are you interested in more education? Not on nic e 06/20/2022 Are you concerned about learning? Not on file 06/20/2022 No 06/20/2022 No 06/20/2022 Digital Access Answer Date Recorded No 07/19/2022 No 07/19/2022 No 07/19/2022 Reliable internet access at home? Not on file 07/19/2022 Device with a working camera? Not on file Sex and Gender Information Value Date Recorded Sex Assigned at Male 03/10/2019 7:44 PM EST Legal Sex Male 6:55 PM EST Gender Identity Male 03/10/2019 7:44 PM EST Sexual Orientation Straight 03/10/2019 7: 44 PM EST Last Filed Vital Signs Vital Sign Reading Time Taken Comments Blood Pressure 152/78 03/10/2019 9:28 PM EST Pulse 89 03/10/2019 9:28 PM EST Temperature 36.9 C (98.5 F) 03/10/2019 7:34 PM EST Respiratory Rate 15 03/10/2019 9:28 PM EST Oxygen Saturation 96% 03/10/2019 9:28 PM EST Inhaled Oxygen Concentration - - Weight 127 kg (280 lb) 03/10/2019 7:34 PM EST Height 185.4 cm (6' 1 ) 03/10/2019 7:34 PM EST Body Mass Index 36.94 03/10/2019 7:34 PM EST Plan of Treatment Health Maintenance Due Date Last Done Comments LIPID PANEL 1959 DEPRESSION SCREENING 1971 SMOKING Hx and SMOKELESS TOBACCO SCREENING 07/27/1972 HEPATITIS C SCREENING 07/27/1977 HIV ONE-TIME SCREENING (18-6 5 YEARS) 07/27/1977 COLOGUARD 07/27/2004 COLONOSCOPY 07/27/2004 COLORECTAL CANCER SCREENING 07/27/2004 FIT TEST 07/27/2004 FOBT 07/27/2004 SIGMOIDOSCOPY 07/27/2004 VIRTUAL COLONOSCOPY 07/27/2004 ZOSTER VACCINES (1 of 2) 07/27/2009 PNEUMOCOCCAL VACCINES (50+ years) (2 of 2 - PCV) 03/07/2017 03/07/2016, 08/23/2015 Adult Td,Tdap Booster 12/29/2021 12/30/2011 COVID-19 VACCINE (2 - 2023-2 5 season) 2023 06/12/2020 ABDOMINAL AORTIC ANEURYSM (AAA) SCREENING 07/27/2024 RSV VACCINE (1 - 1-dose 75+ series) 07/27/2034 HEPATITIS A VACCINES Aged Out No long er eligible based on patient's age to complete this topic HIB VACCINES Aged Out No longer eligi ble based on patient's age to complete this topic MENINGOCOCCAL VACCINES (ACWY) Aged Out No longer eligible based on patient's age to complete this topic MENINGOCOCCAL VACCINES (B) Aged Out N o longer eligible based on patient's age to complete this topic Medical Devices Not on file Insurance [facility] ONE CARE MEDICARE REPLACEMENT [facility] CARE MEDICARE REPLACEMENT [facility] CARE MEDICARE REPLACEMENT [facility] Care Teams Mortgage Accounting Clerk Relationship Specialty Start Date End Date Mohsen Tidwell MD [address] [place] [address] PCP - General 03/10/19 Additional Source Comments The information contained in this document represents components of the legal health record. It is not the complete legal health record.[facility]
== END 2024-09-26 08:22 | disposition home or self-care (01) ==
LOC: HO.LAB 08:21
PROVIDERS: PCP Family Medicine; Visit Provider Urology
DX: E29.1 Testicular hypofunction (principal)
CPT/HCPCS: 36415; 84403

== ENCOUNTER 2024-09-28 16:19 | Outpatient (AMB) | payer OTHER, SELFPAY ==
--- NOTE | 2024-09-28 16:32 | A.OFFPC_ITS ---
Vital Signs 09/28/24 16:36 Height 6 ft 1 in Weight 253 lb 8 oz BMI 33.4 BP 110/60 Blood Pressure Location Rt brachial Position Sitting Respiration 14 Pulse 66 Pulse Source Pulse Oximeter Temp 97.7 F Temp Source Oral Pulse Oximetry (%) 66 L Oxygen Delivery Method Room Air Intake Visit Reasons: dyspnea on exertion with some chest pain Intake Note: patient is scheduled to follow up for chest pain pt had a stress test done and cardiology suggested a nuclear stress test is needed Hand Former Required: No Allergies No Known Allergies Allergy (Verified 09/28/24 16:35) Medication List - Last Reconciled 09/28/24 by Mohsen Tidwell MD acetaminophen 500 mg PO Q6H PRN alfuzosin ER 10 mg PO DAILY 90 days atorvastatin 80 mg PO BEDTIME 30 days buprenorphine-naloxone 8-2 mg (Suboxone) 2 strips sublingual DAILY cholecalciferol (vitamin D3) 2,000 units PO DAILY 90 days citalopram 20 mg PO DAILY 90 days lisinopril 5 mg PO DAILY metformin 500 mg PO BID 90 days warfarin 7.5 mg See Protocol PO DAILY Tobacco use date assessed: 06/28/24 Dental Screening Dental Screen Date: 06/28/24 HPI dyspnea on exertion with some chest pain HPI Details 64 y/o male presents to f/u dyspnea, dayday st pain. EKG had looked fine. Stress test 08/16/24: Exercise stress test with exercise 5 mins of Reji Protocol, achieving 88% MPHR, with reports of severe SOB and dizziness, no chest pain, without any arrythmias, with normotensive response to exercise. Without any EKG chnages meeting criteria for ischemia. In recovery, pt's breathing improved to baseline. Dizziness improved slowly. Recommend nuclear stress test for further evaluation. Test reviewed with Dr. Deluna. Reports black, streaky stools. Has complaints of a mouth lesion. HPI Comments History of Present Illness Details Documentation assistance for Mohsen Tidwell MD, was provided by Doug Pat,? [employer] on 09/28/2024 at 5:10 PM EST. I, Dr. Tidwell, have read, observed, and verified documentation. ? PFSH Medical History (Updated 09/28/24 @ 17:27 by Doug Pat) DVT (deep venous thrombosis) Hypercholesterolemia Anxiety with depression History of subarachnoid hemorrhage (~2015) History of hepatitis C History of bladder cancer (~2013) Personal history of nicotine dependence Diabetes mellitus Obstructive sleep apnea Essential hypertension Ureteral stone with hydronephrosis Erectile dysfunction Chronic pulmonary embolism (~2012) Surgical History History of colonoscopy History of left knee surgery History of transurethral resection of bladder tumor (TURBT) History of biopsy of bladder Family History Father HTN (hypertension) Cancer Myocardial infarction Cancer of prostate Mother HTN (hypertension) Brother No problems noted. Brother Diabetes mellitus Sister No problems noted. Sister No problems noted. Social History Household Members: Spouse Housing: House Are you a primary anesthesiologist and critical care to a significant other at home: No Do you presently have visiting nurse or other home services: No Patient Tobacco Use Status: Former Tobacco user e-Cigarette/Vaping Use: Never Used Second Hand Smoke Exposure: No Substance Use Type: Marijuana service: No Current occupational status: disabled Current occupational exposures/hazards: No Cognitive needs: No Hearing needs: No Vision needs: No Questionnaire Thrive Questionnaire Date Thrive assessed: 06/28/24 I am a: Patient What is your living situation today?: I have a steady place to live Within the past 12 months, did the food you bought not last and you didn't have the money to get more?: I choose not to answer this question Within the past 12 months, did you worry whether your food would run out before you got money to buy more?: I choose not to answer this question Do you have trouble paying for medicines?: I choose not to answer this question Do you have trouble getting transportation to medical appointments?: I choose not to answer this question Do you have trouble paying your heating and electricity bill?: I choose not to answer this question Do you have trouble taking care of your child, family member or friend?: I choose not to answer this question Do you have trouble with day-to-day activities such as bathing, preparing meals, shopping, managing finances, etc.?: I choose not to answer this question Are you currently unemployed and looking for a job?: I choose not to answer this question Are you interested in more education?: I choose not to answer this question Please select the resources that you would like help with: None Currently or been in a relationship where the following occur: I choose not to answer THRIVE Score: 0 MARISA-7 AMB Questionnaire MARISA-7 Date MARISA - 7 assessed: 06/28/24 Source: Developed by Drs. August Alejandro, Radha Belcher, Higinio Aguilar and colleagues, with an educational xochilt from [employer]. Review of Systems Const Denies chills, Denies fatigue, Denies fever(s), Denies headache(s) and Denies weakness ENT Denies dizziness and Denies headache(s) Card Denies dyspnea Resp Denies cough, Denies dyspnea, Denies wheezing and Denies other (shortness of breath) Musc Denies numbness and Denies tingling Neuro Denies dizziness, Denies headache(s), Denies numbness, Denies tingling and Denies weakness Psych Denies anxiety and Denies depression Endo Denies fatigue Aller/Immun Denies wheezing Physical exam (Primary Care) Vital Signs: Last Vital Signs Temp 97.7 F 09/28/24 16:36 Pulse 66 09/28/24 16:36 Resp 14 09/28/24 16:36 BP 110/60 09/28/24 16:36 Pulse Ox 66 L 09/28/24 16:36 Oxygen Delivery Method Room Air 09/28/24 16:36 BMI result Body Mass Index 33.4 Tobacco/Smoking Status: Tobacco use Status Tobacco use date assessed 06/28/24 09/28/24 16:38 Patient Tobacco Use Status Former Tobacco user 09/28/24 16:38 e-Cigarette/Vaping Use Never Used 09/28/24 16:38 Thrive Assessment: Date of Thrive Assessment Date Thrive assessed 06/28/24 09/28/24 16:38 Currently or been in a relationship where the following occur: I choose not to answer Const General: well developed; No acute distress Nutritional Appearance: well nourished Orientation/consciousness: patient oriented x3 HENMT Head: Yes normocephalic and Yes atraumatic Eyes General: appearance normal, both eyes and all related structures Pupils: Equal, round and reactive pupils present EOM: EOMs intact bilaterally Resp Effort & Inspection: normal respiratory effort Neuro General: patient oriented x3 and gait normal Cranial nerves: Yes Equal, round and reactive pupils present Psych Affect: normal affect Coding Level of Care Code Est Pt Level 3 (84488) Diagnoses Left-sided chest pain R07.9 Dyspnea on exertion R06.09 Blood in stool K92.1 Dizziness R42 Mouth lesion K13.70 Assessment & Plan Assessment & Plan (1) Left-sided chest pain: Code(s): R07.9 - Chest pain, unspecified Category: Medical Plan: Stress test did not show ischemia or infarction. He did have some dizziness on recovery phase of the test. Recommended nuclear stress test - ordered (2) Dyspnea on exertion: Code(s): R06.09 - Other forms of dyspnea Category: Medical Plan: As above (3) Blood in stool: Code(s): K92.1 - Melena Category: Medical Plan: Referred to Gastroenterology Will check CBC (4) Dizziness: Code(s): R42 - Dizziness and giddiness Category: Medical Plan: Patient has some dizziness and his was wondering about his medications Alfuzosin could cause some dizziness Advised him to hydrate well, stand up slowly Balancing risks vs benefits Discuss with his urologist. (5) Mouth lesion: Code(s): K13.70 - Unspecified lesions of oral mucosa Category: Medical Plan: Papular lesion of oral mucosa at hard palate Recommended he follow-up with his dentist Orders: Orders Complete Blood Count Auto Diff 09/28/24 K92.1 - Melena, Z00.00 - Encounter for general adult medical examination without abnormal findings Comprehensive Met. Panel 09/28/24 K92.1 - Melena Referrals Gastroenterology Referral K92.1 - Melena
--- OUTSIDE RECORDS SUMMARY | 2024-09-28 16:32 | XMS_ITS | Clinical Summary ---
Author Organization [facility] Address [address] [place] [phone] Phone Care Team Providers Care Baker Head Name Role Phone Mohsen Tidwell MD Primary [...] Medical Devices Not on file Insurance [facility] ONE CARE MEDICARE REPLACEMENT [facility] MEDICARE REPLACEMENT [facility] MEDIC[facility]AC[facility] INSUR[facility] Care Teams Baker Head Relationship Specialty Start Date End Date Mohsen Tidwell MD [address] [place] [address] PCP - General 03/10/19 Additional Source Comments The information contained in this document represents components of the legal health record. It is not the complete legal health record.[facility]
[2024-09-28 16:36] VITALS: BP 110/60; PULSE 66; RESP 14; TEMP 36.5; O2SAT 66; BMI 33.4
== END 2024-09-29 08:23 | disposition home or self-care (01) ==
LOC: HO.HMCFM 16:20
PROVIDERS: PCP Family Medicine; Visit Provider Family Medicine
DX: R07.9 Chest pain, unspecified (principal); R06.09 Other forms of dyspnea; K92.1 Melena; R42 Dizziness and giddiness; K13.70 Unspecified lesions of oral mucosa

== ENCOUNTER → 2024-09-28 16:19 | Outpatient (BNVA) | payer OTHER, SELFPAY | PROVIDERS: PCP Family Medicine; Visit Provider Family Medicine | DX: K92.1 Melena (principal); R06.00 Dyspnea, unspecified; R07.9 Chest pain, unspecified; R06.09 Other forms of dyspnea; R42 Dizziness and giddiness; K13.70 Unspecified lesions of oral mucosa | CPT/HCPCS: 99212 ==

== ENCOUNTER 2024-10-11 07:51 | Outpatient (AMB) | payer OTHER, SELFPAY ==
--- OUTSIDE RECORDS SUMMARY | 2024-10-11 07:54 | XMS_ITS | Clinical Summary ---
Author Organization [facility] Address [address] [facility] [address] [address] [place] [phone] Phone Care Team Providers Care Vibrator Equipment Tester Name Role Phone Mohsen Tidwell MD Primary [...] topic Medical Devices Not on file Insurance [facility] ONE CARE MEDICARE REPLACEMENT [facility] CARE MEDICARE REPLACEMENT [facility] CARE MEDICARE [facility] Care Teams Vibrator Equipment Tester Relationship Specialty Start Date End Date Mohsen Tidwell MD [address] [place] [address] PCP - General 03/10/19 Additional Source Comments The information contained in this document represents components of the legal health record. It is not the complete legal health record.[facility]
--- NOTE | 2024-10-11 07:58 | A.OFFVIS_ITS ---
Intake Visit Reasons: 4M follow up/ labs Intake Note: Patient is present for 4M F/U Urology Medication:Alfuzosin, Testosterone Antibiotic Allergy:NONE Blood Thinner:WARFARIN labs done :10/06/24 Total testosterone : 151 PVR:1 mls Milieu Coordinator Required: No Accompanied by: Self / Same As Patient Allergies No Known Allergies Allergy (Verified 10/11/24 07:59) HPI Comments Details: Mega is a pleasant male. He is a patient of Dr. Tidwell. He is seen for the following urologic conditions - erectile dysfunction - bladder cancer - hypogonadism - lower urinary tract symptoms Did not pickle solution maker testosterone gel Re prescription Three-month follow-up lab check Hypogonadism Previously given clomiphene with some response Not tolerating medication Background of diabetes and Suboxone Testosterone 01/16 225, 02/15 322, 05/17 390 - clomiphene stimulation, 10/17 151 - trial testosterone gel Free testosterone: 01/16 18.5, 02/15 30.6, 05/17 42 LH 01/16 2.2, 02/15 2.7 PSAs are as follows: 11/12 0.2, 03/15 0.3, 01/13 0.3, 07/16 0.2, 01/16 0.3 Prior therapy includes testosterone gel. Failure to increase testosterone. Bladder cancer superficial 2013 Prior TURBT 2013 30 year pack history of smoking Prior nephrolithiasis Treated hepatitis-C Cystoscopy - 01/15 NAD, 01/16 NAD Associated senile angiokeratomas Lower urinary tract symptoms Good response to terazosin PFSH Medical History (Updated 09/28/24 @ 17:27 by Doug Pat) DVT (deep venous thrombosis) Hypercholesterolemia Anxiety with depression History of subarachnoid hemorrhage (~2015) History of hepatitis C History of bladder cancer (~2013) Personal history of nicotine dependence Diabetes mellitus Obstructive sleep apnea Essential hypertension Ureteral stone with hydronephrosis Erectile dysfunction Chronic pulmonary embolism (~2012) Surgical History History of colonoscopy History of left knee surgery History of transurethral resection of bladder tumor (TURBT) History of biopsy of bladder Family History Father HTN (hypertension) Cancer Myocardial infarction Cancer of prostate Mother HTN (hypertension) Brother No problems noted. Brother Diabetes mellitus Sister No problems noted. Sister No problems noted. Social History Household Members: Spouse Housing: House Are you a primary care management associate to a significant other at home: No Do you presently have visiting nurse or other home services: No Patient Tobacco Use Status: Former Tobacco user e-Cigarette/Vaping Use: Never Used Second Hand Smoke Exposure: No Substance Use Type: Marijuana service: No Current occupational status: disabled Current occupational exposures/hazards: No Cognitive needs: No Hearing needs: No Vision needs: No Review of Systems Const Denies chills and Denies fever(s) Card Reports no additional complaints and Denies syncope Resp Denies cough GI Denies abdominal pain and Denies heartburn Reports as per HPI and Denies change in libido Neuro Denies syncope Psych Denies change in libido Endo Denies change in libido Physical Exam Const General: cooperative, healthy appearing, comfortable and no acute distress Orientation/consciousness: patient oriented x3 HEENT Face and sinus: Yes normal facial exam Mouth: moist mucous membranes Neck Neck: Yes normal visual inspection, Yes full ROM and Yes trachea midline Chest Chest palpation & inspection: normal inspection of the chest Resp Effort & Inspection: normal respiratory effort, able to speak in complete sentences and no respiratory distress GI Inspection: Yes normal to inspection Back/Spine/Pelvis Cervical Spine: normal cervical lordosis Thoracic/Lumbar Spine: thoracic and lumbar spine normal to inspection Skin General skin exam: no rashes or lesions noted Neuro General: patient oriented x3, gait normal, tone normal and moves all extremities Extrem General: Yes normal to inspection and Yes capillary refill normal Assessment & Plan Assessment & Plan (1) Hypogonadism in male: Code(s): E29.1 - Testicular hypofunction Category: Medical Plan Three-month follow-up lab work Orders: Orders Testosterone, Total 10 Weeks E29.1 - Testicular hypofunction Medications: New testosterone apply 1 packet daily 50 mg transdermal DAILY 150 grams 2RF 30 days E29.1 - Testicular hypofunction Patient Instructions: This note is constructed using voice recognition software. While every effort has been made to ensure accuracy technical support assistant errors may have been included. Imaging studies, laboratory and physical exam results were discussed and reviewed in detail. No major barriers to patient understanding were identified. An opportunity to ask questions regarding the treatment plan was provided. All questions were answered. The patient expressed understanding and agreement with the above treatment plan. The patient is aware they should contact our office by phone for worsening of their current condition or the appearance of new urologic symptoms. Compliance is encouraged with any medications and followup testing that is ordered. It is a privilege to participate in the urologic care of your patient. If you have any questions or concerns regarding treatment for the above conditions, or other urologic issues, please do not hesitate to contact me. The office telephone contact is [phone]. Sincerely, Dr Jarrod Watkins MD, [facility] - Urology Compassionate Specialist Care for the Genitourinary System Coding Level of Care Code Est Pt Level 3 (02249) Complex EM visit Add On G2211 Diagnoses Hypogonadism in male E29.1
== END 2024-10-11 08:43 | disposition home or self-care (01) ==
LOC: HO.HUSH 07:52
PROVIDERS: PCP Family Medicine; Visit Provider Urology
DX: Z13.9 Encounter for screening, unspecified (principal); E29.1 Testicular hypofunction
CPT/HCPCS: 99213; G2211

== ENCOUNTER → 2024-10-11 07:51 | Outpatient (BNVA) | payer OTHER, SELFPAY | PROVIDERS: PCP Family Medicine; Visit Provider Urology | DX: E29.1 Testicular hypofunction (principal) | CPT/HCPCS: 51798; 81003; 99212 ==

== ENCOUNTER 2024-10-31 14:15 | Outpatient (AMB) | payer OTHER, SELFPAY ==
--- NOTE | 2024-10-31 14:18 | A.OFFVIS_ITS ---
Vital Signs 10/31/24 14:20 Height 6 ft 1 in Weight 253 lb BMI 33.4 Intake Visit Reasons: OV- Left Knee pain/fluid Intake Note: Bryant is a 64 year old male who presents today for a follow up of his Left Knee, the knee was last aspiratied and injected about 1 year ago. He reports that this wsas helpful and he would like to reapeat today. Allergies No Known Allergies Allergy (Verified 11/01/24 08:57) HPI HPI OV- Left Knee pain/fluid: Details: 64-year-old gentleman who has had recurrent knee effusions and pain. The last aspiration/injection was helpful. He reports increasing pain with ambulation. It is localizes mostly to the medial aspect of the left knee. [facility] Medical History (Updated 10/11/24 @ 09:25 by Tess Baugh PA-C) DVT (deep venous thrombosis) Hypercholesterolemia Anxiety with depression History of subarachnoid hemorrhage (~2015) History of hepatitis C History of bladder cancer (~2013) Personal history of nicotine dependence Diabetes mellitus Obstructive sleep apnea Essential hypertension Ureteral stone with hydronephrosis Erectile dysfunction Chronic pulmonary embolism (~2012) Surgical History History of colonoscopy History of left knee surgery History of transurethral resection of bladder tumor (TURBT) History of biopsy of bladder Family History Father HTN (hypertension) Cancer Myocardial infarction Cancer of prostate Mother HTN (hypertension) Brother No problems noted. Brother Diabetes mellitus Sister No problems noted. Sister No problems noted. Social History Household Members: Spouse Housing: House Are you a primary intensive care specialist to a significant other at home: No Do you presently have visiting nurse or other home services: No Patient Tobacco Use Status: Former Tobacco user e-Cigarette/Vaping Use: Never Used Second Hand Smoke Exposure: No Substance Use Type: Marijuana service: No Current occupational status: disabled Current occupational exposures/hazards: No Cognitive needs: No Hearing needs: No Vision needs: No Physical Exam Vital Signs: BMI result Body Mass Index 33.4 Extrem Other: Medial compartment tenderness to palpation left knee. Mild effusion. Skin clean dry and intact. 0-130 degrees of motion. Antalgic gait. Office Procedures Joint Inj/Aspir; Non-Pain Clin Joint Injection/Drain Details: Injected 1 mL of Decadron and 3 mL 1% lidocaine and 3 mL of 0.25% Marcaine. Site was prepped using aseptic technique. Patient tolerated the procedure well. Shoulders, Hips, Knees, Knee Large Joint Injection : Left Knee Coding Procedure code (CPT) selection complete Assessment & Plan Assessment & Plan (1) Osteoarthritis of left knee: Code(s): M17.12 - Unilateral primary osteoarthritis, left knee Category: Medical Plan: 64-year-old with left knee arthritis. I injected his left knee today. Insufficient fluid to drain. Coding Level of Care Code Est Pt Level 3 (33920) Diagnoses Osteoarthritis of left knee M17.12 CPT Codes Shoulders, Hips, Knees, - Knee Large Joint Injection : Left Knee ([id number])
[2024-10-31 14:20] VITALS: BMI 33.4
--- OUTSIDE RECORDS SUMMARY | 2024-10-31 16:36 | XMS_ITS | Clinical Summary ---
Author Organization [facility] Address [address] [address] [place] [phone] Phone Care Team Providers Care Animal Pathologist Name Role Phone Mohsen Tidwell MD Primary [...] 03/07/2016, 08/23/2015 Adult Td,Tdap Booster 12/29/2021 12/30/2011 ABDOMINAL AORTIC ANEURYSM (AAA) SCREENING 07/27/2024 INFLUENZA VACCINE (#1) 2024 0, 04/26/2019, 03/07/2016 COVID-19 VACCINE (2 - 2024-2 6 season) 2024 06/12/2020 RSV VACCINE (1 - 1-dose 75+ series) [...] topic Medical Devices Not on file Insurance [facility] ONE CARE MEDICARE REPLACEMENT [facility] MEDICARE REPLACEMENT [facility] ONE CARE MEDICARE REPLACEMENT [facility] CARE MEDICARE REPLACEMENT [employer]UR[employer] Care Teams Animal Pathologist Relationship Specialty Start Date End Date Mohsen Tidwell MD [address] [place] [address] PCP - General 03/10/19 Additional Source Comments The information contained in this document represents components of the legal health record. It is not the complete legal health record.[facility]
== END 2024-10-31 14:37 | disposition home or self-care (01) ==
LOC: HO.HOS 14:16
PROVIDERS: PCP Family Medicine; Visit Provider Orthopaedic Surgery
DX: M17.12 Unilateral primary osteoarthritis, left knee (principal)
CPT/HCPCS: 20610; 99213

== ENCOUNTER → 2024-10-31 14:15 | Outpatient (BNVA) | payer OTHER, SELFPAY | PROVIDERS: PCP Family Medicine; Visit Provider Orthopaedic Surgery | DX: M25.562 Pain in left knee (principal); M17.12 Unilateral primary osteoarthritis, left knee | CPT/HCPCS: 20610; 99212; J0665; J1100; J2003 ==

== ENCOUNTER 2024-11-01 08:51 | Outpatient (AMB) | payer OTHER, SELFPAY ==
[2024-11-01 09:10] LABS: Prothrombin Time Whole Bld POC 22.2 sec (11.1-13.5); ~PT, ~INR - Anti Coag Clinic 1.8 (0.9-1.1)
--- OUTSIDE RECORDS SUMMARY | 2024-11-01 10:01 | XMS_ITS | Clinical Summary ---
Author Organization [facility] Address [address] [place] [phone] Phone Care Team Providers Care Cattle Farmer Name Role Phone Mohsen Tidwell MD Primary [...] topic Medical Devices Not on file Insurance [facility] ONE CARE MEDICARE [facility]PL[facility] MEDICARE REPLACEMENT [facility] ONE CARE MEDICARE REPLACEMENT [facility] CARE MEDICARE REPLACEMENT [employer] INSURANCE Care Teams Cattle Farmer Relationship Specialty Start Date End Date Mohsen Tidwell MD [address] [place] [address] PCP - General 03/10/19 Additional Source Comments The information contained in this document represents components of the legal health record. It is not the complete legal health record.[facility]
--- NOTE | 2024-11-01 11:16 | MHC.OFFVISCO ---
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 out of therapeutic range- warfarin dose was held last week Medications and supplements reviewed Patient status: well offers no complaints, he would rather resume usual dose and eat to help keep INR in range Medications or supplements: updated to pt med list Diet: good Denies any signs and symptoms of bleeding or clotting or unusual bruising Bleeding, bruising, clotting discussed Nutritional guidance given: avoid greens x 3 days then resume usual diet Dose: 7.5mg daily F/U INR Date: 1 week ?? Patient verbalizing understanding of instructions given. Anti-Coag Initial Assessment Social Hx Patient Tobacco Use Status: Former Tobacco user Questionnaires HAS-BLED Does the patient had uncontrolled Hypertension?: No Does the patient have renal disease?: No Does the patient have liver disease?: Yes Does the patient have a history of stroke?: Yes (BRAIN INJURY) Has the patient had major bleeding or predisposition to bleeding?: Yes Does the patient have labile INRs?: No Is the patient over 65 years of age?: Yes Is the patient on medications that gives them a predisposition to bleeding?: Yes Does the patient use alcohol?: Yes HAS-BLED Score: 6 CHADSVASC Age: <65 Gender: Male Does the patient have a history of CHF?: No Does the patient have a history of Hypertension?: Yes Does the patient have a history of Stroke/TIA/Thromboembolism?: Yes Does the patient have a history of Vascular Disease (prior NE, PAD or aortic plaque)?: No Does the patient have a history of Diabetes?: Yes CHADS VACS Score: 4 Delmis Prediction Score Rsk VTE Active Cancer: No Previous VTE, excluding superficial vein thrombosis: Yes Reduced mobility: No Already known Thrombophilic Condition: No With-in last month Trauma and/or Surgery: No Elderly 70 year or older: No Heart and/or Respiratory Failure: No Acute Myocardial infarction and/or Ischemic Stroke: No Acute Infection and/or Rheumatologic Disorder: No Obesity (BMI 30 or greater): Yes Ongoing Hormonal Treatment: No Score: 4 Delmis Score less than 4; Low Risk of VTE Delmis Score 4 or greater; High Risk of VTE Coding Level of Care Code Est Patient Level 2 Diagnoses Current use of anticoagulant therapy Z79.01 Assessment & Plan Assessment & Plan (1) Current use of anticoagulant therapy: Onset Date: Code(s): Z79.01 - detention (current) use of anticoagulants Category: Medical Medications: New terazosin 5 mg PO DAILY
== END 2024-11-01 11:59 | disposition home or self-care (01) ==
LOC: HO.ACS 08:51
PROVIDERS: PCP Family Medicine; Visit Provider Internal Medicine Medical Oncology
DX: Z79.01 Long term (current) use of anticoagulants (principal)

== ENCOUNTER → 2024-11-01 08:51 | Outpatient (BNVA) | payer OTHER, SELFPAY | PROVIDERS: PCP Family Medicine; Visit Provider Internal Medicine Medical Oncology | DX: I26.99 Other pulmonary embolism without acute cor pulmonale (principal); Z79.01 Long term (current) use of anticoagulants; Z51.81 Encounter for therapeutic drug level monitoring | CPT/HCPCS: 85610; 99212 ==

== ENCOUNTER → 2024-12-14 07:37 | Outpatient (REF) | payer OTHER, SELFPAY ==
--- NOTE | ~2024-12-14 | NM_ITS ---
EXERCISE MYOCARDIAL PERFUSION STUDY INDICATION: Shortness of breath to evaluate for myocardial ischemia TECHNIQUE: The patient was brought in for an exercise perfusion study on 12/14/2024. Patient performed exercise as per Reji protocol and was injected 40 mCi of sestamibi once target heart rate was achieved. Images were obtained using the SPECT gamma camera interlaced with the gating device. Images were obtained in supine position. Resting perfusion study was performed on 12/15/2024. Patient was administered 40 mCi of sestamibi intravenously at rest. Images were then obtained in supine position. Images obtained with and without CT attenuation. Total DLP 118 mGy-cm. Images were processed with the software and compared side to side in short axis, horizontal long axis and vertical long axis views. FINDINGS: Raw images were reviewed The stress perfusion study showed nonattenuated images show overall normal uptake of radiotracer in all segments of the LV myocardium with minimal reduced uptake in the basal inferior wall. Attenuated corrected images show minimally reduced uptake in the apex of the LV myocardium. The gated study shows normal LV systolic function with calculated LVEF of 70%. LV cavity is normal in size. The gated study shows normal systolic wall thickening and contraction of segments. Resting study shows no change in perfusion pattern compared to stress perfusion study. Gating at rest reveals normal systolic wall motion with ejection fraction at 64%. The findings are consistent with normal myocardial perfusion. NM/NM vianney perf SPECT rest & str IMPRESSION: 1. Myocardial perfusion imaging study shows normal myocardial perfusion. 2. Gated LVEF is 70%. 3. Transient ischemic dilatation not present. EKG revealed negative for ischemia. Electronically signed by: Ba Tohmpson MD 12/16/2024 02:49 PM EDT
--- OUTSIDE RECORDS SUMMARY | 2024-12-14 07:40 | XMS_ITS | Clinical Summary ---
Author Organization [facility] Address [address] [facility] [address] [place] [phone] Phone Care Team Providers Care Project Director Name Role Phone Mohsen Tidwell MD Primary [...] [facility] ONE CARE MEDICARE REPLACEMENT [facility] MEDICARE REPLACEMENT [facility] ONE CARE MEDICARE REPLACEMENT [facility] C[facility] MEDICARE REPLACEMENT [employer] Care Teams Project Director Relationship Specialty Start Date End Date Mohsen Tidwell MD [address] [place] [address] PCP - General 03/10/19 Additional Source Comments The information contained in this document represents components of the legal health record. It is not the complete legal health record.[facility]
--- NOTE | 2024-12-14 07:41 | CA_ITS ---
Acquisition Time: 2024-12-14 08:03:02 Total Exercise Time: 00:07:15 Test Indications: CP,Dyspnea Medications: SEE H&P Protocol: ZEYAD Max HR: 133 BPM 85% of Pred: 155 BPM Max BP: 178/54 mmHG Max Work Load: 7.4 METS Exercise stress test with exercise 7 mins 15 secs of Zeyad Protocol at a reduced speed of 2.5mph, achieving 85% MPHR, with reports of SOB and dizziness, without any arrythmias, with normotensive response to exercise. Without any EKG changes meeting criteria for ischemia. In recoverty, breathing returned to baseline and dizziness improved. Nuclear images pending. Test reviewed with Dr. Thompson. Referred By: Mohsen Tidwell Electronically Signed By: Alejandro Cadena
== END ==
LOC: HO.CARD 07:37
PROVIDERS: PCP Family Medicine; Visit Provider Family Medicine
DX: R06.09 Other forms of dyspnea (principal); R07.9 Chest pain, unspecified; R06.02 Shortness of breath
CPT/HCPCS: 78452; 93017; A9500

== ENCOUNTER → 2024-12-14 07:41 | Outpatient (BNV) | payer OTHER, SELFPAY | PROVIDERS: PCP Family Medicine | DX: R06.02 Shortness of breath (principal) | CPT/HCPCS: 78452; 93016; 93018 ==

== ENCOUNTER 2024-12-17 07:28 | Outpatient (REF) | payer OTHER, SELFPAY ==
--- OUTSIDE RECORDS SUMMARY | 2024-12-17 07:31 | XMS_ITS | Clinical Summary ---
Author Organization [facility] Address [address] [facility] [address] [place] [phone] Phone Care Team Providers Care Carton Repairer Name Role Phone Mohsen Tidwell MD Primary [...] topic Medical Devices Not on file Insurance [facility] ONE CARE MEDICARE REPLACEMENT [facility] MEDICARE REPLACEMENT [facility] ONE CARE MEDICARE REPLACEMENT [facility] CARE MEDICARE REPLACEMENT [employer] Care Teams Carton Repairer Relationship Specialty Start Date End Date Mohsen Tidwell MD PCP - General 03/10/19 Additional Source Comments The information contained in this document represents components of the legal health record. It is not the complete legal health record.[facility]
[2024-12-17 07:36] LABS: MANUAL DIFF FLAG NO
[2024-12-17 08:21] LABS: Hematocrit 41.5 % (42.0-52.0); Hemoglobin 13.1 g/dl (14.0-18.0); Imm Gran Abs Auto 0.01 X10*3/uL (0.00-0.03); Imm Gran Pct Auto 0.2 % (0.0-0.4); Lymphocytes Absolute Auto 1.4 X10*3/uL (1.2-4.9); Mean Corpuscular HGB Conc 31.6 g/dl (31.0-36.0); Mean Corpuscular Hemoglobin 28.6 pg (27.0-33.0); Mean Corpuscular Volume 90.6 fL (80.0-98.0); NRBC Abs Auto 0.000 X10*3/uL (0.0-0.012); NRBC Pct Auto 0.0 /100WBC (0.0-0.2); Platelet Count 139 X10*3/uL (160-400); Red Blood Count 4.58 X10*6/uL (4.60-5.80); White Blood Count 4.6 X10*3/uL (4.8-10.8)
[2024-12-17 08:48] LABS: Alanine Aminotransferase 22 U/L (0-40); Albumin Level 4.5 g/dL (3.5-5.0); Alkaline Phosphatase 73 U/L (39-117); Anion Gap 10 (12-20); Aspartate Amino Transferase 28 U/L (5-37); Blood Urea Nitrogen 16 mg/dL (9-16); Calcium 9.1 mg/dL (8.4-10.2); Carbon Dioxide 30 mmol/L (22-29); Chloride 108 mmol/L (96-108); Estimated Glomerular Filt Rate > 60; Potassium 4.6 mmol/L (3.3-5.1); Sodium 143 mmol/L (135-145); Total Protein 7.1 g/dL (6.5-8.0)
== END 2024-12-17 07:29 | disposition home or self-care (01) ==
LOC: HO.LAB 07:28
PROVIDERS: PCP Family Medicine; Visit Provider Urology
DX: Z00.00 Encounter for general adult medical examination without abnormal findings (principal); E29.1 Testicular hypofunction; K92.1 Melena
CPT/HCPCS: 36415; 80053; 84403; 85025

== ENCOUNTER 2024-12-27 09:59 | Outpatient (AMB) | payer OTHER, SELFPAY ==
--- NOTE | 2024-12-27 10:43 | A.OFFPC_ITS ---
Vital Signs 12/27/24 10:50 Height 6 ft 1 in Weight 254 lb BMI 33.5 BP 128/70 Blood Pressure Location Rt brachial Position Sitting Respiration 14 Pulse 83 Pulse Source Pulse Oximeter Temp 97.3 F Temp Source Temporal Artery Scan Pulse Oximetry (%) 95 Oxygen Delivery Method Room Air Intake Visit Reasons: stress test results Intake Note: Bryant presents in the office today for a follow up to his stress test. Allergies No Known Allergies Allergy (Verified 12/27/24 10:49) Tobacco use date assessed: 12/27/24 Dental Screening Dental Screen Date: 12/27/24 Did you have a dental visit in the last 12 months?: Yes Did you have a dental problem in the last 6 months where you did not have access to dental care?: No Was dental information given to patient?: Patient has dentist HPI stress test results HPI Details 64 y/o male presents to f/u chest pain, dizziness. Stress test 12/14/24 was fine. A1c today 12/27/24 5.8%. He is on metformin 500mg b.i.d. Pt notes blood in stool has resolved. Does have mild anemia. [facility] Medical History (Updated 12/27/24 @ 11:27 by Doug Pat) DVT (deep venous thrombosis) Hypercholesterolemia Anxiety with depression History of subarachnoid hemorrhage (~2015) History of hepatitis C History of bladder cancer (~2013) Personal history of nicotine dependence Diabetes mellitus Obstructive sleep apnea Essential hypertension Ureteral stone with hydronephrosis Erectile dysfunction Chronic pulmonary embolism (~2012) Surgical History History of colonoscopy History of left knee surgery History of transurethral resection of bladder tumor (TURBT) History of biopsy of bladder Family History Father HTN (hypertension) Cancer Myocardial infarction Cancer of prostate Mother HTN (hypertension) Brother No problems noted. Brother Diabetes mellitus Sister No problems noted. Sister No problems noted. Social History (Updated 12/27/24 @ 10:50 by Antoinette Murphy CMA) Household Members: Spouse Housing: House Are you a primary home health care worker to a significant other at home: No Do you presently have visiting nurse or other home services: No Alcohol intake: current Patient Tobacco Use Status: Former Tobacco user e-Cigarette/Vaping Use: Never Used Second Hand Smoke Exposure: No Substance Use Type: Marijuana service: No Current occupational status: disabled Current occupational exposures/hazards: No Cognitive needs: No Hearing needs: No Vision needs: No Questionnaire Thrive Questionnaire Date Thrive assessed: 06/28/24 MARISA-7 AMB Questionnaire MARISA-7 Date MARISA - 7 assessed: 06/28/24 Source: Developed by Drs. August Alejandro, Radha Belcher, Higinio Aguilar and colleagues, with an educational xochilt from [employer]. Review of Systems Const Denies chills, Denies fatigue, Denies fever(s), Denies headache(s) and Denies weakness ENT Denies dizziness and Denies headache(s) Card Denies dyspnea Resp Denies cough, Denies dyspnea, Denies wheezing and Denies other (shortness of breath) Musc Denies numbness and Denies tingling Neuro Denies dizziness, Denies headache(s), Denies numbness, Denies tingling and Denies weakness Psych Denies anxiety and Denies depression Endo Denies fatigue Aller/Immun Denies wheezing Physical exam (Primary Care) Vital Signs: Last Vital Signs Temp 97.3 F 12/27/24 10:50 Pulse 83 12/27/24 10:50 Resp 14 12/27/24 10:50 BP 128/70 12/27/24 10:50 Pulse Ox 95 12/27/24 10:50 Oxygen Delivery Method Room Air 12/27/24 10:50 BMI result Body Mass Index 33.5 Tobacco/Smoking Status: Tobacco use Status Tobacco use date assessed 12/27/24 12/27/24 10:54 Patient Tobacco Use Status Former Tobacco user 12/27/24 10:50 e-Cigarette/Vaping Use Never Used 12/27/24 10:50 Thrive Assessment: Date of Thrive Assessment Date Thrive assessed 06/28/24 12/27/24 10:43 Const General: well developed; No acute distress Nutritional Appearance: well nourished Orientation/consciousness: patient oriented x3 HENMT Head: Yes normocephalic and Yes atraumatic Eyes General: appearance normal, both eyes and all related structures Pupils: Equal, round and reactive pupils present EOM: EOMs intact bilaterally Resp Effort & Inspection: normal respiratory effort Neuro General: patient oriented x3 and gait normal Cranial nerves: Yes Equal, round and reactive pupils present Psych Affect: normal affect Coding Level of Care Code Est Pt Level 4 (22437) Diagnoses Diabetes mellitus E11.9 Essential hypertension I10 Left-sided chest pain R07.9 Dyspnea on exertion R06.09 Mild anemia D64.9 Assessment & Plan Assessment & Plan (1) Diabetes mellitus: Code(s): E11.9 - Type 2 diabetes mellitus without complications Category: Medical Plan: A1c 5.8%. Good control. Goal is less than 7% Continue current medication (2) Essential hypertension: Code(s): I10 - Essential (primary) hypertension Category: Medical Plan: Blood pressure is controlled. Goal is less than 140/90 Continue current medications (3) Left-sided chest pain: Code(s): R07.9 - Chest pain, unspecified Category: Medical Plan: Stress test and myocardial perfusion imaging negative for ischemia (4) Dyspnea on exertion: Code(s): R06.09 - Other forms of dyspnea Category: Medical Plan: As above, stress test negative for ischemia Recent CT chest is unremarkable. He can continue to exercise (5) Mild anemia: Code(s): D64.9 - Anemia, unspecified Category: Medical Plan: Mild anemia and patient had Complaints Of GI bleeding. Had referred him to Gastroenterology. Patient went to appointment but canceled at visit due to cessation of any GI bleeding. Blood counts have been improving Will continue to follow H&H He will let me know if he has any further GI bleeding as well. Orders: Orders AMB Hemoglobin A1c Today E11.9 - Type 2 diabetes mellitus without complications Complete Blood Count Auto Diff Today D64.9 - Anemia, unspecified, Z00.00 - Encounter for general adult medical examination without abnormal findings Reticulocyte Count Today D64.9 - Anemia, unspecified IRON PROFILE Today D64.9 - Anemia, unspecified
[2024-12-27 10:50] VITALS: BP 128/70; PULSE 83; RESP 14; TEMP 36.3; O2SAT 95; BMI 33.5
--- OUTSIDE RECORDS SUMMARY | 2024-12-27 11:28 | XMS_ITS | Clinical Summary ---
Author Organization [facility] Address [address] [facility] [address] [place] [phone] Phone Care Team Providers Care Certified Novell Engineer Name Role Phone Mohsen Tidwell MD Primary [...] topic Medical Devices Not on file Insurance [facility] ONE CARE MEDICARE REPLACEMENT [facility] MEDICARE REPLACEMENT [facility] ONE CARE MEDICARE REPLACEMENT [facility] CARE MEDICARE REPLACEMENT [employer] Care Teams Certified Novell Engineer Relationship Specialty Start Date End Date Mohsen Tidwell MD PCP - General 03/10/19 Additional Source Comments The information contained in this document represents components of the legal health record. It is not the complete legal health record.[facility]
== END 2024-12-27 11:28 | disposition home or self-care (01) ==
LOC: HO.HMCFM 09:59
PROVIDERS: PCP Family Medicine; Visit Provider Family Medicine
DX: E11.9 Type 2 diabetes mellitus without complications (principal); I10 Essential (primary) hypertension; R07.9 Chest pain, unspecified; R06.09 Other forms of dyspnea; D64.9 Anemia, unspecified

== ENCOUNTER → 2024-12-27 09:59 | Outpatient (BNVA) | payer OTHER, SELFPAY | PROVIDERS: PCP Family Medicine; Visit Provider Family Medicine | DX: E11.9 Type 2 diabetes mellitus without complications (principal); I10 Essential (primary) hypertension; D64.9 Anemia, unspecified; R07.9 Chest pain, unspecified; R42 Dizziness and giddiness; R06.09 Other forms of dyspnea; Z79.84 Long term (current) use of oral hypoglycemic drugs | CPT/HCPCS: 83036; 99212 ==

== ENCOUNTER 2025-01-13 07:50 | Outpatient (AMB) | payer OTHER, SELFPAY ==
--- NOTE | 2025-01-13 07:51 | A.OFFVIS_ITS ---
Intake Visit Reasons: 3M Testosterone/PVR Intake Note: Patient Is Present for Testosterone Results Urology Med: Testosterone, Terazosin Antibiotic Allergy: None Blood Thinner: Warfarin Patient would like to discuss Testosterone injection verses Gel 12/17/24 TESTOSTERONE- 605 Last Cytology: 2023 Head Of Marketing Adometry Required: No Accompanied by: Self / Same As Patient Allergies No Known Allergies Allergy (Verified 01/10/25 12:09) HPI Comments Details: Mega is a pleasant male. He is a patient of Dr. Tidwell. He is seen for the following urologic conditions - erectile dysfunction - bladder cancer - hypogonadism - lower urinary tract symptoms Telemedicine Evaluation 15 min Consultation Riskalyze Ojslyn Video Three-month follow-up Adequate response with gel. Testosterone 600 Notices getting up at night 2-3 times States diabetes control is sufficient Terazosin listed and medications but he denies currently taking Prescription provided Hypogonadism Previously given clomiphene with some response Not tolerating medication Background of diabetes and Suboxone Testosterone 01/16 225, 02/15 322, 05/17 390 - clomiphene stimulation, 10/17 151 - trial testosterone gel, 12/17 T 600 Free testosterone: 01/16 18.5, 02/15 30.6, 05/17 42 LH 01/16 2.2, 02/15 2.7 PSAs are as follows: 11/12 0.2, 03/15 0.3, 01/13 0.3, 07/16 0.2, 01/16 0.3 Prior therapy includes testosterone gel. Failure to increase testosterone. Bladder cancer superficial 2013 Prior TURBT 2013 30 year pack history of smoking Prior nephrolithiasis Treated hepatitis-C Cystoscopy - 01/15 NAD, 01/16 NAD Associated senile angiokeratomas Lower urinary tract symptoms Good response to terazosin PFSH Medical History DVT (deep venous thrombosis) Hypercholesterolemia Anxiety with depression History of subarachnoid hemorrhage (~2015) History of hepatitis C History of bladder cancer (~2013) Personal history of nicotine dependence Diabetes mellitus Obstructive sleep apnea Essential hypertension Ureteral stone with hydronephrosis Erectile dysfunction Chronic pulmonary embolism (~2012) Surgical History History of colonoscopy History of left knee surgery History of transurethral resection of bladder tumor (TURBT) History of biopsy of bladder Family History Father HTN (hypertension) Cancer Myocardial infarction Cancer of prostate Mother HTN (hypertension) Brother No problems noted. Brother Diabetes mellitus Sister No problems noted. Sister No problems noted. Social History Household Members: Spouse Housing: House Are you a primary health care facilities inspector to a significant other at home: No Do you presently have visiting nurse or other home services: No Alcohol intake: current Patient Tobacco Use Status: Former Tobacco user e-Cigarette/Vaping Use: Never Used Second Hand Smoke Exposure: No Substance Use Type: Marijuana service: No Current occupational status: disabled Current occupational exposures/hazards: No Cognitive needs: No Hearing needs: No Vision needs: No Review of Systems Const All systems reviewed & are unremarkable except as noted in HPI and below Reports no additional complaints Resp Reports no additional complaints GI Reports no additional complaints Reports as per HPI Musc Reports no additional complaints Physical Exam Telemedicine evaluation Appropriate responses Regular breathing rate and rhythm HEENT Head: Yes normal to inspection Ears: hearing grossly normal bilaterally Eyes General: appearance normal, both eyes and all related structures Neck Neck: Yes normal visual inspection Chest Chest palpation & inspection: normal inspection of the chest Resp Effort & Inspection: normal respiratory effort and able to speak in complete sentences Telehealth Telehealth Telehealth Platform: Telephone Location of provider rendering services: practice address Location of patient: address on file Patient Identification confirmed using: Name, : Yes Telehealth method: voice only Patient verbally consented to treatment: Yes Patient verbally consented to billing insurance company: Yes Patient informed of any privacy concerns related to visit: Yes Assessment & Plan Assessment & Plan (1) Low libido: Code(s): R68.82 - Decreased libido Category: Medical (2) Nocturia: Code(s): R35.1 - Nocturia Category: Medical (3) Hypogonadism in male: Code(s): E29.1 - Testicular hypofunction Category: Medical Plan Six-month follow-up lab work Start terazosin Continue topical testosterone Orders: Orders Prostate Specific Antigen 5 Months E29.1 - Testicular hypofunction Testosterone, Total 5 Months E29.1 - Testicular hypofunction Hematocrit 5 Months E29.1 - Testicular hypofunction Medications: Changed From terazosin 5 mg PO DAILY To terazosin 5 mg PO BEDTIME 90 caps 1RF 90 days Refilled testosterone apply 1 packet daily 50 mg transdermal DAILY 150 grams 5RF 30 days E29.1 - Testicular hypofunction Patient Instructions: This note is constructed using voice recognition software. While every effort has been made to ensure accuracy compliance quality performance analyst errors may have been included. Imaging studies, laboratory and physical exam results were discussed and reviewed in detail. No major barriers to patient understanding were identified. An opportunity to ask questions regarding the treatment plan was provided. All questions were answered. The patient expressed understanding and agreement with the above treatment plan. The patient is aware they should contact our office by phone for worsening of their current condition or the appearance of new urologic symptoms. Compliance is encouraged with any medications and followup testing that is ordered. It is a privilege to participate in the urologic care of your patient. If you have any questions or concerns regarding treatment for the above conditions, or other urologic issues, please do not hesitate to contact me. The office telephone contact is [phone]. Sincerely, Dr Jarrod Watkins MD, [facility] - Urology Compassionate Specialist Care for the Genitourinary System Coding Level of Care Code Tele Est Pt Level 4 (95489) Insp[employer] Program cplx 4 or more Diagnoses Low libido R68.82 Nocturia R35.1 Hypogonadism in male E29.1
--- OUTSIDE RECORDS SUMMARY | 2025-01-13 07:52 | XMS_ITS | Clinical Summary ---
Author Organization [facility] Address [address] [facility] [address] [place] [phone] Phone Care Team Providers Care Slot Editor Name Role Phone Mohsen Tidwell MD Primary [...] topic Medical Devices Not on file Insurance [facility] ONE CARE MEDICARE REPLACEMENT [facility] MEDICARE REPLACEMENT [facility] ONE CARE MEDICARE REPLACEMENT [facility] CARE MEDICARE REPLACEMENT [employer] Care Teams Slot Editor Relationship Specialty Start Date End Date Mohsen Tidwell MD PCP - General 03/10/19 Additional Source Comments The information contained in this document represents components of the legal health record. It is not the complete legal health record.[facility]
== END 2025-01-13 09:20 | disposition home or self-care (01) ==
LOC: HO.HUSH 07:50
PROVIDERS: PCP Family Medicine; Visit Provider Urology
DX: R68.82 Decreased libido (principal); R35.1 Nocturia; E29.1 Testicular hypofunction
CPT/HCPCS: 99214; G2211